=== PATIENT | male | born 1970 | race Caucasian/White ===

== ENCOUNTER 2024-12-15 11:09 | Inpatient (IN) | payer OTHER, SELFPAY ==
[2024-12-15] VITALS (7 sets, daily range): BP systolic 102–137; BP diastolic 49–75; PULSE 60–98; RESP 16–22; TEMP 36.5–37; O2SAT 95–100; BMI 37.7
--- NOTE | ~2024-12-15 | MR_ITS ---
CLINICAL HISTORY: Wrist wound, ? tracking into joint --- Additional Notes or Special Instructions: active IVDU Pt was unable to hold still due to pain. Unable to repeat Exam: MRI of the left wrist without intravenous contrast. Comparison: None provided. Findings: There is 4 mm of ulnar negative variance. No bone marrow signal alteration within the lunate to suggest avascular necrosis. Bony alignment is otherwise anatomic. No concerning bone marrow signal alteration to suggest osteomyelitis. No acute fracture. Mild scattered degenerative change about the wrist with small amount of fluid within the radiocarpal articulation of the mid carpal joint. Extensive soft tissue edema seen involving the extensor digitorum tendons as well as the flexor tendons to the thumb at the level of the distal forearm. The extensor digitorum tendons are markedly heterogeneous with extensive surrounding induration and fluid. This induration extends to the level of the skin surface where there is a skin defect along the dorsal aspect of the carpus. No well-defined fluid collection seen to suggest abscess. For the flexor tendons, there is heterogeneity increased signal intensity throughout the flexor tendons to the thumb proximal to the thenar eminence. Extensive induration within the superficial soft tissues with ill-defined fluid within the volar aspect of the distal forearm measuring 1.1 x 1.8 cm in size. This is not involve the carpal tunnel. Scapholunate ligament and lunotriquetral ligaments are intact. Triangular fibrocartilage is intact. Impression: 1. No MRI findings of osteomyelitis. 2. Extensive abnormality extensor digitorum longus tendons as discussed above. The appearance is most characteristic of infected tendinopathy and tenosynovitis given the associated dorsal soft tissue defect. 3. Likely similar infected tendinopathy and tenosynovitis of the flexor tendons of the thumb with soft tissue abscess within the volar and radial aspect of the distal forearm. This document has been electronically signed by: David Cooper MD on 12/17/2024 18:22:20
--- NOTE | ~2024-12-15 | XR_ITS ---
CLINICAL HISTORY: right foot wound 3 view right foot Comparison: None provided Findings: Bones intact. No dislocations. Periarticular osteophyte formation at the tibiotalar, talonavicular, naviculocuneiform, and subtalar joints. No ankle effusion. No radiopaque foreign body. IMPRESSION: 1. No acute findings. This document has been electronically signed by: Slim Zamudio MD on 12/15/2024 14:15:37
--- NOTE | ~2024-12-15 | XR_ITS ---
CLINICAL HISTORY: Hip pains Exam: AP pelvis with AP and frog-leg lateral views of both hips. Comparison: CT of the pelvis December 15, 2024. Findings: Bony alignment of the hip joints is anatomic. No fracture or erosion. Mild degenerative change of both hip joints, [id number]-left. This is similar to that seen on the patient's recent CT scan. Sacroiliac joints and pubic symphysis are anatomically aligned. Impression: No acute findings. This document has been electronically signed by: David Cooper MD on 12/28/2024 10:35:38
--- NOTE | ~2024-12-15 | XR_ITS ---
EXAMINATION: XR CHEST CLINICAL INFORMATION: post PICC line placement COMPARISON: Rest 02/27/2018 TECHNIQUE: Frontal view of the chest was obtained. FINDINGS: The right lung is hyperexpanded with elevated right hemidiaphragm and atelectatic changes right lung base. The right upper lobe and left lung is clear. The heart size and pulmonary vascularity is normal. There is a new right PICC line with its tip in mid SVC. No gross bony abnormality. XR/XR chest 1V IMPRESSION: New right PICC line tip in mid SVC. Right lower lobe atelectasis. Electronically signed by: Terrence Chan MD 12/30/2024 12:18 PM EDT
--- NOTE | ~2024-12-15 | CT_ITS ---
CLINICAL HISTORY: ? stone CT abdomen and pelvis without contrast Comparison: None provided Findings: No consolidation or effusion. The gallbladder is distended, measuring 14.5 cm by 6.4 cm. High density material dependently within the gallbladder lumen. Hepatic contour is nodular. Spleen is enlarged measuring 16 cm. No bowel obstruction, pneumoperitoneum, or pneumatosis. 27 mm low-density focus within the right aspect of the prostate. Normal appendix. The bones are intact. IMPRESSION: 1. Indeterminate low-density focus within the prostate, possibly indicating abscess or neoplasm. 2. Cirrhosis and portal hypertension. 3. Gallbladder sludge and distention. If there is clinical evidence for acute cholecystitis, further assessment with ultrasound could be performed. This document has been electronically signed by: Slim Zamudio MD on 12/15/2024 15:04:35
--- NOTE | ~2024-12-15 | US_ITS ---
CLINICAL HISTORY: RLE swelling and redness Venous duplex ultrasound right lower extremity Comparison: None provided Findings: The visualized deep veins are fully compressible with normal Doppler color flow and spectral tracings. No popliteal cyst. IMPRESSION: 1. Negative for right lower extremity deep vein thrombosis. This document has been electronically signed by: Slim Zamudio MD on 12/15/2024 15:23:22
--- NOTE | ~2024-12-15 | XR_ITS ---
EXAMINATION: XR WRIST, LEFT CLINICAL INFORMATION: Wound, IVDU COMPARISON: None available. TECHNIQUE: PA, lateral, and oblique views of the left wrist. FINDINGS: There is soft tissue edema pattern with focal area. Minimal/subtle subcutaneous emphysema along the dorsal aspect of the left wrist. There is no osteolysis. No acute cortical disruption or gross malalignment. XR/XR wrist LT min 3V IMPRESSION: Concerning cellulitis/phlegmon versus abscess, dorsal aspect left wrist. No gross osteomyelitis. Electronically signed by: Paulo Kruger MD 12/17/2024 09:56 AM EDT
--- NOTE | 2024-12-15 11:17 | ED_ITS ---
HPI - General Adult General Chief complaint: Extremity Problem Stated complaint: states he needs to be evaluated Time Seen by Provider: 12/15/24 11:25 Source: patient and family (mother) Mode of arrival: wheelchair History of Present Illness HPI narrative: This is a 54 years old the patient with a history of substance abuse presented to the emergency department because generalized weakness unable to ambulate generalized malaise. Symptoms have been going on for about 2 days he was brought here by his mother Onset (ago): day(s) (2) Location: lower extremity Radiation: non-radiation Severity: moderate Quality: burning Pain Consistency: constant Relieving factors: none Exacerbating factors: none Associated symptoms: denies other symptoms Related Data Home Medications ?Medication ?Instructions ?Recorded ?Confirmed lorazepam 0.5 mg tablet 0.5 mg PO BID 12/15/2412/15 quetiapine 50 mg tablet 100 mg PO BEDTIME 12/15/24 0 12/15/24 sertraline 100 mg tablet 50 mg PO BEDTIME 12/15/24 trazodone 50 mg tablet 50 mg PO BEDTIME 12/15/24 methadone 10 mg/mL oral 30 mg PO DAILY@1800 12/16/24 12/16/24 concentrate (Methadone Intensol) methadone 10 mg/mL oral 175 mg PO DAILY 12/16/2404/01 concentrate (Methadone Intensol) Allergies Allergy/AdvReac Type Severity Reaction Status Date / Time No Known Allergies (No Known Allergy Verified 12/15/24 11:18 Allergies*) Review of Systems 2 Constitutional: Constitutional: Reports no additional constitutional complaints Cardiovascular: Cardiovascular: Reports no additional cardiovascular complaints Musculoskeletal: Musculoskeletal: Reports no additional musculoskeletal complaints [facility] Past Medical History [facility] Narrative: Polysubstance abuse Medical History (Updated 12/15/24 @ 15:53 by Rodney Decker MD) Opiate dependence Social History Social History Household Members: Family Household Members Other:: mom Housing: House Do you presently have visiting nurse or other home services: No Patient Tobacco Use Status: Never used Tobacco Tobacco use type: Cigarette Cigarettes Per Day: 2 Years Smoked: 25 Smoked in Last 30 Days: Yes Patient Interested in Nicotine Replacement: Yes Patient Given Instructions on How to Stop Smoking: Yes Date Education Initiated: 12/16/24 Second Hand Smoke Exposure: Yes Substance Use Type: Heroin Have you been hit, kicked, punched, or otherwise hurt by someone within the past year? If so, by whom?: No Do you feel safe in your current relationship?: No Current Relationship Is there a partner from a previous relationship who is making you feel unsafe now?: No Are you made to feel afraid or neglected: No Advance Directives: No Advance Directives Information Provided: Yes Do you have a plan to hurt others: No Plan Recently lost weight without trying: Unsure Eating poorly because of decreased appetite: No Nutrition Risks: No Nutritional Risk Poor oral hygiene: No service: No Physical Exam ED Exam Exam: Appear lethargic Vital Signs: Vital Signs - 24 hr 12/15/24 11:13 12/15/24 11:37 12/15/24 13:26 Temperature 97.7 F 97.8 F Pulse Rate 98 90 87 Respiratory Rate 16 20 16 Blood Pressure 102/55 L 103/49 L 137/68 Pulse Oximetry 96 96 100 Oxygen Delivery Method Room Air Room Air Room Air BMI result Body Mass Index 37.7 Const General: cooperative Nutritional Appearance: average body habitus Orientation/consciousness: oriented to person, oriented to place, oriented to time and patient oriented x3 Eyes General: appearance normal, both eyes and all related structures Neck Neck: Yes normal visual inspection Chest Chest palpation & inspection: normal inspection of the chest Resp Effort & Inspection: normal respiratory effort Auscultation: clear to auscultation bilaterally Cardio Jugular venous distension: no JVD Palpation: normal PMI Rhythm: regular rhythm GI Inspection: Yes normal to inspection Palpation (GI): Soft to palpation, not firm and nontender Auscultation: normal bowel sounds Skin General skin exam: no rashes or lesions noted and elasticity normal Lesions: no lesions Rashes: no rashes Neuro General: oriented to person, oriented to place, oriented to time and patient oriented x3 Cranial nerves: Yes CN's II-XII intact bilaterally Motor exam (neuro): 5/5 motor strength present throughout Extrem Other: Patient has a left open wound in the wrist left and one in the right leg see picture Course Course Course Narrative: RME performed by Sharri Farnsworth PA-C. Patient is a 54 year old assigned male at presenting to the emergency department with a history of opiate use on over 200mg of methadone. Patient states that [facility] refused to dose him on 12/13/2024 because he needs to be evaluated medically first. Patient states that he is not using outside of his Methadone. Detailed physical exam and review of systems are deferred to the geriatric nurse practitioner. Labs ordered. Patient placed back in the waiting room pending room availability and results. Medications Administered Generic Name Dose Route Start Last Admin Trade Name Freq PRN Reason Stop Dose Admin Acetaminophen 650 mg 12/15/24 13:45 12/16/24 05:45 Acetaminophen 325 Mg Tablet PO 650 mg Q6H PRN Administration Pain, Mild 1-3,fever,headache Vancomycin HCl 1,000 mg/ 270 mls @ 270 mls/hr 12/16/24 10:00 12/16/24 11:24 Sodium Chloride IV Infused Q24H PATRICIA Infusion Lactated Ringer's 1,000 mls @ 80 mls/hr 12/15/24 18:15 12/16/24 06:45 Lr IVCONT 80 mls/hr .[id number] PATRICIA Administration Insulin Human Lispro 0 unit 12/15/24 16:30 12/16/24 13:31 Insulin Lispro 100 Unit/Ml 3 Ml Vial SUBCUT 4 unit QIDACHS PATRICIA Administration Protocol Lorazepam 0.5 mg 12/15/24 21:00 12/16/24 09:24 Lorazepam 0.5 Mg Tablet PO 0.5 mg BID PATRICIA Administration Methadone HCl 175 mg 12/16/24 09:00 12/16/24 09:24 Methadone Hcl 20 Mg/2 Ml Oral.Conc PO 175 mg DAILY PATRICIA Administration Sertraline HCl 50 mg 12/15/24 21:00 12/15/24 22:40 Sertraline Hcl 50 Mg Tablet PO 50 mg BEDTIME PATRICIA Administration Sodium Chloride 3 ml 12/15/24 16:00 12/16/24 07:25 0.9 % Sodium Chloride Flush 3 Ml Syringe IVFLUSH Not Given QSHIFT PATRICIA Trazodone HCl 50 mg 12/15/24 21:00 12/15/24 21:46 Trazodone Hcl 50 Mg Tablet PO 50 mg BEDTIME PATRICIA Administration Discontinued Medications Generic Name Dose Route Start Last Admin Trade Name Freq PRN Reason Stop Dose Admin Lactated Ringer's 1,000 mls @ 999 mls/hr 12/15/24 12:30 12/15/24 16:20 Lr IV 12/15/24 13:30 Infused .Q1H1M PATRICIA Infusion Vancomycin HCl 1,250 mg/ 250 mls @ 166.667 mls/hr 12/15/24 12:46 12/15/24 15:13 Sodium Chloride IV 12/15/24 14:15 Infused ONCE ONE Infusion Magnesium Sulfate 2 gm in 50 mls @ 25 mls/hr 12/15/24 13:43 12/15/24 16:20 Magnesium Sulfate/H2o IV 12/15/24 15:42 Infused ONCE ONE Infusion Vancomycin HCl 750 mg/ Sodium 265 mls @ 265 mls/hr 12/15/24 15:00 12/15/24 16:20 Chloride IV 12/15/24 15:59 Infused ONCE ONE Infusion Potassium Chloride 40 meq 12/15/24 13:43 12/15/24 14:06 Potassium Chloride Packet 20 Meq Packet PO 12/15/24 13:44 40 meq ONCE ONE Administration Procedures EJ/Peripheral Line Arm R: Time Out Performed: Yes Skin Cleansed in Sterile Fashion: Yes Size (gauge): 18 IV Secured and Dressing Applied: Yes Patient Tolerated Procedure: well and no complications Additional Comments: Difficult IV access, under ultrasound-guided I cannulated the right basilic vein with a 18 gauge long catheter blood was obtain line was flushed and secured Medical Decision Making Medical Decision Making [facility] Narrative: Patient is here complaining of weakness legs pain we will obtain labs administer IV fluids Differential Diagnosis Differential Diagnoses: The differential diagnosis associated with the presentation includes Sepsis/the Admission/Observation Consideration of admission/observation: Escalation of care including admission/observation considered Lab Data [facility] Lab Attestation statement: I reviewed the patient's lab results. 12/16/24 04:42 12/16/24 04:42 Labs: Lab Results 12/15/24 12/15/24 12/15/24 Range/Units 11:52 11:56 12:02 WBC 5.7 (4.8-10.8) X10*3/uL RBC 4.06 L (4.60-5.80) X10*6/uL Hgb 11.5 L (14.0-18.0) g/dl Hct 34.7 L (42.0-52.0) % MCV 85.5 (80.0-98.0) fL MCH 28.3 (27.0-33.0) pg MCHC 33.1 (31.0-36.0) g/dl RDW 13.6 (11.0-16.0) % Plt Count 64 L (160-400) X10*3/uL MPV 12.5 H (9.4-12.4) fL Immature Gran % (Auto) 0.9 H (0.0-0.4) % Neut % (Auto) 88.1 H (45-73) % Lymph % (Auto) 6.0 L (20-40) % [place] % (Auto) 4.6 (2-11) % Eos % (Auto) 0.2 (0-4) % Baso % (Auto) 0.2 (0-2) % Lymph # (Auto) 0.3 L (1.2-4.9) X10*3/uL [place] # (Auto) 0.3 (0.1-1.2) X10*3/uL Eos # (Auto) 0.0 (0.0-0.4) X10*3/uL Baso # (Auto) 0.0 (0.0-0.2) X10*3/uL Abs Immat Gran (auto) 0.05 H (0.00-0.03) X10*3/uL Absolute Neuts (auto) 5.0 (2.0-8.3) x10*3/uL Absolute Nucleated RBC 0.000 (0.0-0.012) X10*3/uL Nucleated RBC % (auto) 0.0 (0.0-0.2) /100WBC ESR 89 H (0-15) MM/HR VBG pH 7.35 (7.32-7.43) VBG pCO2 50 mmHg VBG pO2 45 mmHg VBG HCO3 28 H (22-26) mmol/L VBG O2 Saturation 64.0 % VBG Base Excess 1.8 mmol/L Sodium 128 L (135-145) mmol/L Potassium 3.1 L (3.3-5.1) mmol/L Chloride 88 L (96-108) mmol/L Carbon Dioxide 24 (22-29) mmol/L Anion Gap 19 (12-20) BUN 46 H (9-16) mg/dL Creatinine 2.94 H (0.5-1.4) mg/dL Estim Creat Clear Calc 37.8 Estimated GFR 22 Random Glucose 321 H (60-115) mg/dL Estimat Average Glucose 318 mg/dL Hemoglobin A1c % 12.7 H (<6.0) % Lactic Acid F/U @ 2Hr 3.9 H* (0.5-2.0) mmol/L Calcium 8.0 L (8.4-10.2) mg/dL Magnesium 1.5 L (1.6-2.6) mg/dL Total Bilirubin 1.3 H (0.0-1.0) mg/dL AST 79 H (5-37) U/L ALT 30 (0-40) U/L Alkaline Phosphatase 89 (39-117) U/L Ammonia 25 (13-55) umol/L Total Creatine Kinase 111 (38-174) U/L Troponin I High Sens 4.0 (<3.5-35.0) ng/L C-Reactive Protein 22.45 H (< or = 0.50) mg/dL Total Protein 9.0 H (6.5-8.0) g/dL Albumin 2.6 L (3.5-5.0) g/dL Prostate Specific Ag < 0.10 (<0.05-4.0) ng/mL Independent Interpretation I performed an independent interpretation of an: CT Scan Radiology Impression Discussion of test interpretation with radiology: I have reviewed the radiologist's reading. Independent Historian mother Prescription Management I considered prescription management with: Antibiotic Chronic Conditions Substance abuse/cirrhosis of the liver Social Determinants Patient?s care significantly limited by Social Determinants of Health including: Other Social Determinant of Health Drug abuse Critical Care Time Critical Care Time Critical Care Time: Yes Total Critical Care Time: 60 Attestation: Lactic acidosis acute renal failure tachycardic the patient speaking with the mother hospitalist Discharge Plan Discharge Clinical Impression: Acidosis, lactic, Acute hyponatremia, Substance abuse Acute renal failure Qualifiers: Acute renal failure type: unspecified Qualified Code(s): N17.9 - Acute kidney failure, unspecified Cellulitis Qualifiers: Site of cellulitis: extremity Site of cellulitis of extremity: lower extremity Laterality: right Qualified Code(s): L03.115 - Cellulitis of right lower limb Patient Disposition: Admitted As Inpatient Interventions: Admission Worksheet (ED) Last Done: 12/16/24 07:45 Discharge Date/Time: 12/16/24 08:42
--- NOTE | 2024-12-15 11:18 | ECG_ITS ---
Test Reason : methadone use Blood Pressure : */* mmHG Vent. Rate : 92 BPM Atrial Rate : 92 BPM P-R Int : 170 ms QRS Dur : 108 ms QT Int : 472 ms P-R-T Axes : 56 50 -9 degrees QTcB Int : 583 ms Sinus rhythm with occasional Premature ventricular complexes Cannot rule out Anterior infarct , age undetermined Prolonged QT Abnormal ECG When compared with ECG of 25-Feb-2018 08:25, QT has lengthened Referred By: Sharri Farnsworth Electronically Signed By: Jaspreet Ford
[2024-12-15 12:02] LABS: MANUAL DIFF FLAG NO
[2024-12-15 12:03] LABS: Hematocrit 34.7 % (42.0-52.0); Hemoglobin 11.5 g/dl (14.0-18.0); Imm Gran Abs Auto 0.05 X10*3/uL (0.00-0.03); Imm Gran Pct Auto 0.9 % (0.0-0.4); Lymphocytes Absolute Auto 0.3 X10*3/uL (1.2-4.9); Mean Corpuscular HGB Conc 33.1 g/dl (31.0-36.0); Mean Corpuscular Hemoglobin 28.3 pg (27.0-33.0); Mean Corpuscular Volume 85.5 fL (80.0-98.0); NRBC Abs Auto 0.000 X10*3/uL (0.0-0.012); NRBC Pct Auto 0.0 /100WBC (0.0-0.2); Red Blood Count 4.06 X10*6/uL (4.60-5.80); White Blood Count 5.7 X10*3/uL (4.8-10.8)
[2024-12-15 12:05] LABS: VBG HCO3 28 mmol/L (22-26); VBG O2 % Saturation 64.0 %
[2024-12-15 12:06] LABS: Venous Blood Gas Refer to POC result
[2024-12-15 12:11] LABS: Ammonia 25 umol/L (13-55)
[2024-12-15 12:19] LABS: Alanine Aminotransferase 30 U/L (0-40); Albumin Level 2.6 g/dL (3.5-5.0); Alkaline Phosphatase 89 U/L (39-117); Anion Gap 19 (12-20); Aspartate Amino Transferase 79 U/L (5-37); Blood Urea Nitrogen 46 mg/dL (9-16); Calcium 8.0 mg/dL (8.4-10.2); Carbon Dioxide 24 mmol/L (22-29); Chloride 88 mmol/L (96-108); Creatinine Clr Calc Pharmacy 37.8; Estimated Glomerular Filt Rate 22; Magnesium 1.5 mg/dL (1.6-2.6); Potassium 3.1 mmol/L (3.3-5.1); Sodium 128 mmol/L (135-145); Total Protein 9.0 g/dL (6.5-8.0)
[2024-12-15 12:26] LABS: Troponin-I High Sensitivity 4.0 ng/L (<3.5-35.0)
[2024-12-15 12:27] LABS: ~Lactic Acid-LAB USE ONLY 3.9 mmol/L (0.5-2.0)
[2024-12-15 12:28] LABS: Platelet Count 64 X10*3/uL (160-400)
[2024-12-15] MEDS: Lactated Ringers 1,000 ML 999 ML IV (12:33)
--- NOTE | 2024-12-15 12:40 | PC.NURSE ---
Pt comes to ED c/o right leg pain and generalized weakness. Hes alert and oriented, but very drowsy and lethargic. He has wounds on his right food and on left wrist. Right lower leg is reddened, swollen and painful. He reports a hx of IVDA, injects in the wound sites, last used heroin . Patient also states he was refused methadone from [facility] on Monday d/t drowsiness. He has an 18g IV in LAC and an 18g U/S guided in upper right arm. LR currently infusing. NSR on tele. Plan of care on going.
--- NOTE | 2024-12-15 13:36 | PM.IMHP ---
History of Present Illness Date of Service: 12/15/24 Attending physician on admission: Carlos Mendieta Chief Complaint: weakness This is a 54-year-old male with history opiate abuse who comes to the emergency department today for evaluation weakness. Patient is a vague historian but states that he has pain on his entire right side. He says that the methadone clinic has not given him on methadone us in the past 3 days because he looks too weak. He reports generalized weakness and decreased po intake over the past several days. He has no abdominal pain, nausea or vomiting but reports no appetite. He denies any falls, respiratory or urinary symptoms. He has not had fever. He initially denied using intravenous drugs actively but then stated that he has been using IV drugs, he reports using IV heroin but is unable to specify frequency or quantity at this time. In the emergency department he was noted to have multiple lab abnormalities, creatinine 2.94, random glucose 321, sodium 128, potassium 3.1, platelets 64. He was noted to have a wound on his left wrist and right ankle and he was treated with a with a dose of IV vancomycin. Patient does not have a primary care provider or follow with a merchandising coordinator. He says he has not seen a doctor in many years. There are no recent baseline labs available for comparison. The emergency department requested admission for further management. Review of Systems Review of Systems: Yes all other systems are reviewed and are negative Constitutional: Constitutional: Denies chills and Denies fever(s) ENT: Denies dizziness Cardiovascular: Cardiovascular: Denies chest pain, Denies palpitations and Denies dyspnea Respiratory: Respiratory: Denies cough and Denies dyspnea Gastrointestinal: Gastrointestinal: Denies abdominal pain, Denies diarrhea and Denies vomiting Genitourinary: Genitourinary: Denies oliguria, Denies dysuria, Denies urinary frequency, Denies urinary incontinence and Denies urinary urgency Neurologic: Denies dizziness Endocrine: Endocrine: Denies palpitations [facility] Medical History (Updated 12/15/24 @ 14:49 by CAMERON Jackson) Opiate dependence Social History Smoked in Last 30 Days: Yes Substance Use Type: Heroin Advance Directives: No Advance Directives Information Provided: Yes Do you have a plan to hurt others: No Plan Meds Allergies Allergy/AdvReac Type Severity Reaction Status Date / Time No Known Allergies (No Known Allergy Verified 12/15/24 11:18 Allergies*) Active Medications: Current Medications Vancomycin HCl 1,250 mg/ (Sodium Chloride) 250 mls @ 166.667 mls/hr IV ONCE ONE Stop: 12/15/24 14:15 Last Admin: 12/15/24 12:57 Dose: 166.67 mls/hr Home Medications ?Medication ?Instructions ?Recorded ?Confirmed ?Last Taken ?Type lorazepam 0.5 mg tablet 0.5 mg PO BID 12/15/24 12/15/24 12/12/24 History methadone 10 mg tablet 205 mg PO DAILY 12/15/24 12/12/24 History quetiapine 50 mg tablet 100 mg PO BEDTIME 12/15/24 12/15/24 12/12/24 History sertraline 100 mg tablet 50 mg PO BEDTIME 12/15/24 12/15/24 12/12/24 History trazodone 50 mg tablet 50 mg PO BEDTIME 12/15/24 12/15/24 12/12/24 History Physical Exam Vital Signs and Narrative: Vital Signs: Last Vital Signs Temp 97.8 F 12/15/24 11:37 Pulse 87 12/15/24 13:26 Resp 16 12/15/24 13:26 BP 137/68 12/15/24 13:26 Pulse Ox 100 12/15/24 13:26 O2 Del Method Room Air 12/15/24 13:26 BMI result Body Mass Index 37.7 Const: Other: oriented but vague General: alert and awake Nutritional Appearance: obese Orientation/consciousness: patient oriented x3 Resp: Effort & Inspection: normal respiratory effort, able to speak in complete sentences, no respiratory distress and no use of accessory muscles Cardio: Rate: regular rate GI: Inspection: No distended Palpation (GI): Soft to palpation and nontender Skin: Other: b/l LE venous stasis dermatitis right foot/anterior ankle ulcer with no purulent drainage erythema right leg lateral and posterior thigh extending down right lopez left wrist wound with purulent drainage, no flucuance Neuro: Other: grossly nonfocal General: patient oriented x3 Results Labs 12/15/24 11:52 12/15/24 11:52 Labs: Laboratory Results - last 24 hr 12/15/24 12/15/24 11:52 12:02 MCV 85.5 MCH 28.3 MCHC 33.1 RDW 13.6 Plt Count 64 L MPV 12.5 H Immature Gran % (Auto) 0.9 H Neut % (Auto) 88.1 H Lymph % (Auto) 6.0 L [place] % (Auto) 4.6 Eos % (Auto) 0.2 Baso % (Auto) 0.2 Lymph # (Auto) 0.3 L [place] # (Auto) 0.3 Eos # (Auto) 0.0 Baso # (Auto) 0.0 Abs Immat Gran (auto) 0.05 H Absolute Neuts (auto) 5.0 Absolute Nucleated RBC 0.000 Nucleated RBC % (auto) 0.0 VBG pH 7.35 VBG pCO2 50 VBG pO2 45 VBG HCO3 28 H VBG O2 Saturation 64.0 VBG Base Excess 1.8 Anion Gap 19 Estim Creat Clear Calc 37.8 Estimated GFR 22 Random Glucose 321 H Lactic Acid F/U @ 2Hr 3.9 H* Calcium 8.0 L Magnesium 1.5 L Total Bilirubin 1.3 H AST 79 H ALT 30 Alkaline Phosphatase 89 Ammonia 25 Total Protein 9.0 H Albumin 2.6 L Assessment and Plan (1) Hypokalemia: Status: Acute (2) Cellulitis of right leg: Status: Acute (3) IVDU (intravenous drug user): Status: Acute Plan This is a 54-year-old male with h/o IVDU on methadone, previous notes indicate history of liver cirrhosis (pt denies) who presents to the emergency department with generalized weakness found to have multiple acute issues Renal insufficiency Uncertain chronicity as there is no recent baseline renal function available, possible MADDY CT abd/pelvis pending to rule out obstructive uropathy got 1L LR in ED Follow BMP New onset diabetes Hemoglobin A1c 12.7 start SSI, follow 24 hour insulin needs POCs, ADA diet pseudohyponatremia due to hyperglycemia sodium should improve with improvement in blood sugar acute lactic acidosis no sepsis, likely type 2 got IVF in ED follow repeat probable liver cirrhosis with thrombocytopenia pt denies but previous notes indicate history previous history of heavy etoh use and current IVDU t.bili 1.3, AST 79 - near baseline CT A/P pending RLE cellulitis concern for thrombophlebitis IV vancomycin follow blood cultures check RLE US RLE and left wrist wounds do not appear to need debridement or I&D at this time xray of right foot unremarkable check inflammatory markers abx as above local wound care Hypokalemia Likely due to decreased p.o. intake Replace and follow Hypomagnesemia Replace and follow IVDU/substance abuse confirm methadone dose - QT prolonged, consider resuming 50% of dose when confirmed and follow EKG COWS to monitor for withdrawal addiction med consult QT prolongation reduce dose of methadone (when dose confirmed) hold seroquel Mood Hold Seroquel Continue sertraline, lorazepam, trazodone dvt ppx - avoid chemophrophylaxis due to thrombocytopenia Patient will likely require 2 midnight stay in the hospital for management of new onset diabetes cellulitis, multiple skin infections in electrolyte abnormalities requiring close monitoring Quality Stroke Does the patient have a stroke diagnosis?: No VTE Prior VTE?: No VTE Risk Level:: Medical - moderate - high VTE Device Contraindication: Treatment Not Indicated VTE Drug Contraindication: Treatment Not Indicated
[2024-12-15 14:00] LABS: Reflex Lactate? 2 Y
[2024-12-15] MEDS: Magnesium Sulfate/H2O 2 GM/50 ML PIGGYBACK IV (14:04)
[2024-12-15] MEDS: Potassium Chloride Packet 20 MEQ PACKET 40 MEQ PO (14:06)
[2024-12-15 14:11] LABS: Hemoglobin A1C 360.4635 umol/L; Total Hemoglobin (HGBA1C) 3122.5884 umol/L
--- NOTE | 2024-12-15 14:21 | PHA.PROG ---
Admission Date/Time: December 15, 2024 13:45 Indication: SKIN Weight in k.47 kg Serum Creatinine - Last 168 Hours 12/15/24 11:52 Creatinine 2.94 H Estimated CrCl and GFR - Last 168 Hours 12/15/24 11:52 Estim Creat Clear Calc 37.8 Estimated GFR 22 Vancomycin Loading Dose: 1250 + 750 Current Vancomycin Dosing Regimen: 1000 Q 24H Vancomycin Monitoring using AUC goal of 400 - 600 range with trough as surrogate marker: 449 Date and Time for next Vancomycin Level to be drawn: 12/17 Pharmacist Comments on Vancomycin Plan: Vancomycin dosing will take advantage of [employer] as a clinical decision support tool that uses Bayesian modeling to calculate individual patient's pharmacokinetic parameters and forecast the patient's drug concentration time course with the target goal AUC 24 range of 400 - 600 mg/L/hr.
--- NOTE | 2024-12-15 14:41 | PHA.MEDREC ---
Addendum entered by Nilson Cornelius PharmD 12/15/24 14:43: reviewed Original Note: Pharmacy Consult ? Medication Reconciliation Pharmacy has completed the medication reconciliation. Patient was able to confirm all of his medications. Patient states he takes Methadone 205 mg daily from [facility] , last dose was 12/12/24.
[2024-12-15 15:25] LABS: ~Lactic Acid-LAB USE ONLY 3.6 mmol/L (0.5-2.0)
[2024-12-15 16:57] LABS: Prostate Specific Antigen < 0.10 ng/mL (<0.05-4.0)
[2024-12-15 17:32] LABS: Glucose, Whole Blood 333 mg/dL (60-115)
[2024-12-15 17:44] LABS: Cannabinoid Screen Urine Not Detected (Not Detect)
[2024-12-15 17:52] LABS: Appearance Urine Clear; Glucose Urine UA 100 mg/dL (Negative); PH 5.5 (5.0-9.0); Specific Gravity - Urine 1.010 (1.005-1.025); UMIC TRIGGER UACC YES
[2024-12-15 18:00] LABS: UACC Culture Trigger YES
[2024-12-15] MEDS: Lactated Ringers 1,000 ML 80 ML IVCONT (18:30)
[2024-12-15 21:53] LABS: Glucose, Whole Blood 243 mg/dL (60-115)
--- NOTE | 2024-12-15 22:41 | PC.NURSE ---
pt required heavy assist from bed to chair. full bed bath given. patient is despondent, lethargic, although answers orientation questions clearly, follows commands. left wrist wound irrigated, nonadherent dressing with gauze wrap. Right foot irrigated, zeroform applied to dry wound bed, barrier cream applied to skin around wound. covered with gauze and wrapped.
--- NOTE | 2024-12-15 23:24 | PC.NURSE ---
assumed care of patient at this time, patient has LR @ 80mL/hr running. Patient also urinated on floor educated patient on proper use of urinal. call coronel given and bed locked in lowest position
[2024-12-16] VITALS (9 sets, daily range): BP systolic 119–141; BP diastolic 54–78; PULSE 62–88; RESP 16–20; TEMP 36.1–36.6; O2SAT 93–97; BMI 37.5
--- NOTE | 2024-12-16 | ECG_ITS ---
Test Reason : qtc check Blood Pressure : */* mmHG Vent. Rate : 82 BPM Atrial Rate : 82 BPM P-R Int : 192 ms QRS Dur : 106 ms QT Int : 390 ms P-R-T Axes : 49 46 8 degrees QTcB Int : 455 ms Normal sinus rhythm Normal ECG When compared with ECG of 15-Dec-2024 11:37, Premature ventricular complexes are no longer Present Minimal criteria for Inferior infarct are no longer Present QT has shortened Referred By: Lila Reese Electronically Signed By: Jaspreet Ford
--- NOTE | 2024-12-16 02:40 | PC.NURSE ---
pt again urinated on floor, no attempts to use urinal. Patient cleaned and bed linens changed
[2024-12-16 04:57] LABS: MANUAL DIFF FLAG NO
[2024-12-16 05:00] LABS: Hematocrit 32.4 % (42.0-52.0); Hemoglobin 11.2 g/dl (14.0-18.0); Imm Gran Abs Auto 0.04 X10*3/uL (0.00-0.03); Imm Gran Pct Auto 0.9 % (0.0-0.4); Lymphocytes Absolute Auto 0.4 X10*3/uL (1.2-4.9); Mean Corpuscular HGB Conc 34.6 g/dl (31.0-36.0); Mean Corpuscular Hemoglobin 28.6 pg (27.0-33.0); Mean Corpuscular Volume 82.7 fL (80.0-98.0); NRBC Abs Auto 0.000 X10*3/uL (0.0-0.012); NRBC Pct Auto 0.0 /100WBC (0.0-0.2); Red Blood Count 3.92 X10*6/uL (4.60-5.80); White Blood Count 4.4 X10*3/uL (4.8-10.8)
[2024-12-16 05:10] LABS: Platelet Count 73 X10*3/uL (160-400)
[2024-12-16 05:20] LABS: Alanine Aminotransferase 26 U/L (0-40); Albumin Level 2.3 g/dL (3.5-5.0); Alkaline Phosphatase 77 U/L (39-117); Anion Gap 14 (12-20); Aspartate Amino Transferase 77 U/L (5-37); Blood Urea Nitrogen 39 mg/dL (9-16); Calcium 7.8 mg/dL (8.4-10.2); Carbon Dioxide 25 mmol/L (22-29); Chloride 94 mmol/L (96-108); Creatinine Clr Calc Pharmacy 81.1; Estimated Glomerular Filt Rate 54; Magnesium 1.7 mg/dL (1.6-2.6); Potassium 3.7 mmol/L (3.3-5.1); Sodium 129 mmol/L (135-145); Total Protein 7.9 g/dL (6.5-8.0)
[2024-12-16] MEDS: Lactated Ringers 1,000 ML 80 ML IVCONT ×2 (06:45→20:20)
[2024-12-16 07:01] LABS: Glucose, Whole Blood 185 mg/dL (60-115)
--- NOTE | 2024-12-16 07:34 | PC.NURSE ---
[facility] contacted for dose information. Last given 12/13/24@0930 175mg. 1 take home for evening (30mg). Methadone form completed and faxed to pharmacy. Per Taylor GALEANA at that time pt was altered and offered ambulance to ED. Pt refused. Pt arrived to ED POV @2300. Pt resting quietly. VSS. NAD. IVF @80ml/hr. Will continue to monitor. Plan of care ongoing.
--- NOTE | 2024-12-16 07:51 | HE.PHANOTE ---
RE: METHADONE DOSING Total dose 205 mg. He took a 'split dose' per clinic and had 175 mg in the am and 30 mg take home on 12/13. He said he took the 30 mg take home dose 12/13 'evening'. Can't remember what time per nurse Danyell Parrish. Patient took 175 mg at [facility] [phone] on 12/13/24 @0930 per KERVIN Vazquez.
--- NOTE | 2024-12-16 08:41 | PC.NURSE ---
Micro called with critical results. +bld cxs for MRSA. MD Dyson notified. No new orders received.
--- NOTE | 2024-12-16 09:08 | MHC.CM.PN ---
Pt. lives with his mother, Mikala, whom he said is his HCP, copy requested. He does not have a PCP, CM will provide brochure. He is on Methadone, goes to [facility] for. He does not use home health services or DME. He can arrange transport home at [place]. DCP: home or STR. CM to follow for DC needs.
[2024-12-16] MEDS: methADONE HCl 20 MG/2 ML ORAL.CONC 175 MG PO (09:24)
[2024-12-16 12:11] LABS: Glucose, Whole Blood 201 mg/dL (60-115)
--- NOTE | 2024-12-16 13:27 | HO.WOUND ---
Wound Consult: Initial 54yr old? male admitted to [facility] [place] on 12/15/24- See progress notes and H&P for detailed history.? Wound consult placed for Left Wrist and Right Foot.? Patient agreeable to assessment and photo documentation.? Patient did not have much to report during my assessment - he was sleepy easily arousable but not able to contribute to history much. Did report he injects into the area - he was not present enough to provide harm reduction strategies, or discuss community resources such as [employer]. Will attempt to follow up prior to d/c. Left Wrist Etiology: Injection site Measurements: 1cm x 2cm x 1.2cm Wound Bed: moist fibrinous slough - pink wound bed Drainage / Odor: reese serosang drainage - no odor Edges: ? unattached Consuelo wound: pink erythema - some swelling - No Induration, Fluctuance or Warmth noted Pain: tenderness reported Goals of Treatment: ?Durafiber for moisture management - TT to Provider to consider Ortho assessment and or imaging due to depth of wrist wound Right Foot Etiology: Injection site per Pt Measurements: 2.8cm x 2.5cm x 0.2cm Wound Bed: marbled wound bed with yellow slough and pink moist tissue Drainage / Odor: no odor noted - serosang drainage noted - small amount Edges: ? attached Consuelo wound: Warmth and redness and patches up the leg, noted to the knee medial and lateral sides and up to ischial area - provider aware will TT Provider to consider imaging if needed - ?intact No Induration, Fluctuance or Warmth noted Pain: tenderness reported Goals of Treatment: ? moisture management with Durafiber AG Recommendations: 1. Turn and Reposition every 2 hours and as needed for patient comfort.? Use pillows or wedges to support off loading positions. 2. Off Load all bony prominences with use of pillows and heel boots if needed.? Apply Preventative foams where needed. ? 3. Monitor for incontinence and moisture control, use barrier creams when needed for prevention and treatment. 4. Provide adequate and supplemental nutrition.? 5. Order low air loss mattress. 6. When applicable maintain blood glucose levels per Providers order. Left Wrist and Right Foot - Cleanse and gently irrigate with NS, Pat dry.? Apply barrier to periwound, lightly pack with Durafiber AG, be sure to leave a wick to easy removal.? Cover with gauze and ABD pad followed by gauze wrap.? Change every other day. Re-consult wound care Nurse for wound deterioration or wound changes.
--- NOTE | 2024-12-16 14:25 | P.PNIM_ITS ---
Subjective Subjective Date of Service: 12/16/24 Interval History: f/u on MADDY, cellulitis, wound of wrist, lower extremity Physical Exam 2 Exam: Exam: General: AO X 3, no acute distress Resp: CTA bilateral CVS: S1,S2,RRR GI: +BS, NT, no distention Skin: see pics Neuro: motor grossly intact Psych: appropriate affect Vital Signs: Vital Signs: Last Vital Signs Temp 97.6 F 12/16/24 12:00 Pulse 82 12/16/24 12:00 Resp 20 12/16/24 12:00 BP 137/76 12/16/24 12:00 Pulse Ox 93 12/16/24 12:00 O2 Del Method Room Air 12/16/24 12:00 BMI result Body Mass Index 37.5 Skin: Other: b/l LE venous stasis dermatitis right foot/anterior ankle ulcer with no purulent drainage erythema right leg lateral and posterior thigh extending down right lopez left wrist wound with purulent drainage, no flucuance Extrem: Other: Patient has a left open wound in the wrist left and one in the right leg see picture Objective Data Active Medications Acetaminophen (Acetaminophen 325 Mg Tablet) 650 mg PO Q6H PRN PRN Reason: Pain, Mild 1-3,fever,headache Last Admin: 12/16/24 05:45 Dose: 650 mg Documented By: VERENICE Calcium Carbonate (Calcium Carbonate 750 Mg Tab.Chew) 750 mg PO Q4H PRN PRN Reason: Heartburn Dextrose (Dextrose 50 % 25 Gm/50 Ml Syringe) 25 gm IVPUSH Q15M PRN; Protocol PRN Reason: per Hypoglycemia Standing Ord. Glucose (Glucose Gel 15 Gm Gel..Gram.) 15 gm PO Q15M PRN; Protocol PRN Reason: per Hypoglycemia Standing Ord. Vancomycin HCl 1,000 mg/ (Sodium Chloride) 270 mls @ 270 mls/hr IV Q24H [facility] Last Infusion: 12/16/24 11:24 Dose: Infused Documented By: EARLINE Lactated Ringer's (Lr) 1,000 mls @ 80 mls/hr IVCONT .[id number] [facility] Last Admin: 12/16/24 06:45 Dose: 80 mls/hr Documented By: VERENICE Insulin Human Lispro (Insulin Lispro 100 Unit/Ml 3 Ml Vial) 0 unit SUBCUT QIDACHS [facility]; Protocol Last Admin: 12/16/24 07:50 Dose: 2 unit Documented By: CELIA Lorazepam (Lorazepam 0.5 Mg Tablet) 0.5 mg PO BID [facility] Last Admin: 12/16/24 09:24 Dose: 0.5 mg Documented By: EARLINE Magnesium Hydroxide (Milk Of Magnesia 30 Ml Oral.Susp) 30 ml PO DAILY PRN PRN Reason: Constipation Melatonin (Melatonin 3 Mg Tablet) 6 mg PO BEDTIME PRN PRN Reason: Insomnia Methadone HCl (Methadone Hcl 20 Mg/2 Ml Oral.Conc) 175 mg PO DAILY [facility] Last Admin: 12/16/24 09:24 Dose: 175 mg Documented By: EARLINE Co-signed By: NICKOLAS Methadone HCl (Methadone Hcl 20 Mg/2 Ml Oral.Conc) 30 mg PO DAILY@1800 [facility] Pharmacy Consult (Consult Rx Vancomycin Dosing) 1 each MISCELLANE DAILY PRN PRN Reason: Consult order Quetiapine Fumarate (Quetiapine Fumarate 100 Mg Tablet) 100 mg PO BEDTIME [facility] Sertraline HCl (Sertraline Hcl 50 Mg Tablet) 50 mg PO BEDTIME [facility] Last Admin: 12/15/24 22:40 Dose: 50 mg Documented By: KAREEN Sodium Chloride (0.9 % Sodium Chloride Flush 3 Ml Syringe) [facility] Last Admin: 12/16/24 07:25 Dose: Not Given Documented By: THOM Non-Admin Reason: IV Running Trazodone HCl (Trazodone Hcl 50 Mg Tablet) 50 mg PO BEDTIME [facility] Last Admin: 12/15/24 21:46 Dose: 50 mg Documented By: KAREEN Labs 12/16/24 04:42 12/16/24 04:42 Labs: Laboratory Results - last 24 hr 12/15/24 12/15/24 12/15/24 11:52 14:39 17:14 MCV MCH MCHC RDW Plt Count MPV Immature Gran % (Auto) Neut % (Auto) Lymph % (Auto) [place] % (Auto) Eos % (Auto) Baso % (Auto) Lymph # (Auto) [place] # (Auto) Eos # (Auto) Baso # (Auto) Abs Immat Gran (auto) Absolute Neuts (auto) Absolute Nucleated RBC Nucleated RBC % (auto) ESR 89 H Anion Gap Estim Creat Clear Calc Estimated GFR POC Glucose 333 H Random Glucose Lactic Acid F/U @ 4Hr 3.6 H* Calcium Magnesium Total Bilirubin AST ALT Alkaline Phosphatase Total Creatine Kinase 111 Total Protein Albumin Prostate Specific Ag < 0.10 Urine Color Urine Appearance Urine pH Ur Specific [place] Urine Protein Urine Glucose (UA) Urine Ketones Urine Blood Urine Nitrite Ur Leukocyte Esterase Urine RBC Urine WBC Ur Squamous Epith Cells Urine Bacteria Hyaline Casts Urine Opiates Screen Ur Buprenorphine Scrn Ur Oxycodone Screen Urine Methadone Screen Urine Fentanyl Screen Ur Barbiturates Screen Ur Phencyclidine Scrn Ur Amphetamines Screen U Benzodiazepines Scrn Urine Cocaine Screen U Marijuana (THC) Screen 12/15/24 12/15/24 12/16/24 17:20 21:45 04:42 MCV 82.7 MCH 28.6 MCHC 34.6 RDW 13.6 Plt Count 73 L MPV 11.1 Immature Gran % (Auto) 0.9 H Neut % (Auto) 84.2 H Lymph % (Auto) 9.9 L [place] % (Auto) 4.8 Eos % (Auto) 0.0 Baso % (Auto) 0.2 Lymph # (Auto) 0.4 L [place] # (Auto) 0.2 Eos # (Auto) 0.0 Baso # (Auto) 0.0 Abs Immat Gran (auto) 0.04 H Absolute Neuts (auto) 3.7 Absolute Nucleated RBC 0.000 Nucleated RBC % (auto) 0.0 ESR Anion Gap 14 Estim Creat Clear Calc 81.1 Estimated GFR 54 POC Glucose 243 H Random Glucose 208 H Lactic Acid F/U @ 4Hr Calcium 7.8 L Magnesium 1.7 Total Bilirubin 1.8 H AST 77 H ALT 26 Alkaline Phosphatase 77 Total Creatine Kinase Total Protein 7.9 Albumin 2.3 L Prostate Specific Ag Urine Color Dark Yellow Urine Appearance Clear Urine pH 5.5 Ur Specific [place] 1.010 Urine Protein 30 (1+) H Urine Glucose (UA) 100 H Urine Ketones Negative Urine Blood Small (1+) H Urine Nitrite Negative Ur Leukocyte Esterase Small (1+) H Urine RBC 0-2 Urine WBC 6-10 Ur Squamous Epith Cells 11-20 Urine Bacteria None Seen Hyaline Casts 3-5 Urine Opiates Screen POSITIVE H Ur Buprenorphine Scrn Not Detected Ur Oxycodone Screen Not Detected Urine Methadone Screen Positive H Urine Fentanyl Screen POSITIVE H Ur Barbiturates Screen Not Detected Ur Phencyclidine Scrn Not Detected Ur Amphetamines Screen Not Detected U Benzodiazepines Scrn POSITIVE H Urine Cocaine Screen Not Detected U Marijuana (THC) Screen Not Detected 12/16/24 12/16/24 06:58 11:44 MCV MCH MCHC RDW Plt Count MPV Immature Gran % (Auto) Neut % (Auto) Lymph % (Auto) [place] % (Auto) Eos % (Auto) Baso % (Auto) Lymph # (Auto) [place] # (Auto) Eos # (Auto) Baso # (Auto) Abs Immat Gran (auto) Absolute Neuts (auto) Absolute Nucleated RBC Nucleated RBC % (auto) ESR Anion Gap Estim Creat Clear Calc Estimated GFR POC Glucose 185 H 201 H Random Glucose Lactic Acid F/U @ 4Hr Calcium Magnesium Total Bilirubin AST ALT Alkaline Phosphatase Total Creatine Kinase Total Protein Albumin Prostate Specific Ag Urine Color Urine Appearance Urine pH Ur Specific [place] Urine Protein Urine Glucose (UA) Urine Ketones Urine Blood Urine Nitrite Ur Leukocyte Esterase Urine RBC Urine WBC Ur Squamous Epith Cells Urine Bacteria Hyaline Casts Urine Opiates Screen Ur Buprenorphine Scrn Ur Oxycodone Screen Urine Methadone Screen Urine Fentanyl Screen Ur Barbiturates Screen Ur Phencyclidine Scrn Ur Amphetamines Screen U Benzodiazepines Scrn Urine Cocaine Screen U Marijuana (THC) Screen Microbiology Microbiology Results: Microbiology 12/15/24 18:01 Urine Culture - Preliminary Urine clean catch - Clean Catch Midstream Culture too young to evaluate. 12/15/24 11:52 Blood Culture - Preliminary Blood - Venous Prelim: GPC Gram Stain only 12/15/24 11:52 Blood Culture - Preliminary Blood - Venous Prelim: GPC Gram Stain only Assessment and Plan (1) IVDU (intravenous drug user): Status: Acute (2) Substance abuse: Status: Acute (3) Acute renal failure: Status: Acute (4) Cellulitis of right leg: Status: Acute (5) Cellulitis: Status: Acute Plan This is a 54-year-old male with h/o IVDU on methadone, previous notes indicate history of liver cirrhosis (pt denies) who presents to the emergency department with generalized weakness found to have multiple acute issues MADDY, improved Cr 1.37 from 2.94 after iv fluid continue monitoring New onset diabetes Hemoglobin A1c 12.7 start SSI, follow 24 hour insulin needs low dose lantus tonight POCs, ADA diet hyponatremia due to hyperglycemia sodium should improve with improvement in blood sugar acute lactic acidosis no sepsis, likely type 2 got IVF in ED follow repeat probable liver cirrhosis with thrombocytopenia pt denies but previous notes indicate history previous history of heavy etoh use and current IVDU t.bili 1.3, AST 79 - near baseline CT A/P pending RLE cellulitis concern for thrombophlebitis IV vancomycin follow blood cultures US no clot RLE and left wrist wounds do not appear to need debridement or I&D at this time xray of right foot unremarkable check inflammatory markers abx as above local wound care Ortho consult Hypokalemia, resolved Hypomagnesemia Replaced and resolved IVDU/substance abuse confirm methadone dose - QT prolonged, consider resuming 50% of dose when confirmed and follow EKG COWS to monitor for withdrawal addiction med consult QT prolongation reduce dose of methadone (when dose confirmed) hold seroquel Mood Hold Seroquel Continue sertraline, lorazepam, trazodone dvt ppx - avoid chemophrophylaxis due to thrombocytopenia Patient will likely require 2 midnight stay in the hospital for management of new onset diabetes cellulitis, multiple skin infections in electrolyte abnormalities requiring close monitoring Quality Stroke Does the patient have a stroke diagnosis?: No VTE Prior VTE?: No VTE Risk Level:: Medical - moderate - high VTE Device Contraindication: Treatment Not Indicated VTE Drug Contraindication: Treatment Not Indicated
--- NOTE | 2024-12-16 15:48 | HO.ADDICTCON ---
History of Present Illness Date of Service: 12/16/2024 Chief Complaint: MADDY, cellulitis Reason for Consult: OUD Sources of Information: patient interviewed and chart reviewed HPI Narrative: Patient is a 54 year old male who presented to [facility] ED c/o weakness and opiate withdrawal. Per patient, he was directed by his [facility] to seek medical care due to his overall appearance and their concern for his health. He had not received methadone since 12/13. In ED, work up showed new onset DM and RLE cellulitis--patient admitted. Labs showing Cr 2.94, K 3.1 Mg 1.5 (both repleted) CBC showing thrombocytopenia--notes state pt with dx of liver cirrhosis. Patient seen in room 486. He was c/o of overall soreness, but denies withdrawal sx. He states he only recently started using due to not having methadone. Has been prescribed methadone for close to 20 years. He is seen at [facility]. Dose confirmed to be 175mg in AM and 30mg QHS--which was already ordered. Substance use and treatment history obtained by director of testing and reviewed. Appearing overall comfortable, no diaphoresis or restlessness noted. Medical Evaluation Reviewed: Yes Review of Systems Constitutional: Reports as per HPI Diagnostics Vital Signs (24Hr): Vital Signs - 24 hr 12/15/24 16:00 12/15/24 18:00 12/16/24 03:07 Temperature 98.6 F 98.5 F 97.7 F Pulse Rate 86 80 88 Respiratory Rate 16 16 16 Blood Pressure 131/74 130/75 119/60 Pulse Oximetry 99 99 97 Oxygen Delivery Method Room Air Room Air Room Air 12/16/24 05:43 12/16/24 07:51 12/16/24 12:00 Temperature 97.8 F 97.6 F Pulse Rate 87 87 82 Respiratory Rate 16 20 20 Blood Pressure 119/54 L 119/54 L 137/76 Pulse Oximetry 97 95 93 Oxygen Delivery Method Room Air Room Air Room Air 12/16/24 15:41 Temperature 97.0 F Pulse Rate 85 Respiratory Rate 20 Blood Pressure 135/78 Pulse Oximetry 95 Oxygen Delivery Method Room Air BMI result Body Mass Index 37.5 Labs 12/16/24 04:42 12/16/24 04:42 Labs: Laboratory Results - last 48 hr 12/15/24 12/15/24 12/15/24 11:52 11:56 12:02 WBC 5.7 RBC 4.06 L Hgb 11.5 L Hct 34.7 L MCV 85.5 MCH 28.3 MCHC 33.1 RDW 13.6 Plt Count 64 L MPV 12.5 H Immature Gran % (Auto) 0.9 H Neut % (Auto) 88.1 H Lymph % (Auto) 6.0 L [place] % (Auto) 4.6 Eos % (Auto) 0.2 Baso % (Auto) 0.2 Lymph # (Auto) 0.3 L [place] # (Auto) 0.3 Eos # (Auto) 0.0 Baso # (Auto) 0.0 Abs Immat Gran (auto) 0.05 H Absolute Neuts (auto) 5.0 Absolute Nucleated RBC 0.000 Nucleated RBC % (auto) 0.0 ESR 89 H VBG pH 7.35 VBG pCO2 50 VBG pO2 45 VBG HCO3 28 H VBG O2 Saturation 64.0 VBG Base Excess 1.8 Sodium 128 L Potassium 3.1 L Chloride 88 L Carbon Dioxide 24 Anion Gap 19 BUN 46 H Creatinine 2.94 H Estim Creat Clear Calc 37.8 Estimated GFR 22 POC Glucose Random Glucose 321 H Estimat Average Glucose 318 Hemoglobin A1c % 12.7 H Lactic Acid F/U @ 2Hr 3.9 H* Lactic Acid F/U @ 4Hr Calcium 8.0 L Magnesium 1.5 L Total Bilirubin 1.3 H AST 79 H ALT 30 Alkaline Phosphatase 89 Ammonia 25 Total Creatine Kinase 111 Troponin I High Sens 4.0 C-Reactive Protein 22.45 H Total Protein 9.0 H Albumin 2.6 L Prostate Specific Ag < 0.10 Urine Color Urine Appearance Urine pH Ur Specific [place] Urine Protein Urine Glucose (UA) Urine Ketones Urine Blood Urine Nitrite Ur Leukocyte Esterase Urine RBC Urine WBC Ur Squamous Epith Cells Urine Bacteria Hyaline Casts Urine Opiates Screen Ur Buprenorphine Scrn Ur Oxycodone Screen Urine Methadone Screen Urine Fentanyl Screen Ur Barbiturates Screen Ur Phencyclidine Scrn Ur Amphetamines Screen U Benzodiazepines Scrn Urine Cocaine Screen U Marijuana (THC) Screen 12/15/24 12/15/24 12/15/24 14:39 17:14 17:20 WBC RBC Hgb Hct MCV MCH MCHC RDW Plt Count MPV Immature Gran % (Auto) Neut % (Auto) Lymph % (Auto) [place] % (Auto) Eos % (Auto) Baso % (Auto) Lymph # (Auto) [place] # (Auto) Eos # (Auto) Baso # (Auto) Abs Immat Gran (auto) Absolute Neuts (auto) Absolute Nucleated RBC Nucleated RBC % (auto) ESR VBG pH VBG pCO2 VBG pO2 VBG HCO3 VBG O2 Saturation VBG Base Excess Sodium Potassium Chloride Carbon Dioxide Anion Gap BUN Creatinine Estim Creat Clear Calc Estimated GFR POC Glucose 333 H Random Glucose Estimat Average Glucose Hemoglobin A1c % Lactic Acid F/U @ 2Hr Lactic Acid F/U @ 4Hr 3.6 H* Calcium Magnesium Total Bilirubin AST ALT Alkaline Phosphatase Ammonia Total Creatine Kinase Troponin I High Sens C-Reactive Protein Total Protein Albumin Prostate Specific Ag Urine Color Dark Yellow Urine Appearance Clear Urine pH 5.5 Ur Specific [place] 1.010 Urine Protein 30 (1+) H Urine Glucose (UA) 100 H Urine Ketones Negative Urine Blood Small (1+) H Urine Nitrite Negative Ur Leukocyte Esterase Small (1+) H Urine RBC 0-2 Urine WBC 6-10 Ur Squamous Epith Cells 11-20 Urine Bacteria None Seen Hyaline Casts 3-5 Urine Opiates Screen POSITIVE H Ur Buprenorphine Scrn Not Detected Ur Oxycodone Screen Not Detected Urine Methadone Screen Positive H Urine Fentanyl Screen POSITIVE H Ur Barbiturates Screen Not Detected Ur Phencyclidine Scrn Not Detected Ur Amphetamines Screen Not Detected U Benzodiazepines Scrn POSITIVE H Urine Cocaine Screen Not Detected U Marijuana (THC) Screen Not Detected 12/15/24 12/16/24 12/16/24 21:45 04:42 06:58 WBC 4.4 L RBC 3.92 L Hgb 11.2 L Hct 32.4 L MCV 82.7 MCH 28.6 MCHC 34.6 RDW 13.6 Plt Count 73 L MPV 11.1 Immature Gran % (Auto) 0.9 H Neut % (Auto) 84.2 H Lymph % (Auto) 9.9 L [place] % (Auto) 4.8 Eos % (Auto) 0.0 Baso % (Auto) 0.2 Lymph # (Auto) 0.4 L [place] # (Auto) 0.2 Eos # (Auto) 0.0 Baso # (Auto) 0.0 Abs Immat Gran (auto) 0.04 H Absolute Neuts (auto) 3.7 Absolute Nucleated RBC 0.000 Nucleated RBC % (auto) 0.0 ESR VBG pH VBG pCO2 VBG pO2 VBG HCO3 VBG O2 Saturation VBG Base Excess Sodium 129 L Potassium 3.7 Chloride 94 L Carbon Dioxide 25 Anion Gap 14 BUN 39 H Creatinine 1.37 Estim Creat Clear Calc 81.1 Estimated GFR 54 POC Glucose 243 H 185 H Random Glucose 208 H Estimat Average Glucose Hemoglobin A1c % Lactic Acid F/U @ 2Hr Lactic Acid F/U @ 4Hr Calcium 7.8 L Magnesium 1.7 Total Bilirubin 1.8 H AST 77 H ALT 26 Alkaline Phosphatase 77 Ammonia Total Creatine Kinase Troponin I High Sens C-Reactive Protein Total Protein 7.9 Albumin 2.3 L Prostate Specific Ag Urine Color Urine Appearance Urine pH Ur Specific [place] Urine Protein Urine Glucose (UA) Urine Ketones Urine Blood Urine Nitrite Ur Leukocyte Esterase Urine RBC Urine WBC Ur Squamous Epith Cells Urine Bacteria Hyaline Casts Urine Opiates Screen Ur Buprenorphine Scrn Ur Oxycodone Screen Urine Methadone Screen Urine Fentanyl Screen Ur Barbiturates Screen Ur Phencyclidine Scrn Ur Amphetamines Screen U Benzodiazepines Scrn Urine Cocaine Screen U Marijuana (THC) Screen 12/16/24 11:44 WBC RBC Hgb Hct MCV MCH MCHC RDW Plt Count MPV Immature Gran % (Auto) Neut % (Auto) Lymph % (Auto) [place] % (Auto) Eos % (Auto) Baso % (Auto) Lymph # (Auto) [place] # (Auto) Eos # (Auto) Baso # (Auto) Abs Immat Gran (auto) Absolute Neuts (auto) Absolute Nucleated RBC Nucleated RBC % (auto) ESR VBG pH VBG pCO2 VBG pO2 VBG HCO3 VBG O2 Saturation VBG Base Excess Sodium Potassium Chloride Carbon Dioxide Anion Gap BUN Creatinine Estim Creat Clear Calc Estimated GFR POC Glucose 201 H Random Glucose Estimat Average Glucose Hemoglobin A1c % Lactic Acid F/U @ 2Hr Lactic Acid F/U @ 4Hr Calcium Magnesium Total Bilirubin AST ALT Alkaline Phosphatase Ammonia Total Creatine Kinase Troponin I High Sens C-Reactive Protein Total Protein Albumin Prostate Specific Ag Urine Color Urine Appearance Urine pH Ur Specific [place] Urine Protein Urine Glucose (UA) Urine Ketones Urine Blood Urine Nitrite Ur Leukocyte Esterase Urine RBC Urine WBC Ur Squamous Epith Cells Urine Bacteria Hyaline Casts Urine Opiates Screen Ur Buprenorphine Scrn Ur Oxycodone Screen Urine Methadone Screen Urine Fentanyl Screen Ur Barbiturates Screen Ur Phencyclidine Scrn Ur Amphetamines Screen U Benzodiazepines Scrn Urine Cocaine Screen U Marijuana (THC) Screen Mental Status Exam Mental Status Exam Level of Consciousness: Awake and Alert Patient Behavior: Appropriate and Cooperative Affect Description: Calm Speech Pattern: Clear Hallucinations: None Thought Process: Intact Thought Content: positive for Intact Judgement: Good Medications Medications Current Medications Acetaminophen (Acetaminophen 325 Mg Tablet) 650 mg PO Q6H PRN PRN Reason: Pain, Mild 1-3,fever,headache Last Admin: 12/16/24 05:45 Dose: 650 mg Calcium Carbonate (Calcium Carbonate 750 Mg Tab.Chew) 750 mg PO Q4H PRN PRN Reason: Heartburn Dextrose (Dextrose 50 % 25 Gm/50 Ml Syringe) 25 gm IVPUSH Q15M PRN; Protocol PRN Reason: per Hypoglycemia Standing Ord. Glucose (Glucose Gel 15 Gm Gel..Gram.) 15 gm PO Q15M PRN; Protocol PRN Reason: per Hypoglycemia Standing Ord. Vancomycin HCl 1,000 mg/ (Sodium Chloride) 270 mls @ 270 mls/hr IV Q24H [facility] Last Infusion: 12/16/24 11:24 Dose: Infused Lactated Ringer's (Lr) 1,000 mls @ 80 mls/hr IVCONT .[id number] [facility] Last Admin: 12/16/24 06:45 Dose: 80 mls/hr Insulin Human Lispro (Insulin Lispro 100 Unit/Ml 3 Ml Vial) 0 unit SUBCUT QIDACHS [facility]; Protocol Last Admin: 12/16/24 13:31 Dose: 4 unit Lorazepam (Lorazepam 0.5 Mg Tablet) 0.5 mg PO BID [facility] Last Admin: 12/16/24 09:24 Dose: 0.5 mg Magnesium Hydroxide (Milk Of Magnesia 30 Ml Oral.Susp) 30 ml PO DAILY PRN PRN Reason: Constipation Melatonin (Melatonin 3 Mg Tablet) 6 mg PO BEDTIME PRN PRN Reason: Insomnia Methadone HCl (Methadone Hcl 20 Mg/2 Ml Oral.Conc) 175 mg PO DAILY [facility] Last Admin: 12/16/24 09:24 Dose: 175 mg Methadone HCl (Methadone Hcl 20 Mg/2 Ml Oral.Conc) 30 mg PO DAILY@1800 [facility] Pharmacy Consult (Consult Rx Vancomycin Dosing) 1 each MISCELLANE DAILY PRN PRN Reason: Consult order Quetiapine Fumarate (Quetiapine Fumarate 100 Mg Tablet) 100 mg PO BEDTIME [facility] Sertraline HCl (Sertraline Hcl 50 Mg Tablet) 50 mg PO BEDTIME [facility] Last Admin: 12/15/24 22:40 Dose: 50 mg Sodium Chloride (0.9 % Sodium Chloride Flush 3 Ml Syringe) 3 ml IVFLUSH QSHIFT [facility] Last Admin: 12/16/24 07:25 Dose: Not Given Trazodone HCl (Trazodone Hcl 50 Mg Tablet) 50 mg PO BEDTIME [facility] Last Admin: 12/15/24 21:46 Dose: 50 mg Allergies Allergies Allergy/AdvReac Type Severity Reaction Status Date / Time No Known Allergies (No Known Allergy Verified 12/15/24 11:18 Allergies*) Assessment & Plan Assessment & Plan (1) Opioid use disorder: Status: Acute Code(s): F11.90 - Opioid use, unspecified, uncomplicated Assessment and Plan: methadone home dose ordered. repeat EKG improved--QT has shortened. Monitor lytes and replete as necessary. connected to [facility] and supports--risk reduction discussion with RN will continue to check in PRN Total time managing care of this patient today __30__ minutes. PMFSH Past Medical History Medical History (Updated 12/16/24 @ 15:49 by Lila Reese CNP) Opiate dependence Social History Social History Household Members: Family Household Members Other:: mom Housing: House Do you presently have visiting nurse or other home services: No Patient Tobacco Use Status: Never used Tobacco Tobacco use type: Cigarette Cigarettes Per Day: 2 Years Smoked: 25 Smoked in Last 30 Days: Yes Patient Interested in Nicotine Replacement: Yes Patient Given Instructions on How to Stop Smoking: Yes Date Education Initiated: 12/16/24 Second Hand Smoke Exposure: Yes Substance Use Type: Heroin Have you been hit, kicked, punched, or otherwise hurt by someone within the past year? If so, by whom?: No Do you feel safe in your current relationship?: No Current Relationship Is there a partner from a previous relationship who is making you feel unsafe now?: No Are you made to feel afraid or neglected: No Advance Directives: No Advance Directives Information Provided: Yes Do you have a plan to hurt others: No Plan Recently lost weight without trying: Unsure Eating poorly because of decreased appetite: No Nutrition Risks: No Nutritional Risk Poor oral hygiene: No service: No
[2024-12-16 16:10] LABS: Glucose, Whole Blood 169 mg/dL (60-115)
[2024-12-16] MEDS: oxyCODONE HCl Immed Release 5 MG TABLET PO (16:44)
--- NOTE | 2024-12-16 16:44 | PM.CNOR ---
History of Present Illness HPI Consult date: 12/16/24 Chief complaint: MADDY, cellulitis Narrative: Patient is a 54 YO M with PMH IVDU admitted to the hospital for chronic wounds of RLE and LUE with cellulitis of RLE Patient admits that the wound on his LUE at the dorsal wrist has been present for at least 2 months Patient reports that this wound has been worsening over that time Patient reports minimal discomfort in the L wrist Patient has been seen and evaluated by wound care, who had concerns for the depth of the wound, potentially that it tracks into the joint Patient is not entirely attentive during the course of interview Patient does use the left hand and wrist regularly, does not demonstrate any discomfort when doing so No other acute complaints or concerns at this time Review of Systems Review of Systems: Yes all other systems are reviewed and are negative [facility] Past Medical History Medical History (Updated 12/16/24 @ 17:02 by CAMERON Mortensen) Opiate dependence Social History Social History Household Members: Family Household Members Other:: mom Housing: House Do you presently have visiting nurse or other home services: No Patient Tobacco Use Status: Never used Tobacco Tobacco use type: Cigarette Cigarettes Per Day: 2 Years Smoked: 25 Smoked in Last 30 Days: Yes Patient Interested in Nicotine Replacement: Yes Patient Given Instructions on How to Stop Smoking: Yes Date Education Initiated: 12/16/24 Second Hand Smoke Exposure: Yes Substance Use Type: Heroin Have you been hit, kicked, punched, or otherwise hurt by someone within the past year? If so, by whom?: No Do you feel safe in your current relationship?: No Current Relationship Is there a partner from a previous relationship who is making you feel unsafe now?: No Are you made to feel afraid or neglected: No Advance Directives: No Advance Directives Information Provided: Yes Do you have a plan to hurt others: No Plan Recently lost weight without trying: Unsure Eating poorly because of decreased appetite: No Nutrition Risks: No Nutritional Risk Poor oral hygiene: No service: No Meds Allergies Allergy/AdvReac Type Severity Reaction Status Date / Time No Known Allergies (No Known Allergy Verified 12/15/24 11:18 Allergies*) Active Medications: Current Medications Acetaminophen (Acetaminophen 325 Mg Tablet) 650 mg PO Q6H PRN PRN Reason: Pain, Mild 1-3,fever,headache Last Admin: 12/16/24 05:45 Dose: 650 mg Calcium Carbonate (Calcium Carbonate 750 Mg Tab.Chew) 750 mg PO Q4H PRN PRN Reason: Heartburn Dextrose (Dextrose 50 % 25 Gm/50 Ml Syringe) 25 gm IVPUSH Q15M PRN; Protocol PRN Reason: per Hypoglycemia Standing Ord. Glucose (Glucose Gel 15 Gm Gel..Gram.) 15 gm PO Q15M PRN; Protocol PRN Reason: per Hypoglycemia Standing Ord. Vancomycin HCl 1,000 mg/ (Sodium Chloride) 270 mls @ 270 mls/hr IV Q24H [facility] Last Infusion: 12/16/24 11:24 Dose: Infused Lactated Ringer's (Lr) 1,000 mls @ 80 mls/hr IVCONT .[id number] [facility] Last Admin: 12/16/24 06:45 Dose: 80 mls/hr Insulin Human Lispro (Insulin Lispro 100 Unit/Ml 3 Ml Vial) 0 unit SUBCUT QIDACHS [facility]; Protocol Last Admin: 12/16/24 13:31 Dose: 4 unit Lorazepam (Lorazepam 0.5 Mg Tablet) 0.5 mg PO BID [facility] Last Admin: 12/16/24 09:24 Dose: 0.5 mg Magnesium Hydroxide (Milk Of Magnesia 30 Ml Oral.Susp) 30 ml PO DAILY PRN PRN Reason: Constipation Melatonin (Melatonin 3 Mg Tablet) 6 mg PO BEDTIME PRN PRN Reason: Insomnia Methadone HCl (Methadone Hcl 20 Mg/2 Ml Oral.Conc) 175 mg PO DAILY [facility] Last Admin: 12/16/24 09:24 Dose: 175 mg Methadone HCl (Methadone Hcl 20 Mg/2 Ml Oral.Conc) 30 mg PO DAILY@1800 [facility] Oxycodone HCl (Oxycodone Hcl Immed Release 5 Mg Tablet) 5 mg PO Q6H PRN PRN Reason: Pain, Severe (Pain Scale 7-10) Pharmacy Consult (Consult Rx Vancomycin Dosing) 1 each MISCELLANE DAILY PRN PRN Reason: Consult order Quetiapine Fumarate (Quetiapine Fumarate 100 Mg Tablet) 100 mg PO BEDTIME [facility] Sertraline HCl (Sertraline Hcl 50 Mg Tablet) 50 mg PO BEDTIME [facility] Last Admin: 12/15/24 22:40 Dose: 50 mg Sodium Chloride (0.9 % Sodium Chloride Flush 3 Ml Syringe) 3 ml IVFLUSH QSHIFT [facility] Last Admin: 12/16/24 07:25 Dose: Not Given Trazodone HCl (Trazodone Hcl 50 Mg Tablet) 50 mg PO BEDTIME [facility] Last Admin: 12/15/24 21:46 Dose: 50 mg Home Medications ?Medication ?Instructions ?Recorded ?Confirmed ?Last Taken ?Type lorazepam 0.5 mg tablet 0.5 mg PO BID 12/15/24 12/15/24 12/12/24 History quetiapine 50 mg tablet 100 mg PO BEDTIME 12/15/24 12/15/24 12/12/24 History sertraline 100 mg tablet 50 mg PO BEDTIME 12/15/24 12/15/24 12/12/24 History trazodone 50 mg tablet 50 mg PO BEDTIME 12/15/24 12/15/24 12/12/24 History methadone 10 mg/mL oral 30 mg PO DAILY@1800 12/16/24 12/16/24 12/13/24 History concentrate (Methadone Intensol) methadone 10 mg/mL oral 175 mg PO DAILY 12/16/24 12/16/24 12/13/24 History concentrate (Methadone Intensol) Physical Exam Vital Signs: Vital Signs: Last Vital Signs Temp 97.0 F 12/16/24 15:41 Pulse 85 12/16/24 15:41 Resp 20 12/16/24 15:41 BP 135/78 12/16/24 15:41 Pulse Ox 95 12/16/24 15:41 O2 Del Method Room Air 12/16/24 15:41 BMI result Body Mass Index 37.5 Extrem: Other: Patient is alert, oriented, and in no acute distress. Neuro: Normal sensation of the tips of all digits of the left hand at this time Vascular: Cap refill brisk Pain: Minimal tenderness to palpation about wound on dorsal aspect of the left wrist Minimal discomfort with axial loading of the left wrist Range of motion of the left wrist appears painless ROM: Range of motion of the left wrist appears full and intact, patient is able to use the wrist fully Skin: There is an approximately 3-4 cm in diameter at its widest point wound on the dorsal aspect of the left wrist, appears in line with the joint space Of note,there is a sinus in the more ulnar aspect of the wound that does appear to track at least 1-1.5 cm down into the wrist General: Minimal erythema No active drainage at this time Psych: Appears grossly normal Affect normal Attitude cooperative Results Labs 12/16/24 04:42 12/16/24 04:42 Labs: Abnormal lab results 12/15/24 12/15/24 12/15/24 Range/Units 17:14 17:20 21:45 WBC (4.8-10.8) X10*3/uL RBC (4.60-5.80) X10*6/uL Hgb (14.0-18.0) g/dl Hct (42.0-52.0) % Plt Count (160-400) X10*3/uL Immature Gran % (Auto) (0.0-0.4) % Neut % (Auto) (45-73) % Lymph % (Auto) (20-40) % Lymph # (Auto) (1.2-4.9) X10*3/uL Abs Immat Gran (auto) (0.00-0.03) X10*3/uL Sodium (135-145) mmol/L Chloride (96-108) mmol/L BUN (9-16) mg/dL POC Glucose 333 H 243 H (60-115) mg/dL Random Glucose (60-115) mg/dL Calcium (8.4-10.2) mg/dL Total Bilirubin (0.0-1.0) mg/dL AST (5-37) U/L Albumin (3.5-5.0) g/dL Urine Protein 30 (1+) H (Neg-Trace) mg/dL Urine Glucose (UA) 100 H (Negative) mg/dL Urine Blood Small (1+) H (Negative) Ur Leukocyte Esterase Small (1+) H (Negative) Urine Opiates Screen POSITIVE H (Not Detect) Urine Methadone Screen Positive H (Not Detect) ng/mL Urine Fentanyl Screen POSITIVE H (Not Detect) U Benzodiazepines Scrn POSITIVE H (Not Detect) 12/16/24 12/16/24 12/16/24 Range/Units 04:42 06:58 11:44 WBC 4.4 L (4.8-10.8) X10*3/uL RBC 3.92 L (4.60-5.80) X10*6/uL Hgb 11.2 L (14.0-18.0) g/dl Hct 32.4 L (42.0-52.0) % Plt Count 73 L (160-400) X10*3/uL Immature Gran % (Auto) 0.9 H (0.0-0.4) % Neut % (Auto) 84.2 H (45-73) % Lymph % (Auto) 9.9 L (20-40) % Lymph # (Auto) 0.4 L (1.2-4.9) X10*3/uL Abs Immat Gran (auto) 0.04 H (0.00-0.03) X10*3/uL Sodium 129 L (135-145) mmol/L Chloride 94 L (96-108) mmol/L BUN 39 H (9-16) mg/dL POC Glucose 185 H 201 H (60-115) mg/dL Random Glucose 208 H (60-115) mg/dL Calcium 7.8 L (8.4-10.2) mg/dL Total Bilirubin 1.8 H (0.0-1.0) mg/dL AST 77 H (5-37) U/L Albumin 2.3 L (3.5-5.0) g/dL Urine Protein (Neg-Trace) mg/dL Urine Glucose (UA) (Negative) mg/dL Urine Blood (Negative) Ur Leukocyte Esterase (Negative) Urine Opiates Screen (Not Detect) Urine Methadone Screen (Not Detect) ng/mL Urine Fentanyl Screen (Not Detect) U Benzodiazepines Scrn (Not Detect) 12/16/24 Range/Units 16:04 WBC (4.8-10.8) X10*3/uL RBC (4.60-5.80) X10*6/uL Hgb (14.0-18.0) g/dl Hct (42.0-52.0) % Plt Count (160-400) X10*3/uL Immature Gran % (Auto) (0.0-0.4) % Neut % (Auto) (45-73) % Lymph % (Auto) (20-40) % Lymph # (Auto) (1.2-4.9) X10*3/uL Abs Immat Gran (auto) (0.00-0.03) X10*3/uL Sodium (135-145) mmol/L Chloride (96-108) mmol/L BUN (9-16) mg/dL POC Glucose 169 H (60-115) mg/dL Random Glucose (60-115) mg/dL Calcium (8.4-10.2) mg/dL Total Bilirubin (0.0-1.0) mg/dL AST (5-37) U/L Albumin (3.5-5.0) g/dL Urine Protein (Neg-Trace) mg/dL Urine Glucose (UA) (Negative) mg/dL Urine Blood (Negative) Ur Leukocyte Esterase (Negative) Urine Opiates Screen (Not Detect) Urine Methadone Screen (Not Detect) ng/mL Urine Fentanyl Screen (Not Detect) U Benzodiazepines Scrn (Not Detect) H & H 12/15/24 12/16/24 Range/Units 11:52 04:42 Hgb 11.5 L 11.2 L (14.0-18.0) g/dl Hct 34.7 L 32.4 L (42.0-52.0) % All other labs normal. Assessment and Plan (1) Open wound of left wrist: Status: Acute Plan 1. Chronic wound of left wrist Concern for potential tracking into joint At this time, it is unclear whether the wound does indeed track into the wrist joint, however there is concern for this given the depth of the ulnar sinus present in the wound MRI ordered to assess whether the wound does indeed track into the joint space of the left wrist or not Dressing is changed and wound is superficially packed with silver alginate dressing to encourage wound to dry out Continue IV antibiotics in the meantime Orthopedics will continue to follow and will determine if further intervention is indicated after MRI Procedures Date of Service Date of Service: 12/16/24
[2024-12-16] MEDS: 0.9 % Sodium Chloride Flush 3 ML SYRINGE IVFLUSH ×2 (16:45→21:54)
[2024-12-16] MEDS: methADONE HCl 20 MG/2 ML ORAL.CONC 30 MG PO (17:53)
[2024-12-16 21:07] LABS: Glucose, Whole Blood 161 mg/dL (60-115)
[2024-12-17] VITALS (8 sets, daily range): BP systolic 124–153; BP diastolic 58–72; PULSE 77–88; RESP 17–20; TEMP 36.2–37.6; O2SAT 93–97
[2024-12-17 06:39] LABS: Hematocrit 31.6 % (42.0-52.0); Hemoglobin 10.5 g/dl (14.0-18.0); Mean Corpuscular HGB Conc 33.2 g/dl (31.0-36.0); Mean Corpuscular Hemoglobin 28.0 pg (27.0-33.0); Mean Corpuscular Volume 84.3 fL (80.0-98.0); NRBC Abs Auto 0.000 X10*3/uL (0.0-0.012); NRBC Pct Auto 0.0 /100WBC (0.0-0.2); Red Blood Count 3.75 X10*6/uL (4.60-5.80); White Blood Count 3.9 X10*3/uL (4.8-10.8)
[2024-12-17 06:54] LABS: Platelet Count 61 X10*3/uL (160-400)
--- NOTE | 2024-12-17 07:00 | CA_ITS ---
Transthoracic Echocardiogram Patient (Last, First, Middle): Stepan Low, Gender: Male Date of : 1970 Age: 54 Procedure Date: 12/17/2024 Procedure Type: Transthoracic Echocardiogram Location: [facility] [place] Height: 180.34 cm Weight: 121.56 kg BSA: 2.39 m2 Heart Rate: 86 bpm BP: 153 / 69 mmHg Forming Machine Operator: MARICHUY Referring MD: Dinesh Dyson MD Symptoms: bacteremia Study Quality: Adequate ECG Rhythm: Sinus Conclusions: - Normal left ventricular size and systolic function. There is mildly increased left ventricular wall thickness. The visually estimated ejection fraction is between 55-60%. - Normal left ventricular filling pressures. - The basal inferior segment is akinetic. - Normal right ventricular cavity size and systolic function. - There is mild dilatation of the ascending aorta measuring 3.70 cm. Findings Left Ventricle Normal left ventricular size and systolic function. There is mildly increased left ventricular wall thickness. The visually estimated ejection fraction is between 55-60%. There is evidence of regional wall motion abnormalities. Abnormal diastolic function is noted. Spectral Doppler is indicative of an impaired relaxation filling pattern. Normal left ventricular filling pressures. Wall Motion Rest Echo Findings The basal inferior segment is akinetic. Right Ventricle Normal right ventricular cavity size and systolic function. Atria The left atrium is mildly dilated. The right atrium is normal in size. Aortic Valve Normal aortic valve structure and function. There is no aortic valve stenosis. There is no aortic valve regurgitation. Mitral Valve Normal mitral valve structure and function. There is trace mitral valve regurgitation. There is no mitral valve stenosis. Pulmonic Valve The pulmonic valve is normal. There is no pulmonic valve regurgitation. Tricuspid Valve Likely normal tricuspid valve structure and function. There is trace tricuspid valve regurgitation. Normal right atrial pressure. There is no evidence of pulmonary hypertension. Great Vessels There is mild dilatation of the ascending aorta measuring 3.70 cm. Venous The inferior vena cava is normal in size and collapses greater than 50% with inspiration. Pericardium/Pleural There is no evidence of pericardial effusion. Prior Study Comparison Changes noted compared to prior study dated: 03/02/2018. Basal inferior wall appears akinetic. Measurements 2D Linear Measurements IVSd: 1.10 0.6-0.9/0.6-1.0 cm LVIDd: 5.85 3.9-5.3/4.2-5.9 cm LVIDd Index: 2.45 2.4-3.2/2.2-3.1 cm/m2 LVIDs: 3.57 2.0-3.6 cm LVPWd: 1.01 0.7-1.1 cm Ao Root: 3.50 2.1-3.5 cm LA Diam: 4.40 2.7-3.8/3.0-4.0 cm LAIDs Index: 1.84 1.5-2.3 cm/m2 LV Mass: 316.32 67-162/88-224 g LV Mass Index: 132.35 43-95/49-115 g/m2 LVOT Diam: 2.60 3.0+(-)1.3 cm Mitral Valve MV Pk E: 0.96 MV PK A: 1.04 MV Decel Time: 211.00 E/A: 0.90 E'Lateral: 18.80 E'Medial: 9.25 E/E' Med: 10.30 E/E' Lat: 5.10 PHT: 62.00 MVA PHT: 3.55 Decel [place]: 4.52 Aortic Valve AoV Pk Abner: 1.75 AoV Mn Abner: 1.19 AoV VTI: 0.37 AoV Pk Grad: 12.00 Aov Mn Grad: 6.00 TAYLOR Cont.VTI: 3.61 LVOT LVOT Pk Abnre: 1.24 LVOT Mn Abner: 0.82 LVOT VTI: 0.25 LVOT Pk Grad: 6.00 LVOT Mn Grad: 3.00 LVOT Diam: 2.60 LVOT Area: 5.31 Diastolic Function MV Pk E: 0.96 MV Pk A: 1.04 E/A: 0.90 E'Medial: 9.25 E/E' Med: 10.30 E' Laterial: 18.80 E/E' Lat: 5.10 Right Ventricle TAPSE (mm): 29.00 TVS' Abner: 20.00 Tricuspid Valve TR Pk Abner: 1.74 TR Pk Grad: 12.00 RA Press: 3.00 RVSP: 15.00 Great Vessels Aorta Ao Root-2D: 3.50 2.0-3.7 cm Ao Asc: 3.70 2.1-3.4 cm Pulmonary Valve PV Pk Abner: 1.40 Peak PV Grad: 8.00 Updated in Other Vendor System with Status of Final Jaspreet Ford MD electronically signed on 12/19/2024 5:04:40 PM with status of Final
[2024-12-17 07:10] LABS: Glucose, Whole Blood 155 mg/dL (60-115)
[2024-12-17 07:15] LABS: Anion Gap 12 (12-20); Blood Urea Nitrogen 20 mg/dL (9-16); Calcium 8.0 mg/dL (8.4-10.2); Carbon Dioxide 28 mmol/L (22-29); Chloride 95 mmol/L (96-108); Potassium 3.5 mmol/L (3.3-5.1); Sodium 131 mmol/L (135-145)
[2024-12-17 07:27] LABS: Creatinine Clr Calc Pharmacy 194.6; Estimated Glomerular Filt Rate > 60
[2024-12-17] MEDS: methADONE HCl 20 MG/2 ML ORAL.CONC 175 MG PO (08:38)
[2024-12-17] MEDS: oxyCODONE HCl Immed Release 5 MG TABLET PO ×2 (08:42→21:47)
--- NOTE | 2024-12-17 08:47 | HO.PM.IMPN ---
Subjective Subjective Date of Service: 12/17/24 Interval History: f/u on MADDY, cellulitis, wound of wrist, lower extremity Physical Exam Exam: Exam: General: AO X 3, no acute distress Resp: CTA bilateral CVS: S1,S2,RRR GI: +BS, NT, no distention Skin: see pics Neuro: motor grossly intact Psych: appropriate affect Vital Signs: Vital Signs: Last Vital Signs Temp 97.5 F 12/17/24 08:00 Pulse 88 12/17/24 08:00 Resp 20 12/17/24 08:00 BP 153/69 H 12/17/24 08:00 Pulse Ox 96 12/17/24 08:00 O2 Del Method Room Air 12/17/24 08:00 BMI result Body Mass Index 37.5 Skin: Other: b/l LE venous stasis dermatitis right foot/anterior ankle ulcer with no purulent drainage erythema right leg lateral and posterior thigh extending down right lopez left wrist wound with purulent drainage, no flucuance Extrem: Other: Patient has a left open wound in the wrist left and one in the right leg see picture Objective Data Active Medications Acetaminophen (Acetaminophen 325 Mg Tablet) 650 mg PO Q6H PRN PRN Reason: Pain, Mild 1-3,fever,headache Last Admin: 12/16/24 05:45 Dose: 650 mg Documented By: VERENICE Calcium Carbonate (Calcium Carbonate 750 Mg Tab.Chew) 750 mg PO Q4H PRN PRN Reason: Heartburn Dextrose (Dextrose 50 % 25 Gm/50 Ml Syringe) 25 gm IVPUSH Q15M PRN; Protocol PRN Reason: per Hypoglycemia Standing Ord. Glucose (Glucose Gel 15 Gm Gel..Gram.) 15 gm PO Q15M PRN; Protocol PRN Reason: per Hypoglycemia Standing Ord. Vancomycin HCl 1,000 mg/ (Sodium Chloride) 270 mls @ 270 mls/hr IV Q24H [facility] Last Infusion: 12/16/24 11:24 Dose: Infused Documented By: EARLINE Lactated Ringer's (Lr) 1,000 mls @ 80 mls/hr IVCONT .[id number] [facility] Last Admin: 12/16/24 20:20 Dose: 80 mls/hr Documented By: KINJAL Insulin Human Lispro (Insulin Lispro 100 Unit/Ml 3 Ml Vial) 0 unit SUBCUT QIDACHS [facility]; Protocol Last Admin: 12/16/24 21:49 Dose: 2 unit Documented By: KINJAL Lorazepam (Lorazepam 0.5 Mg Tablet) 0.5 mg PO BID [facility] Last Admin: 12/16/24 21:49 Dose: 0.5 mg Documented By: KINJAL Magnesium Hydroxide (Milk Of Magnesia 30 Ml Oral.Susp) 30 ml PO DAILY PRN PRN Reason: Constipation Melatonin (Melatonin 3 Mg Tablet) 6 mg PO BEDTIME PRN PRN Reason: Insomnia Methadone HCl (Methadone Hcl 20 Mg/2 Ml Oral.Conc) 175 mg PO DAILY [facility] Last Admin: 12/16/24 09:24 Dose: 175 mg Documented By: EARLINE Co-signed By: NICKOLAS Methadone HCl (Methadone Hcl 20 Mg/2 Ml Oral.Conc) 30 mg PO DAILY@1800 [facility] Last Admin: 12/16/24 17:53 Dose: 30 mg Documented By: EARLINE Co-signed By: AMY Oxycodone HCl (Oxycodone Hcl Immed Release 5 Mg Tablet) 5 mg PO Q6H PRN PRN Reason: Pain, Severe (Pain Scale 7-10) Last Admin: 12/16/24 16:44 Dose: 5 mg Documented By: EARLINE Pharmacy Consult (Consult Rx Vancomycin Dosing) 1 each MISCELLANE DAILY PRN PRN Reason: Consult order Quetiapine Fumarate (Quetiapine Fumarate 100 Mg Tablet) 100 mg PO BEDTIME [facility] Last Admin: 12/16/24 21:49 Dose: 100 mg Documented By: KINJAL Sertraline HCl (Sertraline Hcl 50 Mg Tablet) 50 mg PO BEDTIME [facility] Last Admin: 12/16/24 21:49 Dose: 50 mg Documented By: KINJAL Sodium Chloride (0.9 % Sodium Chloride Flush 3 Ml Syringe) 3 ml IVFLUSH [facility] Last Admin: 12/16/24 21:54 Dose: 3 ml Documented By: KINJAL Trazodone HCl (Trazodone Hcl 50 Mg Tablet) 50 mg PO BEDTIME [facility] Last Admin: 12/16/24 21:49 Dose: 50 mg Documented By: KINJAL Labs 12/17/24 06:20 12/17/24 06:20 Labs: Laboratory Results - last 24 hr 12/16/24 12/16/24 12/16/24 11:44 16:04 20:43 MCV MCH MCHC RDW Plt Count MPV Absolute Nucleated RBC Nucleated RBC % (auto) Anion Gap Estim Creat Clear Calc Estimated GFR POC Glucose 201 H 169 H 161 H Random Glucose Calcium 12/17/24 12/17/24 12/17/24 06:20 06:20 06:20 MCV 84.3 MCH 28.0 MCHC 33.2 RDW 13.8 Plt Count 61 L MPV 11.7 Absolute Nucleated RBC 0.000 Nucleated RBC % (auto) 0.0 Anion Gap 12 Estim Creat Clear Calc Cancelled 194.6 Estimated GFR Cancelled > 60 POC Glucose Random Glucose 175 H Calcium 8.0 L 12/17/24 07:01 MCV MCH MCHC RDW Plt Count MPV Absolute Nucleated RBC Nucleated RBC % (auto) Anion Gap Estim Creat Clear Calc Estimated GFR POC Glucose 155 H Random Glucose Calcium Microbiology Microbiology Results: Microbiology 12/15/24 18:01 Urine Culture - Preliminary Urine clean catch - Clean Catch Midstream Culture in progress. 12/15/24 11:52 Blood Culture - Preliminary Blood - Venous Prelim: GPC Gram Stain only 12/15/24 11:52 Blood Culture - Preliminary Blood - Venous Prelim: GPC Gram Stain only Assessment and Plan (1) IVDU (intravenous drug user): Status: Acute (2) Substance abuse: Status: Acute (3) Acute renal failure: Status: Acute (4) Cellulitis of right leg: Status: Acute (5) Cellulitis: Status: Acute Plan This is a 54-year-old male with h/o IVDU on methadone, previous notes indicate history of liver cirrhosis (pt denies) who presents to the emergency department with generalized weakness found to have multiple acute issues--MADDY, sepsis, wound infection/cellulitis MADDY, resolved, Cr 0.57 from 2.94 after iv fluid continue monitoring New onset diabetes Hemoglobin A1c 12.7 start SSI add metforming hold lantus for now diabetic dit hyponatremia, probably chronic, stable. GPC bacteremia from 12/15 cultures repeat culture today continue Vancom sensitivity pending ID consult Echo probable liver cirrhosis with thrombocytopenia pt denies but previous notes indicate history previous history of heavy etoh use and current IVDU t.bili 1.3, AST 79 - near baseline CT A/P 1. Indeterminate low-density focus within the prostate, possibly indicating abscess or neoplasm. 2. Cirrhosis and portal hypertension. 3. Gallbladder sludge and distention. If there is clinical evidence for acute cholecystitis, further assessment with ultrasound could be performed. RLE cellulitis concern for thrombophlebitis IV vancomycin follow blood cultures US no clot RLE and left wrist wounds do not appear to need debridement or I&D at this time xray of right foot unremarkable check inflammatory markers abx as above local wound care Ortho consult: requested MRI Hypokalemia, resolved Hypomagnesemia Replaced and resolved IVDU/substance abuse confirm methadone dose - QT prolonged, consider resuming 50% of dose when confirmed and follow EKG COWS to monitor for withdrawal addiction med consult QT prolongation, likely due to methadone. Monitor, better Mood Seroquel Continue sertraline, lorazepam, trazodone dvt ppx - avoid chemophrophylaxis due to thrombocytopenia Patient will likely require 2 midnight stay in the hospital for management of new onset diabetes cellulitis, multiple skin infections in electrolyte abnormalities requiring close monitoring Quality Stroke Does the patient have a stroke diagnosis?: No VTE Prior VTE?: No VTE Risk Level:: Medical - moderate - high VTE Device Contraindication: Treatment Not Indicated VTE Drug Contraindication: Treatment Not Indicated
[2024-12-17] MEDS: Lactated Ringers 1,000 ML 80 ML IVCONT (08:54)
--- NOTE | 2024-12-17 08:54 | HE.PHANOTE ---
Re: [place] Significant renal improvement. Trough returned at 2.1. Dose increased to 1250mg q8g with predicted AUC 489, predicted trough 14.1. next trough 12/18 @ 0800.
[2024-12-17 11:23] LABS: Glucose, Whole Blood 176 mg/dL (60-115)
[2024-12-17 16:17] LABS: Glucose, Whole Blood 157 mg/dL (60-115)
--- NOTE | 2024-12-17 18:13 | PC.NURSE ---
18:12 - Patient arrived to unit via bed. Patient alert and oriented x3, easily arsouable, reporting pain but then falls back asleep when not in the room. Patient arrived to unit with gauze wrap dressings on left hand and foot with yellow drainage noted. Contact precautions in place. Fall precautions in place, bed alarm on. Patient oriented to utilize call coronel.
[2024-12-17] MEDS: methADONE HCl 20 MG/2 ML ORAL.CONC 30 MG PO (18:21)
[2024-12-17 19:51] LABS: Glucose, Whole Blood 148 mg/dL (60-115)
[2024-12-17] MEDS: 0.9 % Sodium Chloride Flush 3 ML SYRINGE IVFLUSH (23:59)
[2024-12-18] VITALS (7 sets, daily range): BP systolic 104–175; BP diastolic 54–80; PULSE 82–89; RESP 17–18; TEMP 36.4–36.9; O2SAT 93–95
[2024-12-18] MEDS: oxyCODONE HCl Immed Release 5 MG TABLET PO ×2 (06:27→15:45)
[2024-12-18 07:54] LABS: Glucose, Whole Blood 160 mg/dL (60-115)
--- NOTE | 2024-12-18 08:31 | P.PNOP_ITS ---
Subjective Subjective Date of Service: 12/18/24 Interval history: 54-year-old male admitted to the hospital for MADDY, cellulitis, and open wounds of both the left forearm and right lower extremity Patient resting comfortably in bed this morning Reports that his pain in his left hand is well managed, however reports he is in significant discomfort as he has not received his dose of methadone today No acute events overnight No other acute complaints or concerns at this time Physical Exam Vital Signs: Vital Signs: Last Vital Signs Temp 98.4 F 12/18/24 08:00 Pulse 86 12/18/24 08:00 Resp 17 12/18/24 08:00 BP 152/78 H 12/18/24 08:00 Pulse Ox 95 12/18/24 08:00 O2 Del Method Room Air 12/18/24 08:00 BMI result Body Mass Index 37.5 Extrem: Other: Patient is alert, oriented, and in no acute distress. Neuro: Normal sensation of the tips of all digits of the left hand at this time Vascular: Cap refill brisk Pain: Minimal tenderness to palpation about wound on dorsal aspect of the left wrist Minimal discomfort with axial loading of the left wrist Range of motion of the left wrist appears painless ROM: Range of motion of the left wrist appears full and intact, patient is able to use the wrist fully Skin: There is an approximately 3-4 cm in diameter at its widest point wound on the dorsal aspect of the left wrist, appears in line with the joint space Of note,there is a sinus in the more ulnar aspect of the wound that does appear to track at least 1-1.5 cm down into the wrist There is now a fluid collection noted on the volar aspect of the left wrist, no erythema and nontender to palpation General: Minimal erythema No active drainage at this time Psych: Appears grossly normal Affect normal Attitude cooperative MRI results: Impression: 1. No MRI findings of osteomyelitis. 2. Extensive abnormality extensor digito rum longus tendons as discussed above. The appearance is most characteristic of infected tendinopathy and tenosynovitis given the associated dorsal soft tissue defect. 3. Likely similar infected tendinopathy and tenosynovitis of the flexor tendons of the thumb with soft tissue abscess within the volar and radial aspect of the distal forearm. This document has been electronically signed by: David Cooper MD on Procedures Date of Service Date of Service: 12/18/24 Progress Note: A&P Assessment and plan (1) Open wound of left wrist: Status: Acute (2) Cutaneous abscess of left wrist: Status: Acute Plan 1. Abscess and tenosynovitis of left hand and wrist With associated wound of the dorsum of the left wrist I educated the patient about the condition. I discussed both operative and nonoperative treatment options. The patient would like to proceed with surgery. The risks and benefits of operative treatment were discussed with the patient and the patient wishes to proceed with surgery. These risks include, but are not limited to, risk of damage to blood vessels, nerves, tendons, infection, recurrence, incomplete relief of preoperative symptoms, persistent pain, possible need for further surgery, and the risks associated with regional blocks and/or anesthesia. Plan is to take the patient to the operating room on 12/19/2024 s for the following procedures: 1. I and D of left hand and wrist NPO at midnight for surgery tomorrow Continue IV antibiotics per Medicine Continue pain management Continue with all other recommendations per Medicine Time Spent With Patient Time: Total time managing care of this patient today ____ minutes. Quality Stroke Does the patient have a stroke diagnosis?: No VTE Prior VTE?: No VTE Risk Level:: Medical - moderate - high VTE Device Contraindication: Treatment Not Indicated VTE Drug Contraindication: Treatment Not Indicated
[2024-12-18] MEDS: methADONE HCl 20 MG/2 ML ORAL.CONC 175 MG PO (08:34)
[2024-12-18] MEDS: 0.9 % Sodium Chloride Flush 3 ML SYRINGE IVFLUSH ×3 (08:36→20:42)
[2024-12-18 09:18] LABS: Creatinine Clr Calc Pharmacy 217.5; Estimated Glomerular Filt Rate > 60
--- NOTE | 2024-12-18 09:33 | HE.PHANOTE ---
Re: [place] Renal function declined. Trough returned at 14.2. Continue dose at 1250mg q8h with predicted AUC 469, predicted trough 13.5 next trough 12/19 @ 0800.
--- NOTE | 2024-12-18 10:21 | HO.PM.IMPN ---
Subjective Subjective Date of Service: 12/18/24 Interval History: f/u on MADDY, cellulitis, wound of wrist, lower extremity Physical Exam Exam: Exam: General: AO X 3, no acute distress Resp: CTA bilateral CVS: S1,S2,RRR GI: +BS, NT, no distention Skin: see pics Neuro: motor grossly intact Psych: appropriate affect Vital Signs: Vital Signs: Last Vital Signs Temp 98.4 F 12/18/24 08:00 Pulse 86 12/18/24 08:00 Resp 17 12/18/24 08:00 BP 152/78 H 12/18/24 08:00 Pulse Ox 95 12/18/24 08:00 O2 Del Method Room Air 12/18/24 08:00 BMI result Body Mass Index 37.5 Objective Data Active Medications Acetaminophen (Acetaminophen 325 Mg Tablet) 650 mg PO Q6H PRN PRN Reason: Pain, Mild 1-3,fever,headache Last Admin: 12/17/24 21:46 Dose: 650 mg Documented By: CARMEN Calcium Carbonate (Calcium Carbonate 750 Mg Tab.Chew) 750 mg PO Q4H PRN PRN Reason: Heartburn Dextrose (Dextrose 50 % 25 Gm/50 Ml Syringe) 25 gm IVPUSH Q15M PRN; Protocol PRN Reason: per Hypoglycemia Standing Ord. Glucose (Glucose Gel 15 Gm Gel..Gram.) 15 gm PO Q15M PRN; Protocol PRN Reason: per Hypoglycemia Standing Ord. Vancomycin HCl 1,250 mg/ (Sodium Chloride) 250 mls @ 166.667 mls/hr IV Q8H [facility] Last Infusion: 12/18/24 04:03 Dose: Infused Documented By: CARMEN Insulin Human Lispro (Insulin Lispro 100 Unit/Ml 3 Ml Vial) 0 unit SUBCUT QIDACHS [facility]; Protocol Last Admin: 12/18/24 08:42 Dose: Not Given Documented By: LUCIO Non-Admin Reason: pt refuses breakfast Lorazepam (Lorazepam 0.5 Mg Tablet) 0.5 mg PO BID [facility] Last Admin: 12/18/24 08:40 Dose: 0.5 mg Documented By: LUCIO Magnesium Hydroxide (Milk Of Magnesia 30 Ml Oral.Susp) 30 ml PO DAILY PRN PRN Reason: Constipation Melatonin (Melatonin 3 Mg Tablet) 6 mg PO BEDTIME PRN PRN Reason: Insomnia Methadone HCl (Methadone Hcl 20 Mg/2 Ml Oral.Conc) 175 mg PO DAILY [facility] Last Admin: 12/18/24 08:34 Dose: 175 mg Documented By: LUCIO Co-signed By: MONSERRAT Methadone HCl (Methadone Hcl 20 Mg/2 Ml Oral.Conc) 30 mg PO DAILY@1800 [facility] Last Admin: 12/17/24 18:21 Dose: 30 mg Documented By: DIEGO Co-signed By: BAYRON Oxycodone HCl (Oxycodone Hcl Immed Release 5 Mg Tablet) 5 mg PO Q6H PRN PRN Reason: Pain, Severe (Pain Scale 7-10) Last Admin: 12/18/24 06:27 Dose: 5 mg Documented By: CARMEN Pharmacy Consult (Consult Rx Vancomycin Dosing) 1 each MISCELLANE DAILY PRN PRN Reason: Consult order Quetiapine Fumarate (Quetiapine Fumarate 100 Mg Tablet) 100 mg PO BEDTIME [facility] Last Admin: 12/17/24 21:48 Dose: 100 mg Documented By: CARMEN Sertraline HCl (Sertraline Hcl 50 Mg Tablet) 50 mg PO BEDTIME [facility] Last Admin: 12/17/24 21:48 Dose: 50 mg Documented By: CARMEN Sodium Chloride (0.9 % Sodium Chloride Flush 3 Ml Syringe) 3 ml IVFLUSH QSHIFT [facility] Last Admin: 12/18/24 08:36 Dose: 3 ml Documented By: LUCIO Trazodone HCl (Trazodone Hcl 50 Mg Tablet) 50 mg PO BEDTIME [facility] Last Admin: 12/17/24 21:48 Dose: 50 mg Documented By: CARMEN Labs 12/17/24 06:20 12/18/24 08:09 Labs: Laboratory Results - last 24 hr 12/17/24 12/17/24 12/17/24 11:11 16:13 19:41 Estim Creat Clear Calc Estimated GFR POC Glucose 176 H 157 H 148 H Vancomycin Trough 12/18/24 12/18/24 07:42 08:09 Estim Creat Clear Calc 217.5 Estimated GFR > 60 POC Glucose 160 H Vancomycin Trough 14.2 Microbiology Microbiology Results: Microbiology 12/15/24 18:01 Urine Culture - Preliminary Urine clean catch - Clean Catch Midstream Staphylococcus species 12/15/24 11:52 Blood Culture - Final Blood - Venous Methicillin Res Staph Aureus 12/15/24 11:52 Blood Culture - Final Blood - Venous Methicillin Res Staph Aureus 12/17/24 09:07 Blood Culture - Preliminary Blood - Venous Prelim: GPC Gram Stain only 12/17/24 08:59 Blood Culture - Preliminary Blood - Venous Prelim: GPC Gram Stain only Assessment and Plan (1) IVDU (intravenous drug user): Status: Acute (2) Substance abuse: Status: Acute (3) Acute renal failure: Status: Acute (4) Cellulitis of right leg: Status: Acute (5) Cellulitis: Status: Acute Plan This is a 54-year-old male with h/o IVDU on methadone, previous notes indicate history of liver cirrhosis (pt denies) who presents to the emergency department with generalized weakness found to have multiple acute issues--MADDY, sepsis, wound infection/cellulitis MADDY, resolved, Cr 0.51 from 2.94 after iv fluid continue monitoring New onset diabetes Hemoglobin A1c 12.7 start SSI add metforming hold lantus for now diabetic diet hyponatremia, probably chronic, stable. GPC bacteremia from 12/15, repeat culture 12/17 positive repeat culture today continue Vancom sensitivity pending ID consult Echo done, result pending probable liver cirrhosis with thrombocytopenia pt denies but previous notes indicate history previous history of heavy etoh use and current IVDU t.bili 1.3, AST 79 - near baseline CT A/P 1. Indeterminate low-density focus within the prostate, possibly indicating abscess or neoplasm. 2. Cirrhosis and portal hypertension. 3. Gallbladder sludge and distention. If there is clinical evidence for acute cholecystitis, further assessment with ultrasound could be performed. RLE cellulitis concern for thrombophlebitis IV vancomycin follow blood cultures US no clot RLE and left wrist wounds do not appear to need debridement or I&D at this time xray of right foot unremarkable check inflammatory markers abx as above local wound care Ortho consult: requested MRI 1. No MRI findings of osteomyelitis. 2. Extensive abnormality extensor digitorum longus tendons as discussed above. The appearance is most characteristic of infected tendinopathy and tenosynovitis given the associated dorsal soft tissue defect. 3. Likely similar infected tendinopathy and tenosynovitis of the flexor tendons of the thumb with soft tissue abscess within the volar and radial aspect of the distal forearm. -Ortho planning I and D tomorrow Hypokalemia, resolved Hypomagnesemia Replaced and resolved IVDU/substance abuse confirm methadone dose - QT prolonged, consider resuming 50% of dose when confirmed and follow EKG COWS to monitor for withdrawal addiction med consult QT prolongation, likely due to methadone. Monitor, better Mood Seroquel Continue sertraline, lorazepam, trazodone dvt ppx - avoid chemophrophylaxis due to thrombocytopenia Patient will likely require 2 midnight stay in the hospital for management of new onset diabetes cellulitis, multiple skin infections in electrolyte abnormalities requiring close monitoring Quality Stroke Does the patient have a stroke diagnosis?: No VTE Prior VTE?: No VTE Risk Level:: Medical - moderate - high VTE Device Contraindication: Treatment Not Indicated VTE Drug Contraindication: Treatment Not Indicated
[2024-12-18 11:25] LABS: Anion Gap 16 (12-20); Carbon Dioxide 25 mmol/L (22-29); Chloride 91 mmol/L (96-108); Magnesium 1.1 mg/dL (1.6-2.6); Potassium 3.8 mmol/L (3.3-5.1); Sodium 128 mmol/L (135-145)
[2024-12-18 11:26] LABS: Glucose, Whole Blood 177 mg/dL (60-115)
[2024-12-18] MEDS: Magnesium Sulfate/H2O 2 GM/50 ML PIGGYBACK IV (12:47)
--- NOTE | 2024-12-18 14:21 | P.CONAN_ITS ---
Documented by User: Phyllis Marcelino NP 12/18/24 14:58 HPI - Anesthesia Eval Consult details Narrative: 54 yr old male for I&D of left hand & wrist IVDU/opioid dependence, on methadone: tox screen + fentanyl, benzos, opiates, methadone 12/15/24 Platelets 61 on 12/17/24: repeat CBC ordered for 12/19/24. New onset Type 2 DM Cirrhosis & portal HTN on CT abd/pelvis 12/15/24 No CP/SOB, very minimal activity for past 2 weeks Prolonged QT on initial EKG, improved on repeat, echo done 12/17/24 - results pending PMFSH Active Problems Active Problems: All Active Problems Cutaneous abscess of left wrist (Acute) Gram-positive cocci bacteremia (Acute) Open wound of left wrist (Acute) Opioid use disorder (Acute) Substance abuse (Acute) Acute hyponatremia (Acute) Cellulitis (Acute) Acidosis, lactic (Acute) Acute renal failure (Acute) IVDU (intravenous drug user) (Acute) Hypokalemia (Acute) Cellulitis of right leg (Acute) Past Medical History Medical History Opiate dependence Social History Social History Household Members: Family Household Members Other:: mom Housing: House Are you a primary long term acute care registered nurse to a significant other at home: No Do you presently have visiting nurse or other home services: No Patient Tobacco Use Status: Former Tobacco user Tobacco use type: Cigarette Cigarettes Per Day: 2 Years Smoked: 25 Smoked in Last 30 Days: Yes Patient Interested in Nicotine Replacement: Yes Patient Given Instructions on How to Stop Smoking: Yes Date Education Initiated: 12/16/24 Second Hand Smoke Exposure: Yes Use of substances other than those prescribed or required for medical reasons: Yes Substance Use Type: Heroin Substance Use Frequency: Daily Currently Displaying Signs/Symptoms of Drug Intoxication Withdrawal: No Have you been hit, kicked, punched, or otherwise hurt by someone within the past year? If so, by whom?: No Do you feel safe in your current relationship?: No Current Relationship Is there a partner from a previous relationship who is making you feel unsafe now?: No Are you made to feel afraid or neglected: No Are you DNR?: No Advance Directives: No Advance Directives Information Provided: Yes Do you have a plan to hurt others: No Plan Recently lost weight without trying: Unsure Eating poorly because of decreased appetite: No Nutrition Risks: No Nutritional Risk Poor oral hygiene: Yes service: No Meds Allergies Allergy/AdvReac Type Severity Reaction Status Date / Time No Known Allergies (No Known Allergy Verified 12/15/24 11:18 Allergies*) Active Medications: Current Medications Acetaminophen (Acetaminophen 325 Mg Tablet) 650 mg PO Q6H PRN PRN Reason: Pain, Mild 1-3,fever,headache Last Admin: 12/18/24 10:31 Dose: 650 mg Calcium Carbonate (Calcium Carbonate 750 Mg Tab.Chew) 750 mg PO Q4H PRN PRN Reason: Heartburn Dextrose (Dextrose 50 % 25 Gm/50 Ml Syringe) 25 gm IVPUSH Q15M PRN; Protocol PRN Reason: per Hypoglycemia Standing Ord. Glucose (Glucose Gel 15 Gm Gel..Gram.) 15 gm PO Q15M PRN; Protocol PRN Reason: per Hypoglycemia Standing Ord. Vancomycin HCl 1,250 mg/ (Sodium Chloride) 250 mls @ 166.667 mls/hr IV Q8H COUNTS INCLUDE 234 BEDS AT THE [facility] Last Infusion: 12/18/24 12:43 Dose: Infused Insulin Human Lispro (Insulin Lispro 100 Unit/Ml 3 Ml Vial) 0 unit SUBCUT Q IDACHS COUNTS INCLUDE 234 BEDS AT THE [facility]; Protocol Last Admin: 12/18/24 12:40 Dose: Not Given Lorazepam (Lorazepam 0.5 Mg Tablet) 0.5 mg PO BID COUNTS INCLUDE 234 BEDS AT THE [facility] Last Admin: 12/18/24 08:40 Dose: 0.5 mg Magnesium Hydroxide (Milk Of Magnesia 30 Ml Oral.Susp) 30 ml PO DAILY PRN PRN Reason: Constipation Melatonin (Melatonin 3 Mg Tablet) 6 mg PO BEDTIME PRN PRN Reason: Insomnia Metformin HCl (Metformin Hcl 500 Mg Tablet) 500 mg PO BIDWM COUNTS INCLUDE 234 BEDS AT THE [facility] Last Admin: 12/18/24 11:03 Dose: Not Given Methadone HCl (Methadone Hcl 20 Mg/2 Ml Oral.Conc) 175 mg PO DAILY COUNTS INCLUDE 234 BEDS AT THE [facility] Last Admin: 12/18/24 08:34 Dose: 175 mg Methadone HCl (Methadone Hcl 20 Mg/2 Ml Oral.Conc) 30 mg PO DAILY@1800 COUNTS INCLUDE 234 BEDS AT THE [facility] Last Admin: 12/17/24 18:21 Dose: 30 mg Oxycodone HCl (Oxycodone Hcl Immed Release 5 Mg Tablet) 5 mg PO Q6H PRN PRN Reason: Pain, Severe (Pain Scale 7-10) Last Admin: 12/18/24 06:27 Dose: 5 mg Pharmacy Consult (Consult Rx Vancomycin Dosing) 1 each MISCELLANE DAILY PRN PRN Reason: Consult order Quetiapine Fumarate (Quetiapine Fumarate 100 Mg Tablet) 100 mg PO BEDTIME COUNTS INCLUDE 234 BEDS AT THE [facility] Last Admin: 12/17/24 21:48 Dose: 100 mg Sertraline HCl (Sertraline Hcl 50 Mg Tablet) 50 mg PO BEDTIME COUNTS INCLUDE 234 BEDS AT THE [facility] Last Admin: 12/17/24 21:48 Dose: 50 mg Sodium Chloride (0.9 % Sodium Chloride Flush 3 Ml Syringe) 3 ml IVFLUSH QSHIFT COUNTS INCLUDE 234 BEDS AT THE [facility] Last Admin: 12/18/24 08:36 Dose: 3 ml Trazodone HCl (Trazodone Hcl 50 Mg Tablet) 50 mg PO BEDTIME COUNTS INCLUDE 234 BEDS AT THE [facility] Last Admin: 12/17/24 21:48 Dose: 50 mg Home Medications ?Medication ?Instructions ?Recorded ?Confirmed ?Last Taken ?Type lorazepam 0.5 mg tablet 0.5 mg PO BID 12/15/2412/1512/12/24 History quetiapine 50 mg tablet 100 mg PO BEDTIME 12/15/24 0 12/15/24 12/12/24 History sertraline 100 mg tablet 50 mg PO BEDTIME 12/15/2412/12/24 History trazodone 50 mg tablet 50 mg PO BEDTIME 12/15/2412/12/24 History methadone 10 mg/mL oral 30 mg PO DAILY@1800 12/16/24 12/16/24 12/13/24 History concentrate (Methadone Intensol) methadone 10 mg/mL oral 175 mg PO DAILY 12/16/2404/0112/13/24 History concentrate (Methadone Intensol) Exam Height,Weight and Vital Signs: Height 5 ft 11 in Weight 122 kg Last Vital Signs Temp 97.5 F 12/18/24 12:05 Pulse 84 12/18/24 12:57 Resp 17 12/18/24 12:05 BP 104/54 L 12/18/24 12:57 Pulse Ox 93 12/18/24 12:05 O2 Del Method Room Air 12/18/24 12:05 Pertinent Lab Results Pertinent Lab Results: Laboratory Tests 12/15/24 12/15/24 12/15/24 11:52 11:56 12:02 WBC 5.7 RBC 4.06 L Hgb 11.5 L Hct 34.7 L MCV 85.5 MCH 28.3 MCHC 33.1 RDW 13.6 Plt Count 64 L MPV 12.5 H Immature Gran % (Auto) 0.9 H Neut % (Auto) 88.1 H Lymph % (Auto) 6.0 L [place] % (Auto) 4.6 Eos % (Auto) 0.2 Baso % (Auto) 0.2 Lymph # (Auto) 0.3 L [place] # (Auto) 0.3 Eos # (Auto) 0.0 Baso # (Auto) 0.0 Abs Immat Gran (auto) 0.05 H Absolute Neuts (auto) 5.0 Absolute Nucleated RBC 0.000 Nucleated RBC % (auto) 0.0 ESR 89 H VBG pH 7.35 VBG pCO2 50 VBG pO2 45 VBG HCO3 28 H VBG O2 Saturation 64.0 VBG Base Excess 1.8 Sodium 128 L Potassium 3.1 L Chloride 88 L Carbon Dioxide 24 Anion Gap 19 BUN 46 H Creatinine 2.94 H Estim Creat Clear Calc 37.8 Estimated GFR 22 POC Glucose Random Glucose 321 H Estimat Average Glucose 318 Hemoglobin A1c % 12.7 H Lactic Acid F/U @ 2Hr 3.9 H* Lactic Acid F/U @ 4Hr Calcium 8.0 L Magnesium 1.5 L Total Bilirubin 1.3 H AST 79 H ALT 30 Alkaline Phosphatase 89 Ammonia 25 Total Creatine Kinase 111 Troponin I High Sens 4.0 C-Reactive Protein 22.45 H Total Protein 9.0 H Albumin 2.6 L Prostate Specific Ag < 0.10 Urine Color Urine Appearance Urine pH Ur Specific [place] Urine Protein Urine Glucose (UA) Urine Ketones Urine Blood Urine Nitrite Ur Leukocyte Esterase Urine RBC Urine WBC Ur Squamous Epith Cells Urine Bacteria Hyaline Casts Vancomycin Trough Urine Opiates Screen Ur Buprenorphine Scrn Ur Oxycodone Screen Urine Methadone Screen Urine Fentanyl Screen Ur Barbiturates Screen Ur Phencyclidine Scrn Ur Amphetamines Screen U Benzodiazepines Scrn Urine Cocaine Screen U Marijuana (THC) Screen 12/15/24 12/15/24 12/15/24 14:39 17:14 17:20 WBC RBC Hgb Hct MCV MCH MCHC RDW Plt Count MPV Immature Gran % (Auto) Neut % (Auto) Lymph % (Auto) [place] % (Auto) Eos % (Auto) Baso % (Auto) Lymph # (Auto) [place] # (Auto) Eos # (Auto) Baso # (Auto) Abs Immat Gran (auto) Absolute Neuts (auto) Absolute Nucleated RBC Nucleated RBC % (auto) ESR VBG pH VBG pCO2 VBG pO2 VBG HCO3 VBG O2 Saturation VBG Base Excess Sodium Potassium Chloride Carbon Dioxide Anion Gap BUN Creatinine Estim Creat Clear Calc Estimated GFR POC Glucose 333 H Random Glucose Estimat Average Glucose Hemoglobin A1c % Lactic Acid F/U @ 2Hr Lactic Acid F/U @ 4Hr 3.6 H* Calcium Magnesium Total Bilirubin AST ALT Alkaline Phosphatase Ammonia Total Creatine Kinase Troponin I High Sens C-Reactive Protein Total Protein Albumin Prostate Specific Ag Urine Color Dark Yellow Urine Appearance Clear Urine pH 5.5 Ur Specific [place] 1.010 Urine Protein 30 (1+) H Urine Glucose (UA) 100 H Urine Ketones Negative Urine Blood Small (1+) H Urine Nitrite Negative Ur Leukocyte Esterase Small (1+) H Urine RBC 0-2 Urine WBC 6-10 Ur Squamous Epith Cells 11-20 Urine Bacteria None Seen Hyaline Casts 3-5 Vancomycin Trough Urine Opiates Screen POSITIVE H Ur Buprenorphine Scrn Not Detected Ur Oxycodone Screen Not Detected Urine Methadone Screen Positive H Urine Fentanyl Screen POSITIVE H Ur Barbiturates Screen Not Detected Ur Phencyclidine Scrn Not Detected Ur Amphetamines Screen Not Detected U Benzodiazepines Scrn POSITIVE H Urine Cocaine Screen Not Detected U Marijuana (THC) Screen Not Detected 12/15/24 12/16/24 12/16/24 21:45 04:42 06:58 WBC 4.4 L RBC 3.92 L Hgb 11.2 L Hct 32.4 L MCV 82.7 MCH 28.6 MCHC 34.6 RDW 13.6 Plt Count 73 L MPV 11.1 Immature Gran % (Auto) 0.9 H Neut % (Auto) 84.2 H Lymph % (Auto) 9.9 L [place] % (Auto) 4.8 Eos % (Auto) 0.0 Baso % (Auto) 0.2 Lymph # (Auto) 0.4 L [place] # (Auto) 0.2 Eos # (Auto) 0.0 Baso # (Auto) 0.0 Abs Immat Gran (auto) 0.04 H Absolute Neuts (auto) 3.7 Absolute Nucleated RBC 0.000 Nucleated RBC % (auto) 0.0 ESR VBG pH VBG pCO2 VBG pO2 VBG HCO3 VBG O2 Saturation VBG Base Excess Sodium 129 L Potassium 3.7 Chloride 94 L Carbon Dioxide 25 Anion Gap 14 BUN 39 H Creatinine 1.37 Estim Creat Clear Calc 81.1 Estimated GFR 54 POC Glucose 243 H 185 H Random Glucose 208 H Estimat Average Glucose Hemoglobin A1c % Lactic Acid F/U @ 2Hr Lactic Acid F/U @ 4Hr Calcium 7.8 L Magnesium 1.7 Total Bilirubin 1.8 H AST 77 H ALT 26 Alkaline Phosphatase 77 Ammonia Total Creatine Kinase Troponin I High Sens C-Reactive Protein Total Protein 7.9 Albumin 2.3 L Prostate Specific Ag Urine Color Urine Appearance Urine pH Ur Specific [place] Urine Protein Urine Glucose (UA) Urine Ketones Urine Blood Urine Nitrite Ur Leukocyte Esterase Urine RBC Urine WBC Ur Squamous Epith Cells Urine Bacteria Hyaline Casts Vancomycin Trough Urine Opiates Screen Ur Buprenorphine Scrn Ur Oxycodone Screen Urine Methadone Screen Urine Fentanyl Screen Ur Barbiturates Screen Ur Phencyclidine Scrn Ur Amphetamines Screen U Benzodiazepines Scrn Urine Cocaine Screen U Marijuana (THC) Screen 12/16/24 12/16/24 12/16/24 11:44 16:04 20:43 WBC RBC Hgb Hct MCV MCH MCHC RDW Plt Count MPV Immature Gran % (Auto) Neut % (Auto) Lymph % (Auto) [place] % (Auto) Eos % (Auto) Baso % (Auto) Lymph # (Auto) [place] # (Auto) Eos # (Auto) Baso # (Auto) Abs Immat Gran (auto) Absolute Neuts (auto) Absolute Nucleated RBC Nucleated RBC % (auto) ESR VBG pH VBG pCO2 VBG pO2 VBG HCO3 VBG O2 Saturation VBG Base Excess Sodium Potassium Chloride Carbon Dioxide Anion Gap BUN Creatinine Estim Creat Clear Calc Estimated GFR POC Glucose 201 H 169 H 161 H Random Glucose Estimat Average Glucose Hemoglobin A1c % Lactic Acid F/U @ 2Hr Lactic Acid F/U @ 4Hr Calcium Magnesium Total Bilirubin AST ALT Alkaline Phosphatase Ammonia Total Creatine Kinase Troponin I High Sens C-Reactive Protein Total Protein Albumin Prostate Specific Ag Urine Color Urine Appearance Urine pH Ur Specific [place] Urine Protein Urine Glucose (UA) Urine Ketones Urine Blood Urine Nitrite Ur Leukocyte Esterase Urine RBC Urine WBC Ur Squamous Epith Cells Urine Bacteria Hyaline Casts Vancomycin Trough Urine Opiates Screen Ur Buprenorphine Scrn Ur Oxycodone Screen Urine Methadone Screen Urine Fentanyl Screen Ur Barbiturates Screen Ur Phencyclidine Scrn Ur Amphetamines Screen U Benzodiazepines Scrn Urine Cocaine Screen U Marijuana (THC) Screen 12/17/24 12/17/24 12/17/24 06:20 06:20 06:20 WBC 3.9 L RBC 3.75 L Hgb 10.5 L Hct 31.6 L MCV 84.3 MCH 28.0 MCHC 33.2 RDW 13.8 Plt Count 61 L MPV 11.7 Immature Gran % (Auto) Neut % (Auto) Lymph % (Auto) [place] % (Auto) Eos % (Auto) Baso % (Auto) Lymph # (Auto) [place] # (Auto) Eos # (Auto) Baso # (Auto) Abs Immat Gran (auto) Absolute Neuts (auto) Absolute Nucleated RBC 0.000 Nucleated RBC % (auto) 0.0 ESR VBG pH VBG pCO2 VBG pO2 VBG HCO3 VBG O2 Saturation VBG Base Excess Sodium 131 L Potassium 3.5 Chloride 95 L Carbon Dioxide 28 Anion Gap 12 BUN 20 H Creatinine Cancelled 0.57 Estim Creat Clear Calc Cancelled 194.6 Estimated GFR Cancelled POC Glucose Random Glucose Estimat Average Glucose Hemoglobin A1c % Lactic Acid F/U @ 2Hr Lactic Acid F/U @ 4Hr Calcium Magnesium Total Bilirubin AST ALT Alkaline Phosphatase Ammonia Total Creatine Kinase Troponin I High Sens C-Reactive Protein Total Protein Albumin Prostate Specific Ag Urine Color Urine Appearance Urine pH Ur Specific [place] Urine Protein Urine Glucose (UA) Urine Ketones Urine Blood Urine Nitrite Ur Leukocyte Esterase Urine RBC Urine WBC Ur Squamous Epith Cells Urine Bacteria Hyaline Casts Vancomycin Trough Urine Opiates Screen Ur Buprenorphine Scrn Ur Oxycodone Screen Urine Methadone Screen Urine Fentanyl Screen Ur Barbiturates Screen Ur Phencyclidine Scrn Ur Amphetamines Screen U Benzodiazepines Scrn Urine Cocaine Screen U Marijuana (THC) Screen 12/17/24 12/17/24 12/17/24 06:20 07:01 08:03 WBC RBC Hgb Hct MCV MCH MCHC RDW Plt Count MPV Immature Gran % (Auto) Neut % (Auto) Lymph % (Auto) [place] % (Auto) Eos % (Auto) Baso % (Auto) Lymph # (Auto) [place] # (Auto) Eos # (Auto) Baso # (Auto) Abs Immat Gran (auto) Absolute Neuts (auto) Absolute Nucleated RBC Nucleated RBC % (auto) ESR VBG pH VBG pCO2 VBG pO2 VBG HCO3 VBG O2 Saturation VBG Base Excess Sodium Potassium Chloride Carbon Dioxide Anion Gap BUN Creatinine Estim Creat Clear Calc Estimated GFR > 60 POC Glucose 155 H Random Glucose 175 H Estimat Average Glucose Hemoglobin A1c % Lactic Acid F/U @ 2Hr Lactic Acid F/U @ 4Hr Calcium 8.0 L Magnesium Total Bilirubin AST ALT Alkaline Phosphatase Ammonia Total Creatine Kinase Troponin I High Sens C-Reactive Protein Total Protein Albumin Prostate Specific Ag Urine Color Urine Appearance Urine pH Ur Specific [place] Urine Protein Urine Glucose (UA) Urine Ketones Urine Blood Urine Nitrite Ur Leukocyte Esterase Urine RBC Urine WBC Ur Squamous Epith Cells Urine Bacteria Hyaline Casts Vancomycin Trough 2.1 L Urine Opiates Screen Ur Buprenorphine Scrn Ur Oxycodone Screen Urine Methadone Screen Urine Fentanyl Screen Ur Barbiturates Screen Ur Phencyclidine Scrn Ur Amphetamines Screen U Benzodiazepines Scrn Urine Cocaine Screen U Marijuana (THC) Screen 12/17/24 12/17/24 12/17/24 11:11 16:13 19:41 WBC RBC Hgb Hct MCV MCH MCHC RDW Plt Count MPV Immature Gran % (Auto) Neut % (Auto) Lymph % (Auto) [place] % (Auto) Eos % (Auto) Baso % (Auto) Lymph # (Auto) [place] # (Auto) Eos # (Auto) Baso # (Auto) Abs Immat Gran (auto) Absolute Neuts (auto) Absolute Nucleated RBC Nucleated RBC % (auto) ESR VBG pH VBG pCO2 VBG pO2 VBG HCO3 VBG O2 Saturation VBG Base Excess Sodium Potassium Chloride Carbon Dioxide Anion Gap BUN Creatinine Estim Creat Clear Calc Estimated GFR POC Glucose 176 H 157 H 148 H Random Glucose Estimat Average Glucose Hemoglobin A1c % Lactic Acid F/U @ 2Hr Lactic Acid F/U @ 4Hr Calcium Magnesium Total Bilirubin AST ALT Alkaline Phosphatase Ammonia Total Creatine Kinase Troponin I High Sens C-Reactive Protein Total Protein Albumin Prostate Specific Ag Urine Color Urine Appearance Urine pH Ur Specific [place] Urine Protein Urine Glucose (UA) Urine Ketones Urine Blood Urine Nitrite Ur Leukocyte Esterase Urine RBC Urine WBC Ur Squamous Epith Cells Urine Bacteria Hyaline Casts Vancomycin Trough Urine Opiates Screen Ur Buprenorphine Scrn Ur Oxycodone Screen Urine Methadone Screen Urine Fentanyl Screen Ur Barbiturates Screen Ur Phencyclidine Scrn Ur Amphetamines Screen U Benzodiazepines Scrn Urine Cocaine Screen U Marijuana (THC) Screen 12/18/24 12/18/24 12/18/24 07:42 08:09 11:18 WBC RBC Hgb Hct MCV MCH MCHC RDW Plt Count MPV Immature Gran % (Auto) Neut % (Auto) Lymph % (Auto) [place] % (Auto) Eos % (Auto) Baso % (Auto) Lymph # (Auto) [place] # (Auto) Eos # (Auto) Baso # (Auto) Abs Immat Gran (auto) Absolute Neuts (auto) Absolute Nucleated RBC Nucleated RBC % (auto) ESR VBG pH VBG pCO2 VBG pO2 VBG HCO3 VBG O2 Saturation VBG Base Excess Sodium 128 L Potassium 3.8 Chloride 91 L Carbon Dioxide 25 Anion Gap 16 BUN Creatinine 0.51 Estim Creat Clear Calc 217.5 Estimated GFR > 60 POC Glucose 160 H 177 H Random Glucose Estimat Average Glucose Hemoglobin A1c % Lactic Acid F/U @ 2Hr Lactic Acid F/U @ 4Hr Calcium Magnesium 1.1 L* Total Bilirubin AST ALT Alkaline Phosphatase Ammonia Total Creatine Kinase Troponin I High Sens C-Reactive Protein Total Protein Albumin Prostate Specific Ag Urine Color Urine Appearance Urine pH Ur Specific [place] Urine Protein Urine Glucose (UA) Urine Ketones Urine Blood Urine Nitrite Ur Leukocyte Esterase Urine RBC Urine WBC Ur Squamous Epith Cells Urine Bacteria Hyaline Casts Vancomycin Trough 14.2 Urine Opiates Screen Ur Buprenorphine Scrn Ur Oxycodone Screen Urine Methadone Screen Urine Fentanyl Screen Ur Barbiturates Screen Ur Phencyclidine Scrn Ur Amphetamines Screen U Benzodiazepines Scrn Urine Cocaine Screen U Marijuana (THC) Screen Narrative Narrative: EKG 12/16/24 Vent. Rate : 82 BPM Atrial Rate : 82 BPM P-R Int : 192 ms QRS Dur : 106 ms QT Int : 390 ms P-R-T Axes : 49 46 8 degrees QTcB Int : 455 ms Normal sinus rhythm Normal ECG When compared with ECG of 15-Dec-2024 11:37, Premature ventricular complexes are no longer Present Minimal criteria for Inferior infarct are no longer Present QT has shortened Documented by User: Norma Bennett MD 12/19/24 13:01 [facility] Past Medical History Medical History Opiate dependence Family History Family history of problems with anesthesia: No Surgical History History of Problems with Anesthesia: No Social History Social History Household Members: Family Household Members Other:: mom Housing: House Are you a primary long term acute care registered nurse to a significant other at home: No Do you presently have visiting nurse or other home services: No Patient Tobacco Use Status: Former Tobacco user Tobacco use type: Cigarette Cigarettes Per Day: 2 Years Smoked: 25 Smoked in Last 30 Days: Yes Patient Interested in Nicotine Replacement: Yes Patient Given Instructions on How to Stop Smoking: Yes Date Education Initiated: 12/16/24 Second Hand Smoke Exposure: Yes Use of substances other than those prescribed or required for medical reasons: Yes Substance Use Type: Heroin Substance Use Frequency: Daily Currently Displaying Signs/Symptoms of Drug Intoxication Withdrawal: No Have you been hit, kicked, punched, or otherwise hurt by someone within the past year? If so, by whom?: No Do you feel safe in your current relationship?: No Current Relationship Is there a partner from a previous relationship who is making you feel unsafe now?: No Are you made to feel afraid or neglected: No Are you DNR?: No Advance Directives: No Advance Directives Information Provided: Yes Do you have a plan to hurt others: No Plan Recently lost weight without trying: Unsure Eating poorly because of decreased appetite: No Nutrition Risks: No Nutritional Risk Poor oral hygiene: Yes service: No Meds Allergies Allergy/AdvReac Type Severity Reaction Status Date / Time No Known Allergies (No Known Allergy Verified 12/15/24 11:18 Allergies*) Home Medications ?Medication ?Instructions ?Recorded ?Confirmed ?Last Taken ?Type lorazepam 0.5 mg tablet 0.5 mg PO BID 12/15/2412/1512/12/24 History quetiapine 50 mg tablet 100 mg PO BEDTIME 12/15/24 0 12/15/24 12/12/24 History sertraline 100 mg tablet 50 mg PO BEDTIME 12/15/2412/12/24 History trazodone 50 mg tablet 50 mg PO BEDTIME 12/15/2412/12/24 History methadone 10 mg/mL oral 30 mg PO DAILY@1800 12/16/24 12/16/24 12/13/24 History concentrate (Methadone Intensol) methadone 10 mg/mL oral 175 mg PO DAILY 12/16/2404/0112/13/24 History concentrate (Methadone Intensol) Exam Airway Mallampati Class: III TM Dist: <=3cm Neck ROM: Limited Heart: rrr Lungs: cta Assessment and Plan Assessment Anesthesia Assessment: Anesthesia Plan Discussed and Chart Reviewed Final Anesthetic Review Family History of Problems with Anesthesia: No History of Problems with Anesthesia: No NPO: Yes ASA Class: IV Final Preanesthetic Review: No Changes in Pt Med Stat, Meds/Allgs Chart Reviewed, Consent Obtained/Reviewed and Anes Risks/Benef Reviewed Patient Risk: High Procedure Risk: Low Anesthetic Plan Anesthetic Plan: GA, MAC: and Agree w/ Assess. and Plan Disposition: Standard PACU
--- NOTE | 2024-12-18 14:56 | MHC.CM.PN ---
per rounds today pt m,ay have syrgery referrals made to str for possilble need for str
[2024-12-18 16:21] LABS: Glucose, Whole Blood 171 mg/dL (60-115)
[2024-12-18] MEDS: methADONE HCl 20 MG/2 ML ORAL.CONC 30 MG PO (17:44)
[2024-12-18 20:31] LABS: Glucose, Whole Blood 147 mg/dL (60-115)
[2024-12-19] VITALS (8 sets, daily range): BP systolic 117–151; BP diastolic 63–83; PULSE 85–91; RESP 14–17; TEMP 36.3–37.2; O2SAT 91–96
[2024-12-19] MEDS: oxyCODONE HCl Immed Release 5 MG TABLET PO ×2 (02:17→09:14)
[2024-12-19] MEDS: methADONE HCl 20 MG/2 ML ORAL.CONC 175 MG PO (03:34)
[2024-12-19] MEDS: diazePAM 10 MG/2 ML CARTRIDGE 2.5 MG IVPUSH (03:35)
[2024-12-19 07:17] LABS: Glucose, Whole Blood 155 mg/dL (60-115)
[2024-12-19 08:36] LABS: MANUAL DIFF FLAG NO
[2024-12-19 08:38] LABS: Hematocrit 32.9 % (42.0-52.0); Hemoglobin 11.1 g/dl (14.0-18.0); Imm Gran Abs Auto 0.05 X10*3/uL (0.00-0.03); Imm Gran Pct Auto 0.8 % (0.0-0.4); Lymphocytes Absolute Auto 0.7 X10*3/uL (1.2-4.9); Mean Corpuscular HGB Conc 33.7 g/dl (31.0-36.0); Mean Corpuscular Hemoglobin 28.5 pg (27.0-33.0); Mean Corpuscular Volume 84.6 fL (80.0-98.0); NRBC Abs Auto 0.000 X10*3/uL (0.0-0.012); NRBC Pct Auto 0.0 /100WBC (0.0-0.2); Red Blood Count 3.89 X10*6/uL (4.60-5.80); White Blood Count 6.1 X10*3/uL (4.8-10.8)
[2024-12-19 08:39] LABS: Platelet Count 79 X10*3/uL (160-400)
--- NOTE | 2024-12-19 08:49 | P.PNIM_ITS ---
Subjective Subjective Date of Service: 12/19/24 Interval History: f/u on MADDY, cellulitis, wound of wrist, lower extremity no new issues, for OR later today for I&D Physical Exam 2 Exam: Exam: General: AO X 3, no acute distress Resp: CTA bilateral CVS: S1,S2,RRR GI: +BS, NT, no distention Skin: see pics from earlier Neuro: motor grossly intact Psych: appropriate affect Vital Signs: Vital Signs: Last Vital Signs Temp 97.8 F 12/19/24 07:49 Pulse 85 12/19/24 07:49 Resp 17 12/19/24 07:49 BP 117/79 12/19/24 07:49 Pulse Ox 96 12/19/24 07:49 O2 Del Method Room Air 12/19/24 07:49 BMI result Body Mass Index 37.5 Objective Data Active Medications Acetaminophen (Acetaminophen 325 Mg Tablet) 650 mg PO Q6H PRN PRN Reason: Pain, Mild 1-3,fever,headache Last Admin: 12/18/24 10:31 Dose: 650 mg Documented By: LUCIO Calcium Carbonate (Calcium Carbonate 750 Mg Tab.Chew) 750 mg PO Q4H PRN PRN Reason: Heartburn Dextrose (Dextrose 50 % 25 Gm/50 Ml Syringe) 25 gm IVPUSH Q15M PRN; Protocol PRN Reason: per Hypoglycemia Standing Ord. Glucose (Glucose Gel 15 Gm Gel..Gram.) 15 gm PO Q15M PRN; Protocol PRN Reason: per Hypoglycemia Standing Ord. Vancomycin HCl 1,250 mg/ (Sodium Chloride) 250 mls @ 166.667 mls/hr IV Q8H [facility] Last Infusion: 12/19/24 03:08 Dose: Infused Documented By: PANKAJ Insulin Human Lispro (Insulin Lispro 100 Unit/Ml 3 Ml Vial) 0 unit SUBCUT QIDACHS [facility]; Protocol Last Admin: 12/19/24 07:59 Dose: Not Given Documented By: DAVIDE Non-Admin Reason: NPO Lorazepam (Lorazepam 0.5 Mg Tablet) 0.5 mg PO BID [facility] Last Admin: 12/18/24 20:41 Dose: 0.5 mg Documented By: PANKAJ Magnesium Hydroxide (Milk Of Magnesia 30 Ml Oral.Susp) 30 ml PO DAILY PRN PRN Reason: Constipation Magnesium Oxide (Magnesium Oxide 400 Mg Tablet) 400 mg PO BIDPC [facility] Last Admin: 12/18/24 16:52 Dose: 400 mg Documented By: LUCIO Melatonin (Melatonin 3 Mg Tablet) 6 mg PO BEDTIME PRN PRN Reason: Insomnia Metformin HCl (Metformin Hcl 500 Mg Tablet) 500 mg PO BIDWM [facility] Last Admin: 12/19/24 08:09 Dose: Not Given Documented By: DAVIDE Non-Admin Reason: NPO Methadone HCl (Methadone Hcl 20 Mg/2 Ml Oral.Conc) 175 mg PO DAILY [facility] Last Admin: 12/19/24 03:34 Dose: 175 mg Documented By: PANKAJ Co-signed By: ESTHER Comments: ordered early administration Methadone HCl (Methadone Hcl 20 Mg/2 Ml Oral.Conc) 30 mg PO DAILY@1800 [facility] Last Admin: 12/18/24 17:44 Dose: 30 mg Documented By: LUCIO Co-signed By: MARICHUY Oxycodone HCl (Oxycodone Hcl Immed Release 5 Mg Tablet) 5 mg PO Q6H PRN PRN Reason: Pain, Severe (Pain Scale 7-10) Last Admin: 12/19/24 02:17 Dose: 5 mg Documented By: PANKAJ Pharmacy Consult (Consult Rx Vancomycin Dosing) 1 each MISCELLANE DAILY PRN PRN Reason: Consult order Quetiapine Fumarate (Quetiapine Fumarate 100 Mg Tablet) 100 mg PO BEDTIME [facility] Last Admin: 12/18/24 20:41 Dose: 100 mg Documented By: PANKAJ Sertraline HCl (Sertraline Hcl 50 Mg Tablet) 50 mg PO BEDTIME [facility] Last Admin: 12/18/24 20:41 Dose: 50 mg Documented By: PANKAJ Sodium Chloride (0.9 % Sodium Chloride Flush 3 Ml Syringe) 3 ml IVFLUSH QSHIFT [facility] Last Admin: 12/18/24 20:42 Dose: 3 ml Documented By: PANKAJ Trazodone HCl (Trazodone Hcl 50 Mg Tablet) 50 mg PO BEDTIME [facility] Last Admin: 12/18/24 20:41 Dose: 50 mg Documented By: PANKAJ Labs 12/19/24 08:31 12/18/24 08:09 Labs: Laboratory Results - last 24 hr 12/18/24 12/18/24 12/18/24 08:09 11:18 16:18 MCV MCH MCHC RDW Plt Count MPV Immature Gran % (Auto) Neut % (Auto) Lymph % (Auto) [place] % (Auto) Eos % (Auto) Baso % (Auto) Lymph # (Auto) [place] # (Auto) Eos # (Auto) Baso # (Auto) Abs Immat Gran (auto) Absolute Neuts (auto) Absolute Nucleated RBC Nucleated RBC % (auto) Anion Gap 16 Estim Creat Clear Calc 217.5 Estimated GFR > 60 POC Glucose 177 H 171 H Magnesium 1.1 L* Vancomycin Trough 14.2 12/18/24 12/19/24 12/19/24 20:24 07:12 08:31 MCV 84.6 MCH 28.5 MCHC 33.7 RDW 13.8 Plt Count 79 L D MPV 10.6 Immature Gran % (Auto) 0.8 H Neut % (Auto) 82.1 H Lymph % (Auto) 12.1 L [place] % (Auto) 4.4 Eos % (Auto) 0.3 Baso % (Auto) 0.3 Lymph # (Auto) 0.7 L [place] # (Auto) 0.3 Eos # (Auto) 0.0 Baso # (Auto) 0.0 Abs Immat Gran (auto) 0.05 H Absolute Neuts (auto) 5.0 Absolute Nucleated RBC 0.000 Nucleated RBC % (auto) 0.0 Anion Gap Estim Creat Clear Calc Estimated GFR POC Glucose 147 H 155 H Magnesium Vancomycin Trough Microbiology Microbiology Results: Microbiology 12/15/24 18:01 Urine Culture - Final Urine clean catch - Clean Catch Midstream Methicillin Res Staph Aureus 12/17/24 09:07 Blood Culture - Preliminary Blood - Venous Prelim: GPC Gram Stain only 12/17/24 08:59 Blood Culture - Preliminary Blood - Venous Prelim: GPC Gram Stain only 12/15/24 11:52 Blood Culture - Final Blood - Venous Methicillin Res Staph Aureus 12/15/24 11:52 Blood Culture - Final Blood - Venous Methicillin Res Staph Aureus Assessment and Plan (1) IVDU (intravenous drug user): Status: Acute (2) Substance abuse: Status: Acute (3) Acute renal failure: Status: Acute (4) Cellulitis of right leg: Status: Acute (5) Cellulitis: Status: Acute Plan This is a 54-year-old male with h/o IVDU on methadone, previous notes indicate history of liver cirrhosis (pt denies) who presents to the emergency department with generalized weakness found to have multiple acute issues--MADDY, sepsis, wound infection/cellulitis MADDY, resolved, Cr 0.51 from 2.94 after iv fluid continue monitoring New onset diabetes Hemoglobin A1c 12.7 SSI Metformin hold lantus for now diabetic diet hypOnatremia, probably chronic, stable. MRSA bacteremia, MRSA UTI from 12/15, repeat culture 12/17 positive repeat culture today continue Vanco ID consult Echo done, result pending probable liver cirrhosis with thrombocytopenia pt denies but previous notes indicate history previous history of heavy etoh use and current IVDU t.bili 1.3, AST 79 - near baseline CT A/P 1. Indeterminate low-density focus within the prostate, possibly indicating abscess or neoplasm. 2. Cirrhosis and portal hypertension. 3. Gallbladder sludge and distention. If there is clinical evidence for acute cholecystitis, further assessment with ultrasound could be performed. RLE cellulitis concern for thrombophlebitis IV vancomycin follow blood cultures US no clot RLE and left wrist wounds do not appear to need debridement or I&D at this time xray of right foot unremarkable check inflammatory markers abx as above local wound care Ortho consult: requested MRI 1. No MRI findings of osteomyelitis. 2. Extensive abnormality extensor digitorum longus tendons as discussed above. The appearance is most characteristic of infected tendinopathy and tenosynovitis given the associated dorsal soft tissue defect. 3. Likely similar infected tendinopathy and tenosynovitis of the flexor tendons of the thumb with soft tissue abscess within the volar and radial aspect of the distal forearm. -Ortho planning I and D today Hypokalemia, resolved Hypomagnesemia Replaced and resolved IVDU/substance abuse confirm methadone dose - QT prolonged, consider resuming 50% of dose when confirmed and follow EKG COWS to monitor for withdrawal addiction med consult QT prolongation, likely due to methadone. Monitor, better Mood Seroquel Continue sertraline, lorazepam, trazodone dvt ppx - avoid chemophrophylaxis due to thrombocytopenia Patient will likely require 2 midnight stay in the hospital for management of new onset diabetes cellulitis, multiple skin infections in electrolyte abnormalities requiring close monitoring Quality Stroke Does the patient have a stroke diagnosis?: No VTE Prior VTE?: No VTE Risk Level:: Medical - moderate - high VTE Device Contraindication: Treatment Not Indicated VTE Drug Contraindication: Treatment Not Indicated
[2024-12-19 08:55] LABS: Creatinine Clr Calc Pharmacy 194.6; Estimated Glomerular Filt Rate > 60
[2024-12-19] MEDS: 0.9 % Sodium Chloride Flush 3 ML SYRINGE IVFLUSH ×3 (09:16→21:07)
--- NOTE | 2024-12-19 09:25 | HE.PHANOTE ---
Re: Vanco Renal function improved. Trough returned at 14.4, pt is therapeutic. Continue dose at 1250mg q8h with predicted AUC 464, predicted trough 13.2 next trough 12/20 @ 0800.
[2024-12-19 11:38] LABS: Glucose, Whole Blood 158 mg/dL (60-115)
--- NOTE | 2024-12-19 12:26 | PC.NURSE ---
Pt with right forearm IV patent. LR running, pt tolerated well. Left arm/hand dsg C/D/I. No drainage noted. Right foot dsg C/D/I. Pt with condom catheter on. States last voided at 11am. Pt moaning in bed, eyes closed. Pt c/o b/l hip pain. Right side pain. Pt laying on right side in bed, refusing to reposition. AXO3. Anesthesia notified. Methadone 175mg administered at 334am.
--- NOTE | 2024-12-19 13:01 | MHC.SHP ---
Pre-Procedural Eval Section A - 24 Hr Update-Section A only Date of Service: 12/19/24 The patient is an INPATIENT: Yes Changes since office visit: No Cold of Flu in the past 2 weeks, No New Medical Problems, No Changes in Medication and No Patient answered all questions The patient has been examined within 24 hours of the surgical procedure. The History & Physical has been completed within 30 days and I have reviewed it.: Yes Section B - Complete if H&P > 30 days Chief Complaint: MADDY, cellulitis Allergies: Allergies Allergy/AdvReac Type Severity Reaction Status Date / Time No Known Allergies (No Known Allergy Verified 12/15/24 11:18 Allergies*) Exam Exam Comment: The patient was evaluated in Preop hold. She had a dressing in place over the left hand. He can make a fist and extend all of his fingers without pain. A little the patient's hand was seen and evaluated by my PA who described a chronic wound on the dorsal aspect of the left hand, and a newer looking drawer abscess on the volar aspect of his left wrist. Plan I have reviewed the history and physical and performed a pertinent physical examination on my patient. No changes have occurred unless specified. Assessment and plan: 1. IV drug use related the on abscess on the volar aspect of the mild left wrist, and chronic wound on the dorsum of the left hand I educated the patient about this condition We discussed operative and non operative treatment options and he wished to proceed with surgery. The risks and benefits of operative treatment were discussed with the patient and the patient wishes to proceed with surgery. These risks include, but are not limited to risk of damage to blood vessels, nerves, tendons, infection, recurrence, incomplete relief of preoperative symptoms, persistent pain, possible need for further surgery and the risks associated with regional blocks and anesthesia. The plan is to take the patient to the operating room today for the following procedures: 1. I&D of left wrist and hand 2. [ ] All of the preoperative paperwork including the consent was filled out today. All the patient's questions were answered. Time Spent With Patient Time: Total time managing care of this patient today ____ minutes.
--- NOTE | 2024-12-19 13:07 | W.PM.OPN ---
Operative Note Operative Note Date of Service: 12/19/24 Narrative: Operative Note Narrative: Preop diagnosis: 1. Left hand and wrist multiple infections/abscesses status post IV drug use Postop diagnosis: Same Procedure: 1. I and D left volar wrist abscess 2. I&D right dorsal wrist abscess 3. I&D right dorsal distal forearm abscess Surgeon: Adilene Claire MD Motors[employer] Technician: Jett BARNES Anesthesia: Regional block plus sedation Findings: From the left volar wrist abscess there was some heterogeneous fluid as well as evidence of some tendon shredding Implants: None Tourniquet time: At 25 minutes EBL: 5.0 ml Specimen: Cultures taken from volar abscess and dorsal wrist abscess Drains: Iodoform gauze x3, 1 in each abscess Complications: None Disposition: Brought to the recovery room in stable condition Plan: Admit back to floor for IV antibiotics. Check cultures and adjust antibiotics as indicated Ortho will perform a wound check and remove all drains tomorrow. Daily nursing dressing changes after that should be sufficient. Follow up with ortho outpatient after discharge Indications: The patient is a 54 year old man with who is an active IV drug user and has 1 volar and 2 dorsal abscesses involving his left upper extremity. . The risks and benefits of operative treatment, including but not limited to risk of damage to blood vessels, nerves, tendons, infection, recurrence, persistent pain or numbness, incomplete resolution of preoperative symptoms, or need for further surgery were discussed with the patient and they wished to proceed with surgery. Procedure: Once consent was obtained patient was brought back to the operating suite and placed in the operating table in a supine position. A regional block was performed by the anesthesia team. Perioperative antibiotics and anesthesia was administered by the anesthesia team. A tourniquet was applied to the proximal aspect of the left upper extremity and the limb was prepped and draped in a standard surgical fashion. The limb was elevated exsanguinated with Esmarch bandage and the tourniquet inflated to 250 mm of mercury for a total tourniquet time of 25 minutes. I began with a 1 cm longitudinal incision over the apex of the left volar wrist abscess. The incision was made through the skin to the subcutaneous tissues. We immediately had some bloody heterogenous fluid, and cultures were taken. I passed into the abscess with a small hemostat. We pushed out any purulent fluid. Of interest, there was some stringy portions of what look like tendon which were cut short within the wound. I then made a 1 cm longitudinal incision over the more proximal dorsal abscess. This was done through the skin to the subcutaneous tissues with a 15. Blade. We immediately encountered some foul-smelling yellow thick purulent material. This was evacuated from the abscess site and debrided. He has a chronic transversely oriented oval wound that measures about 3 cm in width by about 2 cm in length over the dorsal aspect of the left wrist. On the MRI this was contiguous with the extensor tendons of the 4th dorsal compartment. I entered the wound with a small hemostat and we encountered some purulent material. Cultures were taken. This wound was debrided with a small rongeur and the wound evacuated of any purulent material.. All 3 wounds were then copiously irrigated with normal saline. A single strip of iodoform gauze was placed as a loop in each of the 3 abscesses for a total of 3 strips of iodoform gauze. I also used some 4-0 Prolene to reapproximate the ulnar half of the wound over the dorsal aspect of the wrist in hopes of facilitating healing of that wound which lies right over the extensor tendons. I injected each of these wounds with some 1% lidocaine with epinephrine A Sterile dressings were then applied. The patient appears to have tolerated the procedure well and with no complications. All digits were well vascularized conclusion of the case.
[2024-12-19 16:07] LABS: Glucose, Whole Blood 229 mg/dL (60-115)
[2024-12-19] MEDS: methADONE HCl 20 MG/2 ML ORAL.CONC 30 MG PO (17:42)
[2024-12-19 20:26] LABS: Glucose, Whole Blood 211 mg/dL (60-115)
[2024-12-20] MEDS: oxyCODONE HCl Immed Release 5 MG TABLET PO ×3 (03:24→17:00)
[2024-12-20 03:29] VITALS: BP 130/61; PULSE 81; RESP 20; TEMP 36.5; O2SAT 96
[2024-12-20 07:31] LABS: Glucose, Whole Blood 146 mg/dL (60-115)
[2024-12-20 07:41] VITALS: BP 120/62; PULSE 91; RESP 17; TEMP 36.7; O2SAT 92
[2024-12-20 08:00] VITALS: PULSE 91
[2024-12-20] MEDS: 0.9 % Sodium Chloride Flush 3 ML SYRINGE IVFLUSH ×3 (08:10→19:30)
[2024-12-20 08:11] LABS: Hematocrit 32.0 % (42.0-52.0); Hemoglobin 10.6 g/dl (14.0-18.0); Mean Corpuscular HGB Conc 33.1 g/dl (31.0-36.0); Mean Corpuscular Hemoglobin 28.3 pg (27.0-33.0); Mean Corpuscular Volume 85.3 fL (80.0-98.0); NRBC Abs Auto 0.000 X10*3/uL (0.0-0.012); NRBC Pct Auto 0.0 /100WBC (0.0-0.2); Red Blood Count 3.75 X10*6/uL (4.60-5.80); White Blood Count 7.8 X10*3/uL (4.8-10.8)
--- NOTE | 2024-12-20 08:11 | PM.PNORT ---
Subjective Subjective Date of Service: 12/20/24 Interval history: Postop day 1 status post I and D of left dorsal wrist, dorsal forearm, and volar forearm Patient resting comfortably in bed this morning Reports significant improvement in pain in the left arm and wrist since prior to surgery No acute events overnight Dressing in place No other acute complaints or concerns at this time Physical Exam Vital Signs: Vital Signs: Last Vital Signs Temp 98.0 F 12/20/24 07:41 Pulse 91 12/20/24 07:41 Resp 17 12/20/24 07:41 BP 120/62 12/20/24 07:41 Pulse Ox 92 12/20/24 07:41 O2 Del Method Room Air 12/20/24 07:41 BMI result Body Mass Index 37.5 Extrem: Other: Patient is alert, oriented, and in no acute distress. Neuro: Normal sensation of the tips of all digits of the left hand at this time Vascular: Cap refill brisk Pain: Minimal tenderness to palpation about wound on dorsal aspect of the left wrist Minimal discomfort with axial loading of the left wrist Range of motion of the left wrist appears painless ROM: Range of motion of the left wrist appears full and intact, patient is able to use the wrist fully Skin: Wound on dorsal aspect of left wrist has been mostly closed with sutures, appears clean, dry, intact Packing in place Incision sites on dorsal left forearm and volar left forearm are open, packing in place, draining No evidence of surrounding cellulitis General: No erythema Psych: Appears grossly normal Affect normal Attitude cooperative Procedures Date of Service Date of Service: 12/20/24 Progress Note: A&P Assessment and plan (1) Open wound of left wrist: Status: Acute (2) Cutaneous abscess of left wrist: Status: Acute Plan 1. Status post I and D of left wrist and forearm DOS 12/19/2024 Patient appears to be recovering fairly well postoperatively Patient is educated about the typical recovery course Packing is pulled and dressing is changed today Patient is educated that his newly diagnosed diabetes is poorly controlled, and this can lead to significant concerns and delays in wound healing Wound care reconsulted for assessment of postoperative wounds and recommendations for dressings to give the patient's wounds the best chance of healing Patient should likely continue IV antibiotics, as given significant healing concerns and findings intraoperatively, I feel that patient may have a difficult time healing his wounds Daily dressing changes Continue with all other recommendations per Medicine Time Spent With Patient Time: Total time managing care of this patient today ____ minutes. Quality Stroke Does the patient have a stroke diagnosis?: No VTE Prior VTE?: No VTE Risk Level:: Medical - moderate - high VTE Device Contraindication: Treatment Not Indicated VTE Drug Contraindication: Treatment Not Indicated
[2024-12-20 08:12] LABS: Platelet Count 90 X10*3/uL (160-400)
[2024-12-20] MEDS: methADONE HCl 20 MG/2 ML ORAL.CONC 175 MG PO (08:12)
--- NOTE | 2024-12-20 08:13 | HO.POSTANES ---
Post Anesthesia Evaluation Post Anesthesia Evaluation Date of Service: 12/20/24 Vital Signs: Vital Signs Temp Pulse Resp BP Pulse Ox O2 Del Method 12/20/24 07:41 98.0 F 91 17 120/62 92 Room Air 12/20/24 03:29 97.7 F 81 20 130/61 96 Room Air Anesthesia: Monitored Mental Status: Awake Pain Control: Satisfactory Nausea/Vomiting: None Hydration: Adequate Anesthesia-Related Issues: No Anes. Related Issues
[2024-12-20 08:26] LABS: Creatinine Clr Calc Pharmacy 205.4; Estimated Glomerular Filt Rate > 60
--- NOTE | 2024-12-20 08:57 | HE.PHANOTE ---
RE: VANCO DOSING Trough came back as 19.7 mg/L which is supratherapeutic for skin infection, renal function is stable. Hold dose for 16 hours, reduce dose to 1500 mg q12h, starting @1800 12/20/24. Next trough is scheduled for 12/21/24 @1600.
--- NOTE | 2024-12-20 09:44 | P.PNIM_ITS ---
Subjective Subjective Date of Service: 12/20/24 Interval History: f/u on MADDY, cellulitis, wound of wrist, lower extremity s/p I&D in OR of left wrist yesterday Physical Exam 2 Exam: Exam: General: AO X 3, no acute distress Resp: CTA bilateral CVS: S1,S2,RRR GI: +BS, NT, no distention Skin: see pics from earlier Neuro: motor grossly intact Psych: appropriate affect Vital Signs: Vital Signs: Last Vital Signs Temp 98.0 F 12/20/24 07:41 Pulse 91 12/20/24 07:41 Resp 17 12/20/24 07:41 BP 120/62 12/20/24 07:41 Pulse Ox 92 12/20/24 07:41 O2 Del Method Room Air 12/20/24 07:41 BMI result Body Mass Index 37.5 Objective Data Active Medications Acetaminophen (Acetaminophen 325 Mg Tablet) 650 mg PO Q6H PRN PRN Reason: Pain, Mild 1-3,fever,headache Last Admin: 12/18/24 10:31 Dose: 650 mg Documented By: LUCIO Calcium Carbonate (Calcium Carbonate 750 Mg Tab.Chew) 750 mg PO Q4H PRN PRN Reason: Heartburn Dextrose (Dextrose 50 % 25 Gm/50 Ml Syringe) 25 gm IVPUSH Q15M PRN; Protocol PRN Reason: per Hypoglycemia Standing Ord. Glucose (Glucose Gel 15 Gm Gel..Gram.) 15 gm PO Q15M PRN; Protocol PRN Reason: per Hypoglycemia Standing Ord. Hydromorphone HCl (Hydromorphone Hcl 0.5 Mg/0.5 Ml Syringe) 0.5 mg IVPUSH Q4H PRN; Protocol PRN Reason: Pain, Severe (Pain Scale 7-10) Last Admin: 12/20/24 05:17 Dose: 0.5 mg Documented By: CARMEN Vancomycin HCl 1,500 mg/ (Sodium Chloride) 500 mls @ 333.333 mls/hr IV Q12H [facility] Insulin Human Lispro (Insulin Lispro 100 Unit/Ml 3 Ml Vial) 0 unit SUBCUT QIDACHS [facility]; Protocol Last Admin: 12/20/24 07:35 Dose: Not Given Documented By: MONSERRAT Non-Admin Reason: No Insulin Coverage Lorazepam (Lorazepam 0.5 Mg Tablet) 0.5 mg PO BID [facility] Last Admin: 12/20/24 08:11 Dose: 0.5 mg Documented By: MONSERRAT Magnesium Hydroxide (Milk Of Magnesia 30 Ml Oral.Susp) 30 ml PO DAILY PRN PRN Reason: Constipation Magnesium Oxide (Magnesium Oxide 400 Mg Tablet) 400 mg PO BIDPC [facility] Last Admin: 12/20/24 08:11 Dose: 400 mg Documented By: MONSERRAT Melatonin (Melatonin 3 Mg Tablet) 6 mg PO BEDTIME PRN PRN Reason: Insomnia Metformin HCl (Metformin Hcl 500 Mg Tablet) 500 mg PO BIDWM [facility] Last Admin: 12/20/24 08:11 Dose: 500 mg Documented By: MONSERRAT Methadone HCl (Methadone Hcl 20 Mg/2 Ml Oral.Conc) 175 mg PO DAILY [facility] Last Admin: 12/20/24 08:12 Dose: 175 mg Documented By: MONSERRAT Co-signed By: CRISPIN Methadone HCl (Methadone Hcl 20 Mg/2 Ml Oral.Conc) 30 mg PO DAILY@1800 [facility] Last Admin: 12/19/24 17:42 Dose: 30 mg Documented By: CRISPIN Co-signed By: DEBORAH Oxycodone HCl (Oxycodone Hcl Immed Release 5 Mg Tablet) 5 mg PO Q6H PRN PRN Reason: Pain, Moderate(Pain Scale 4-6) Last Admin: 12/20/24 03:24 Dose: 5 mg Documented By: YUNI Pharmacy Consult (Consult Rx Vancomycin Dosing) 1 each MISCELLANE DAILY PRN PRN Reason: Consult order Quetiapine Fumarate (Quetiapine Fumarate 100 Mg Tablet) 100 mg PO BEDTIME [facility] Last Admin: 12/19/24 21:06 Dose: 100 mg Documented By: KAREN Sertraline HCl (Sertraline Hcl 50 Mg Tablet) 50 mg PO BEDTIME [facility] Last Admin: 12/19/24 21:06 Dose: 50 mg Documented By: KAREN Sodium Chloride (0.9 % Sodium Chloride Flush 3 Ml Syringe) 3 ml IVFLUSH QSHIFT [facility] Last Admin: 12/20/24 08:10 Dose: 3 ml Documented By: MONSERRAT Trazodone HCl (Trazodone Hcl 50 Mg Tablet) 50 mg PO BEDTIME [facility] Last Admin: 12/19/24 21:06 Dose: 50 mg Documented By: KAREN Labs 12/20/24 07:58 12/20/24 07:58 Labs: Laboratory Results - last 24 hr 12/19/24 12/19/24 12/19/24 11:33 16:00 20:17 MCV MCH MCHC RDW Plt Count MPV Absolute Nucleated RBC Nucleated RBC % (auto) Estim Creat Clear Calc Estimated GFR POC Glucose 158 H 229 H 211 H Vancomycin Trough 12/20/24 12/20/24 07:27 07:58 MCV 85.3 MCH 28.3 MCHC 33.1 RDW 13.9 Plt Count 90 L MPV 10.3 Absolute Nucleated RBC 0.000 Nucleated RBC % (auto) 0.0 Estim Creat Clear Calc 205.4 Estimated GFR > 60 POC Glucose 146 H Vancomycin Trough 19.7 Microbiology Microbiology Results: Microbiology 12/19/24 14:30 Gram Stain - Final Wrist Left Routine Culture - Preliminary Culture in progress. 12/19/24 14:30 Gram Stain - Final Wrist Left Routine Culture - Preliminary Culture in progress. 12/17/24 08:59 Blood Culture - Final Blood - Venous Methicillin Res Staph Aureus 12/17/24 09:07 Blood Culture - Final Blood - Venous Methicillin Res Staph Aureus 12/15/24 18:01 Urine Culture - Final Urine clean catch - Clean Catch Midstream Methicillin Res Staph Aureus Assessment and Plan (1) IVDU (intravenous drug user): Status: Acute (2) Substance abuse: Status: Acute (3) Acute renal failure: Status: Acute (4) Cellulitis of right leg: Status: Acute (5) Cellulitis: Status: Acute Plan This is a 54-year-old male with h/o IVDU on methadone, previous notes indicate history of liver cirrhosis (pt denies) who presents to the emergency department with generalized weakness found to have multiple acute issues--MADDY, sepsis, wound infection/cellulitis MRSA bacteremia, MRSA UTI from 12/15, repeat culture 12/17 positive repeat culture 12/19 pending continue Vanco ID consult Echo done, rno vegetations RLE cellulitis RLE and left wrist wounds MRI 1. No MRI findings of osteomyelitis. 2. Extensive abnormality extensor digitorum longus tendons as discussed above. The appearance is most characteristic of infected tendinopathy and tenosynovitis given the associated dorsal soft tissue defect. 3. Likely similar infected tendinopathy and tenosynovitis of the flexor tendons of the thumb with soft tissue abscess within the volar and radial aspect of the distal forearm. Seen by Ortho s/p I&D in OR on 12/19 Continue Vanco as above Wound care MADDY, resolved, Cr 0.54 from 2.94 after iv fluid continue monitoring New onset diabetes Hemoglobin A1c 12.7 SSI Metformin hold lantus for now diabetic diet hypOnatremia, probably chronic, stable. probable liver cirrhosis with thrombocytopenia pt denies but previous notes indicate history previous history of heavy etoh use and current IVDU t.bili 1.3, AST 79 - near baseline CT A/P 1. Indeterminate low-density focus within the prostate, possibly indicating abscess or neoplasm. 2. Cirrhosis and portal hypertension. 3. Gallbladder sludge and distention. If there is clinical evidence for acute cholecystitis, further assessment with ultrasound could be performed. Hypokalemia, resolved Hypomagnesemia Replaced and resolved IVDU/substance abuse Methadone Addiction med QT prolongation, likely due to methadone. Improved Mood Seroquel Continue sertraline, lorazepam, trazodone dvt ppx - avoid chemophrophylaxis due to thrombocytopenia Patient will likely require 2 midnight stay in the hospital for management of new onset diabetes cellulitis, multiple skin infections in electrolyte abnormalities requiring close monitoring Will need skilled nursing IV Abx and likely rehab Quality Stroke Does the patient have a stroke diagnosis?: No VTE Prior VTE?: No VTE Risk Level:: Medical - moderate - high VTE Device Contraindication: Treatment Not Indicated VTE Drug Contraindication: Treatment Not Indicated
[2024-12-20 11:12] LABS: Glucose, Whole Blood 160 mg/dL (60-115)
--- NOTE | 2024-12-20 13:05 | MHC.RECOVRN ---
TW met with pt in 345 at approximately 0930am to offer continued recovery support. On approach pt was laying in bed, unclothed, with a sheet draped partly across his midsection. Pt was covered appropriately with permission and agreeable to meeting. Pt reports adequate withdrawal management, however does report 10/10 wrist pain post I&D 12/19/24. Pt was unaware he had received hydromorphone 0.5mg and states, it must not be working . Pt was reassured this information would be relayed to his nurse and assigned RN, Adilene, was made aware of pt complaint. Pt denies further issues, questions, or concerns. TW available for further support if needed.
[2024-12-20 15:31] VITALS: BP 137/66; PULSE 86; RESP 16; TEMP 36.6; O2SAT 92
--- NOTE | 2024-12-20 15:42 | MHC.CM.PN ---
PER MD ROUNDS, PT WILL LIKELY REMAIN OVER THE WEEKEND WITH A PLAN FOR A PICC LINE EARLY NEXT WEEK [facility] ARE OFFERING BEDS PENDING METHADONE ARRANGEMENTS
[2024-12-20 16:00] VITALS: PULSE 86
--- NOTE | 2024-12-20 16:15 | HO.WOUND ---
Wound Consult: Follow up 54yr old? male admitted [place] [facility] [place]15[place]24- See progress notes and H&P for detailed history.? Wound consult follow up for Left Wrist and Right Foot.? Patient agreeable to assessment and photo documentation.? Patient did not have much to report during my assessment - he was sleepy easily arousable but not able to contribute to history much. Requested by Orthopedic surgery team to assess wounds. At this time I recommend gauze packing strip until the wounds are further along in the healing process - concerns for fluid accumulation if the wounds are not lightly packed. See new orders below. 12/20/24 Forearm site Left posterior wrist site Wrist partial closure with sutures in place per Ortho Surgery team 12/16/24 Left Wrist Etiology: S/P I&D sites 3 to Left Wrist and forearm - anterior sites difficult to assess wound ebd but appear clean - remain with swelling no induration or fluctuance noted the posterior wrist sites has some slough observed. No odor noted. No erythema to this site noted. Drainage / Odor: serosang drainage - no odor Edges: ? unattached Consuelo wound: No Induration, Fluctuance or Warmth noted Pain: tenderness reported Goals of Treatment: ?Gauze packing strip Daily until wounds are further along in healing process. Right Foot 12/16/24 Right Foot 12/20/24 Etiology: Injection site per Pt Measurements: 2.8cm x 2.5cm x 0.2cm Wound Bed: improved moist red wound bed Drainage / Odor: no odor noted - serosang drainage noted - small amount Edges: ? attached Consuelo wound: redness resolved for the most part at todays assessment - No Induration, Fluctuance or Warmth noted Pain: tenderness reported Goals of Treatment: ? moisture management with Dur[employer] Recommendations: 1. Turn and Reposition every 2 hours and as needed for patient comfort.? Use pillows or wedges to support off loading positions. 2. Off Load all bony prominences with use of pillows and heel boots if needed.? Apply Preventative foams where needed. ? 3. Monitor for incontinence and moisture control, use barrier creams when needed for prevention and treatment. 4. Provide adequate and supplemental nutrition.? 5. Order low air loss mattress. 6. When applicable maintain blood glucose levels per Providers order. Right Foot - Cleanse and gently irrigate with NS, Pat dry.? Apply barrier to periwound, lightly pack with Durafiber AG, be sure to leave a wick to easy removal.? Cover with gauze and ABD pad followed by gauze wrap.? Change every other day. Left Wrist - Cleanse and gently irrigate with NS, Pat dry.? Apply barrier to periwound, lightly pack with gauze packing strip be sure to leave a wick to easy removal.? Cover with gauze and ABD pad followed by gauze wrap.? Change Daily. Re-consult wound care Nurse for wound deterioration or wound changes.
[2024-12-20 16:22] LABS: Glucose, Whole Blood 144 mg/dL (60-115)
[2024-12-20] MEDS: methADONE HCl 20 MG/2 ML ORAL.CONC 30 MG PO (18:00)
--- NOTE | 2024-12-20 18:46 | P.CDIM_ITS ---
PROVIDER RESPONSE TEXT: To clarify, the appropriate diagnosis supported by the clinical indicators: arterial ulcer,: nos QUERY TEXT: PHYSICIAN'S DOCUMENTATION REQUEST Date of Query: 12/18/2024 01:47 PM EDT Patient Name: Stepan Low Admit Date: 12/15/2024 Dear Dinesh Dyson MD, A review of the medical record indicates additional documentation may be needed. Please review below and update the documentation accordingly. Clinical Indicators: patient with right lower extremity cellulitis, open wound right ankle IV Vancomycin Based on the above, could you please provide further information regarding the type and severity of the leg ulcer/wound: arterial ulcer, please specify depth venous ulcer please specify depth Pressure (decubitus) ulcer Please include the stage of the ulcer and specify the location and laterality of the ulcer/wound Traumatic wound please specify depth Other (explain) Clinically unable to determine (explain) Thank you, Sarah Amaral RN Use of terms such as suspected, likely, concern for, or probable (associated with a specific diagnosis that is being evaluated, monitored, or treated as if it exists) are acceptable and can be coded in the inpatient setting, when documented at the time of discharge. Please use your independent medical judgment in providing your response. THIS QUERY IS PART OF THE PERMANENT MEDICAL RECORD
[2024-12-20 19:14] VITALS: BP 165/81; PULSE 93; RESP 16; TEMP 36.5; O2SAT 94
[2024-12-20 20:35] LABS: Glucose, Whole Blood 170 mg/dL (60-115)
--- NOTE | 2024-12-21 | ECG_ITS ---
Test Reason : Check QTc Blood Pressure : */* mmHG Vent. Rate : 88 BPM Atrial Rate : 88 BPM P-R Int : 178 ms QRS Dur : 110 ms QT Int : 422 ms P-R-T Axes : 45 44 5 degrees QTcB Int : 510 ms Normal sinus rhythm Prolonged QT Abnormal ECG When compared with ECG of 16-Dec-2024 14:25, QT has lengthened Referred By: Dinesh Dyson Electronically Signed By: Jaspreet Ford
[2024-12-21 03:31] VITALS: BP 138/63; PULSE 86; RESP 18; TEMP 36.7; O2SAT 96
[2024-12-21] MEDS: oxyCODONE HCl Immed Release 5 MG TABLET PO ×2 (04:27→16:38)
[2024-12-21 06:02] LABS: Hematocrit 32.4 % (42.0-52.0); Mean Corpuscular Volume 83.1 fL (80.0-98.0); NRBC Abs Auto 0.000 X10*3/uL (0.0-0.012); NRBC Pct Auto 0.0 /100WBC (0.0-0.2); PLT CLUMP 1; Red Blood Count 3.90 X10*6/uL (4.60-5.80)
[2024-12-21 06:04] LABS: Hemoglobin 10.9 g/dl (14.0-18.0); Mean Corpuscular HGB Conc 33.6 g/dl (31.0-36.0); Mean Corpuscular Hemoglobin 27.9 pg (27.0-33.0)
[2024-12-21 06:16] LABS: Platelet Count 79 X10*3/uL (160-400); White Blood Count 6.2 X10*3/uL (4.8-10.8)
[2024-12-21 06:22] LABS: Anion Gap 17 (12-20); Blood Urea Nitrogen 12 mg/dL (9-16); Calcium 7.8 mg/dL (8.4-10.2); Carbon Dioxide 27 mmol/L (22-29); Chloride 89 mmol/L (96-108); Creatinine Clr Calc Pharmacy 205.4; Estimated Glomerular Filt Rate > 60; Potassium 3.2 mmol/L (3.3-5.1); Sodium 130 mmol/L (135-145)
[2024-12-21 07:38] VITALS: BP 139/65; PULSE 99; RESP 18; TEMP 36.9; O2SAT 94
[2024-12-21 07:46] LABS: Glucose, Whole Blood 147 mg/dL (60-115)
[2024-12-21 08:00] VITALS: PULSE 99
--- NOTE | 2024-12-21 08:31 | P.PNIM_ITS ---
Subjective Subjective Date of Service: 12/21/24 Interval History: f/u on MADDY, cellulitis, wound of wrist, lower extremity s/p I&D in OR of left wrist 12/19 pain is better controlled Physical Exam 2 Exam: Exam: General: AO X 3, no acute distress Resp: CTA bilateral CVS: S1,S2,RRR GI: +BS, NT, no distention Skin: see pics from earlier Neuro: motor grossly intact Psych: appropriate affect Vital Signs: Vital Signs: Last Vital Signs Temp 98.5 F 12/21/24 07:38 Pulse 99 12/21/24 07:38 Resp 18 12/21/24 07:38 BP 139/65 12/21/24 07:38 Pulse Ox 94 12/21/24 07:38 O2 Del Method Room Air 12/21/24 07:38 BMI result Body Mass Index 37.5 Const: Other: General: AO X 3, no acute distress Resp: CTA bilateral CVS: S1,S2,RRR GI: +BS, NT, no distention Skin: see pics from earlier, wound dressings in place Neuro: motor grossly intact Psych: appropriate affect Objective Data Active Medications Acetaminophen (Acetaminophen 325 Mg Tablet) 650 mg PO Q6H PRN PRN Reason: Pain, Mild 1-3,fever,headache Last Admin: 12/18/24 10:31 Dose: 650 mg Documented By: LUCIO Calcium Carbonate (Calcium Carbonate 750 Mg Tab.Chew) 750 mg PO Q4H PRN PRN Reason: Heartburn Dextrose (Dextrose 50 % 25 Gm/50 Ml Syringe) 25 gm IVPUSH Q15M PRN; Protocol PRN Reason: per Hypoglycemia Standing Ord. Glucose (Glucose Gel 15 Gm Gel..Gram.) 15 gm PO Q15M PRN; Protocol PRN Reason: per Hypoglycemia Standing Ord. Hydromorphone HCl (Hydromorphone Hcl 0.5 Mg/0.5 Ml Syringe) 1 mg IVPUSH Q4H PRN; Protocol PRN Reason: Pain, Severe (Pain Scale 7-10) Last Admin: 12/21/24 07:56 Dose: 1 mg Documented By: MONSERRAT Vancomycin HCl 1,500 mg/ (Sodium Chloride) 500 mls @ 333.333 mls/hr IV Q12H [facility] Last Infusion: 12/21/24 07:57 Dose: Infused Documented By: MONSERRAT Insulin Human Lispro (Insulin Lispro 100 Unit/Ml 3 Ml Vial) 0 unit SUBCUT QIDACHS [facility]; Protocol Last Admin: 12/21/24 08:02 Dose: Not Given Documented By: MONSERRAT Non-Admin Reason: No Insulin Coverage Magnesium Hydroxide (Milk Of Magnesia 30 Ml Oral.Susp) 30 ml PO DAILY PRN PRN Reason: Constipation Magnesium Oxide (Magnesium Oxide 400 Mg Tablet) 400 mg PO BIDPC [facility] Last Admin: 12/21/24 07:56 Dose: 400 mg Documented By: MONSERRAT Melatonin (Melatonin 3 Mg Tablet) 6 mg PO BEDTIME PRN PRN Reason: Insomnia Last Admin: 12/21/24 00:03 Dose: 6 mg Documented By: ELIE Metformin HCl (Metformin Hcl 500 Mg Tablet) 500 mg PO BIDWM [facility] Last Admin: 12/21/24 07:56 Dose: 500 mg Documented By: MONSERRAT Methadone HCl (Methadone Hcl 20 Mg/2 Ml Oral.Conc) 175 mg PO DAILY [facility] Last Admin: 12/20/24 08:12 Dose: 175 mg Documented By: MONSERRAT Co-signed By: CRISPIN Methadone HCl (Methadone Hcl 20 Mg/2 Ml Oral.Conc) 30 mg PO DAILY@1800 [facility] Last Admin: 12/20/24 18:00 Dose: 30 mg Documented By: MONSERRAT Co-signed By: ESTRELLA Oxycodone HCl (Oxycodone Hcl Immed Release 5 Mg Tablet) 5 mg PO Q6H PRN PRN Reason: Pain, Moderate(Pain Scale 4-6) Last Admin: 12/21/24 04:27 Dose: 5 mg Documented By: MERCEDEZ Pharmacy Consult (Consult Rx Vancomycin Dosing) 1 each MISCELLANE DAILY PRN PRN Reason: Consult order Quetiapine Fumarate (Quetiapine Fumarate 100 Mg Tablet) 100 mg PO BEDTIME [facility] Last Admin: 12/20/24 20:45 Dose: 100 mg Documented By: MERCEDEZ Sertraline HCl (Sertraline Hcl 50 Mg Tablet) 50 mg PO BEDTIME [facility] Last Admin: 12/20/24 20:45 Dose: 50 mg Documented By: MERCEDEZ Sodium Chloride (0.9 % Sodium Chloride Flush 3 Ml Syringe) 3 ml IVFLUSH QSHIFT [facility] Last Admin: 12/21/24 08:02 Dose: Not Given Documented By: MONSERRAT Non-Admin Reason: IV Running Trazodone HCl (Trazodone Hcl 50 Mg Tablet) 50 mg PO BEDTIME [facility] Last Admin: 12/20/24 20:45 Dose: 50 mg Documented By: MERCEDEZ Labs 12/21/24 05:23 12/21/24 05:23 Labs: Laboratory Results - last 24 hr 12/20/24 12/20/24 12/20/24 07:58 11:08 16:09 MCV MCH MCHC RDW Plt Count MPV Absolute Nucleated RBC Nucleated RBC % (auto) Anion Gap Estim Creat Clear Calc Estimated GFR POC Glucose 160 H 144 H Random Glucose Calcium Vancomycin Trough 19.7 12/20/24 12/21/24 12/21/24 20:27 05:23 05:23 MCV 83.1 MCH 27.9 MCHC 33.6 RDW 13.8 Plt Count 79 L MPV 11.5 Absolute Nucleated RBC 0.000 Nucleated RBC % (auto) 0.0 Anion Gap 17 Estim Creat Clear Calc 205.4 205.4 Estimated GFR > 60 POC Glucose 170 H Random Glucose Calcium Vancomycin Trough 12/21/24 12/21/24 05:23 07:41 MCV MCH MCHC RDW Plt Count MPV Absolute Nucleated RBC Nucleated RBC % (auto) Anion Gap Estim Creat Clear Calc Estimated GFR > 60 POC Glucose 147 H Random Glucose 130 H Calcium 7.8 L Vancomycin Trough Microbiology Microbiology Results: Microbiology 12/19/24 14:30 Gram Stain - Final Wrist Left Routine Culture - Preliminary Culture in progress. 12/19/24 14:30 Gram Stain - Final Wrist Left Routine Culture - Preliminary Culture in progress. Assessment and Plan (1) IVDU (intravenous drug user): Status: Acute (2) Substance abuse: Status: Acute (3) Acute renal failure: Status: Acute (4) Cellulitis of right leg: Status: Acute (5) Cellulitis: Status: Acute Plan This is a 54-year-old male with h/o IVDU on methadone, previous notes indicate history of liver cirrhosis (pt denies) who presents to the emergency department with generalized weakness found to have multiple acute issues--MADDY, sepsis, wound infection/cellulitis MRSA bacteremia, MRSA UTI from 12/15, repeat culture 12/17 positive repeat culture 12/21 continue Vanco ID consult Echo done, no vegetations RLE cellulitis RLE and left wrist wounds MRI 1. No MRI findings of osteomyelitis. 2. Extensive abnormality extensor digitorum longus tendons as discussed above. The appearance is most characteristic of infected tendinopathy and tenosynovitis given the associated dorsal soft tissue defect. 3. Likely similar infected tendinopathy and tenosynovitis of the flexor tendons of the thumb with soft tissue abscess within the volar and radial aspect of the distal forearm. Seen by Ortho s/p I&D in OR on 12/19, culture negative Continue Vanco as above Wound care MADDY, resolved, Cr 0.54 from 2.94 after iv fluid continue monitoring New onset diabetes Hemoglobin A1c 12.7 SSI Metformin hold lantus for now diabetic diet hypOnatremia, probably chronic, stable. probable liver cirrhosis with thrombocytopenia pt denies but previous notes indicate history previous history of heavy etoh use and current IVDU t.bili 1.3, AST 79 - near baseline CT A/P 1. Indeterminate low-density focus within the prostate, possibly indicating abscess or neoplasm. 2. Cirrhosis and portal hypertension. 3. Gallbladder sludge and distention. If there is clinical evidence for acute cholecystitis, further assessment with ultrasound could be performed. Hypokalemia, resolved Hypomagnesemia Replaced and resolved IVDU/substance abuse Methadone Addiction med pain med adjusted QT prolongation, likely due to methadone. Improved Mood Seroquel Continue sertraline, lorazepam, trazodone dvt ppx - avoid chemophrophylaxis due to thrombocytopenia Patient will likely require 2 midnight stay in the hospital for management of new onset diabetes cellulitis, multiple skin infections in electrolyte abnormalities requiring close monitoring Will need fdc IV Abx and likely rehab Quality Stroke Does the patient have a stroke diagnosis?: No VTE Prior VTE?: No VTE Risk Level:: Medical - moderate - high VTE Device Contraindication: Treatment Not Indicated VTE Drug Contraindication: Treatment Not Indicated
[2024-12-21] MEDS: methADONE HCl 20 MG/2 ML ORAL.CONC 175 MG PO (08:36)
[2024-12-21 11:42] LABS: Glucose, Whole Blood 149 mg/dL (60-115)
[2024-12-21 16:00] VITALS: BP 139/73; PULSE 79; PULSE 99; RESP 16; TEMP 36.4; O2SAT 94
[2024-12-21 16:22] LABS: Glucose, Whole Blood 145 mg/dL (60-115)
[2024-12-21] MEDS: 0.9 % Sodium Chloride Flush 3 ML SYRINGE IVFLUSH ×2 (16:39→20:26)
--- NOTE | 2024-12-21 16:50 | HE.PHANOTE ---
RE: VANCO DOSING Trough came back as 13.2 mg/L, renal function is stable. Continue with dose 1500 mg q12h, next trough is scheduled for 12/22/24@1600.
[2024-12-21] MEDS: methADONE HCl 20 MG/2 ML ORAL.CONC 30 MG PO (17:46)
[2024-12-21 19:44] VITALS: BP 135/67; PULSE 76; RESP 18; TEMP 36.3; O2SAT 92
[2024-12-21 20:17] LABS: Glucose, Whole Blood 157 mg/dL (60-115)
[2024-12-22] VITALS: PULSE 76
[2024-12-22 02:42] VITALS: BP 135/64; PULSE 85; RESP 17; TEMP 36.6; O2SAT 94
[2024-12-22 06:56] LABS: Creatinine Clr Calc Pharmacy 213.3; Estimated Glomerular Filt Rate > 60
[2024-12-22 07:21] VITALS: BP 132/71; PULSE 88; RESP 16; TEMP 36.6; O2SAT 93
[2024-12-22 07:32] LABS: Anion Gap 13 (12-20); Blood Urea Nitrogen 11 mg/dL (9-16); Calcium 7.7 mg/dL (8.4-10.2); Carbon Dioxide 25 mmol/L (22-29); Chloride 95 mmol/L (96-108); Potassium 3.1 mmol/L (3.3-5.1); Sodium 130 mmol/L (135-145)
[2024-12-22 07:43] LABS: Glucose, Whole Blood 134 mg/dL (60-115)
[2024-12-22 07:54] LABS: MANUAL DIFF FLAG NO
[2024-12-22 08:00] LABS: Hematocrit 31.4 % (42.0-52.0); Hemoglobin 10.6 g/dl (14.0-18.0); Imm Gran Abs Auto 0.04 X10*3/uL (0.00-0.03); Imm Gran Pct Auto 0.8 % (0.0-0.4); Lymphocytes Absolute Auto 0.7 X10*3/uL (1.2-4.9); Mean Corpuscular HGB Conc 33.8 g/dl (31.0-36.0); Mean Corpuscular Hemoglobin 28.3 pg (27.0-33.0); Mean Corpuscular Volume 83.7 fL (80.0-98.0); NRBC Abs Auto 0.000 X10*3/uL (0.0-0.012); NRBC Pct Auto 0.0 /100WBC (0.0-0.2); Red Blood Count 3.75 X10*6/uL (4.60-5.80); White Blood Count 5.1 X10*3/uL (4.8-10.8)
[2024-12-22 08:10] LABS: Platelet Count 84 X10*3/uL (160-400)
[2024-12-22] MEDS: methADONE HCl 20 MG/2 ML ORAL.CONC 175 MG PO (08:42)
--- NOTE | 2024-12-22 08:42 | PM.PNORT ---
Subjective Subjective Date of Service: 12/22/24 Interval history: POD3 s/p left wrist and forearm I&D Patient is resting in bed No overnight events Pain is managed Anxious - waiting for methadone Reports no pain in left arm Physical Exam Vital Signs: Vital Signs: Last Vital Signs Temp 97.9 F 12/22/24 07:21 Pulse 88 12/22/24 07:21 Resp 16 12/22/24 07:21 BP 132/71 12/22/24 07:21 Pulse Ox 93 12/22/24 07:21 O2 Del Method Room Air 12/22/24 07:21 BMI result Body Mass Index 37.5 Const: General: cooperative, healthy appearing and no acute distress Resp: Effort & Inspection: normal respiratory effort and able to speak in complete sentences Cardio: Rate: regular rate Peripheral pulses: Peripheral pulses 2+ throughout GI: Palpation (GI): Soft to palpation Skin: Lesions: no lesions Rashes: no rashes Extrem: Other: Splint is c/d/i. Refusing to allow takedown of splint/dressings. Procedures Date of Service Date of Service: 12/22/24 Progress Note: A&P Assessment and plan (1) Open wound of left wrist: Status: Acute (2) Cutaneous abscess of left wrist: Status: Acute Plan 1. Status post I and D of left wrist and forearm DOS 12/19/2024 Patient refusing wound check Continue glucose monitoring and treatment Daily dressing changes Continue IV abx Continue with all other recommendations per Medicine Time Spent With Patient Time: Total time managing care of this patient today ____ minutes. Quality Stroke Does the patient have a stroke diagnosis?: No VTE Prior VTE?: No VTE Risk Level:: Medical - moderate - high VTE Device Contraindication: Treatment Not Indicated VTE Drug Contraindication: Treatment Not Indicated
[2024-12-22] MEDS: 0.9 % Sodium Chloride Flush 3 ML SYRINGE IVFLUSH (08:45)
--- NOTE | 2024-12-22 10:24 | P.PNIM_ITS ---
Subjective Subjective Date of Service: 12/22/24 Interval History: f/u on MADDY, cellulitis, wound of wrist, lower extremity s/p I&D in OR of left wrist 12/19 Still c/o lots of pain Physical Exam 2 Exam: Exam: General: AO X 3, no acute distress Resp: CTA bilateral CVS: S1,S2,RRR GI: +BS, NT, no distention Skin: see pics from earlier Neuro: motor grossly intact Psych: appropriate affect Vital Signs: Vital Signs: Last Vital Signs Temp 97.9 F 12/22/24 07:21 Pulse 88 12/22/24 07:21 Resp 16 12/22/24 07:21 BP 132/71 12/22/24 07:21 Pulse Ox 93 12/22/24 07:21 O2 Del Method Room Air 12/22/24 07:21 BMI result Body Mass Index 37.5 Const: Other: General: AO X 3, no acute distress Resp: CTA bilateral CVS: S1,S2,RRR GI: +BS, NT, no distention Skin: see pics from earlier, wound dressings in place Neuro: motor grossly intact Psych: appropriate affect Objective Data Active Medications Acetaminophen (Acetaminophen 325 Mg Tablet) 650 mg PO Q6H PRN PRN Reason: Pain, Mild 1-3,fever,headache Last Admin: 12/18/24 10:31 Dose: 650 mg Documented By: LUCIO Calcium Carbonate (Calcium Carbonate 750 Mg Tab.Chew) 750 mg PO Q4H PRN PRN Reason: Heartburn Dextrose (Dextrose 50 % 25 Gm/50 Ml Syringe) 25 gm IVPUSH Q15M PRN; Protocol PRN Reason: per Hypoglycemia Standing Ord. Glucose (Glucose Gel 15 Gm Gel..Gram.) 15 gm PO Q15M PRN; Protocol PRN Reason: per Hypoglycemia Standing Ord. Hydromorphone HCl (Hydromorphone Hcl 0.5 Mg/0.5 Ml Syringe) 1 mg IVPUSH Q4H PRN; Protocol PRN Reason: Pain, Severe (Pain Scale 7-10) Last Admin: 12/22/24 04:24 Dose: 1 mg Documented By: ELIE Vancomycin HCl 1,500 mg/ (Sodium Chloride) 500 mls @ 333.333 mls/hr IV Q12H [facility] Last Infusion: 12/22/24 07:25 Dose: Infused Documented By: MONSERRAT Insulin Human Lispro (Insulin Lispro 100 Unit/Ml 3 Ml Vial) 0 unit SUBCUT QIDACHS [facility]; Protocol Last Admin: 12/22/24 08:03 Dose: Not Given Documented By: MONSERRAT Non-Admin Reason: No Insulin Coverage Lorazepam (Lorazepam 1 Mg Tablet) 1 mg PO Q6H PRN PRN Reason: anxiety/restlessness Last Admin: 12/22/24 05:51 Dose: 1 mg Documented By: ELIE Magnesium Hydroxide (Milk Of Magnesia 30 Ml Oral.Susp) 30 ml PO DAILY PRN PRN Reason: Constipation Magnesium Oxide (Magnesium Oxide 400 Mg Tablet) 400 mg PO BIDPC [facility] Last Admin: 12/22/24 08:38 Dose: 400 mg Documented By: MONSERRAT Melatonin (Melatonin 3 Mg Tablet) 6 mg PO BEDTIME PRN PRN Reason: Insomnia Last Admin: 12/21/24 00:03 Dose: 6 mg Documented By: ELIE Metformin HCl (Metformin Hcl 500 Mg Tablet) 500 mg PO BIDWM [facility] Last Admin: 12/22/24 08:38 Dose: 500 mg Documented By: MONSERRAT Methadone HCl (Methadone Hcl 20 Mg/2 Ml Oral.Conc) 175 mg PO DAILY [facility] Last Admin: 12/22/24 08:42 Dose: 175 mg Documented By: MONSERRAT Co-signed By: FARAZ Methadone HCl (Methadone Hcl 20 Mg/2 Ml Oral.Conc) 30 mg PO DAILY@1800 [facility] Last Admin: 12/21/24 17:46 Dose: 30 mg Documented By: MONSERRAT Co-signed By: BAYRON Pharmacy Consult (Consult Rx Vancomycin Dosing) 1 each MISCELLANE DAILY PRN PRN Reason: Consult order Quetiapine Fumarate (Quetiapine Fumarate 100 Mg Tablet) 100 mg PO BEDTIME [facility] Last Admin: 12/21/24 20:25 Dose: 100 mg Documented By: ELIE Sertraline HCl (Sertraline Hcl 50 Mg Tablet) 50 mg PO BEDTIME [facility] Last Admin: 12/21/24 20:25 Dose: 50 mg Documented By: ELIE Sodium Chloride (0.9 % Sodium Chloride Flush 3 Ml Syringe) 3 ml IVFLUSH QSHIFT [facility] Last Admin: 12/22/24 08:45 Dose: 3 ml Documented By: MONSERRAT Trazodone HCl (Trazodone Hcl 50 Mg Tablet) 50 mg PO BEDTIME [facility] Last Admin: 12/21/24 20:25 Dose: 50 mg Documented By: ELIE Labs 12/22/24 06:15 12/22/24 05:51 Labs: Laboratory Results - last 24 hr 12/21/24 12/21/24 12/21/24 11:33 16:01 16:14 MCV MCH MCHC RDW Plt Count MPV Immature Gran % (Auto) Neut % (Auto) Lymph % (Auto) [place] % (Auto) Eos % (Auto) Baso % (Auto) Lymph # (Auto) [place] # (Auto) Eos # (Auto) Baso # (Auto) Abs Immat Gran (auto) Absolute Neuts (auto) Absolute Nucleated RBC Nucleated RBC % (auto) Hold Purple Top Anion Gap Estim Creat Clear Calc Estimated GFR POC Glucose 149 H 145 H Random Glucose Calcium Random Vancomycin 13.2 L 12/21/24 12/22/24 12/22/24 20:03 05:51 06:15 MCV 83.7 MCH 28.3 MCHC 33.8 RDW 13.9 Plt Count 84 L MPV 10.8 Immature Gran % (Auto) 0.8 H Neut % (Auto) 80.5 H Lymph % (Auto) 13.3 L [place] % (Auto) 5.0 Eos % (Auto) 0.2 Baso % (Auto) 0.2 Lymph # (Auto) 0.7 L [place] # (Auto) 0.3 Eos # (Auto) 0.0 Baso # (Auto) 0.0 Abs Immat Gran (auto) 0.04 H Absolute Neuts (auto) 4.1 Absolute Nucleated RBC 0.000 Nucleated RBC % (auto) 0.0 Hold Purple Top SEE NOTE Anion Gap 13 Estim Creat Clear Calc 213.3 Estimated GFR > 60 POC Glucose 157 H Random Glucose 136 H Calcium 7.7 L Random Vancomycin 12/22/24 07:26 MCV MCH MCHC RDW Plt Count MPV Immature Gran % (Auto) Neut % (Auto) Lymph % (Auto) [place] % (Auto) Eos % (Auto) Baso % (Auto) Lymph # (Auto) [place] # (Auto) Eos # (Auto) Baso # (Auto) Abs Immat Gran (auto) Absolute Neuts (auto) Absolute Nucleated RBC Nucleated RBC % (auto) Hold Purple Top Anion Gap Estim Creat Clear Calc Estimated GFR POC Glucose 134 H Random Glucose Calcium Random Vancomycin Microbiology Microbiology Results: Microbiology 12/19/24 14:30 Gram Stain - Final Wrist Left Routine Culture - Final Methicillin Res Staph Aureus 12/19/24 14:30 Gram Stain - Final Wrist Left Routine Culture - Final Staphylococcus aureus Assessment and Plan (1) IVDU (intravenous drug user): Status: Acute (2) Substance abuse: Status: Acute (3) Acute renal failure: Status: Acute (4) Cellulitis of right leg: Status: Acute (5) Cellulitis: Status: Acute Plan This is a 54-year-old male with h/o IVDU on methadone, previous notes indicate history of liver cirrhosis (pt denies) who presents to the emergency department with generalized weakness found to have multiple acute issues--MADDY, sepsis, wound infection/cellulitis MRSA bacteremia, MRSA UTI from 12/15, repeat culture 12/17 positive repeat culture 12/21 continue Vanco ID consult Echo done, no vegetations RLE cellulitis RLE and left wrist wounds MRI 1. No MRI findings of osteomyelitis. 2. Extensive abnormality extensor digitorum longus tendons as discussed above. The appearance is most characteristic of infected tendinopathy and tenosynovitis given the associated dorsal soft tissue defect. 3. Likely similar infected tendinopathy and tenosynovitis of the flexor tendons of the thumb with soft tissue abscess within the volar and radial aspect of the distal forearm. Seen by Ortho s/p I&D in OR on 12/19, culture negative Continue Vanco as above Wound care Dilaudid and oxycodone for pain MADDY, resolved, Cr 0.54 from 2.94 after iv fluid continue monitoring New onset diabetes Hemoglobin A1c 12.7 SSI Metformin hold lantus for now diabetic diet hypOnatremia, probably chronic, stable. HypOkalemia, KCL PO probable liver cirrhosis with thrombocytopenia pt denies but previous notes indicate history previous history of heavy etoh use and current IVDU t.bili 1.3, AST 79 - near baseline CT A/P 1. Indeterminate low-density focus within the prostate, possibly indicating abscess or neoplasm. 2. Cirrhosis and portal hypertension. 3. Gallbladder sludge and distention. If there is clinical evidence for acute cholecystitis, further assessment with ultrasound could be performed. Hypokalemia, resolved Hypomagnesemia Replaced and resolved IVDU/substance abuse Methadone Addiction med pain med adjusted QT prolongation, likely due to methadone. Improved Mood Seroquel Continue sertraline, lorazepam, trazodone dvt ppx - avoid chemophrophylaxis due to thrombocytopenia Patient will likely require 2 midnight stay in the hospital for management of new onset diabetes cellulitis, multiple skin infections in electrolyte abnormalities requiring close monitoring Will need prison IV Abx and likely rehab Quality Stroke Does the patient have a stroke diagnosis?: No VTE Prior VTE?: No VTE Risk Level:: Medical - moderate - high VTE Device Contraindication: Treatment Not Indicated VTE Drug Contraindication: Treatment Not Indicated
[2024-12-22] MEDS: Potassium Chloride ER 20 MEQ TAB.ER.PRT 40 MEQ PO (11:14)
[2024-12-22 11:35] LABS: Glucose, Whole Blood 153 mg/dL (60-115)
[2024-12-22] MEDS: oxyCODONE HCl Immed Release 5 MG TABLET PO (14:35)
[2024-12-22 16:00] VITALS: BP 142/69; PULSE 86; RESP 16; TEMP 36.7; O2SAT 95
[2024-12-22 16:36] LABS: Glucose, Whole Blood 124 mg/dL (60-115)
--- NOTE | 2024-12-22 16:53 | HE.PHANOTE ---
RE: VANCO DOSING Trough came back as 12.7 mg/L, renal function is stable. Continue with dose 1500 mg q12h, next trough is scheduled for 12/23/24 @1600.
[2024-12-22] MEDS: methADONE HCl 20 MG/2 ML ORAL.CONC 30 MG PO (18:42)
[2024-12-22 19:51] LABS: Glucose, Whole Blood 166 mg/dL (60-115)
[2024-12-22 20:00] VITALS: BP 169/96; PULSE 86; RESP 16; TEMP 36.8; O2SAT 93
[2024-12-23] MEDS: oxyCODONE HCl Immed Release 5 MG TABLET PO ×4 (00:03→22:50)
[2024-12-23 04:00] VITALS: BP 149/87; PULSE 85; RESP 16; TEMP 36.7; O2SAT 93
[2024-12-23 07:34] VITALS: BP 147/86; PULSE 86; RESP 17; TEMP 36.8; O2SAT 95
[2024-12-23 07:51] LABS: Glucose, Whole Blood 130 mg/dL (60-115)
[2024-12-23 07:55] LABS: Creatinine Clr Calc Pharmacy 221.8; Estimated Glomerular Filt Rate > 60
[2024-12-23 08:00] VITALS: PULSE 84
[2024-12-23] MEDS: methADONE HCl 20 MG/2 ML ORAL.CONC 175 MG PO (08:45)
[2024-12-23] MEDS: 0.9 % Sodium Chloride Flush 3 ML SYRINGE IVFLUSH ×2 (09:09→16:04)
--- NOTE | 2024-12-23 09:35 | P.PNIM_ITS ---
Subjective Subjective Date of Service: 12/23/24 Interval History: f/u on MADDY, cellulitis, wound of wrist, lower extremity s/p I&D in OR of left wrist 12/19 Still c/o pain Physical Exam 2 Vital Signs: Vital Signs: Last Vital Signs Temp 98.2 F 12/23/24 07:34 Pulse 86 12/23/24 07:34 Resp 17 12/23/24 07:34 BP 147/86 H 12/23/24 07:34 Pulse Ox 95 12/23/24 07:34 O2 Del Method Room Air 12/23/24 07:34 BMI result Body Mass Index 37.5 Objective Data Active Medications Acetaminophen (Acetaminophen 325 Mg Tablet) 650 mg PO Q6H PRN PRN Reason: Pain, Mild 1-3,fever,headache Last Admin: 12/18/24 10:31 Dose: 650 mg Documented By: LUCIO Calcium Carbonate (Calcium Carbonate 750 Mg Tab.Chew) 750 mg PO Q4H PRN PRN Reason: Heartburn Dextrose (Dextrose 50 % 25 Gm/50 Ml Syringe) 25 gm IVPUSH Q15M PRN; Protocol PRN Reason: per Hypoglycemia Standing Ord. Glucose (Glucose Gel 15 Gm Gel..Gram.) 15 gm PO Q15M PRN; Protocol PRN Reason: per Hypoglycemia Standing Ord. Hydromorphone HCl (Hydromorphone Hcl 0.5 Mg/0.5 Ml Syringe) 1 mg IVPUSH Q4H PRN; Protocol PRN Reason: Pain, Severe (Pain Scale 7-10) Last Admin: 12/23/24 05:43 Dose: 1 mg Documented By: HOOD Vancomycin HCl 1,500 mg/ (Sodium Chloride) 500 mls @ 333.333 mls/hr IV Q12H [facility] Last Infusion: 12/23/24 08:05 Dose: Infused Documented By: LUCIO Insulin Human Lispro (Insulin Lispro 100 Unit/Ml 3 Ml Vial) 0 unit SUBCUT QIDACHS [facility]; Protocol Last Admin: 12/23/24 08:06 Dose: Not Given Documented By: LUCIO Non-Admin Reason: No Insulin Coverage Lorazepam (Lorazepam 1 Mg Tablet) 1 mg PO Q6H PRN PRN Reason: anxiety/restlessness Last Admin: 12/23/24 03:35 Dose: 1 mg Documented By: HOOD Magnesium Hydroxide (Milk Of Magnesia 30 Ml Oral.Susp) 30 ml PO DAILY PRN PRN Reason: Constipation Magnesium Oxide (Magnesium Oxide 400 Mg Tablet) 400 mg PO BIDPC [facility] Last Admin: 12/23/24 08:45 Dose: 400 mg Documented By: LUCIO Melatonin (Melatonin 3 Mg Tablet) 6 mg PO BEDTIME PRN PRN Reason: Insomnia Last Admin: 12/21/24 00:03 Dose: 6 mg Documented By: ELIE Metformin HCl (Metformin Hcl 500 Mg Tablet) 500 mg PO BIDWM [facility] Last Admin: 12/23/24 08:44 Dose: 500 mg Documented By: LUCIO Methadone HCl (Methadone Hcl 20 Mg/2 Ml Oral.Conc) 175 mg PO DAILY [facility] Last Admin: 12/23/24 08:45 Dose: 175 mg Documented By: LUCIO Co-signed By: ESTRELLA Methadone HCl (Methadone Hcl 20 Mg/2 Ml Oral.Conc) 30 mg PO DAILY@1800 [facility] Last Admin: 12/22/24 18:42 Dose: 30 mg Documented By: MONSERRAT Co-signed By: BAYRON Oxycodone HCl (Oxycodone Hcl Immed Release 5 Mg Tablet) 5 mg PO Q6H PRN PRN Reason: Pain, Severe (Pain Scale 7-10) Last Admin: 12/23/24 06:48 Dose: 5 mg Documented By: HOOD Pharmacy Consult (Consult Rx Vancomycin Dosing) 1 each MISCELLANE DAILY PRN PRN Reason: Consult order Quetiapine Fumarate (Quetiapine Fumarate 100 Mg Tablet) 100 mg PO BEDTIME [facility] Last Admin: 12/22/24 20:38 Dose: 100 mg Documented By: HOOD Sertraline HCl (Sertraline Hcl 50 Mg Tablet) 50 mg PO BEDTIME [facility] Last Admin: 12/22/24 20:39 Dose: 50 mg Documented By: HOOD Sodium Chloride (0.9 % Sodium Chloride Flush 3 Ml Syringe) 3 ml IVFLUSH QSHIFT [facility] Last Admin: 12/23/24 09:09 Dose: 3 ml Documented By: LUCIO Trazodone HCl (Trazodone Hcl 50 Mg Tablet) 50 mg PO BEDTIME [facility] Last Admin: 12/22/24 20:38 Dose: 50 mg Documented By: HOOD Labs 12/22/24 06:15 12/23/24 07:34 Labs: Laboratory Results - last 24 hr 12/22/24 12/22/24 12/22/24 11:30 15:59 16:15 Estim Creat Clear Calc Estimated GFR POC Glucose 153 H 124 H Random Vancomycin 12.7 L 12/22/24 12/23/24 12/23/24 19:47 07:34 07:36 Estim Creat Clear Calc 221.8 Estimated GFR > 60 POC Glucose 166 H 130 H Random Vancomycin Microbiology Microbiology Results: Microbiology 12/21/24 08:57 Blood Culture - Preliminary Blood - Venous No growth after 24 hours. 12/21/24 08:55 Blood Culture - Preliminary Blood - Venous No growth after 24 hours. 12/19/24 14:30 Gram Stain - Final Wrist Left Routine Culture - Final Methicillin Res Staph Aureus 12/19/24 14:30 Gram Stain - Final Wrist Left Routine Culture - Final Staphylococcus aureus Assessment and Plan (1) IVDU (intravenous drug user): Status: Acute (2) Substance abuse: Status: Acute (3) Acute renal failure: Status: Acute (4) Cellulitis of right leg: Status: Acute (5) Cellulitis: Status: Acute Plan This is a 54-year-old male with h/o IVDU on methadone, previous notes indicate history of liver cirrhosis (pt denies) who presents to the emergency department with generalized weakness found to have multiple acute issues--MADDY, sepsis, wound infection/cellulitis MRSA bacteremia, MRSA UTI from 12/15, repeat culture 12/17 positive repeat culture 12/21, so far negative at 24 continue Vanco ID consult Echo done, no vegetations PICC line once culture negative, he would like to ultimately go home RLE cellulitis RLE and left wrist wounds MRI 1. No MRI findings of osteomyelitis. 2. Extensive abnormality extensor digitorum longus tendons as discussed above. The appearance is most characteristic of infected tendinopathy and tenosynovitis given the associated dorsal soft tissue defect. 3. Likely similar infected tendinopathy and tenosynovitis of the flexor tendons of the thumb with soft tissue abscess within the volar and radial aspect of the distal forearm. Seen by Ortho s/p I&D in OR on 12/19, culture negative Continue Vanco as above Wound care Dilaudid and oxycodone for pain MADDY, resolved, Cr 0.54 from 2.94 after iv fluid continue monitoring New onset diabetes Hemoglobin A1c 12.7 SSI Metformin hold lantus for now diabetic diet hypOnatremia, probably chronic, stable. HypOkalemia, KCL PO probable liver cirrhosis with thrombocytopenia pt denies but previous notes indicate history previous history of heavy etoh use and current IVDU t.bili 1.3, AST 79 - near baseline CT A/P 1. Indeterminate low-density focus within the prostate, possibly indicating abscess or neoplasm. 2. Cirrhosis and portal hypertension. 3. Gallbladder sludge and distention. If there is clinical evidence for acute cholecystitis, further assessment with ultrasound could be performed. Hypokalemia, resolved Hypomagnesemia Replaced and resolved IVDU/substance abuse Methadone Addiction med pain med adjusted QT prolongation, likely due to methadone. Improved Mood Seroquel Continue sertraline, lorazepam, trazodone dvt ppx - avoid chemophrophylaxis due to thrombocytopenia Quality Stroke Does the patient have a stroke diagnosis?: No VTE Prior VTE?: No VTE Risk Level:: Medical - moderate - high VTE Device Contraindication: Treatment Not Indicated VTE Drug Contraindication: Treatment Not Indicated
[2024-12-23 11:46] LABS: Glucose, Whole Blood 154 mg/dL (60-115)
--- NOTE | 2024-12-23 13:38 | PC.NURSE ---
patient refused sequentials,risks explained,encouraged activity
--- NOTE | 2024-12-23 14:53 | MHC.CM.PN ---
Patient awaiting PICC for IV abx. CM met with patient to discuss dc plan. Patient aware he will need LT IV ABX. Requesting to go home w/ abx. Barriers are: 1) does not feel he can manage independently and has no one to assist, 2) has no PCP for VNA, 3) admits to IV heroin use 3 days ago. Patient aware he will need SNF in [facility] (closest facility to accommodate methadone). He accepted a bed at [facility], but expressed concern over not seeing his mother for an extended period of time. He is considering leaving AMA. Discussed the importance of completing treatment. MD krueger. Guest dosing initiated w/ [facility]. SHOAIB's faxed to [facility] and clinicals faxed to [facility]. CM will continue to follow.
--- NOTE | 2024-12-23 14:56 | MHC.CM.PN ---
per rounds pt to get a picc today [facility]
[2024-12-23 15:32] VITALS: BP 137/96; PULSE 97; RESP 18; TEMP 36.7; O2SAT 95
[2024-12-23 16:00] VITALS: PULSE 82
--- NOTE | 2024-12-23 16:03 | PC.NURSE ---
patient refused sequentials,risks explained,encouraged activity
[2024-12-23 16:13] LABS: Glucose, Whole Blood 145 mg/dL (60-115)
[2024-12-23] MEDS: methADONE HCl 20 MG/2 ML ORAL.CONC 30 MG PO (16:58)
[2024-12-23 19:25] VITALS: BP 165/87; PULSE 93; RESP 18; TEMP 36.6; O2SAT 94
[2024-12-23 20:17] LABS: Glucose, Whole Blood 146 mg/dL (60-115)
[2024-12-24] VITALS (7 sets, daily range): BP systolic 129–157; BP diastolic 84–94; PULSE 82–95; RESP 16–18; TEMP 36.4–37; O2SAT 94–95
[2024-12-24] MEDS: oxyCODONE HCl Immed Release 5 MG TABLET PO ×3 (06:15→23:24)
[2024-12-24 07:07] LABS: Creatinine Clr Calc Pharmacy 198.1; Estimated Glomerular Filt Rate > 60
[2024-12-24 07:50] LABS: Glucose, Whole Blood 124 mg/dL (60-115)
[2024-12-24] MEDS: methADONE HCl 20 MG/2 ML ORAL.CONC 175 MG PO (08:25)
[2024-12-24] MEDS: 0.9 % Sodium Chloride Flush 3 ML SYRINGE IVFLUSH ×3 (08:28→20:57)
[2024-12-24 09:09] LABS: MANUAL DIFF FLAG NO
[2024-12-24 09:14] LABS: Hematocrit 32.1 % (42.0-52.0); Hemoglobin 10.6 g/dl (14.0-18.0); Imm Gran Abs Auto 0.03 X10*3/uL (0.00-0.03); Imm Gran Pct Auto 0.6 % (0.0-0.4); Lymphocytes Absolute Auto 0.8 X10*3/uL (1.2-4.9); Mean Corpuscular HGB Conc 33.0 g/dl (31.0-36.0); Mean Corpuscular Hemoglobin 28.9 pg (27.0-33.0); Mean Corpuscular Volume 87.5 fL (80.0-98.0); NRBC Abs Auto 0.000 X10*3/uL (0.0-0.012); NRBC Pct Auto 0.0 /100WBC (0.0-0.2); Red Blood Count 3.67 X10*6/uL (4.60-5.80); White Blood Count 4.7 X10*3/uL (4.8-10.8)
[2024-12-24 09:18] LABS: Platelet Count 98 X10*3/uL (160-400)
[2024-12-24 09:26] LABS: Anion Gap 12 (12-20); Carbon Dioxide 27 mmol/L (22-29); Chloride 95 mmol/L (96-108); Magnesium 1.7 mg/dL (1.6-2.6); Potassium 3.6 mmol/L (3.3-5.1); Sodium 130 mmol/L (135-145)
--- NOTE | 2024-12-24 11:06 | P.PNIM_ITS ---
Subjective Subjective Date of Service: 12/24/24 Interval History: f/u on MADDY, cellulitis, wound of wrist, lower extremity s/p I&D in OR of left wrist 12/19 Still c/o pain Physical Exam 2 Exam: Exam: General: AO X 3, no acute distress Resp: CTA bilateral CVS: S1,S2,RRR GI: +BS, NT, no distention Skin: see pics from earlier Neuro: motor grossly intact Psych: appropriate affect Vital Signs: Vital Signs: Last Vital Signs Temp 98.1 F 12/24/24 07:37 Pulse 91 12/24/24 07:37 Resp 16 12/24/24 07:37 BP 157/87 H 12/24/24 07:37 Pulse Ox 94 12/24/24 07:37 O2 Del Method Room Air 12/24/24 07:37 BMI result Body Mass Index 37.5 Objective Data Active Medications Acetaminophen (Acetaminophen 325 Mg Tablet) 650 mg PO Q6H PRN PRN Reason: Pain, Mild 1-3,fever,headache Last Admin: 12/18/24 10:31 Dose: 650 mg Documented By: LUCIO Calcium Carbonate (Calcium Carbonate 750 Mg Tab.Chew) 750 mg PO Q4H PRN PRN Reason: Heartburn Dextrose (Dextrose 50 % 25 Gm/50 Ml Syringe) 25 gm IVPUSH Q15M PRN; Protocol PRN Reason: per Hypoglycemia Standing Ord. Glucose (Glucose Gel 15 Gm Gel..Gram.) 15 gm PO Q15M PRN; Protocol PRN Reason: per Hypoglycemia Standing Ord. Hydromorphone HCl (Hydromorphone Hcl 0.5 Mg/0.5 Ml Syringe) 1 mg IVPUSH Q4H PRN; Protocol PRN Reason: Pain, Severe (Pain Scale 7-10) Last Admin: 12/24/24 04:39 Dose: 1 mg Documented By: HOOD Vancomycin HCl 1,500 mg/ (Sodium Chloride) 500 mls @ 333.333 mls/hr IV Q12H [facility] Last Infusion: 12/24/24 06:58 Dose: Infused Documented By: HOOD Insulin Human Lispro (Insulin Lispro 100 Unit/Ml 3 Ml Vial) 0 unit SUBCUT QIDACHS [facility]; Protocol Last Admin: 12/24/24 08:21 Dose: Not Given Documented By: LUCIO Non-Admin Reason: No Insulin Coverage Lorazepam (Lorazepam 1 Mg Tablet) 1 mg PO Q6H PRN PRN Reason: anxiety/restlessness Last Admin: 12/24/24 01:32 Dose: 1 mg Documented By: HOOD Magnesium Hydroxide (Milk Of Magnesia 30 Ml Oral.Susp) 30 ml PO DAILY PRN PRN Reason: Constipation Magnesium Oxide (Magnesium Oxide 400 Mg Tablet) 400 mg PO BIDPC [facility] Last Admin: 12/24/24 08:27 Dose: 400 mg Documented By: LUCIO Melatonin (Melatonin 3 Mg Tablet) 6 mg PO BEDTIME PRN PRN Reason: Insomnia Last Admin: 12/21/24 00:03 Dose: 6 mg Documented By: ELIE Metformin HCl (Metformin Hcl 500 Mg Tablet) 500 mg PO BIDWM [facility] Last Admin: 12/24/24 08:28 Dose: 500 mg Documented By: LUCIO Methadone HCl (Methadone Hcl 20 Mg/2 Ml Oral.Conc) 175 mg PO DAILY [facility] Last Admin: 12/24/24 08:25 Dose: 175 mg Documented By: LUCIO Co-signed By: MONSERRAT Methadone HCl (Methadone Hcl 20 Mg/2 Ml Oral.Conc) 30 mg PO DAILY@1800 [facility] Last Admin: 12/23/24 16:58 Dose: 30 mg Documented By: LUCIO Co-signed By: ESTRELLA Oxycodone HCl (Oxycodone Hcl Immed Release 5 Mg Tablet) 5 mg PO Q6H PRN PRN Reason: Pain, Severe (Pain Scale 7-10) Last Admin: 12/24/24 06:15 Dose: 5 mg Documented By: HOOD Pharmacy Consult (Consult Rx Vancomycin Dosing) 1 each MISCELLANE DAILY PRN PRN Reason: Consult order Quetiapine Fumarate (Quetiapine Fumarate 100 Mg Tablet) 100 mg PO BEDTIME [facility] Last Admin: 12/23/24 19:57 Dose: 100 mg Documented By: HOOD Sertraline HCl (Sertraline Hcl 50 Mg Tablet) 50 mg PO BEDTIME [facility] Last Admin: 12/23/24 19:57 Dose: 50 mg Documented By: HOOD Sodium Chloride (0.9 % Sodium Chloride Flush 3 Ml Syringe) 3 ml IVFLUSH QSHIFT [facility] Last Admin: 12/24/24 08:28 Dose: 3 ml Documented By: LUCIO Trazodone HCl (Trazodone Hcl 50 Mg Tablet) 50 mg PO BEDTIME [facility] Last Admin: 12/23/24 19:57 Dose: 50 mg Documented By: HOOD Labs 12/24/24 05:40 12/24/24 05:40 Labs: Laboratory Results - last 24 hr 12/23/24 12/23/24 12/23/24 11:35 15:57 16:01 MCV MCH MCHC RDW Plt Count MPV Immature Gran % (Auto) Neut % (Auto) Lymph % (Auto) [place] % (Auto) Eos % (Auto) Baso % (Auto) Lymph # (Auto) [place] # (Auto) Eos # (Auto) Baso # (Auto) Abs Immat Gran (auto) Absolute Neuts (auto) Absolute Nucleated RBC Nucleated RBC % (auto) Hold Purple Top Anion Gap Estim Creat Clear Calc Estimated GFR POC Glucose 154 H 145 H Magnesium Random Vancomycin 12.2 L 12/23/24 12/24/24 12/24/24 20:09 05:40 07:38 MCV 87.5 MCH 28.9 MCHC 33.0 RDW 14.6 Plt Count 98 L MPV 10.4 Immature Gran % (Auto) 0.6 H Neut % (Auto) 76.9 H Lymph % (Auto) 15.8 L [place] % (Auto) 6.3 Eos % (Auto) 0.2 Baso % (Auto) 0.2 Lymph # (Auto) 0.8 L [place] # (Auto) 0.3 Eos # (Auto) 0.0 Baso # (Auto) 0.0 Abs Immat Gran (auto) 0.03 Absolute Neuts (auto) 3.6 Absolute Nucleated RBC 0.000 Nucleated RBC % (auto) 0.0 Hold Purple Top SEE NOTE Anion Gap 12 Estim Creat Clear Calc 198.1 Estimated GFR > 60 POC Glucose 146 H 124 H Magnesium 1.7 Random Vancomycin Microbiology Microbiology Results: Microbiology 12/21/24 08:57 Blood Culture - Preliminary Blood - Venous Prelim: GPC Gram Stain only 12/21/24 08:55 Blood Culture - Preliminary Blood - Venous No growth after 48 hours. Assessment and Plan (1) IVDU (intravenous drug user): Status: Acute (2) Substance abuse: Status: Acute (3) Acute renal failure: Status: Acute (4) Cellulitis of right leg: Status: Acute (5) Cellulitis: Status: Acute Plan This is a 54-year-old male with h/o IVDU on methadone, previous notes indicate history of liver cirrhosis (pt denies) who presents to the emergency department with generalized weakness found to have multiple acute issues--MADDY, sepsis, wound infection/cellulitis MRSA bacteremia, MRSA UTI from 12/15, repeat culture 12/17 positive repeat culture 12/21, so far negative at 48 continue Vanco ID consult Echo done, no vegetations PICC line request 12/24 RLE cellulitis RLE and left wrist wounds MRI 1. No MRI findings of osteomyelitis. 2. Extensive abnormality extensor digitorum longus tendons as discussed above. The appearance is most characteristic of infected tendinopathy and tenosynovitis given the associated dorsal soft tissue defect. 3. Likely similar infected tendinopathy and tenosynovitis of the flexor tendons of the thumb with soft tissue abscess within the volar and radial aspect of the distal forearm. Seen by Ortho s/p I&D in OR on 12/19, culture negative Continue Vanco as above Wound care Dilaudid and oxycodone for pain MADDY, resolved, Cr 0.54 from 2.94 after iv fluid continue monitoring New onset diabetes Hemoglobin A1c 12.7 SSI Metformin hold lantus for now diabetic diet hypOnatremia, probably chronic, stable. HypOkalemia, KCL PO probable liver cirrhosis with thrombocytopenia pt denies but previous notes indicate history previous history of heavy etoh use and current IVDU t.bili 1.3, AST 79 - near baseline CT A/P 1. Indeterminate low-density focus within the prostate, possibly indicating abscess or neoplasm. 2. Cirrhosis and portal hypertension. 3. Gallbladder sludge and distention. If there is clinical evidence for acute cholecystitis, further assessment with ultrasound could be performed. Hypokalemia, resolved Hypomagnesemia Replaced and resolved IVDU/substance abuse Methadone Addiction med pain med adjusted QT prolongation, likely due to methadone. Improved Mood Seroquel Continue sertraline, lorazepam, trazodone dvt ppx - avoid chemophrophylaxis due to thrombocytopenia Quality Stroke Does the patient have a stroke diagnosis?: No VTE Prior VTE?: No VTE Risk Level:: Medical - moderate - high VTE Device Contraindication: Treatment Not Indicated VTE Drug Contraindication: Treatment Not Indicated
[2024-12-24 11:35] LABS: Glucose, Whole Blood 115 mg/dL (60-115)
[2024-12-24 16:23] LABS: Glucose, Whole Blood 141 mg/dL (60-115)
[2024-12-24] MEDS: methADONE HCl 20 MG/2 ML ORAL.CONC 30 MG PO (16:54)
[2024-12-24 20:57] LABS: Glucose, Whole Blood 115 mg/dL (60-115)
[2024-12-25 03:08] VITALS: BP 132/62; PULSE 87; RESP 18; TEMP 36.3; O2SAT 93
[2024-12-25] MEDS: oxyCODONE HCl Immed Release 5 MG TABLET PO (06:56)
[2024-12-25 07:02] LABS: Creatinine Clr Calc Pharmacy 188.0; Estimated Glomerular Filt Rate > 60
[2024-12-25 07:34] LABS: Glucose, Whole Blood 103 mg/dL (60-115)
[2024-12-25] MEDS: oxyCODONE HCl Immed Release 5 MG TABLET 10 MG PO ×5 (07:50→23:29)
[2024-12-25] MEDS: methADONE HCl 20 MG/2 ML ORAL.CONC 175 MG PO (07:51)
[2024-12-25 08:00] VITALS: BP 139/66; PULSE 88; RESP 16; TEMP 36.1; O2SAT 93
--- NOTE | 2024-12-25 08:53 | P.PNIM_ITS ---
Subjective Subjective Date of Service: 12/25/24 Interval History: f/u on MADDY, cellulitis, wound of wrist, lower extremity s/p I&D in OR of left wrist 12/19 Pain is better Physical Exam 2 Exam: Exam: General: AO X 3, no acute distress Resp: CTA bilateral CVS: S1,S2,RRR GI: +BS, NT, no distention Skin: see pics from earlier Neuro: motor grossly intact Psych: appropriate affect Vital Signs: Vital Signs: Last Vital Signs Temp 97.0 F 12/25/24 08:00 Pulse 88 12/25/24 08:00 Resp 16 12/25/24 08:00 BP 139/66 12/25/24 08:00 Pulse Ox 93 12/25/24 08:00 O2 Del Method Room Air 12/25/24 08:00 BMI result Body Mass Index 37.5 Objective Data Active Medications Acetaminophen (Acetaminophen 325 Mg Tablet) 650 mg PO Q6H PRN PRN Reason: Pain, Mild 1-3,fever,headache Last Admin: 12/18/24 10:31 Dose: 650 mg Documented By: LUCIO Calcium Carbonate (Calcium Carbonate 750 Mg Tab.Chew) 750 mg PO Q4H PRN PRN Reason: Heartburn Dextrose (Dextrose 50 % 25 Gm/50 Ml Syringe) 25 gm IVPUSH Q15M PRN; Protocol PRN Reason: per Hypoglycemia Standing Ord. Glucose (Glucose Gel 15 Gm Gel..Gram.) 15 gm PO Q15M PRN; Protocol PRN Reason: per Hypoglycemia Standing Ord. Vancomycin HCl 1,500 mg/ (Sodium Chloride) 500 mls @ 333.333 mls/hr IV Q12H [facility] Last Infusion: 12/25/24 07:14 Dose: Infused Documented By: YUNI Insulin Human Lispro (Insulin Lispro 100 Unit/Ml 3 Ml Vial) 0 unit SUBCUT QIDACHS [facility]; Protocol Last Admin: 12/25/24 07:49 Dose: Not Given Documented By: YUNI Non-Admin Reason: No Insulin Coverage Lorazepam (Lorazepam 1 Mg Tablet) 1 mg PO Q6H PRN PRN Reason: anxiety/restlessness Last Admin: 12/25/24 03:36 Dose: 1 mg Documented By: ELIE Magnesium Hydroxide (Milk Of Magnesia 30 Ml Oral.Susp) 30 ml PO DAILY PRN PRN Reason: Constipation Magnesium Oxide (Magnesium Oxide 400 Mg Tablet) 400 mg PO BIDPC [facility] Last Admin: 12/25/24 06:56 Dose: 400 mg Documented By: YUNI Melatonin (Melatonin 3 Mg Tablet) 6 mg PO BEDTIME PRN PRN Reason: Insomnia Last Admin: 12/21/24 00:03 Dose: 6 mg Documented By: ELIE Metformin HCl (Metformin Hcl 500 Mg Tablet) 500 mg PO BIDWM [facility] Last Admin: 12/25/24 06:55 Dose: 500 mg Documented By: YUNI Methadone HCl (Methadone Hcl 20 Mg/2 Ml Oral.Conc) 175 mg PO DAILY [facility] Last Admin: 12/25/24 07:51 Dose: 175 mg Documented By: YUNI Co-signed By: MONSERRAT Methadone HCl (Methadone Hcl 20 Mg/2 Ml Oral.Conc) 30 mg PO DAILY@1800 [facility] Last Admin: 12/24/24 16:54 Dose: 30 mg Documented By: LUCIO Co-signed By: LOBO Oxycodone HCl (Oxycodone Hcl Immed Release 5 Mg Tablet) 10 mg PO Q4H PRN PRN Reason: Pain, Severe (Pain Scale 7-10) Last Admin: 12/25/24 07:50 Dose: 10 mg Documented By: YUNI Pharmacy Consult (Consult Rx Vancomycin Dosing) 1 each MISCELLANE DAILY PRN PRN Reason: Consult order Quetiapine Fumarate (Quetiapine Fumarate 100 Mg Tablet) 100 mg PO BEDTIME [facility] Last Admin: 12/24/24 20:57 Dose: 100 mg Documented By: ELIE Sertraline HCl (Sertraline Hcl 50 Mg Tablet) 50 mg PO BEDTIME [facility] Last Admin: 12/24/24 20:57 Dose: 50 mg Documented By: ELIE Sodium Chloride (0.9 % Sodium Chloride Flush 3 Ml Syringe) 3 ml IVFLUSH QSHIFT [facility] Last Admin: 12/25/24 06:56 Dose: Not Given Documented By: UYNI Non-Admin Reason: IV Running Trazodone HCl (Trazodone Hcl 50 Mg Tablet) 50 mg PO BEDTIME [facility] Last Admin: 12/24/24 20:57 Dose: 50 mg Documented By: ELIE Labs 12/24/24 05:40 12/25/24 05:30 Labs: Laboratory Results - last 24 hr 12/24/24 12/24/24 12/24/24 05:40 11:23 16:15 MCV 87.5 MCH 28.9 MCHC 33.0 RDW 14.6 Plt Count 98 L MPV 10.4 Immature Gran % (Auto) 0.6 H Neut % (Auto) 76.9 H Lymph % (Auto) 15.8 L Lamar % (Auto) 6.3 Eos % (Auto) 0.2 Baso % (Auto) 0.2 Lymph # (Auto) 0.8 L Lamar # (Auto) 0.3 Eos # (Auto) 0.0 Baso # (Auto) 0.0 Abs Immat Gran (auto) 0.03 Absolute Neuts (auto) 3.6 Absolute Nucleated RBC 0.000 Nucleated RBC % (auto) 0.0 Hold Purple Top Anion Gap 12 Estim Creat Clear Calc Estimated GFR POC Glucose 115 141 H Magnesium 1.7 Random Vancomycin 12/24/24 12/24/24 12/25/24 16:48 20:54 05:30 MCV MCH MCHC RDW Plt Count MPV Immature Gran % (Auto) Neut % (Auto) Lymph % (Auto) Lamar % (Auto) Eos % (Auto) Baso % (Auto) Lymph # (Auto) Lamar # (Auto) Eos # (Auto) Baso # (Auto) Abs Immat Gran (auto) Absolute Neuts (auto) Absolute Nucleated RBC Nucleated RBC % (auto) Hold Purple Top SEE NOTE Anion Gap Estim Creat Clear Calc 188.0 Estimated GFR > 60 POC Glucose 115 Magnesium Random Vancomycin 10.0 L 12/25/24 07:30 MCV MCH MCHC RDW Plt Count MPV Immature Gran % (Auto) Neut % (Auto) Lymph % (Auto) Lamar % (Auto) Eos % (Auto) Baso % (Auto) Lymph # (Auto) Lamar # (Auto) Eos # (Auto) Baso # (Auto) Abs Immat Gran (auto) Absolute Neuts (auto) Absolute Nucleated RBC Nucleated RBC % (auto) Hold Purple Top Anion Gap Estim Creat Clear Calc Estimated GFR POC Glucose 103 Magnesium Random Vancomycin Microbiology Microbiology Results: Microbiology 12/21/24 08:57 Blood Culture - Final Blood - Venous Methicillin Res Staph Aureus Assessment and Plan (1) IVDU (intravenous drug user): Status: Acute (2) Substance abuse: Status: Acute (3) Acute renal failure: Status: Acute (4) Cellulitis of right leg: Status: Acute (5) Cellulitis: Status: Acute Plan This is a 54-year-old male with h/o IVDU on methadone, previous notes indicate history of liver cirrhosis (pt denies) who presents to the emergency department with generalized weakness found to have multiple acute issues--MADDY, sepsis, wound infection/cellulitis MRSA bacteremia, MRSA UTI from 12/15, repeat culture 12/17 positive repeat culture 12/21, so far negative at 48 continue Vanco ID consult Echo done, no vegetations PICC line request, when BCx negative at x 48, RLE cellulitis RLE and left wrist wounds MRI 1. No MRI findings of osteomyelitis. 2. Extensive abnormality extensor digitorum longus tendons as discussed above. The appearance is most characteristic of infected tendinopathy and tenosynovitis given the associated dorsal soft tissue defect. 3. Likely similar infected tendinopathy and tenosynovitis of the flexor tendons of the thumb with soft tissue abscess within the volar and radial aspect of the distal forearm. Seen by Ortho s/p I&D in OR on 12/19, culture negative Continue Vanco as above Wound care Transition to oral pain meds obly with oxycodone MADDY, resolved, Cr 0.54 from 2.94 after iv fluid continue monitoring New onset diabetes, controlled Hemoglobin A1c 12.7 SSI Metformin 500 mg hold lantus for now diabetic diet hypOnatremia, probably chronic, stable. HypOkalemia, resolved probable liver cirrhosis with thrombocytopenia pt denies but previous notes indicate history previous history of heavy etoh use and current IVDU t.bili 1.3, AST 79 - near baseline CT A/P 1. Indeterminate low-density focus within the prostate, possibly indicating abscess or neoplasm. 2. Cirrhosis and portal hypertension. 3. Gallbladder sludge and distention. If there is clinical evidence for acute cholecystitis, further assessment with ultrasound could be performed. Hypomagnesemia Replaced and resolved IVDU/substance abuse Methadone Addiction med pain med adjusted QT prolongation, likely due to methadone. Improved Mood Seroquel Continue sertraline, lorazepam, trazodone dvt ppx - avoid chemophrophylaxis due to thrombocytopenia Quality Stroke Does the patient have a stroke diagnosis?: No VTE Prior VTE?: No VTE Risk Level:: Medical - moderate - high VTE Device Contraindication: Treatment Not Indicated VTE Drug Contraindication: Treatment Not Indicated
[2024-12-25 11:18] LABS: Glucose, Whole Blood 154 mg/dL (60-115)
--- NOTE | 2024-12-25 12:36 | MHC.CM.PN ---
per rounds pt unable to get picc line today as planned due to positive blood cultures [facility] notified
--- NOTE | 2024-12-25 15:08 | P.CDIM_ITS ---
PROVIDER RESPONSE TEXT: To clarify, the appropriate diagnosis supported by the clinical indicators: Other (explain): I just read my op note which provides quite a bit of information. What else do need to know? QUERY TEXT: PHYSICIAN'S DOCUMENTATION REQUEST Date of Query: 12/23/2024 08:30 AM EDT Patient Name: Stepan Low Admit Date: 12/15/2024 Dear Adilene Claire MD, A review of the medical record indicates additional documentation may be needed. Please review below and update the documentation accordingly. Clinical Indicators: patient had I&D procedures on 12/19/24: 1. I and D left volar wrist abscess 2. I&D right dorsal wrist abscess 3. I&D right dorsal distal forearm abscess Could you provide, in the Progress Notes, further clarification regarding the type and nature of the debridement? Excisional debridement Non-excisional debridement Other (explain) Clinically unable to determine (explain) Thank you, Sarah Amaral RN Use of terms such as suspected, likely, concern for, or probable (associated with a specific diagnosis that is being evaluated, monitored, or treated as if it exists) are acceptable and can be coded in the inpatient setting, when documented at the time of discharge. Please use your independent medical judgment in providing your response. THIS QUERY IS PART OF THE PERMANENT MEDICAL RECORD
[2024-12-25 15:39] VITALS: BP 131/72; PULSE 80; RESP 19; TEMP 36.4; O2SAT 92
[2024-12-25 16:36] LABS: Glucose, Whole Blood 153 mg/dL (60-115)
--- NOTE | 2024-12-25 16:38 | HE.PHANOTE ---
Re: Kaci Renal function is declining. Trough returned at 11.0, pt is therapeutic, continue dose of 1500 mg q12h with predicted AUC 406, predicted trough 10.3. Next trough is 12/26 @ 1600.
[2024-12-25] MEDS: 0.9 % Sodium Chloride Flush 3 ML SYRINGE IVFLUSH ×2 (17:11→20:03)
[2024-12-25] MEDS: methADONE HCl 20 MG/2 ML ORAL.CONC 30 MG PO (17:12)
[2024-12-25 19:59] VITALS: BP 155/83; PULSE 85; RESP 18; TEMP 36.5; O2SAT 95
[2024-12-25 20:21] LABS: Glucose, Whole Blood 119 mg/dL (60-115)
[2024-12-25 22:48] VITALS: PULSE 85
[2024-12-26 03:28] VITALS: BP 154/72; PULSE 92; RESP 20; TEMP 36.7; O2SAT 92
[2024-12-26] MEDS: oxyCODONE HCl Immed Release 5 MG TABLET 10 MG PO ×4 (03:28→18:48)
[2024-12-26 06:23] LABS: Creatinine Clr Calc Pharmacy 217.5; Estimated Glomerular Filt Rate > 60
[2024-12-26 07:33] LABS: Glucose, Whole Blood 109 mg/dL (60-115)
[2024-12-26] MEDS: methADONE HCl 20 MG/2 ML ORAL.CONC 175 MG PO (07:38)
[2024-12-26 08:00] VITALS: BP 145/65; PULSE 94; RESP 16; TEMP 36.4; O2SAT 95
[2024-12-26 08:33] LABS: Alanine Aminotransferase 34 U/L (0-40); Albumin Level 2.0 g/dL (3.5-5.0); Alkaline Phosphatase 52 U/L (39-117); Anion Gap 11 (12-20); Aspartate Amino Transferase 118 U/L (5-37); Blood Urea Nitrogen 8 mg/dL (9-16); Calcium 7.6 mg/dL (8.4-10.2); Carbon Dioxide 26 mmol/L (22-29); Chloride 97 mmol/L (96-108); Potassium 3.2 mmol/L (3.3-5.1); Sodium 131 mmol/L (135-145); Total Protein 7.6 g/dL (6.5-8.0)
[2024-12-26 11:40] LABS: Glucose, Whole Blood 120 mg/dL (60-115)
[2024-12-26 15:44] LABS: Glucose, Whole Blood 158 mg/dL (60-115)
[2024-12-26 16:00] VITALS: BP 141/76; PULSE 89; RESP 16; TEMP 36.6; O2SAT 92
--- NOTE | 2024-12-26 16:22 | HO.PM.IMPN ---
Subjective Subjective Date of Service: 12/26/24 Interval History: maddy ,wrist cellulitis Review of Systems s/p I&D in OR of left wrist 12/19. pain seems similar Review of Systems: Yes all other systems are reviewed and are negative Physical Exam Exam: Exam: General: AO X 3, no acute distress Resp: CTA bilateral CVS: S1,S2,RRR GI: +BS, NT, no distention Skin: see pics from earlier Neuro: motor grossly intact Psych: appropriate affect Vital Signs: Vital Signs: Last Vital Signs Temp 97.6 F 12/26/24 08:00 Pulse 94 12/26/24 08:00 Resp 16 12/26/24 08:00 BP 145/65 H 12/26/24 08:00 Pulse Ox 95 12/26/24 08:00 O2 Del Method Room Air 12/26/24 08:00 BMI result Body Mass Index 37.5 Objective Data Active Medications Acetaminophen (Acetaminophen 325 Mg Tablet) 650 mg PO Q6H PRN PRN Reason: Pain, Mild 1-3,fever,headache Last Admin: 12/18/24 10:31 Dose: 650 mg Documented By: LUCIO Calcium Carbonate (Calcium Carbonate 750 Mg Tab.Chew) 750 mg PO Q4H PRN PRN Reason: Heartburn Dextrose (Dextrose 50 % 25 Gm/50 Ml Syringe) 25 gm IVPUSH Q15M PRN; Protocol PRN Reason: per Hypoglycemia Standing Ord. Glucose (Glucose Gel 15 Gm Gel..Gram.) 15 gm PO Q15M PRN; Protocol PRN Reason: per Hypoglycemia Standing Ord. Vancomycin HCl 1,500 mg/ (Sodium Chloride) 500 mls @ 333.333 mls/hr IV Q12H [facility] Last Infusion: 12/26/24 07:26 Dose: Infused Documented By: ALEXIA Insulin Human Lispro (Insulin Lispro 100 Unit/Ml 3 Ml Vial) 0 unit SUBCUT QIDACHS [facility]; Protocol Last Admin: 12/26/24 16:17 Dose: 2 unit Documented By: ALEXIA Magnesium Hydroxide (Milk Of Magnesia 30 Ml Oral.Susp) 30 ml PO DAILY PRN PRN Reason: Constipation Magnesium Oxide (Magnesium Oxide 400 Mg Tablet) [facility] Last Admin: 12/26/24 07:38 Dose: 400 mg Documented By: ALEXIA Melatonin (Melatonin 3 Mg Tablet) 6 mg PO BEDTIME PRN PRN Reason: Insomnia Last Admin: 12/21/24 00:03 Dose: 6 mg Documented By: ELIE Metformin HCl (Metformin Hcl 500 Mg Tablet) 500 mg PO BIDWM [facility] Last Admin: 12/26/24 07:38 Dose: 500 mg Documented By: ALEXIA Methadone HCl (Methadone Hcl 20 Mg/2 Ml Oral.Conc) 175 mg PO DAILY [facility] Last Admin: 12/26/24 07:38 Dose: 175 mg Documented By: ALEXIA Co-signed By: BAYRON Methadone HCl (Methadone Hcl 20 Mg/2 Ml Oral.Conc) 30 mg PO DAILY@1800 [facility] Last Admin: 12/25/24 17:12 Dose: 30 mg Documented By: CHANA Co-signed By: JAMEEL Oxycodone HCl (Oxycodone Hcl Immed Release 5 Mg Tablet) 10 mg PO Q4H PRN PRN Reason: Pain, Severe (Pain Scale 7-10) Last Admin: 12/26/24 14:27 Dose: 10 mg Documented By: ALEXIA Pharmacy Consult (Consult Rx Vancomycin Dosing) 1 each MISCELLANE DAILY PRN PRN Reason: Consult order Quetiapine Fumarate (Quetiapine Fumarate 100 Mg Tablet) 100 mg PO BEDTIME [facility] Last Admin: 12/25/24 20:04 Dose: 100 mg Documented By: ELIE Sertraline HCl (Sertraline Hcl 50 Mg Tablet) 50 mg PO BEDTIME [facility] Last Admin: 12/25/24 20:04 Dose: 50 mg Documented By: ELIE Sodium Chloride (0.9 % Sodium Chloride Flush 3 Ml Syringe) 3 ml IVFLUSH QSHIFT [facility] Last Admin: 12/26/24 07:32 Dose: Not Given Documented By: ALEXIA Non-Admin Reason: Previously Administered Trazodone HCl (Trazodone Hcl 50 Mg Tablet) 50 mg PO BEDTIME [facility] Last Admin: 12/25/24 20:04 Dose: 50 mg Documented By: ELIE Labs 12/24/24 05:40 12/26/24 05:29 Labs: Laboratory Results - last 24 hr 12/25/24 12/25/24 12/26/24 16:05 20:14 05:29 Anion Gap 11 L Estim Creat Clear Calc 217.5 Estimated GFR > 60 POC Glucose 153 H 119 H Random Glucose 105 Calcium 7.6 L Total Bilirubin 1.3 H Direct Bilirubin 0.7 H AST 118 H ALT 34 Alkaline Phosphatase 52 Total Protein 7.6 Albumin 2.0 L 12/26/24 12/26/24 12/26/24 07:28 11:30 15:30 Anion Gap Estim Creat Clear Calc Estimated GFR POC Glucose 109 120 H 158 H Random Glucose Calcium Total Bilirubin Direct Bilirubin AST ALT Alkaline Phosphatase Total Protein Albumin Microbiology Microbiology Results: Microbiology 12/25/24 09:04 Blood Culture - Preliminary Blood - Venous No growth after 24 hours. 12/25/24 09:04 Blood Culture - Preliminary Blood - Venous No growth after 24 hours. 12/21/24 08:55 Blood Culture - Final Blood - Venous No growth after 5 days. Assessment and Plan (1) IVDU (intravenous drug user): Status: Acute (2) Substance abuse: Status: Acute (3) Acute renal failure: Status: Acute (4) Cellulitis of right leg: Status: Acute (5) Cellulitis: Status: Acute Plan This is a 54-year-old male with h/o IVDU on methadone, previous notes indicate history of liver cirrhosis (pt denies) who presents to the emergency department with generalized weakness found to have multiple acute issues--MADDY, sepsis, wound infection/cellulitis MRSA bacteremia, MRSA UTI from 12/15, repeat culture 12/17, 12/21 positive repeat culture 12/25, so far negative at 24hrs Echo done, no vegetations PICC line request, when BCx negative at x 48. plan: continue Vanco ID consult RLE cellulitis RLE and left wrist wounds MRI 1. No MRI findings of osteomyelitis. 2. Extensive abnormality extensor digitorum longus tendons as discussed above. The appearance is most characteristic of infected tendinopathy and tenosynovitis given the associated dorsal soft tissue defect. 3. Likely similar infected tendinopathy and tenosynovitis of the flexor tendons of the thumb with soft tissue abscess within the volar and radial aspect of the distal forearm. plan: Ortho s/p I&D in OR on 12/19, wrist culture -mssa/mrsa Continue Vanco as above Wound care,oral pain meds obly with oxycodone MADDY, resolved continue monitoring New onset diabetes, controlled: flactauating Hemoglobin A1c 12.7 SSI Metformin 500 mg hold lantus ,check hba1c levels diabetic diet hypOnatremia, probably chronic, stable. HypOkalemia, resolved. probable liver cirrhosis with thrombocytopenia pt denies but previous notes indicate history previous history of heavy etoh use and current IVDU t.bili 1.3, AST 118 ( flactuating) CT A/P 1. Indeterminate low-density focus within the prostate, possibly indicating abscess or neoplasm. 2. Cirrhosis and portal hypertension. 3. Gallbladder sludge and distention. If there is clinical evidence for acute cholecystitis, further assessment with ultrasound could be performed. psa<0.10 plan:has low-density focus within the prostate, psa normal ,urine cultures -mrsa : added urology eval. Hypomagnesemia:Replaced and resolved IVDU/substance abuse Methadone Addiction med pain med adjusted QT prolongation, likely due to methadone. Improved Mood Seroquel Continue sertraline, lorazepam, trazodone dvt ppx - avoid chemophrophylaxis due to thrombocytopenia. ongoing need:mrsa bactermia : Need IV antibiotics, renal function electrolyte monitoring, vanco trough monitoring, also need ID and urology input. Quality Stroke Does the patient have a stroke diagnosis?: No VTE Prior VTE?: No VTE Risk Level:: Medical - moderate - high VTE Device Contraindication: Treatment Not Indicated VTE Drug Contraindication: Treatment Not Indicated
[2024-12-26 17:04] LABS: Hemoglobin A1C 262.9113 umol/L; Total Hemoglobin (HGBA1C) 2792.6086 umol/L
[2024-12-26] MEDS: methADONE HCl 20 MG/2 ML ORAL.CONC 30 MG PO (17:18)
--- NOTE | 2024-12-26 17:43 | PC.NURSE ---
Attempt to place IV x 2, unable, primary RN notified.
--- NOTE | 2024-12-26 18:15 | HE.PHANOTE ---
Re: Vanco Renal improvement. Trough returned at 10.5, pt is therapeutic. Continue current dose of 1500mg q12h with predicted AUC 403, predicted trough 10.1. Next trough 12/27 @ 1600.
[2024-12-26 19:38] VITALS: BP 135/66; PULSE 88; RESP 18; TEMP 37.1; O2SAT 94
[2024-12-26 19:38] LABS: Glucose, Whole Blood 95 mg/dL (60-115)
[2024-12-26] MEDS: 0.9 % Sodium Chloride Flush 3 ML SYRINGE IVFLUSH (19:44)
[2024-12-27] MEDS: oxyCODONE HCl Immed Release 5 MG TABLET 10 MG PO ×7 (00:06→23:56)
[2024-12-27 03:13] VITALS: RESP 18
[2024-12-27 07:12] LABS: Creatinine Clr Calc Pharmacy 198.1; Estimated Glomerular Filt Rate > 60
[2024-12-27 08:00] VITALS: BP 137/62; PULSE 87; RESP 16; TEMP 36.4; O2SAT 94
[2024-12-27 08:06] LABS: Alanine Aminotransferase 34 U/L (0-40); Albumin Level 2.0 g/dL (3.5-5.0); Alkaline Phosphatase 50 U/L (39-117); Anion Gap 11 (12-20); Aspartate Amino Transferase 116 U/L (5-37); Blood Urea Nitrogen 8 mg/dL (9-16); Calcium 7.8 mg/dL (8.4-10.2); Carbon Dioxide 27 mmol/L (22-29); Chloride 99 mmol/L (96-108); Potassium 3.0 mmol/L (3.3-5.1); Sodium 134 mmol/L (135-145); Total Protein 7.5 g/dL (6.5-8.0)
[2024-12-27 08:17] LABS: Glucose, Whole Blood 103 mg/dL (60-115)
[2024-12-27] MEDS: methADONE HCl 20 MG/2 ML ORAL.CONC 175 MG PO (08:26)
[2024-12-27] MEDS: 0.9 % Sodium Chloride Flush 3 ML SYRINGE IVFLUSH ×3 (08:27→20:14)
[2024-12-27 09:33] VITALS: BP 137/62; PULSE 87; O2SAT 94
[2024-12-27 11:22] LABS: Glucose, Whole Blood 144 mg/dL (60-115)
--- NOTE | 2024-12-27 14:37 | P.CNID_ITS ---
History of Present Illness Data of Consult Service Date: 12/27/24 Requesting physician: Roberto Cartagena Primary Care Provider: None Physician HPI Reason for consult: MRSA bacteremia He presents with weakness and inability to ambulate for a week. He has had chills. He has wounds LE. Review of Systems 2 Review of Systems: Yes all other systems are reviewed and are negative PMFSH Past Medical History Medical History Opiate dependence Family History Family history: reviewed and not pertinent Social History Social History Household Members: Family Household Members Other:: mom Housing: House Are you a primary vp care management to a significant other at home: No Do you presently have visiting nurse or other home services: No Comment: counts correct Patient Tobacco Use Status: Former Tobacco user Tobacco use type: Cigarette Cigarettes Per Day: 2 Years Smoked: 25 Second Hand Smoke Exposure: Yes Substance Use Type: Heroin service: No Meds Allergies Allergy/AdvReac Type Severity Reaction Status Date / Time No Known Allergies (No Known Allergy Verified 12/15/24 11:18 Allergies*) Active Medications: Current Medications Acetaminophen (Acetaminophen 325 Mg Tablet) 650 mg PO Q6H PRN PRN Reason: Pain, Mild 1-3,fever,headache Last Admin: 12/27/24 02:07 Dose: 650 mg Calcium Carbonate (Calcium Carbonate 750 Mg Tab.Chew) 750 mg PO Q4H PRN PRN Reason: Heartburn Dextrose (Dextrose 50 % 25 Gm/50 Ml Syringe) 25 gm IVPUSH Q15M PRN; Protocol PRN Reason: per Hypoglycemia Standing Ord. Docusate Sodium (Docusate Sodium 100 Mg Capsule) 100 mg PO BID [facility] Last Admin: 12/27/24 10:27 Dose: 100 mg Glucose (Glucose Gel 15 Gm Gel..Gram.) 15 gm PO Q15M PRN; Protocol PRN Reason: per Hypoglycemia Standing Ord. Vancomycin HCl 1,500 mg/ (Sodium Chloride) 500 mls @ 333.333 mls/hr IV Q12H [facility] Last Infusion: 12/27/24 07:56 Dose: Infused Insulin Human Lispro (Insulin Lispro 100 Unit/Ml 3 Ml Vial) 0 unit SUBCUT QIDACHS [facility]; Protocol Last Admin: 12/27/24 11:39 Dose: Not Given Magnesium Hydroxide (Milk Of Magnesia 30 Ml Oral.Susp) 30 ml PO DAILY PRN PRN Reason: Constipation Magnesium Oxide (Magnesium Oxide 400 Mg Tablet) 400 mg PO BIDPC [facility] Last Admin: 12/27/24 08:23 Dose: 400 mg Melatonin (Melatonin 3 Mg Tablet) 6 mg PO BEDTIME PRN PRN Reason: Insomnia Last Admin: 12/21/24 00:03 Dose: 6 mg Metformin HCl (Metformin Hcl 500 Mg Tablet) 500 mg PO BIDWM [facility] Last Admin: 12/27/24 08:23 Dose: 500 mg Methadone HCl (Methadone Hcl 20 Mg/2 Ml Oral.Conc) 175 mg PO DAILY [facility] Last Admin: 12/27/24 08:26 Dose: 175 mg Methadone HCl (Methadone Hcl 20 Mg/2 Ml Oral.Conc) 30 mg PO DAILY@1800 [facility] Last Admin: 12/26/24 17:18 Dose: 30 mg Oxycodone HCl (Oxycodone Hcl Immed Release 5 Mg Tablet) 10 mg PO Q4H PRN PRN Reason: Pain, Severe (Pain Scale 7-10) Last Admin: 12/27/24 11:57 Dose: 10 mg Pharmacy Consult (Consult Rx Vancomycin Dosing) 1 each MISCELLANE DAILY PRN PRN Reason: Consult order Polyethylene Glycol (Polyethylene Glycol 3350 17 Gm Powd.Pack) 17 gm PO BID [facility] Last Admin: 12/27/24 10:27 Dose: 17 gm Quetiapine Fumarate (Quetiapine Fumarate 100 Mg Tablet) 100 mg PO BEDTIME [facility] Last Admin: 12/26/24 19:44 Dose: 100 mg Sertraline HCl (Sertraline Hcl 50 Mg Tablet) 50 mg PO BEDTIME [facility] Last Admin: 12/26/24 19:44 Dose: 50 mg Sodium Chloride (0.9 % Sodium Chloride Flush 3 Ml Syringe) 3 ml IVFLUSH QSHIFT [facility] Last Admin: 12/27/24 08:27 Dose: 3 ml Trazodone HCl (Trazodone Hcl 50 Mg Tablet) 50 mg PO BEDTIME [facility] Last Admin: 12/26/24 19:44 Dose: 50 mg Home Medications ?Medication ?Instructions ?Recorded ?Confirmed ?Last Taken ?Type lorazepam 0.5 mg tablet 0.5 mg PO BID 12/15/2412/1512/12/24 History quetiapine 50 mg tablet 100 mg PO BEDTIME 12/15/24 0 12/15/24 12/12/24 History sertraline 100 mg tablet 50 mg PO BEDTIME 12/15/2412/12/24 History trazodone 50 mg tablet 50 mg PO BEDTIME 12/15/2412/12/24 History methadone 10 mg/mL oral 30 mg PO DAILY@1800 12/16/24 12/16/24 12/13/24 History concentrate (Methadone Intensol) methadone 10 mg/mL oral 175 mg PO DAILY 12/16/2404/0112/13/24 History concentrate (Methadone Intensol) Physical Exam 2 Vital Signs: Vital Signs: Last Vital Signs Temp 97.6 F 12/27/24 08:00 Pulse 87 12/27/24 09:33 Resp 16 12/27/24 08:00 BP 137/62 12/27/24 09:33 Pulse Ox 94 12/27/24 09:33 O2 Del Method Room Air 12/27/24 08:00 BMI result Body Mass Index 37.5 Const: General: cooperative HEENT: Head: Yes normal to inspection Face and sinus: Yes normal facial exam Mouth: Normal oral and palatal mucosa present Teeth and gingiva: d entition normal Eyes: General: appearance normal, both eyes and all related structures P upils: Equal, round and reactive pupils present Resp: Effort & Inspection: normal respiratory effort Cardio: Rate: regular rate Rhythm: regular rhythm GI: Palpation (GI): Soft to palpation and nontender : General: Yes no CVA tenderness Back/Spine/Pelvis: Back: no CVA tenderness Skin: General skin exam: no rashes or lesions noted Neuro: General: moves all extremities Cranial nerves: Yes Equal, round and reactive pupils present Extrem: Other: chronic wounds LE per picture Psych: Appearance: grossly normal Results Labs 12/24/24 05:40 12/27/24 05:21 Labs: BMP 12/27/24 05:21 Sodium 134 L Potassium 3.0 L Chloride 99 Carbon Dioxide 27 BUN 8 L Creatinine 0.56 Calcium 7.8 L Liver Function 12/27/24 Range/Units 05:21 Total Bilirubin 1.1 H (0.0-1.0) mg/dL Direct Bilirubin 0.6 H (0.0-0.5) mg/dL AST 116 H (5-37) U/L ALT 34 (0-40) U/L Alkaline Phosphatase 50 (39-117) U/L Albumin 2.0 L (3.5-5.0) g/dL Microbiology Microbiology Results: Microbiology 12/25/24 09:04 Blood - Venous Blood Culture - Preliminary No growth after 48 hours. 12/25/24 09:04 Blood - Venous Blood Culture - Preliminary No growth after 48 hours. 12/21/24 08:55 Blood - Venous Blood Culture - Final No growth after 5 days. 12/21/24 08:57 Blood - Venous Blood Culture - Final Methicillin Res Staph Aureus 12/19/24 14:30 Wrist Left Gram Stain - Final 12/19/24 14:30 Wrist Left Routine Culture - Final Methicillin Res Staph Aureus 12/19/24 14:30 Wrist Left Gram Stain - Final 12/19/24 14:30 Wrist Left Routine Culture - Final Staphylococcus aureus 12/17/24 08:59 Blood - Venous Blood Culture - Final Methicillin Res Staph Aureus 12/17/24 09:07 Blood - Venous Blood Culture - Final Methicillin Res Staph Aureus 12/15/24 18:01 Urine clean catch - Clean Catch Midstream Urine Culture - Final Methicillin Res Staph Aureus 12/15/24 11:52 Blood - Venous Blood Culture - Final Methicillin Res Staph Aureus 12/15/24 11:52 Blood - Venous Blood Culture - Final Methicillin Res Staph Aureus Assessment and Plan (1) IVDU (intravenous drug user): Status: Acute (2) Opioid use disorder: Status: Acute (3) Gram-positive cocci bacteremia: Status: Acute Plan MRSA bacteremia, due to IVDA wrist no definite OM concern over wounds on leg TTE neg Would give IV Vancomycin for 4 weeks since no OM identified on XR foot Weekly creatinine and Vancomycin trough. Check HIV and Hepatitis C.
--- NOTE | 2024-12-27 15:00 | MHC.CM.PN ---
EMR REVIEWED AND PER MD ROUNDS, PT IS NOT YET MEDICALLY CLEARED FOR DC , AWAITING FINAL CULTURES, PICC PLACEMENT AND FINALIZATION OF GUEST DOSING. EXETER REHAB UPDATED VIA [facility]. CM WILL CONTINUE TO FOLLOW FOR ANY CHANGE TO DC PLAN/NEEDS.
[2024-12-27 15:20] VITALS: BP 132/73; PULSE 90; RESP 18; TEMP 36.6; O2SAT 94
--- NOTE | 2024-12-27 15:29 | HO.PM.IMPN ---
Subjective Subjective Date of Service: 12/27/24 Interval History: maddy ,wrist cellulitis Review of Systems s/p I&D in OR of left wrist 12/19. pain seems similar Review of Systems: Yes all other systems are reviewed and are negative Physical Exam Exam: Exam: General: AO X 3, no acute distress Resp: CTA bilateral CVS: S1,S2,RRR GI: +BS, NT, no distention Skin: see pics from earlier Neuro: motor grossly intact Psych: appropriate affect Vital Signs: Vital Signs: Last Vital Signs Temp 98 F 12/27/24 15:20 Pulse 90 12/27/24 15:20 Resp 18 12/27/24 15:20 BP 132/73 12/27/24 15:20 Pulse Ox 94 12/27/24 15:20 O2 Del Method Room Air 12/27/24 15:20 BMI result Body Mass Index 37.5 Objective Data Active Medications Acetaminophen (Acetaminophen 325 Mg Tablet) 650 mg PO Q6H PRN PRN Reason: Pain, Mild 1-3,fever,headache Last Admin: 12/27/24 02:07 Dose: 650 mg Documented By: MAO Calcium Carbonate (Calcium Carbonate 750 Mg Tab.Chew) 750 mg PO Q4H PRN PRN Reason: Heartburn Dextrose (Dextrose 50 % 25 Gm/50 Ml Syringe) 25 gm IVPUSH Q15M PRN; Protocol PRN Reason: per Hypoglycemia Standing Ord. Docusate Sodium (Docusate Sodium 100 Mg Capsule) 100 mg PO BID [facility] Last Admin: 12/27/24 10:27 Dose: 100 mg Documented By: ESTRELLA Glucose (Glucose Gel 15 Gm Gel..Gram.) 15 gm PO Q15M PRN; Protocol PRN Reason: per Hypoglycemia Standing Ord. Vancomycin HCl 1,500 mg/ (Sodium Chloride) 500 mls @ 333.333 mls/hr IV Q12H [facility] Last Infusion: 12/27/24 07:56 Dose: Infused Documented By: ESTRELLA Insulin Human Lispro (Insulin Lispro 100 Unit/Ml 3 Ml Vial) 0 unit SUBCUT QIDACHS [facility]; Protocol Last Admin: 12/27/24 11:39 Dose: Not Given Documented By: ESTRELLA Non-Admin Reason: No Insulin Coverage Magnesium Hydroxide (Milk Of Magnesia 30 Ml Oral.Susp) 30 ml PO DAILY PRN PRN Reason: Constipation Magnesium Oxide (Magnesium Oxide 400 Mg Tablet) 400 mg PO BIDPC [facility] Last Admin: 12/27/24 08:23 Dose: 400 mg Documented By: ESTRELLA Melatonin (Melatonin 3 Mg Tablet) 6 mg PO BEDTIME PRN PRN Reason: Insomnia Last Admin: 12/21/24 00:03 Dose: 6 mg Documented By: ELIE Metformin HCl (Metformin Hcl 500 Mg Tablet) 500 mg PO BIDWM [facility] Last Admin: 12/27/24 08:23 Dose: 500 mg Documented By: ESTRELLA Methadone HCl (Methadone Hcl 20 Mg/2 Ml Oral.Conc) 175 mg PO DAILY [facility] Last Admin: 12/27/24 08:26 Dose: 175 mg Documented By: ESTRELLA Co-signed By: BAYRON Methadone HCl (Methadone Hcl 20 Mg/2 Ml Oral.Conc) 30 mg PO DAILY@1800 [facility] Last Admin: 12/26/24 17:18 Dose: 30 mg Documented By: ALEXIA Co-signed By: BAYRON Oxycodone HCl (Oxycodone Hcl Immed Release 5 Mg Tablet) 10 mg PO Q4H PRN PRN Reason: Pain, Severe (Pain Scale 7-10) Last Admin: 12/27/24 11:57 Dose: 10 mg Documented By: ESTRELLA Pharmacy Consult (Consult Rx Vancomycin Dosing) 1 each MISCELLANE DAILY PRN PRN Reason: Consult order Polyethylene Glycol (Polyethylene Glycol 3350 17 Gm Powd.Pack) 17 gm PO BID [facility] Last Admin: 12/27/24 10:27 Dose: 17 gm Documented By: ESTRELLA Quetiapine Fumarate (Quetiapine Fumarate 100 Mg Tablet) 100 mg PO BEDTIME [facility] Last Admin: 12/26/24 19:44 Dose: 100 mg Documented By: MAO Sertraline HCl (Sertraline Hcl 50 Mg Tablet) 50 mg PO BEDTIME [facility] Last Admin: 12/26/24 19:44 Dose: 50 mg Documented By: MAO Sodium Chloride (0.9 % Sodium Chloride Flush 3 Ml Syringe) [facility] Last Admin: 12/27/24 08:27 Dose: 3 ml Documented By: ESTRELLA Trazodone HCl (Trazodone Hcl 50 Mg Tablet) 50 mg PO BEDTIME [facility] Last Admin: 12/26/24 19:44 Dose: 50 mg Documented By: MAO Labs 12/24/24 05:40 12/27/24 05:21 Labs: Laboratory Results - last 24 hr 12/25/24 12/26/24 12/26/24 05:30 15:30 17:14 Hold Purple Top Anion Gap Estim Creat Clear Calc Estimated GFR POC Glucose 158 H Random Glucose Estimat Average Glucose 263 Hemoglobin A1c % 10.8 H Calcium Total Bilirubin Direct Bilirubin AST ALT Alkaline Phosphatase Total Protein Albumin Random Vancomycin 10.5 L 12/26/24 12/27/24 12/27/24 19:30 05:21 07:52 Hold Purple Top SEE NOTE Anion Gap 11 L Estim Creat Clear Calc 198.1 Estimated GFR > 60 POC Glucose 95 103 Random Glucose 80 Estimat Average Glucose Hemoglobin A1c % Calcium 7.8 L Total Bilirubin 1.1 H Direct Bilirubin 0.6 H AST 116 H ALT 34 Alkaline Phosphatase 50 Total Protein 7.5 Albumin 2.0 L Random Vancomycin 12/27/24 11:14 Hold Purple Top Anion Gap Estim Creat Clear Calc Estimated GFR POC Glucose 144 H Random Glucose Estimat Average Glucose Hemoglobin A1c % Calcium Total Bilirubin Direct Bilirubin AST ALT Alkaline Phosphatase Total Protein Albumin Random Vancomycin Microbiology Microbiology Results: Microbiology 12/25/24 09:04 Blood Culture - Preliminary Blood - Venous No growth after 48 hours. 12/25/24 09:04 Blood Culture - Preliminary Blood - Venous No growth after 48 hours. Assessment and Plan (1) Gram-positive cocci bacteremia: Status: Acute (2) Cutaneous abscess of left wrist: Status: Acute Plan 54-year-old male with h/o IVDU on methadone, previous notes indicate history of liver cirrhosis (pt denies) who presents to the emergency department with generalized weakness found to have multiple acute issues--MADDY, sepsis, wound infection/cellulitis MRSA bacteremia, MRSA UTI from 12/15, repeat culture 12/17, 12/21 positive repeat culture 12/25, so far negative at 24hrs Echo done, no vegetations PICC line request, when BCx negative at x 48. plan: continue Vanco ID consult RLE cellulitis RLE and left wrist wounds MRI 1. No MRI findings of osteomyelitis. 2. Extensive abnormality extensor digitorum longus tendons as discussed above. The appearance is most characteristic of infected tendinopathy and tenosynovitis given the associated dorsal soft tissue defect. 3. Likely similar infected tendinopathy and tenosynovitis of the flexor tendons of the thumb with soft tissue abscess within the volar and radial aspect of the distal forearm. plan: Ortho s/p I&D in OR on 12/19, wrist culture -mssa/mrsa Continue Vanco as above Wound care,oral pain meds obly with oxycodone MADDY, resolved continue monitoring New onset diabetes, controlled: flactauating Hemoglobin A1c 12.7 SSI Metformin 500 mg hold lantus ,check hba1c levels diabetic diet hypOnatremia, probably chronic, stable. HypOkalemia, resolved. probable liver cirrhosis with thrombocytopenia pt denies but previous notes indicate history previous history of heavy etoh use and current IVDU t.bili 1.3, AST 118 ( flactuating) CT A/P 1. Indeterminate low-density focus within the prostate, possibly indicating abscess or neoplasm. 2. Cirrhosis and portal hypertension. 3. Gallbladder sludge and distention. If there is clinical evidence for acute cholecystitis, further assessment with ultrasound could be performed. psa<0.10 plan:has low-density focus within the prostate, psa normal ,urine cultures -mrsa : added urology eval. Hypomagnesemia:Replaced and resolved IVDU/substance abuse Methadone Addiction med pain med adjusted QT prolongation, likely due to methadone. Improved Mood Seroquel Continue sertraline, lorazepam, trazodone dvt ppx - avoid chemophrophylaxis due to thrombocytopenia. ongoing need:mrsa bactermia : Need IV antibiotics, renal function electrolyte monitoring, vanco trough monitoring, also need ID and urology input. Quality Stroke Does the patient have a stroke diagnosis?: No VTE Prior VTE?: No VTE Risk Level:: Medical - moderate - high VTE Device Contraindication: Treatment Not Indicated VTE Drug Contraindication: Treatment Not Indicated
[2024-12-27 15:58] LABS: Glucose, Whole Blood 132 mg/dL (60-115)
[2024-12-27] MEDS: Potassium Chloride ER 20 MEQ TAB.ER.PRT 40 MEQ PO (16:34)
[2024-12-27] MEDS: methADONE HCl 20 MG/2 ML ORAL.CONC 30 MG PO (18:03)
[2024-12-27 19:08] VITALS: BP 130/69; PULSE 89; RESP 18; TEMP 36.6; O2SAT 94
[2024-12-27 19:55] LABS: Glucose, Whole Blood 128 mg/dL (60-115)
[2024-12-28 04:00] VITALS: BP 124/58; PULSE 79; RESP 16; TEMP 36.8; O2SAT 92
[2024-12-28] MEDS: oxyCODONE HCl Immed Release 5 MG TABLET 10 MG PO ×5 (04:26→22:32)
[2024-12-28 07:06] LABS: Creatinine Clr Calc Pharmacy 209.3; Estimated Glomerular Filt Rate > 60
[2024-12-28 07:39] LABS: Glucose, Whole Blood 108 mg/dL (60-115)
[2024-12-28] MEDS: methADONE HCl 20 MG/2 ML ORAL.CONC 175 MG PO (07:39)
[2024-12-28] MEDS: 0.9 % Sodium Chloride Flush 3 ML SYRINGE IVFLUSH ×3 (07:44→20:01)
[2024-12-28 07:50] VITALS: BP 133/65; PULSE 93; RESP 18; TEMP 36.4; O2SAT 95
[2024-12-28 07:50] LABS: Anion Gap 10 (12-20); Blood Urea Nitrogen 8 mg/dL (9-16); Calcium 7.9 mg/dL (8.4-10.2); Carbon Dioxide 26 mmol/L (22-29); Chloride 100 mmol/L (96-108); Potassium 3.3 mmol/L (3.3-5.1); Sodium 133 mmol/L (135-145)
[2024-12-28 09:42] LABS: HIV Num 1 0.06 S/CO (0.00-0.99); ~HepC Num1 15.03 S/CO (0.00-0.79); ~Hepatitis C Antibody Reactive (Nonreactive)
[2024-12-28 11:27] LABS: Glucose, Whole Blood 123 mg/dL (60-115)
--- NOTE | 2024-12-28 13:22 | HO.PM.IMPN ---
Subjective Subjective Date of Service: 12/28/24 Interval History: maddy ,wrist cellulitis Review of Systems s/p I&D in OR of left wrist 12/19. pain improving has hip soarness -? chronic Review of Systems: Yes all other systems are reviewed and are negative Physical Exam Exam: Exam: General: AO X 3, no acute distress Resp: CTA bilateral CVS: S1,S2,RRR GI: +BS, NT, no distention Skin: see pics from earlier Neuro: motor grossly intact Psych: appropriate affect Vital Signs: Vital Signs: Last Vital Signs Temp 97.6 F 12/28/24 07:50 Pulse 93 12/28/24 07:50 Resp 18 12/28/24 07:50 BP 133/65 12/28/24 07:50 Pulse Ox 95 12/28/24 07:50 O2 Del Method Room Air 12/28/24 07:50 BMI result Body Mass Index 37.5 Objective Data Active Medications Acetaminophen (Acetaminophen 325 Mg Tablet) 650 mg PO Q6H PRN PRN Reason: Pain, Mild 1-3,fever,headache Last Admin: 12/28/24 07:38 Dose: 650 mg Documented By: DEBORAH Calcium Carbonate (Calcium Carbonate 750 Mg Tab.Chew) 750 mg PO Q4H PRN PRN Reason: Heartburn Dextrose (Dextrose 50 % 25 Gm/50 Ml Syringe) 25 gm IVPUSH Q15M PRN; Protocol PRN Reason: per Hypoglycemia Standing Ord. Docusate Sodium (Docusate Sodium 100 Mg Capsule) 100 mg PO BID [facility] Last Admin: 12/28/24 07:39 Dose: 100 mg Documented By: DEBORAH Glucose (Glucose Gel 15 Gm Gel..Gram.) 15 gm PO Q15M PRN; Protocol PRN Reason: per Hypoglycemia Standing Ord. Vancomycin HCl 1,000 mg/ (Sodium Chloride) 270 mls @ 270 mls/hr IV Q8H [facility] Last Infusion: 12/28/24 11:26 Dose: Infused Documented By: DEBORAH Insulin Human Lispro (Insulin Lispro 100 Unit/Ml 3 Ml Vial) 0 unit SUBCUT QIDACHS [facility]; Protocol Last Admin: 12/28/24 11:25 Dose: Not Given Documented By: DEBORAH Non-Admin Reason: No Insulin Coverage Lorazepam (Lorazepam 1 Mg Tablet) 1 mg PO Q6H PRN PRN Reason: anxiety/restlessness Last Admin: 12/28/24 07:38 Dose: 1 mg Documented By: DEBORAH Magnesium Hydroxide (Milk Of Magnesia 30 Ml Oral.Susp) 30 ml PO DAILY PRN PRN Reason: Constipation Magnesium Oxide (Magnesium Oxide 400 Mg Tablet) 400 mg PO BIDPC [facility] Last Admin: 12/28/24 07:39 Dose: 400 mg Documented By: DEBORAH Melatonin (Melatonin 3 Mg Tablet) 6 mg PO BEDTIME PRN PRN Reason: Insomnia Last Admin: 12/27/24 20:03 Dose: 6 mg Documented By: MAO Metformin HCl (Metformin Hcl 500 Mg Tablet) 500 mg PO BIDWM [facility] Last Admin: 12/28/24 07:39 Dose: 500 mg Documented By: DEBORAH Methadone HCl (Methadone Hcl 20 Mg/2 Ml Oral.Conc) 175 mg PO DAILY [facility] Last Admin: 12/28/24 07:39 Dose: 175 mg Documented By: DEBORAH Co-signed By: CRISPIN Methadone HCl (Methadone Hcl 20 Mg/2 Ml Oral.Conc) 30 mg PO DAILY@1800 [facility] Last Admin: 12/27/24 18:03 Dose: 30 mg Documented By: ESTRELLA Co-signed By: MAISHA Oxycodone HCl (Oxycodone Hcl Immed Release 5 Mg Tablet) 10 mg PO Q4H PRN PRN Reason: Pain, Severe (Pain Scale 7-10) Last Admin: 12/28/24 10:15 Dose: 10 mg Documented By: DEBORAH Pharmacy Consult (Consult Rx Vancomycin Dosing) 1 each MISCELLANE DAILY PRN PRN Reason: Consult order Polyethylene Glycol (Polyethylene Glycol 3350 17 Gm Powd.Pack) 17 gm PO BID [facility] Last Admin: 12/28/24 07:38 Dose: 17 gm Documented By: DEBORAH Quetiapine Fumarate (Quetiapine Fumarate 100 Mg Tablet) 100 mg PO BEDTIME [facility] Last Admin: 12/27/24 20:03 Dose: 100 mg Documented By: MAO Sertraline HCl (Sertraline Hcl 50 Mg Tablet) 50 mg PO BEDTIME [facility] Last Admin: 12/27/24 20:03 Dose: 50 mg Documented By: MAO Sodium Chloride (0.9 % Sodium Chloride Flush 3 Ml Syringe) 3 ml IVFLUSH QSHIFT [facility] Last Admin: 12/28/24 07:44 Dose: 3 ml Documented By: DEBORAH Trazodone HCl (Trazodone Hcl 50 Mg Tablet) 50 mg PO BEDTIME [facility] Last Admin: 12/27/24 20:06 Dose: 50 mg Documented By: MAO Labs 12/24/24 05:40 12/28/24 06:28 Labs: Laboratory Results - last 24 hr 12/27/24 12/27/24 12/27/24 15:44 15:52 19:51 Hold Purple Top Anion Gap Estim Creat Clear Calc Estimated GFR POC Glucose 132 H 128 H Random Glucose Calcium Random Vancomycin 5.0 L Hepatitis C Ab (EIA) HIV 1&2 Ab/P24 Ag 4thGn 12/28/24 12/28/24 12/28/24 06:28 06:33 07:07 Hold Purple Top SEE NOTE Anion Gap 10 L Estim Creat Clear Calc 209.3 Estimated GFR > 60 POC Glucose 108 Random Glucose 97 Calcium 7.9 L Random Vancomycin Hepatitis C Ab (EIA) HIV 1&2 Ab/P24 Ag 4thGn 12/28/24 12/28/24 08:33 11:17 Hold Purple Top Anion Gap Estim Creat Clear Calc Estimated GFR POC Glucose 123 H Random Glucose Calcium Random Vancomycin Hepatitis C Ab (EIA) Reactive H HIV 1&2 Ab/P24 Ag 4thGn Nonreactive Microbiology Microbiology Results: Microbiology 12/25/24 09:04 Blood Culture - Preliminary Blood - Venous No growth after 48 hours. 12/25/24 09:04 Blood Culture - Preliminary Blood - Venous No growth after 48 hours. Assessment and Plan (1) Gram-positive cocci bacteremia: Status: Acute (2) Cutaneous abscess of left wrist: Status: Acute Plan 54-year-old male with h/o IVDU on methadone, previous notes indicate history of liver cirrhosis (pt denies) who presents to the emergency department with generalized weakness found to have multiple acute issues--MADDY, sepsis, wound infection/cellulitis MRSA bacteremia, MRSA UTI from 12/15, repeat culture 12/17, 12/21 positive repeat culture 12/25, so far negative at 24hrs Echo done, no vegetations PICC line request, when BCx negative at x 48. plan: continue Vanco ID consult-Id recomended 4 weeks of antibiotics/vanco ,check hiv/hepatitic c. RLE cellulitis RLE and left wrist wounds MRI 1. No MRI findings of osteomyelitis. 2. Extensive abnormality extensor digitorum longus tendons as discussed above. The appearance is most characteristic of infected tendinopathy and tenosynovitis given the associated dorsal soft tissue defect. 3. Likely similar infected tendinopathy and tenosynovitis of the flexor tendons of the thumb with soft tissue abscess within the volar and radial aspect of the distal forearm. plan: Ortho s/p I&D in OR on 12/19, wrist culture -mssa/mrsa Continue Vanco as above Wound care,oral pain meds with oxycodone Id recomended 4 weeks of antibiotics ,check hiv/hepatitic c. MADDY, resolved continue monitoring New onset diabetes, controlled: flactauating Hemoglobin A1c 12.7-10.8 SSI Metformin 500 mg hold lantus ,check hba1c levels diabetic diet hypOnatremia, probably chronic, stable. HypOkalemia, resolved. probable liver cirrhosis with thrombocytopenia pt denies but previous notes indicate history previous history of heavy etoh use and current IVDU t.bili 1.3, AST 118 ( flactuating) CT A/P 1. Indeterminate low-density focus within the prostate, possibly indicating abscess or neoplasm. 2. Cirrhosis and portal hypertension. 3. Gallbladder sludge and distention. If there is clinical evidence for acute cholecystitis, further assessment with ultrasound could be performed. psa<0.10 plan:has low-density focus within the prostate, psa normal ,urine cultures -mrsa d/w urology outpatient follow up. Hypomagnesemia:Replaced and resolved IVDU/substance abuse Methadone Addiction med pain med adjusted QT prolongation, likely due to methadone. Improved Mood Seroquel Continue sertraline, lorazepam, trazodone dvt ppx - avoid chemophrophylaxis due to thrombocytopenia. ongoing need:mrsa bactermia : Need IV antibiotics, renal function electrolyte monitoring, vanco trough monitoring, also need ID and urology input. Quality Stroke Does the patient have a stroke diagnosis?: No VTE Prior VTE?: No VTE Risk Level:: Medical - moderate - high VTE Device Contraindication: Treatment Not Indicated VTE Drug Contraindication: Treatment Not Indicated
[2024-12-28 15:32] VITALS: BP 134/61; PULSE 81; RESP 18; TEMP 36.6; O2SAT 93
[2024-12-28 16:26] LABS: Glucose, Whole Blood 147 mg/dL (60-115)
[2024-12-28] MEDS: methADONE HCl 20 MG/2 ML ORAL.CONC 30 MG PO (17:28)
[2024-12-28 20:00] VITALS: BP 124/61; PULSE 100; RESP 18; TEMP 36.2; O2SAT 98
[2024-12-28 20:27] LABS: Glucose, Whole Blood 117 mg/dL (60-115)
[2024-12-29] MEDS: oxyCODONE HCl Immed Release 5 MG TABLET 10 MG PO ×4 (02:52→23:34)
[2024-12-29 04:00] VITALS: BP 124/59; PULSE 87; RESP 18; TEMP 36.5; O2SAT 95
[2024-12-29 06:44] LABS: Creatinine Clr Calc Pharmacy 217.5; Estimated Glomerular Filt Rate > 60
[2024-12-29 07:56] VITALS: BP 127/67; PULSE 89; RESP 16; TEMP 36.6; O2SAT 94
[2024-12-29 07:58] LABS: Anion Gap 12 (12-20); Blood Urea Nitrogen 8 mg/dL (9-16); Calcium 7.9 mg/dL (8.4-10.2); Carbon Dioxide 26 mmol/L (22-29); Chloride 99 mmol/L (96-108); Potassium 3.4 mmol/L (3.3-5.1); Sodium 134 mmol/L (135-145)
[2024-12-29 08:03] LABS: Glucose, Whole Blood 91 mg/dL (60-115)
[2024-12-29] MEDS: methADONE HCl 20 MG/2 ML ORAL.CONC 175 MG PO (08:20)
[2024-12-29] MEDS: 0.9 % Sodium Chloride Flush 3 ML SYRINGE IVFLUSH ×3 (08:21→20:02)
--- NOTE | 2024-12-29 11:16 | P.PNIM_ITS ---
Subjective Subjective Date of Service: 12/29/24 Interval History: maddy ,wrist cellulitis Review of Systems s/p I&D in OR of left wrist 12/19. pain improving has hip soarness -? chronic Review of Systems: Yes all other systems are reviewed and are negativ Physical Exam 2 Exam: Exam: General: AO X 3, no acute distress Resp: CTA bilateral CVS: S1,S2,RRR GI: +BS, NT, no distention Skin: see pics from earlier Neuro: motor grossly intact Psych: appropriate affect Vital Signs: Vital Signs: Last Vital Signs Temp 97.9 F 12/29/24 07:56 Pulse 89 12/29/24 07:56 Resp 16 12/29/24 07:56 BP 127/67 12/29/24 07:56 Pulse Ox 94 12/29/24 07:56 O2 Del Method Room Air 12/29/24 07:56 BMI result Body Mass Index 37.5 Objective Data Active Medications Acetaminophen (Acetaminophen 325 Mg Tablet) 650 mg PO Q6H PRN PRN Reason: Pain, Mild 1-3,fever,headache Last Admin: 12/29/24 10:24 Dose: 650 mg Documented By: DEBORAH Calcium Carbonate (Calcium Carbonate 750 Mg Tab.Chew) 750 mg PO Q4H PRN PRN Reason: Heartburn Dextrose (Dextrose 50 % 25 Gm/50 Ml Syringe) 25 gm IVPUSH Q15M PRN; Protocol PRN Reason: per Hypoglycemia Standing Ord. Docusate Sodium (Docusate Sodium 100 Mg Capsule) 100 mg PO BID [facility] Last Admin: 12/29/24 08:20 Dose: 100 mg Documented By: DEBORAH Glucose (Glucose Gel 15 Gm Gel..Gram.) 15 gm PO Q15M PRN; Protocol PRN Reason: per Hypoglycemia Standing Ord. Vancomycin HCl 1,000 mg/ (Sodium Chloride) 270 mls @ 270 mls/hr IV Q8H [facility] Last Admin: 12/29/24 10:24 Dose: 270 mls/hr Documented By: DEBORAH Insulin Human Lispro (Insulin Lispro 100 Unit/Ml 3 Ml Vial) 0 unit SUBCUT QIDACHS [facility]; Protocol Last Admin: 12/29/24 08:26 Dose: Not Given Documented By: DEBORAH Non-Admin Reason: No Insulin Coverage Lorazepam (Lorazepam 1 Mg Tablet) 1 mg PO Q6H PRN PRN Reason: anxiety/restlessness Last Admin: 12/29/24 06:14 Dose: 1 mg Documented By: TERESSA Magnesium Hydroxide (Milk Of Magnesia 30 Ml Oral.Susp) 30 ml PO DAILY PRN PRN Reason: Constipation Magnesium Oxide (Magnesium Oxide 400 Mg Tablet) 400 mg PO BIDPC [facility] Last Admin: 12/29/24 08:20 Dose: 400 mg Documented By: DEBORAH Melatonin (Melatonin 3 Mg Tablet) 6 mg PO BEDTIME PRN PRN Reason: Insomnia Last Admin: 12/28/24 22:32 Dose: 6 mg Documented By: TERESSA Metformin HCl (Metformin Hcl 500 Mg Tablet) 500 mg PO BIDWM [facility] Last Admin: 12/29/24 08:20 Dose: 500 mg Documented By: DEBORAH Methadone HCl (Methadone Hcl 20 Mg/2 Ml Oral.Conc) 175 mg PO DAILY [facility] Last Admin: 12/29/24 08:20 Dose: 175 mg Documented By: DEBORAH Co-signed By: CRISPIN Methadone HCl (Methadone Hcl 20 Mg/2 Ml Oral.Conc) 30 mg PO DAILY@1800 [facility] Last Admin: 12/28/24 17:28 Dose: 30 mg Documented By: DEBORAH Co-signed By: QUINN Oxycodone HCl (Oxycodone Hcl Immed Release 5 Mg Tablet) 10 mg PO Q4H PRN PRN Reason: Pain, Severe (Pain Scale 7-10) Last Admin: 12/29/24 08:20 Dose: 10 mg Documented By: DEBORAH Pharmacy Consult (Consult Rx Vancomycin Dosing) 1 each MISCELLANE DAILY PRN PRN Reason: Consult order Polyethylene Glycol (Polyethylene Glycol 3350 17 Gm Powd.Pack) 17 gm PO BID [facility] Last Admin: 12/29/24 08:20 Dose: 17 gm Documented By: DEBORAH Quetiapine Fumarate (Quetiapine Fumarate 100 Mg Tablet) 100 mg PO BEDTIME [facility] Last Admin: 12/28/24 20:00 Dose: 100 mg Documented By: TERESSA Sertraline HCl (Sertraline Hcl 50 Mg Tablet) 50 mg PO BEDTIME [facility] Last Admin: 12/28/24 19:59 Dose: 50 mg Documented By: TERESSA Sodium Chloride (0.9 % Sodium Chloride Flush 3 Ml Syringe) 3 ml IVFLUSH QSHIFT [facility] Last Admin: 12/29/24 08:21 Dose: 3 ml Documented By: DEBORAH Trazodone HCl (Trazodone Hcl 50 Mg Tablet) 50 mg PO BEDTIME [facility] Last Admin: 12/28/24 20:00 Dose: 50 mg Documented By: TERESSA Labs 12/24/24 05:40 12/29/24 05:41 Labs: Laboratory Results - last 24 hr 12/28/24 12/28/24 12/28/24 11:17 15:46 16:11 Hold Purple Top Anion Gap Estim Creat Clear Calc Estimated GFR POC Glucose 123 H 147 H Random Glucose Calcium Random Vancomycin 14.5 L 12/28/24 12/29/24 12/29/24 20:21 05:41 07:55 Hold Purple Top SEE NOTE Anion Gap 12 Estim Creat Clear Calc 217.5 Estimated GFR > 60 POC Glucose 117 H 91 Random Glucose 82 Calcium 7.9 L Random Vancomycin Assessment and Plan (1) Gram-positive cocci bacteremia: Status: Acute (2) Cutaneous abscess of left wrist: Status: Acute Plan 54-year-old male with h/o IVDU on methadone, previous notes indicate history of liver cirrhosis (pt denies) who presents to the emergency department with generalized weakness found to have multiple acute issues--MADDY, sepsis, wound infection/cellulitis MRSA bacteremia, MRSA UTI from 12/15, repeat culture 12/17, 12/21 positive repeat culture 12/25, so far negative at 24hrs Echo done, no vegetations PICC line request, when BCx negative at x 48. plan: vancp trough 14.5 (12/28/24) continue Vanco ID consult-Id recomended 4 weeks of antibiotics/vanco ,picc line order placed. hiv:negative, hepatitic c: previously viral load positive (2018) , viral load from this admission pending RLE cellulitis RLE and left wrist wounds MRI 1. No MRI findings of osteomyelitis. 2. Extensive abnormality extensor digitorum longus tendons as discussed above. The appearance is most characteristic of infected tendinopathy and tenosynovitis given the associated dorsal soft tissue defect. 3. Likely similar infected tendinopathy and tenosynovitis of the flexor tendons of the thumb with soft tissue abscess within the volar and radial aspect of the distal forearm. plan: Ortho s/p I&D in OR on 12/19, wrist culture -mssa/mrsa Continue Vanco as above Wound care,oral pain meds with oxycodone Id recomended 4 weeks of antibiotics ,check hiv/hepatitic c. He also has hip hip soaness -? chronic but unable to tell (how long): xray:Mild degenerative change of both hip joints, [id number]-left. This is similar to that seen on the patient's recent CT scan. today seems more comfortable , continue to moniter. MADDY, resolved continue monitoring New onset diabetes, controlled: flactauating 100-140 Hemoglobin A1c 12.7-10.8 SSI Metformin 500 mg hold lantus , diabetic diet hypOnatremia, probably chronic, stable. HypOkalemia, resolved. probable liver cirrhosis with thrombocytopenia pt denies but previous notes indicate history previous history of heavy etoh use and current IVDU t.bili 1.3, AST 118 ( flactuating) CT A/P 1. Indeterminate low-density focus within the prostate, possibly indicating abscess or neoplasm. 2. Cirrhosis and portal hypertension. 3. Gallbladder sludge and distention. If there is clinical evidence for acute cholecystitis, further assessment with ultrasound could be performed. psa<0.10 plan:has low-density focus within the prostate, psa normal ,urine cultures -mrsa d/w urology outpatient follow up. Hypomagnesemia:Replaced and resolved IVDU/substance abuse Methadone Addiction med pain med adjusted QT prolongation, likely due to methadone. Improved Mood Seroquel Continue sertraline, lorazepam, trazodone dvt ppx - avoid chemophrophylaxis due to thrombocytopenia. ongoing need:mrsa bactermia : Need IV antibiotics, renal function electrolyte monitoring, vanco trough monitoring, also need ID and urology input. Quality Stroke Does the patient have a stroke diagnosis?: No VTE Prior VTE?: No VTE Risk Level:: Medical - moderate - high VTE Device Contraindication: Treatment Not Indicated VTE Drug Contraindication: Treatment Not Indicated
[2024-12-29 11:27] LABS: Glucose, Whole Blood 168 mg/dL (60-115)
[2024-12-29 15:20] VITALS: BP 147/87; PULSE 80; RESP 16; TEMP 36.2; O2SAT 95
[2024-12-29 16:09] LABS: Glucose, Whole Blood 105 mg/dL (60-115)
[2024-12-29] MEDS: methADONE HCl 20 MG/2 ML ORAL.CONC 30 MG PO (17:09)
[2024-12-29 19:30] VITALS: BP 136/71; PULSE 90; RESP 17; TEMP 37.3; O2SAT 94
[2024-12-29 20:17] LABS: Glucose, Whole Blood 137 mg/dL (60-115)
[2024-12-29 22:19] VITALS: PULSE 90
[2024-12-30 03:49] VITALS: BP 132/65; PULSE 98; RESP 18; TEMP 37.1; O2SAT 95
[2024-12-30] MEDS: oxyCODONE HCl Immed Release 5 MG TABLET 10 MG PO ×3 (03:50→12:56)
[2024-12-30 06:46] LABS: Hematocrit 28.3 % (42.0-52.0); Hemoglobin 9.5 g/dl (14.0-18.0); Mean Corpuscular HGB Conc 33.6 g/dl (31.0-36.0); Mean Corpuscular Hemoglobin 28.9 pg (27.0-33.0); Mean Corpuscular Volume 86.0 fL (80.0-98.0); NRBC Abs Auto 0.000 X10*3/uL (0.0-0.012); NRBC Pct Auto 0.0 /100WBC (0.0-0.2); Platelet Count 105 X10*3/uL (160-400); Red Blood Count 3.29 X10*6/uL (4.60-5.80); White Blood Count 2.9 X10*3/uL (4.8-10.8)
[2024-12-30 06:53] LABS: Alanine Aminotransferase 29 U/L (0-40); Albumin Level 2.1 g/dL (3.5-5.0); Alkaline Phosphatase 54 U/L (39-117); Anion Gap 10 (12-20); Aspartate Amino Transferase 89 U/L (5-37); Blood Urea Nitrogen 7 mg/dL (9-16); Calcium 8.0 mg/dL (8.4-10.2); Carbon Dioxide 26 mmol/L (22-29); Chloride 96 mmol/L (96-108); Creatinine Clr Calc Pharmacy 205.4; Estimated Glomerular Filt Rate > 60; Potassium 3.6 mmol/L (3.3-5.1); Sodium 128 mmol/L (135-145); Total Protein 8.1 g/dL (6.5-8.0)
[2024-12-30 06:54] LABS: Creatinine Clr Calc Pharmacy 201.7; Estimated Glomerular Filt Rate > 60
[2024-12-30 07:27] VITALS: BP 130/70; PULSE 98; RESP 16; TEMP 36.5; O2SAT 92
[2024-12-30 07:44] LABS: Glucose, Whole Blood 110 mg/dL (60-115)
--- NOTE | 2024-12-30 07:51 | P.PNIM_ITS ---
Subjective Subjective Date of Service: 12/30/24 Interval History: hyponatremia Review of Systems Review of Systems: Yes all other systems are reviewed and are negative Physical Exam 2 Vital Signs: Vital Signs: Last Vital Signs Temp 97.7 F 12/30/24 07:27 Pulse 98 12/30/24 07:27 Resp 16 12/30/24 07:27 BP 130/70 12/30/24 07:27 Pulse Ox 92 12/30/24 07:27 O2 Del Method Room Air 12/30/24 07:27 BMI result Body Mass Index 37.5 Objective Data Active Medications Acetaminophen (Acetaminophen 325 Mg Tablet) 650 mg PO Q6H PRN PRN Reason: Pain, Mild 1-3,fever,headache Last Admin: 12/29/24 10:24 Dose: 650 mg Documented By: DEBORAH Calcium Carbonate (Calcium Carbonate 750 Mg Tab.Chew) 750 mg PO Q4H PRN PRN Reason: Heartburn Dextrose (Dextrose 50 % 25 Gm/50 Ml Syringe) 25 gm IVPUSH Q15M PRN; Protocol PRN Reason: per Hypoglycemia Standing Ord. Docusate Sodium (Docusate Sodium 100 Mg Capsule) 100 mg PO BID [facility] Last Admin: 12/29/24 20:01 Dose: 100 mg Documented By: ELIE Glucose (Glucose Gel 15 Gm Gel..Gram.) 15 gm PO Q15M PRN; Protocol PRN Reason: per Hypoglycemia Standing Ord. Vancomycin HCl 1,000 mg/ (Sodium Chloride) 270 mls @ 270 mls/hr IV Q8H [facility] Last Infusion: 12/30/24 03:05 Dose: Infused Documented By: ELIE Insulin Human Lispro (Insulin Lispro 100 Unit/Ml 3 Ml Vial) 0 unit SUBCUT QIDACHS [facility]; Protocol Last Admin: 12/29/24 20:28 Dose: Not Given Documented By: ELIE Non-Admin Reason: No Insulin Coverage Lorazepam (Lorazepam 1 Mg Tablet) 1 mg PO Q6H PRN PRN Reason: anxiety/restlessness Last Admin: 12/30/24 01:57 Dose: 1 mg Documented By: ELIE Magnesium Hydroxide (Milk Of Magnesia 30 Ml Oral.Susp) 30 ml PO DAILY PRN PRN Reason: Constipation Magnesium Oxide ([facility] 400 Mg [facility]t) [facility] Last Admin: 12/29/24 16:02 Dose: 400 mg Documented By: DEBORAH Melatonin (Melatonin 3 Mg Tablet) 6 mg PO BEDTIME PRN PRN Reason: Insomnia Last Admin: 12/28/24 22:32 Dose: 6 mg Documented By: TERESSA Metformin HCl (Metformin Hcl 500 Mg Tablet) 500 mg PO BIDWM [facility] Last Admin: 12/29/24 16:03 Dose: 500 mg Documented By: DEBORAH Methadone HCl (Methadone Hcl 20 Mg/2 Ml Oral.Conc) 175 mg PO DAILY [facility] Last Admin: 12/29/24 08:20 Dose: 175 mg Documented By: DEBORAH Co-signed By: CRISPIN Methadone HCl (Methadone Hcl 20 Mg/2 Ml Oral.Conc) 30 mg PO DAILY@1800 [facility] Last Admin: 12/29/24 17:09 Dose: 30 mg Documented By: DEBORAH Co-signed By: LOBO Pharmacy Consult (Consult Rx Vancomycin Dosing) 1 each MISCELLANE DAILY PRN PRN Reason: Consult order Polyethylene Glycol (Polyethylene Glycol 3350 17 Gm Powd.Pack) 17 gm PO BID [facility] Last Admin: 12/29/24 20:01 Dose: 17 gm Documented By: ELIE Quetiapine Fumarate (Quetiapine Fumarate 100 Mg Tablet) 100 mg PO BEDTIME [facility] Last Admin: 12/29/24 20:01 Dose: 100 mg Documented By: ELIE Sertraline HCl (Sertraline Hcl 50 Mg Tablet) 50 mg PO BEDTIME [facility] Last Admin: 12/29/24 20:01 Dose: 50 mg Documented By: ELIE Sodium Chloride (0.9 % Sodium Chloride Flush 3 Ml Syringe) 3 ml IVFLUSH QSHIFT [facility] Last Admin: 12/29/24 20:02 Dose: 3 ml Documented By: ELIE Trazodone HCl (Trazodone Hcl 50 Mg Tablet) 50 mg PO BEDTIME [facility] Last Admin: 12/29/24 20:01 Dose: 50 mg Documented By: ELIE Labs 12/30/24 06:11 12/30/24 06:11 Labs: Laboratory Results - last 24 hr 12/29/24 12/29/24 12/29/24 05:41 07:55 11:17 MCV MCH MCHC RDW Plt Count MPV Absolute Nucleated RBC Nucleated RBC % (auto) Anion Gap 12 Estim Creat Clear Calc Estimated GFR POC Glucose 91 168 H Random Glucose 82 Calcium 7.9 L Total Bilirubin AST ALT Alkaline Phosphatase Total Protein Albumin Random Vancomycin 12/29/24 12/29/24 12/29/24 16:01 16:10 20:13 MCV MCH MCHC RDW Plt Count MPV Absolute Nucleated RBC Nucleated RBC % (auto) Anion Gap Estim Creat Clear Calc Estimated GFR POC Glucose 105 137 H Random Glucose Calcium Total Bilirubin AST ALT Alkaline Phosphatase Total Protein Albumin Random Vancomycin 13.7 L 12/30/24 12/30/24 12/30/24 06:11 06:11 06:11 MCV 86.0 MCH 28.9 MCHC 33.6 RDW 16.0 Plt Count 105 L MPV 9.5 Absolute Nucleated RBC 0.000 Nucleated RBC % (auto) 0.0 Anion Gap 10 L Estim Creat Clear Calc 201.7 205.4 Estimated GFR > 60 > 60 POC Glucose Random Glucose 107 Calcium 8.0 L Total Bilirubin 1.2 H AST 89 H ALT 29 Alkaline Phosphatase 54 Total Protein 8.1 H Albumin 2.1 L Random Vancomycin 12/30/24 07:29 MCV MCH MCHC RDW Plt Count MPV Absolute Nucleated RBC Nucleated RBC % (auto) Anion Gap Estim Creat Clear Calc Estimated GFR POC Glucose 110 Random Glucose Calcium Total Bilirubin AST ALT Alkaline Phosphatase Total Protein Albumin Random Vancomycin Assessment and Plan (1) Gram-positive cocci bacteremia: Status: Acute (2) Cutaneous abscess of left wrist: Status: Acute Plan 54-year-old male with h/o IVDU on methadone, previous notes indicate history of liver cirrhosis (pt denies) who presents to the emergency department with generalized weakness found to have multiple acute issues--MADDY, sepsis, wound infection/cellulitis MRSA bacteremia, MRSA UTI from 12/15, repeat culture 12/17, 12/21 positive repeat culture 12/25, so far negative at 24hrs Echo done, no vegetations PICC line request, when BCx negative at x 48. plan: vancp trough 14.5 (12/28/24) continue Vanco ID consult-Id recomended 4 weeks of antibiotics/vanco ,picc line order placed. hiv:negative, hepatitic c: previously viral load positive (2018) , viral load from this admission pending RLE cellulitis RLE and left wrist wounds MRI 1. No MRI findings of osteomyelitis. 2. Extensive abnormality extensor digitorum longus tendons as discussed above. The appearance is most characteristic of infected tendinopathy and tenosynovitis given the associated dorsal soft tissue defect. 3. Likely similar infected tendinopathy and tenosynovitis of the flexor tendons of the thumb with soft tissue abscess within the volar and radial aspect of the distal forearm. plan: Ortho s/p I&D in OR on 12/19, wrist culture -mssa/mrsa Continue Vanco as above Wound care,oral pain meds with oxycodone Id recomended 4 weeks of antibiotics ,check hiv/hepatitic c. picc line He also has hip hip soaness -? chronic but unable to tell (how long): xray:Mild degenerative change of both hip joints, [id number]-left. This is similar to that seen on the patient's recent CT scan. today seems more comfortable , continue to moniter. MADDY, resolved continue monitoring New onset diabetes, controlled: flactauating 100-140 Hemoglobin A1c 12.7-10.8 SSI Metformin 500 mg hold lantus , diabetic diet hypOnatremia, probably chronic, stable. HypOkalemia, resolved. probable liver cirrhosis with thrombocytopenia pt denies but previous notes indicate history previous history of heavy etoh use and current IVDU t.bili 1.3, AST 118 ( flactuating) CT A/P 1. Indeterminate low-density focus within the prostate, possibly indicating abscess or neoplasm. 2. Cirrhosis and portal hypertension. 3. Gallbladder sludge and distention. If there is clinical evidence for acute cholecystitis, further assessment with ultrasound could be performed. psa<0.10 plan:has low-density focus within the prostate, psa normal ,urine cultures -mrsa d/w urology outpatient follow up. Hypomagnesemia:Replaced and resolved IVDU/substance abuse Methadone Addiction med pain med adjusted QT prolongation, likely due to methadone. Improved Mood Seroquel Continue sertraline, lorazepam, trazodone dvt ppx - avoid chemophrophylaxis due to thrombocytopenia. ongoing need:mrsa bactermia : Need IV antibiotics, renal function electrolyte monitoring, vanco trough monitoring, also need ID and urology input. Quality Stroke Does the patient have a stroke diagnosis?: No VTE Prior VTE?: No VTE Risk Level:: Medical - moderate - high VTE Device Contraindication: Treatment Not Indicated VTE Drug Contraindication: Treatment Not Indicated
[2024-12-30 08:00] VITALS: PULSE 98
[2024-12-30] MEDS: 0.9 % Sodium Chloride Flush 3 ML SYRINGE IVFLUSH (08:16)
[2024-12-30] MEDS: methADONE HCl 20 MG/2 ML ORAL.CONC 175 MG PO (09:21)
[2024-12-30 09:43] LABS: Osmolality, Serum 275 mosm/kg (281-305)
--- NOTE | 2024-12-30 12:20 | HO.PICC ---
PICC Line Insertion NPICC Placement Diagnosis: Left Wrist Cutaneous Abscess Indication: Electrocardiogram Technician Antibx Pertinent Labs: Reviewed Technique: Following informed consent including risks, benefits and alternatives and using sterile technique including cap and mask, sterile gown, glove and drape, the Right arm was prepped and draped in the usual sterile fashion of full barrier technique with [facility]. Following completion of [place] Protocol the skin and soft tissues were anesthetized with 1% Lidocaine plain. Using ultrasound guidance, Right Basilic vein access was obtained. Over an 0.018 wire through peel-away sheath, a 4Fr PowerPICC line PASV was positioned. Catheter length is 43cm internal length, 1cm external length, for a total trimmed length of 44cm. The procedure was performed in Rm 272. Our Bard's ultrasound machine malfunction for picc placement, so a stat CXR was done and read by Dr Chan. Tip [place] [facility] Chan. Ultrasound was used to document vein patency and for needle entry. A formal ultrasound picture was recorded and also a cxr was done. [facility] [employer] has released the line for use and it is currently dressed with a StatLock, Tegaderm, and CHG disc. Verification has been performed for blood return and line patency. Arm Circumference: 32cm Equipment: Bard PowerPicc Solo catheter with Sherlock 3CG Catheter Type: 4Fr PowerPICC line PASV Lot #: [id number]
[2024-12-30 12:44] LABS: Glucose, Whole Blood 159 mg/dL (60-115)
[2024-12-30 12:57] VITALS: BP 142/83; PULSE 93; RESP 16; TEMP 36.2; O2SAT 93
--- NOTE | 2024-12-30 13:24 | MHC.CM.PN ---
pt will be leaving at 5 to go to [facility] guest dosing arranged and confirmed with genevieve caputo/genaro to start 12/31 pts last of methadone to be given by pts nurse prior to dc last dose letter will be updated by rn pt aware
[2024-12-30 14:29] LABS: Sodium 131 mmol/L (135-145)
--- NOTE | 2024-12-30 14:52 | HE.PHANOTE ---
[facility] Patients level came back this evening at 17.3. Will continue with current dose as renal function has remained stable. Will get another level tomorrow 10/31 @1600 to ensure safety vs efficacy.
[2024-12-30 16:00] VITALS: BP 131/78; PULSE 98; RESP 18; TEMP 36.9; O2SAT 93
--- NOTE | 2024-12-30 16:09 | PM.DS ---
DS: Providers Provider Date of Service: 12/30/24 Date of admission: 12/15/24 13:45 Date of discharge: 12/30/24 Primary care physician: None Physician Consults: 12/15/24 14:45 Addiction Medicine Provider Routine Consulting Provider: Addiction Covering Reason for consultation: opiate abuse, IVDU; on methadone Has provider been notified: No 12/15/24 14:59 Consult to Wound Care Routine Reason for consultation: left wrist, right foot wounds 12/16/24 14:23 Consult to Orthopedics Routine Consulting Provider: [facility] [place] [facility] Reason for consultation: Left Wrist Deep wound 12/26/24 07:40 Consult to Infectious Diseases Routine Consulting Provider: [facility] [place] [facility] Reason for consultation: mrsa bactermia 12/26/24 13:49 Consult to Urology Routine Consulting Provider: [facility] [place] Urology Services Reason for consultation: Prostate lesion/uti mrsa Has provider been notified: No Attending physician on discharge: Roberto Cartagena Discharging clinician: Roberto Cartagena DS: Diagnosis Discharge Diagnosis (1) Gram-positive cocci bacteremia: Status: Acute (2) Cutaneous abscess of left wrist: Status: Acute DS: Summary Hospital Course Hospital Course: HPI: Hospital course: 54-year-old male with h/o IVDU on methadone, previous notes indicate history of liver cirrhosis (pt denies) who presents to the emergency department with generalized weakness found to have multiple acute issues--MADDY, sepsis, wound infection/cellulitis MRSA bacteremia, MRSA UTI from 12/15, repeat culture 12/17, 12/21 positive repeat culture 12/25, so far negative at 5days Echo done, no vegetations hiv:negative, hepatitic c: previously viral load positive (2018) , viral load from this admission pending plan: Patient was started on IV antibiotics-currently on IV vanco, vanco trough today 17.3. Last set Blood culture as above negative. Patient is currently on vancomycin 1000 mg q.8 hours-end date01/24/25. Adjust vanco as for vanco trough. Consider monitoring CBC, CMP, ESR, CRP Q weekly while on vancomycin. Seen by ID recommended -IV Vancomycin for 4 weeks. RLE cellulitis left wrist wounds MRI 1. No MRI findings of osteomyelitis. 2. Extensive abnormality extensor digitorum longus tendons as discussed above. The appearance is most characteristic of infected tendinopathy and tenosynovitis given the associated dorsal soft tissue defect. 3. Likely similar infected tendinopathy and tenosynovitis of the flexor tendons of the thumb with soft tissue abscess within the volar and radial aspect of the distal forearm. plan: Ortho s/p I&D in OR on 12/19, wrist culture -mssa/mrsa Continue Vanco as above Wound care, continue current dressing,oral pain meds with oxycodone on iv antibiotics as above. He also has hip hip soaness -? chronic but unable to tell (how long): xray:Mild degenerative change of both hip joints, yawqu-[id number]-kwnm-left. This is similar to that seen on the patient's recent CT scan. denies any pains today , moving all ext , rom intact. MADDY, resolved continue monitoring bmp outpatient. New onset diabetes, controlled: flactauating 100-140 Hemoglobin A1c 12.7-10.8 SSI,Metformin 500 mg hold lantus ,diabetic diet hypOnatremia, probably chronic, stablein 131 range. HypOkalemia, resolved. possible liver cirrhosis with thrombocytopenia pt denies but previous notes indicate history previous history of heavy etoh use and current IVDU t.bili 1.2, AST 89( improving ) CT A/P 1. Indeterminate low-density focus within the prostate, possibly indicating abscess or neoplasm.2. Cirrhosis and portal hypertension. 3. Gallbladder sludge and distention. If there is clinical evidence for acute cholecystitis, further assessment with ultrasound could be performed. psa<0.10 plan:has low-density focus within the prostate, psa normal ,urine cultures -mrsa d/w urology outpatient follow up. Hypomagnesemia:Replaced and resolved. IVDU/substance abuse Methadone Mood: Continue sertraline, lorazepam p.r.n., trazodone Patient is very reluctant to move, range of motion intact, pain controlled, still very reluctant to participate with activities.need lot of encouragement . plan: vancomycin -end date 01/24/25. Monitor vanco trough, consider monitoring CBC, CMP, ESR, CRP Q weekly while on IV vanco. wound care as above. follow up Dr ortega's office for hepatitic C viral load and further management . new onset dm-dm diet ,continue metformin ,also added sliding scale coverage, we will hold Lantus for now because fingersticks are fluctuating. MADDY improved, hyponatremia and hypokalemia resolved. Hypomagnesemia repleted and resolved also in addition thought to be probable liver cirrhosis with thrombocytopenia: Thrombocytopenia improving slowly, has some leukopenia, anemia: Monitor CBC outpatient, consider further workup outpatient. no bleeding or melena hx per patient. Strongly advised to abstain from recreational drugs. Patient has CT abdomen:Indeterminate low-density focus within the prostate, possibly indicating abscess or neoplasm: PSA is 0.[address] Fenton urology-follow up outpatient. Follow-up out patiently with PCP, Dr. Ortega office, Urology Dr. Fenton office, consider also GI evaluation outpatient for GI workup. Also consider outpatient orthopedic follow-up if patient allows. Patient will benefit from less than 30 day stay for rehab. Above management discussed with the patient detail length, total time spent 45 minute. All questions answered. Time Attestation Total time managing care of this patient today: 45 mintues. Discharge Coordination Time (in mins): 45 min Quality: Safe Use of Opioids Does Pt have an Active Cancer Diagnosis on the Problem List?: No Quality: Stroke Does the patient have a stroke diagnosis?: No Physical Exam Exam: Exam: General: AO X 3, no acute distress Resp: CTA bilateral CVS: S1,S2,RRR GI: +BS, NT, no distention Skin: see pics from earlier-wound area on writs and leg seems healing ,no discharge. Neuro: motor grossly intact,moves all ext ,rom intact . Psych: appropriate affect Vital Signs: Vital Signs: Last Vital Signs Temp 97.2 F 12/30/24 12:57 Pulse 93 12/30/24 12:57 Resp 16 12/30/24 12:57 BP 142/83 H 12/30/24 12:57 Pulse Ox 93 12/30/24 12:57 O2 Del Method Room Air 12/30/24 12:57 BMI result Body Mass Index 37.5 DS: Data Data Completed and Pending Labs on day of discharge: Laboratory Results - last 24 hr 12/29/24 12/29/24 12/29/24 16:01 16:10 20:13 WBC RBC Hgb Hct MCV MCH MCHC RDW Plt Count MPV Absolute Nucleated RBC Nucleated RBC % (auto) Sodium Potassium Chloride Carbon Dioxide Anion Gap BUN Creatinine Estim Creat Clear Calc Estimated GFR POC Glucose 105 137 H Random Glucose Osmolality Calcium Total Bilirubin AST ALT Alkaline Phosphatase Total Protein Albumin Ur Random Sodium Ur Random Potassium Ur Random Chloride Random Vancomycin 13.7 L 12/30/24 12/30/24 12/30/24 06:11 06:11 06:11 WBC 2.9 L RBC 3.29 L Hgb 9.5 L Hct 28.3 L MCV 86.0 MCH 28.9 MCHC 33.6 RDW 16.0 Plt Count 105 L MPV 9.5 Absolute Nucleated RBC 0.000 Nucleated RBC % (auto) 0.0 Sodium 128 L Potassium 3.6 Chloride 96 Carbon Dioxide 26 Anion Gap 10 L BUN 7 L Creatinine 0.55 0.54 Estim Creat Clear Calc 201.7 205.4 Estimated GFR > 60 POC Glucose Random Glucose Osmolality Calcium Total Bilirubin AST ALT Alkaline Phosphatase Total Protein Albumin Ur Random Sodium Ur Random Potassium Ur Random Chloride Random Vancomycin 12/30/24 12/30/24 12/30/24 06:11 07:29 08:31 WBC RBC Hgb Hct MCV MCH MCHC RDW Plt Count MPV Absolute Nucleated RBC Nucleated RBC % (auto) Sodium Potassium Chloride Carbon Dioxide Anion Gap BUN Creatinine Estim Creat Clear Calc Estimated GFR > 60 POC Glucose 110 Random Glucose 107 Osmolality 275 L Calcium 8.0 L Total Bilirubin 1.2 H AST 89 H ALT 29 Alkaline Phosphatase 54 Total Protein 8.1 H Albumin 2.1 L Ur Random Sodium Ur Random Potassium Ur Random Chloride Random Vancomycin 12/30/24 12/30/24 12/30/24 09:42 12:38 13:49 WBC RBC Hgb Hct MCV MCH MCHC RDW Plt Count MPV Absolute Nucleated RBC Nucleated RBC % (auto) Sodium 131 L Potassium Chloride Carbon Dioxide Anion Gap BUN Creatinine Estim Creat Clear Calc Estimated GFR POC Glucose 159 H Random Glucose Osmolality Calcium Total Bilirubin AST ALT Alkaline Phosphatase Total Protein Albumin Ur Random Sodium 60.0 Ur Random Potassium 8.1 Ur Random Chloride 52.0 Random Vancomycin 17.3 Imaging Chest x-ray: Radiologist's impression: ITS Impressions Wrist X-Ray 12/17/24 09:30 IMPRESSION: Concerning cellulitis/phlegmon versus abscess, dorsal aspect left wrist. No gross osteomyelitis. Chest X-Ray 12/30/24 11:01 IMPRESSION: New right PICC line tip in mid SVC. Right lower lobe atelectasis. hip/pelvis xary: Impression:No acute findings. Discharge Plan Discharge Anticipated Discharge Date/Time: 12/30/24 15:42 Patient Disposition: Xfer SNF Discharge Diagnosis: MRSA bacteremia,ivdu ,also leg wound ,less likely mrsa uti Referrals: [facility] [Other] - 1 Week Cortes Fenton MD [Physician, Urology] - 1 Week Stacy Ortega MD [Physician, Infectious Disease] - 1 Week Physician,None [Primary Care Provider, Medical] - 1 Week Discharge Medications: New metformin 500 mg Tablet 500 mg PO BIDWM Qty: 1 0RF melatonin 3 mg Tablet 6 mg PO BEDTIME PRN (Reason: Insomnia) Qty: 1 0RF magnesium oxide 400 mg (241.3 mg magnesium) Tablet 400 mg PO BIDPC Qty: 1 0RF docusate sodium 100 mg Capsule 100 mg PO BID Qty: 1 0RF insulin lispro [Admelog U-100 Insulin lispro] 100 unit/mL Solution See Protocol subcut QIDACHS Qty: 1 0RF Protocol: Insulin Correction Scale Less than or equal to 110 ---- Give (units): 0 111 to 150 Give (units): 0 151 to 200 Give (units): 2 201 to 250 Give (units): 4 251 to 300 Give (units): 6 301 to 350 Give (units): 8 Greater than 350 Give (units): 10 Call MD if Blood Glucose > : 350 oxycodone 5 mg Tablet 10 mg PO Q4H PRN (Reason: Pain, Severe (Pain Scale 7-10)) Qty: 15 0RF Rx Instructions: Partial Fill upon patient request. vancomycin in 0.9 % sodium chl 1 gram/250 mL solution 1 g IV Q8H polyethylene glycol 3350 17 gram Powder In Packet 17 g PO BID PRN (Reason: constipation) Qty: 30 0RF Continued trazodone 50 mg tablet 50 mg PO BEDTIME sertraline 100 mg tablet 50 mg PO BEDTIME quetiapine 50 mg tablet 100 mg PO BEDTIME methadone [Methadone Intensol] 10 mg/mL Concentrate 175 mg PO DAILY methadone [Methadone Intensol] 10 mg/mL Concentrate 30 mg PO DAILY@1800 Changed lorazepam 0.5 mg tablet 1 mg PO BID PRN (Reason: anxiety) Qty: 20 0RF Discharge Orders: Discharge Order (Routine); Ordered 12/30/24 Ordered By: Roberto Cartagena Diet: Advance to usual diet Activity on Discharge: As tolerated Stand Alone Forms: Patient Portal Discharge page Print Language: Luxembourgish Activity Restrictions/Additional Instructions: Topical Wound Care Recommendations: Right Foot - Cleanse and gently irrigate with NS, Pat dry.? Apply barrier to periwound, apply Durafiber AG.? Cover dry dressing.? Change every 3 days. Left Wrist and forearm - Cleanse and gently irrigate with NS, Pat dry.? Apply barrier to periwound, Cover forearm wound bed with Durafiber AG, apply dry gauze dressing.? Change every 3 days. Care Plan Goals: vancomycin -end date 01/24/25. Monitor vanco trough, consider monitoring CBC, CMP, ESR, CRP Q weekly while on IV vanco. wound care as above. follow up Dr ortega's office for hepatitic C viral load and further management . new onset dm-dm diet ,continue metformin ,also added sliding scale coverage, we will hold Lantus for now because fingersticks are fluctuating. MADDY improved, hyponatremia and hypokalemia resolved. Hypomagnesemia repleted and resolved also in addition thought to be probable liver cirrhosis with thrombocytopenia: Thrombocytopenia improving slowly, has some leukopenia, anemia: Monitor CBC outpatient, consider further workup outpatient. no bleeding or melena hx per patient. Patient has CT abdomen:Indeterminate low-density focus within the prostate, possibly indicating abscess or neoplasm: PSA is 0.[address] Fenton urology-follow up outpatient. Health Concerns: As above. Plan of Treatment: As above. Assessment: As above.
[2024-12-30] MEDS: methADONE HCl 20 MG/2 ML ORAL.CONC 30 MG PO (16:44)
--- NOTE | 2024-12-30 16:47 | HO.WOUND ---
Wound Consult: Follow up 54yr old? [place] [facility] [place]- See progress notes and H&P for detailed history.? Wound consult follow up for Left Wrist and Right Foot pending d/c later today.? Patient agreeable to assessment and photo documentation.?Overall all sites significantly improved see photo below continue with Durafiber Dressing just length extended. Forearm site - smaller red clean wound bed - continue with Durafiber AG Anterior Wrist - Closed at this time - sutures remain no induraiton no swelling mild erythema noted - improving over all. No topical recommendations needed - may cover to keep clean and free from patient picking. Left posterior wrist site - Site healed Right Foot Etiology: Injection site per Pt Measurements: 2cm x 1.5cm x 0.2cm Wound Bed: improving moist red wound bed Drainage / Odor: no odor noted - serosang drainage noted - small amount Edges: ? attached Consuelo wound:dry intact tissue - No Induration, Fluctuance or Warmth noted Pain: denies Goals of Treatment:? moisture management with Durafiber AG Patient pending D/c to outside facility - topical orders updated below. Topical Wound Care Recommendations: Right Foot - Cleanse and gently irrigate with NS, Pat dry.? Apply barrier to periwound, apply Durafiber AG.? Cover dry dressing.? Change every 3 days. Left Wrist and forearm - Cleanse and gently irrigate with NS, Pat dry.? Apply barrier to periwound, Cover forearm wound bed with Durafiber AG, apply dry gauze dressing.? Change every 3 days.
[2024-12-30 16:50] LABS: Glucose, Whole Blood 152 mg/dL (60-115)
[2024-12-30] MEDS: 0.9 % Sodium Chloride Flush 10 ML SYRINGE IVFLUSH (16:50)
[2024-12-30 18:05] VITALS: BP 146/85; PULSE 98; RESP 18; TEMP 36.6; O2SAT 93
[2024-12-31 15:28] LABS: HCV Log PCR 5.99 Log IU/mL (NOT DETECTED); HepC Viral Load 969000 IU/mL (NOT DETECTED)
== END 2024-12-30 18:25 | disposition skilled nursing facility (03) | DRG 317 ==
LOC: HO.ED 12:15 → HO.EDOVER 13:45 → HO.IMC 12-16 07:27 → HO.S3 12-17 17:07
PROVIDERS: Hospitalist; Internal Medicine; Nurse Practitioner; Orthopaedic Surgery; Physician Assistant Medical; Admitting Provider Physician Assistant Medical; Emergency Provider Emergency Medicine; Visit Provider Internal Medicine
PROC: 0LB60ZZ Excision of Left Lower Arm and Wrist Tendon, Open Approach (ICD-10-PCS; principal; 2024-12-19 12:30)
DX: M65.132 Other infective (teno)synovitis, left wrist (principal); E87.21 Acute metabolic acidosis; K76.6 Portal hypertension; N17.9 Acute kidney failure, unspecified; R78.81 Bacteremia; E87.1 Hypo-osmolality and hyponatremia; L03.115 Cellulitis of right lower limb; L02.414 Cutaneous abscess of left upper limb; L97.319 Non-pressure chronic ulcer of right ankle with unspecified severity; K74.60 Unspecified cirrhosis of liver; E11.65 Type 2 diabetes mellitus with hyperglycemia; F11.20 Opioid dependence, uncomplicated; G89.18 Other acute postprocedural pain; I87.2 Venous insufficiency (chronic) (peripheral); B95.62 Methicillin resistant Staphylococcus aureus infection as the cause of diseases classified elsewhere; E87.6 Hypokalemia; E83.42 Hypomagnesemia; R94.31 Abnormal electrocardiogram [ECG] [EKG]; Z86.19 Personal history of other infectious and parasitic diseases; Z87.891 Personal history of nicotine dependence; Z79.899 Other long term (current) drug therapy
CPT/HCPCS: 36415; 36573; 71045; 73110; 73221; 73521; 73630; 74176; 80048; 80051; 80053; 80076; 80202; 80307; 81001; 82140; 82310; 82436; 82550; 82565; 82803; 82947; 83036; 83605; 83735; 83930; 84133; 84153; 84295; 84300; 84484; 84520; 85025; 85027; 85652; 86140; 86803; 87040; 87070; 87077; 87086; 87088; 87147; 87186; 87205; 87389; 87522; 93005; 93306; 93971; 97162; 99285; C1751; J0665; J1100; J1171; J2003; J2250; J2704; J2795; J3010; J3360; J3374; J3475; J7120; Q9957; S9485

== ENCOUNTER → 2024-12-15 11:18 | Outpatient (BNV) | payer OTHER, SELFPAY | PROVIDERS: Admitting Provider Physician Assistant Medical; Emergency Provider Emergency Medicine; Visit Provider Internal Medicine Cardiovascular Disease | DX: I49.3 Ventricular premature depolarization (principal) | CPT/HCPCS: 93010 ==

== ENCOUNTER → 2024-12-15 13:01 | Outpatient (BNV) | payer OTHER, SELFPAY | PROVIDERS: Admitting Provider Physician Assistant Medical; Emergency Provider Emergency Medicine; Visit Provider Radiology Diagnostic Radiology | DX: K74.60 Unspecified cirrhosis of liver (principal); R22.41 Localized swelling, mass and lump, right lower limb; M25.774 Osteophyte, right foot | CPT/HCPCS: 73630; 74176; 93971 ==

== ENCOUNTER 2024-12-15 13:45 | Outpatient (BNV) | payer OTHER, SELFPAY | END 2024-12-17 09:30 | PROVIDERS: Admitting Provider Physician Assistant Medical; Emergency Provider Emergency Medicine; Visit Provider Radiology Diagnostic Radiology | DX: S61.502A Unspecified open wound of left wrist, initial encounter (principal) | CPT/HCPCS: 73110; 73221 ==

== ENCOUNTER 2024-12-15 13:45 | Outpatient (BNV) | payer OTHER, SELFPAY | END 2024-12-21 09:24 | PROVIDERS: Admitting Provider Physician Assistant Medical; Emergency Provider Emergency Medicine; Visit Provider Internal Medicine Cardiovascular Disease | DX: R94.31 Abnormal electrocardiogram [ECG] [EKG] (principal); Z13.6 Encounter for screening for cardiovascular disorders | CPT/HCPCS: 93010 ==

== ENCOUNTER 2024-12-15 13:45 | Outpatient (BNV) | payer OTHER, SELFPAY | END 2024-12-16 14:25 | PROVIDERS: Admitting Provider Physician Assistant Medical; Emergency Provider Emergency Medicine; Visit Provider Internal Medicine Cardiovascular Disease | DX: Z13.6 Encounter for screening for cardiovascular disorders (principal) | CPT/HCPCS: 93010 ==

== ENCOUNTER 2024-12-15 13:45 | Outpatient (BNV) | payer OTHER, SELFPAY | END 2024-12-28 09:05 | PROVIDERS: Admitting Provider Physician Assistant Medical; Emergency Provider Emergency Medicine; Visit Provider Radiology Diagnostic Radiology | DX: M25.551 Pain in right hip (principal); M25.552 Pain in left hip | CPT/HCPCS: 73521 ==

== ENCOUNTER 2024-12-15 13:45 | Outpatient (BNV) | payer OTHER, SELFPAY | END 2024-12-30 11:01 | PROVIDERS: Admitting Provider Physician Assistant Medical; Emergency Provider Emergency Medicine; Visit Provider Radiology Diagnostic Radiology | DX: J98.11 Atelectasis (principal); Z95.9 Presence of cardiac and vascular implant and graft, unspecified | CPT/HCPCS: 71045 ==

== ENCOUNTER 2024-12-15 13:45 | Outpatient (BNV) | payer OTHER, SELFPAY | END 2024-12-17 07:00 | PROVIDERS: Admitting Provider Physician Assistant Medical; Emergency Provider Emergency Medicine; Visit Provider Internal Medicine Cardiovascular Disease | DX: I51.89 Other ill-defined heart diseases (principal) | CPT/HCPCS: 93306 ==

== ENCOUNTER → 2024-12-15 13:45 | Outpatient (BNV) | payer OTHER, SELFPAY | PROVIDERS: Admitting Provider Physician Assistant Medical; Emergency Provider Emergency Medicine; Visit Provider Internal Medicine | DX: F19.10 Other psychoactive substance abuse, uncomplicated (principal); N17.9 Acute kidney failure, unspecified; L03.115 Cellulitis of right lower limb | CPT/HCPCS: 99223; 99231; 99232 ==

== ENCOUNTER → 2024-12-15 13:45 | Outpatient (BNV) | payer OTHER, SELFPAY | PROVIDERS: Admitting Provider Physician Assistant Medical; Emergency Provider Emergency Medicine | DX: S61.502A Unspecified open wound of left wrist, initial encounter (principal) | CPT/HCPCS: 99222 ==

== ENCOUNTER → 2024-12-15 13:45 | Outpatient (BNV) | payer OTHER, SELFPAY | PROVIDERS: Admitting Provider Physician Assistant Medical; Emergency Provider Emergency Medicine; Visit Provider Internal Medicine | DX: F19.90 Other psychoactive substance use, unspecified, uncomplicated (principal); F11.90 Opioid use, unspecified, uncomplicated; R78.81 Bacteremia | CPT/HCPCS: 99222 ==

== ENCOUNTER → 2024-12-15 13:45 | Outpatient (BNV) | payer OTHER, SELFPAY | PROVIDERS: Admitting Provider Physician Assistant Medical; Emergency Provider Emergency Medicine; Visit Provider Nurse Practitioner Psychiatric/Mental Health | DX: F11.90 Opioid use, unspecified, uncomplicated (principal) | CPT/HCPCS: 99221 ==

== ENCOUNTER 2025-01-27 14:34 | Outpatient (AMB) | payer OTHER, SELFPAY ==
--- NOTE | 2025-01-27 14:40 | A.OFFVIS_ITS ---
Vital Signs 01/27/25 14:44 Pulse 95 Pulse Source Pulse Oximeter Intake Visit Reasons: [facility] re[facility]/ MRSA bacteremia/done picc Allergies No Known Allergies (No Known Allergies*) Allergy (Verified 01/27/25 14:45) HPI HPI [facility] re[facility]/ MRSA bacteremia/done picc: Details: History of Present Illness The patient is a 54-year-old male presenting with a follow-up for MRSA bacteremia and also and evaluation of liver, Hepatitis C. The MRSA bacteremia occurred on December 21 and required hospitalization, during which he experienc ed right foot inflammation. The inflammation resolved without evidence of foot osteomyelitis. During admission, he was diagnosed with liver cirrhosis, a MELD score of approximately 12, leukopenia, and thrombocytopenia. His hepatitis C infection, with a viral load of 969,000, remains untreated. The abdominal and pelvic CT scan suggested cirrhosis with portal hypertension and raised concerns for either prostate cancer or a prostate abscess. The patient denies kidney problems or rashes while on IV vancomycin and is in remission for substance use following rehabilitation. There are no new systemic symptoms, and he remains stable. Review of Systems - General: Denies systemic complaints other than noted issues. - Respiratory: Denies respiratory issues. - Cardiac: Denies any cardiac concerns. - Gastrointestinal: Denies abdominal tenderness. - Genitourinary: Denies urinary symptoms. - Hematological: Denies new infections or bleeding tendencies. - Skin: Denies rashes. Physical Exam - General- Vital signs stable. - Oropharynx- Clear. - Respiratory- Lungs clear. - Cardiovascular- Heart with regular rhythm. - Gastrointestinal- Abdomen soft, non-tender. - Musculoskeletal- Extremities not tender. - Neurological- Neurological examination is non-focal. - Dermatological- Skin is clear. Results - Laboratory: MELD score approximately 12. - Imaging: CT of the abdomen/pelvis: Cirrhosis with portal hypertension. Questionable prostate cancer versus abscess noted. Plan Patient was informed and verbally consented to the use of an ambient scribe for clinic note documentation during this visit. 1. Bacteremia R78.81 The MRSA bacteremia is resolved, and intravenous vancomycin is discontinued. There is no further source of infection identified. 2. Unspecified cirrhosis of liver K74.60 HCC 28 The patient has moderate to severe liver cirrhosis with an elevated MELD score. A gastroenterology referral is made for further evaluation and management of the condition and related complications. 3. Unspecified viral hepatitis C without hepatic coma B19.20 The patient has a high viral load, but due to the severity of liver disease, antiviral therapy is not initiated. I refer to gastroenterology for potential future treatment options. 4. Prostate Abnormality A possible prostate lesion, as seen on imaging, necessitates urological follow- up for differentiation and management. 5. Portal hypertension K76.6 HCC 27 The portal hypertension observed on imaging will be further evaluated through gastroenterology consultation. Discussion Notes I discussed with the patient the resolution of his MRSA bacteremia and the plan to discontinue intravenous vancomycin, noting his stable condition post- treatment. The primary focus was the liver cirrhosis, with the MELD score indicating moderate to severe impairment. Given the cirrhosis severity, I explained the decision to defer antiviral therapy for hepatitis C and the necessity of a gastroenterology referral to address liver function and potential treatment options. I also advised a follow-up with urology for the prostate abnormality noted on imaging, emphasizing the uncertainty between a cancerous or abscess origin. The patient is in agreement with these plans and expressed understanding of the need for specialist referrals and potential future interventions. Medical Decision Making The patient's resolved MRSA bacteremia allows cessation of IV vancomycin, which has been well-tolerated. My primary concern now is managing his liver cirrhosis and evaluating potential interventions given the elevated MELD score, suggesting significant liver dysfunction. I am deferring hepatitis C treatment to avoid exacerbating cirrhosis until a comprehensive evaluation by a outboard motors experimental mechanic is complete. Meanwhile, a questionable prostate lesion necessitates a thorough investigation to ascertain its nature and plan appropriate management. My decision-making focuses on balancing immediate infection resolution, assessing chronic underlying conditions, and referring to appropriate specialties for ongoing care. Patient Instructions - Follow up with a outboard motors experimental mechanic for liver cirrhosis and possible hepatitis C treatment. - Schedule an appointment with a urologist for further evaluation of the prostate. - Monitor your health and contact us for any new symptoms. - Attend all scheduled rehabilitation and support program sessions. - Avoid alcohol and other substances to support liver health. - Maintain a balanced diet and stay hydrated to support overall health. - Contact healthcare providers immediately if you experience abdominal pain, bleeding, or any unusual symptoms. [facility] Medical History Opiate dependence Social History Household Members: Family Household Members Other:: mom Housing: House Are you a primary long term acute care registered nurse to a significant other at home: No Do you presently have visiting nurse or other home services: No Comment: counts correct Patient Tobacco Use Status: Former Tobacco user Tobacco use type: Cigarette Cigarettes Per Day: 2 Years Smoked: 25 Second Hand Smoke Exposure: Yes Substance Use Type: Heroin service: No Physical Exam Vital Signs: Last Vital Signs Pulse 95 01/27/25 14:44 Assessment & Plan Assessment & Plan (1) IVDU (intravenous drug user): Code(s): F19.90 - Other psychoactive substance use, unspecified, uncomplicated Category: Medical (2) Opioid use disorder: Code(s): F11.90 - Opioid use, unspecified, uncomplicated Category: Medical Plan na Coding Level of Care Code Est Pt Level 4 (94733) Diagnoses IVDU (intravenous drug user) F19.90 Opioid use disorder F11.90
[2025-01-27 14:44] VITALS: PULSE 95
== END 2025-01-27 15:16 | disposition home or self-care (01) ==
LOC: HO.HID 14:34
PROVIDERS: Visit Provider Internal Medicine
DX: F19.90 Other psychoactive substance use, unspecified, uncomplicated (principal); F11.90 Opioid use, unspecified, uncomplicated
CPT/HCPCS: 99214

== ENCOUNTER → 2025-01-27 14:34 | Outpatient (BNVA) | payer OTHER, SELFPAY | PROVIDERS: Visit Provider Internal Medicine | DX: F11.90 Opioid use, unspecified, uncomplicated (principal) | CPT/HCPCS: 99212 ==

== ENCOUNTER 2025-02-08 11:55 | Inpatient (IN) | payer OTHER, SELFPAY ==
--- NOTE | ~2025-02-08 | CT_ITS ---
CLINICAL HISTORY: Trauma CT abdomen and pelvis with contrast Comparison: CT/REG/SR - CT CHEST W IV CON - 02/08/25 14:[address]/SR - CT ABDOMEN PELVIS WO IV CON - 12/15/24 13:50 EDT Findings: Trace right pleural fluid with adjacent atelectasis. Distended gallbladder, measuring 5.2 cm in transverse dimension. Dependent increased attenuation in the gallbladder. Mild gallbladder wall thickening/trace pericholecystic fluid. Cirrhotic liver which is enlarged, measuring 23.0 cm in craniocaudal dimension. Splenomegaly, measuring 24.0 cm in craniocaudal dimension. No hydronephrosis. Punctate right nephrolithiasis versus vascular calcification. 2 mm left nephrolithiasis versus vascular calcification. Unremarkable bladder. The other solid organs are unremarkable. No bowel wall thickening or dilation. A normal appendix is identified. Moderately increased stool quantity. No abdominal aortic aneurysm. 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 Ectasia of the left common iliac artery, measuring 1.7 cm, unchanged. Severe calcified atherosclerotic disease. Lymphadenopathy in the jesse hepatis measures up to 1.7 cm in short axis, similar to the prior study. Trace pelvic ascites. Acute fractures of the right anterior 7th and 8th ribs without displacement. Impression: Nondisplaced fractures of the right anterior 7th and 8th ribs. Trace right pleural fluid. Cirrhosis with splenomegaly and trace ascites. Unchanged lymphadenopathy in the jesse hepatis. Increased attenuation in the gallbladder could be sludge or stones. The gallbladder is distended. There is mild gallbladder wall thickening/trace pericholecystic fluid which is favored to be secondary to systemic pathology. If there is clinical concern for acute cholecystitis further evaluation with a right upper quadrant ultrasound may be helpful. Moderately increased stool quantity may indicate constipation. This document has been electronically signed by: Ana Luisa Short MD on 02/08/2025 16:12:46
--- NOTE | ~2025-02-08 | CT_ITS ---
CLINICAL HISTORY: trauma CT chest with contrast Comparison: None available Findings: Lymphadenopathy in the anterior inferior mediastinum measuring 1.4 cm in short axis. Trace infiltration of the fat in the anterior superior mediastinum without a rim enhancing fluid collection. Cardiomegaly. Severe calcified coronary artery disease. Dilation of the descending thoracic aorta, measuring 3.2 cm. Mild calcified atherosclerotic disease. Ground-glass opacity in the right upper lobe measuring up to 1.4 cm. Right lung subsegmental atelectasis versus linear scarring. Ground-glass opacity in the lingula measuring up to 1.5 cm. Trace right pleural fluid. No pneumothorax. There is cortical destruction and periostitis at the right proximal clavicle. The right proximal clavicle is elevated relative to the left with subluxation of the right sternoclavicular joint. There is adjacent large soft tissue swelling involving a region measuring 6.1 cm in anterior-posterior dimension. There is overlying infiltration of the subcutaneous fat. There is no rim enhancing fluid collection. Severe bilateral gynecomastia. Infiltration of the subcutaneous fat in the midline anterior chest wall which extends to the abdomen. Cirrhosis with splenomegaly. Impression: Cortical destruction and periostitis of the right proximal clavicle is favored to be secondary to osteomyelitis due to right sternoclavicular joint septic arthritis. A posttraumatic etiology is considered less likely. Correlate clinically for signs/symptoms of infection. No abscess. Follow up is recommended. Associated large soft tissue swelling; infection is favored over a posttraumatic etiology. Trace infiltration of the fat in the anterior superior mediastinum secondary to infection. Anterior inferior mediastinal lymphadenopathy, likely infectious/inflammatory. Ground-glass opacity in the right upper lobe and lingula measuring up to 1.5 cm. Three-month follow-up chest CT is recommended. Trace right pleural fluid. This document has been electronically signed by: Ana Luisa Short MD on 02/08/2025 15:39:21
--- NOTE | ~2025-02-08 | MR_ITS ---
EXAM: MRI LOWER EXTREMITY JOINT, KNEE, left TECHNIQUE: Multiplanar multisequence MR imaging performed through the left knee without contrast. INDICATION: Left knee effusion, question quad tendon injury PRIOR: X-ray from 2 days earlier FINDINGS: Menisci: Lateral Meniscus: There is severe extrusion of the lateral meniscal body. Anterior horn is small and indistinct. There is linear low signal in the central joint space and millimeters wide an 18 mm anterior-posterior concerning for displaced meniscal flap. Medial Meniscus: The body is mildly extruded from the joint line. The body and posterior horn are degenerated, frayed, and torn. There is fluid tracking between the tibial plateau in the medial meniscus consistent with laxity. ACL/PCL: ACL appears indistinct and globular with increased signal. It is attenuated near its femoral attachment. ACL appears intact. Extensor mechanism: There is a complex joint effusion. Quadriceps and patellar tendons are intact. There is mild edema in Hoffa's fat pad. There are a small volume of fluid in the deep patellar bursa. MCL/LCL: MCL is bowed out by extruded meniscus. The meniscal tibial correlate is indistinct and probably torn at the mid third joint line. Fibers may be flipped into the joint line. MCL is otherwise intact. LCL complex is intact. Articular cartilage: Patellofemoral Compartment: Multifocal partial and full-thickness articular cartilage defects are present across surface of patella, most advanced in the mid third patella, median ridge. There is associated reactive marrow signal change. Trochlea demonstrates diffuse partial and full thickness articular cartilage defects most pronounced in the lower medial trochlea. There is associated reactive marrow signal change. Lateral Compartment: There is 13 mm full-thickness articular cartilage defect in the posterior weightbearing region lateral femoral condyle near the inner free margin of the posterior horn lateral meniscus. There is deep partial and full-thickness articular cartilage defect in the central weightbearing region of the lateral femoral condyle, more dense in the central posterior weightbearing region. Medial Compartment: There is extensive full-thickness cartilage loss involving weightbearing region lateral femoral condyle and lateral tibial plateau with subchondral degenerative cysts and reactive marrow signal. Bones/Marrow: There are tricompartmental marginal osteophytes. There is extensive reactive marrow signal change, as described in the cartilage section. Soft tissues: There is moderate fluid signal in the popliteus muscle. There is feathery fluid signal in the posterior fibers of vastus lateralis greater than medialis. There is a trace fluid in the Aviles cyst. 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 There is a joint effusion and likely underlying synovitis. Anterior horn lateral meniscus is indistinct and small. There appears to be a meniscal flap displaced into the central aspect of the lateral joint line. Posterior horn of the medial meniscus is degenerated, frayed, and torn. Additionally, there is laxity of the medial meniscus with fluid tracking between the medial meniscal body in the tibial plateau. Likely, this is related to torn meniscal tibial femoral ligament which may be flipped into the middle third joint. ACL appears indistinct, globular, and with increased signal. It appears attenuated near the femoral attachment and may be partially torn. However, no anterior tibial translation is noted. There is edema involving popliteus muscle as well as the posterior fibers of a vastus lateralis, greater than medialis, which could be related to grade 2 strains if there has been recent injury. Electronically signed by: Miles Webster MD 02/10/2025 05:14 PM EDT
--- NOTE | ~2025-02-08 | XR_ITS ---
CLINICAL HISTORY: SOB, bilateral crackles 1 view chest x-ray Comparison: CT/REG/SR - CT CHEST W IV CON - 02/08/25 14:04 EDT Findings: Platelike areas of atelectasis at the right lung base. Pulmonary vasculature is prominent. Mild cardiomegaly. Destructive lytic lesion of the medial right clavicle, better seen on recent CT. No large effusion. IMPRESSION: Mild cardiomegaly with mild pulmonary vascular congestion. This document has been electronically signed by: Sachin English MD on 02/10/2025 01:04:32
--- NOTE | ~2025-02-08 | CT_ITS ---
CLINICAL HISTORY: trauma CT cervical spine without contrast Comparison: None available Findings: Trace levocurvature with the apex C7/T1. No fracture. No severe central spinal canal stenosis. No epidural hematoma. Normal thickness of the prevertebral soft tissues. The lung apices are clear. Impression: No acute findings. This document has been electronically signed by: Ana Luisa Short MD on 02/08/2025 15:19:26
--- NOTE | ~2025-02-08 | XR_ITS ---
CLINICAL HISTORY: knee pain Radiographs of the left knee, 2 views Comparison: None available Findings: There is no fracture or dislocation. Moderate to severe medial tibiofemoral compartment joint space narrowing with moderate osteophytosis and subcortical lucency in the medial femoral condyle. Mild lateral tibiofemoral compartment joint space narrowing with moderate osteophytosis. Moderate to severe patellofemoral compartment osteophytosis. Suprapatellar enthesophyte. Large joint effusion. Soft tissue swelling. Impression: No fracture. Large joint effusion. Moderate to severe degenerative change. Subcortical lucency in the medial femoral condyle may indicate an osteochondral injury. This can be further evaluated with MR. This document has been electronically signed by: Ana Luisa Short MD on 02/08/2025 14:02:44
--- NOTE | ~2025-02-08 | MR_ITS ---
CLINICAL HISTORY: elevated lft's dilated cbd on u/s MR of the abdomen without contrast. MRCP was also performed. Comparison ultrasound 02/09/2025. Findings: In the liver is enlarged and demonstrates changes of cirrhosis. There is motion artifact. No definite hepatic lesions are seen. There are multiple gallstones. The common bile duct is mildly dilated measuring 12 mm. There are probable small stones in the distal common bile duct measuring 2-3 mm. There is prominent splenomegaly. There are small bilateral pleural effusions. Mild ascites is noted. There is prominent body wall edema. Severe degenerative changes are seen in the spine with incompletely evaluated severe spinal stenosis. Impression: Changes of cirrhosis with hepatosplenomegaly and mild ascites. Cholelithiasis with probable choledocholithiasis. Small bilateral pleural effusions with prominent body wall edema. This document has been electronically signed by: Kenji Sears MD on 02/10/2025 17:32:17
--- NOTE | ~2025-02-08 | US_ITS ---
CLINICAL HISTORY: RUQ gallbladder sludge rule out cholecystitis US abdomen limited Comparison: CT/SR - CT ABDOMEN PELVIS W IV CON - 02/08/25 14:04 EDT Findings: The distended gallbladder contains small stones and a small amount of sludge. The gallbladder wall measures 3.5 mm in thickness. No significant pericholecystic fluid. The sonographic Vasquez's sign is reported as positive. The common bile duct is 12 mm in diameter. IMPRESSION: Cholelithiasis with gallbladder distention, mildly thickened wall, and positive sonographic Vasquez's sign. These findings can be seen with acute cholecystitis. Differential for gallbladder wall thickening also includes hypervolemic state such as with the patient's cirrhosis. The common bile duct is also dilated to 12 mm. HIDA scan could be performed to evaluate for cystic duct or distal common bile duct obstruction. This document has been electronically signed by: Saji North DO on 02/09/2025 09:27:03
--- NOTE | ~2025-02-08 | CT_ITS ---
CLINICAL HISTORY: trauma CT head without contrast Comparison: None available Findings: No acute hemorrhage. No extra-axial fluid collection. No hydrocephalus, mass-effect or herniation. Fragoso-white differentiation is maintained. White matter is within normal limits for age. No acute orbital pathology. No acute soft tissue abnormality. No fracture. The visualized paranasal sinuses are predominantly clear. The mastoid air cells are clear. Impression: No acute findings. This document has been electronically signed by: Ana Luisa Short MD on 02/08/2025 15:16:09
[2025-02-08 12:04] VITALS: BP 127/77; BP 190/88; PULSE 100; PULSE 109; RESP 18; TEMP 36.8; O2SAT 94; BMI 33.7
--- NOTE | 2025-02-08 12:14 | PC.NURSE ---
methadone pt states he goes to [facility] for methadone, took his dose today which he states is 175 in the morning and 30 in the evening. will attempt to verify with facility if needed.
--- NOTE | 2025-02-08 12:24 | PC.NURSE ---
methadone verified methadone was verified by genevieve caputo pt takes a split dose 175 mg in am, 30 in pm. form is in the chart
--- NOTE | 2025-02-08 12:42 | ED.GENADULT ---
HPI - General Adult General Chief complaint: General Medical Stated complaint: GENERAL WEAKNESS/PAIN,RECENT REHAB D/C PER EMS Time Seen by Provider: 02/08/25 12:39 Source: patient Mode of arrival: ambulatory Limitations: no limitations History of Present Illness ED Provider: Dr. Cobb HPI narrative: 54-year-old male history of MRSA bacteremia, cirrhosis of liver, IV drug use presented hospital today for evaluation of weakness. Patient was recently discharged from short-term rehab. He had a month long stay in the hospital back in December for MRSA bacteremia. Patient stated that he feels more weak than usual. His strength has improved after rehab but when he got home he has been feeling weak. He also noted that he had a recent fall. He had a dad dropped him down a step of stair. He sustained bruising to his epigastric area. He has pain when he takes a deep breath in and out on the lower ribs. Patient is complaining of abdominal pain. He is also complaining of some swelling in his left knee. Denies any fever. However the patient states he feels generalized weak. Related Data Home Medications ?Medication ?Instructions ?Recorded ?Confirmed quetiapine 50 mg tablet 100 mg PO BEDTIME 12/15/24 12/15/24 sertraline 100 mg tablet 50 mg PO BEDTIME 12/15/24 12/15/24 trazodone 50 mg tablet 50 mg PO BEDTIME 12/15/24 12/15/24 methadone 10 mg/mL oral 30 mg PO DAILY@1800 12/16/24 12/16/24 concentrate (Methadone Intensol) methadone 10 mg/mL oral 175 mg PO DAILY 12/16/24 12/16/24 concentrate (Methadone Intensol) lorazepam 0.5 mg tablet (Ativan) 0.5 mg PO DAILY PRN 01/27/25 Previous Rx's ?Medication ?Instructions ?Recorded docusate sodium 100 mg capsule 100 mg PO BID #1 cap 12/30/24 insulin lispro 100 unit/mL See Protocol subcut QIDACHS #1 mL 12/30/24 subcutaneous solution (Admelog U-100 Insulin lispro) magnesium oxide 400 mg (241.3 mg 400 mg PO BIDPC #1 tab 12/30/24 magnesium) tablet melatonin 3 mg tablet 6 mg (2 x 3 mg) PO BEDTIME PRN 12/30/24 Insomnia #1 tab metformin 500 mg tablet 500 mg PO BIDWM #1 tab 12/30/24 oxycodone 5 mg tablet 10 mg (2 x 5 mg) PO Q4H PRN Pain, 12/30/24 Severe (Pain Scale 7-10) #15 tabs polyethylene glycol 3350 17 gram 17 g PO BID PRN constipation #30 ea 12/30/24 oral powder packet vancomycin 1 gram/250 mL in 0.9 % 1 g (250 mL) IV Q8H 12/30/24 sodium chloride intravenous Allergies Allergy/AdvReac Type Severity Reaction Status Date / Time No Known Allergies (No Known Allergy Verified 02/08/25 12:13 Allergies*) Review of Systems Review of Systems: Pertinent review of systems as mentioned in HPI. All other system otherwise negative. [facility] Past Medical History [facility] Narrative: Medical history as mentioned in [facility] Medical History Opiate dependence Social History Social History Household Members: Family Household Members Other:: mom Housing: House Are you a primary assistant child care teacher to a significant other at home: No Do you presently have visiting nurse or other home services: No Comment: counts correct Patient Tobacco Use Status: Former Tobacco user Tobacco use type: Cigarette Cigarettes Per Day: 2 Years Smoked: 25 Smoked in Last 30 Days: No Second Hand Smoke Exposure: Yes Use of substances other than those prescribed or required for medical reasons: No Substance Use Type: Former Substance User Advance Directives: No Advance Directives Information Provided: No Do you have a plan to hurt others: No Plan service: No Physical Exam ED Exam Exam: General: Appears to be tired however responsive to verbal stimuli Head: Normacephalic, atraumatic ENT: oral mucosa moist, neck supple, no tracheal deviation Cardiovascular: regular rate, regular rhythm, no murmurs, rubbing, gallops, significant bruising on the epigastric area anterior abdomen, slight swelling on the right superior chest Respiratory: CTAB, no wheeze, rales, rhonchi Gastrointestinal: Soft, non distended, tenderness over the epigastric and right upper quadrant area Extremities: Swelling of the left knee, no sign of wound in his lower extremities. Patient has difficulty extending his left knee Neurological: Awake and alert, no facial droop noted Skin: Warm and dry Psychiatric: Appropriate mood and thoughts Vital Signs: Vital Signs - 24 hr 02/08/25 12:04 02/08/25 15:37 02/08/25 15:39 Temperature 98.3 F Pulse Rate 100 100 Respiratory Rate 18 30 H Blood Pressure 127/77 142/74 H Pulse Oximetry 94 89 L 95 Oxygen Delivery Method Room Air Room Air Nasal Cannula Oxygen Flow Rate 2 02/08/25 15:58 Temperature Pulse Rate Respiratory Rate 30 H Blood Pressure Pulse Oximetry Oxygen Delivery Method Oxygen Flow Rate BMI result Body Mass Index 33.7 Medications Administered Generic Name Dose Route Start Last Admin Trade Name Freq PRN Reason Stop Dose Admin Vancomycin HCl 2,000 mg in 500 mls @ 250 mls/hr 02/08/25 15:52 02/08/25 16:53 Vancomycin/Ns IV 02/08/25 17:51 250 mls/hr ONCE ONE Administration Discontinued Medications Generic Name Dose Route Start Last Admin Trade Name Freq PRN Reason Stop Dose Admin Magnesium Sulfate 2 gm in 50 mls @ 50 mls/hr 02/08/25 13:56 02/08/25 15:31 Magnesium Sulfate/H2o IV 02/08/25 14:55 Infused ONCE ONE Infusion Potassium Chloride 10 meq in 100 mls @ 100 mls/hr 02/08/25 14:00 02/08/25 16:38 Potassium Chloride/H20 IV 02/08/25 15:59 Infused Q1H PATRICIA Infusion Sodium Chloride 1,000 mls @ 999 mls/hr 02/08/25 14:30 02/08/25 16:51 Ns IV 02/08/25 15:30 Infused .Q1H1M PATRICIA Infusion Piperacillin Sod/Tazobactam 100 mls @ 200 mls/hr 02/08/25 15:52 02/08/25 16:44 Sod 4.5 gm/ Sodium Chloride IV 02/08/25 16:21 Infused ONCE ONE Infusion Iohexol 100 ml 02/08/25 14:08 02/08/25 14:09 Iohexol 350 Mg/Ml 100 Ml Infus..Btl IV 02/08/25 14:09 100 ml ONCE ONE Administration Ketorolac Tromethamine 15 mg 02/08/25 15:34 02/08/25 15:41 Ketorolac Tromethamine 15 Mg/Ml Vial IVPUSH 02/08/25 15:35 15 mg ONCE ONE Administration Morphine Sulfate 4 mg 02/08/25 13:22 02/08/25 13:28 Morphine Sulfate 4 Mg/Ml Cartridge IVPUSH 02/08/25 13:23 4 mg ONCE ONE Administration Protocol Morphine Sulfate 4 mg 02/08/25 16:05 02/08/25 16:11 Morphine Sulfate 4 Mg/Ml Cartridge IVPUSH 02/08/25 16:06 4 mg ONCE ONE Administration Protocol Potassium Bicarbonate 25 meq 02/08/25 13:56 02/08/25 14:27 Potassium Bicarbonate/Cit Ac 25 Meq Tablet.Eff PO 02/08/25 13:57 25 meq ONCE ONE Administration Prednisone 40 mg 02/08/25 15:34 02/08/25 15:41 Prednisone 20 Mg Tablet PO 02/08/25 15:35 40 mg ONCE ONE Administration Medical Decision Making Medical Decision Making [facility] Narrative: 54-year-old male history of cirrhosis, MRSA bacteremia, IV drug use presented hospital today for evaluation of generalized weakness. I evaluated the patient left knee swelling. Not concerned for septic arthritis. Does not appear to be significant erythematous. However I am concerned about possible tendon rupture of the quadriceps. Patient has difficulty extending left leg. Patient does have significant ecchymosis in the anterior abdomen. I am concerned about a traumatic injury for the patient. He is tender around the area. We will obtain a CT imaging for trauma imaging including CT head C-spine, chest abdomen and pelvis. Given patient's history of cirrhosis we will obtain PT INR. We will plan to type and screen patient as well. Patient may have weakness from anemia. Screening EKG will be obtained. We will obtain troponin. Given recent history of MRSA bacteremia we will obtain blood cultures and lactic acid to screen for possible infection. This is lower on my differential. Patient does have elevated INR of 1.7. Patient does not have leukocytosis. Patient does have elevated ESR at 01:12. Patient's CT imaging significant for possible osteomyelitis of the right clavicle. Patient also has finding of 7 8th right rib fracture. And multiple opacities in the lungs. Patient has no sign of of liver laceration. He is still complaining of pain additional IV morphine was given for pain control. Given patient's osteomyelitis we will plan to start patient on vancomycin and Zosyn IV. We will plan to admit patient to the hospital for further workup and management. Differential Diagnosis Differential Diagnoses: The differential diagnosis associated with the presentation includes Anemia, rib fracture, pancreatitis, contusion, liver laceration, renal hematoma Consult Healthcare Provider Management of the patient was discussed with: Hospitalist Lab Data 02/08/25 13:05 02/08/25 13:05 Labs: Lab Results 02/08/25 02/08/25 02/08/25 Range/Units 13:05 13:24 15:27 WBC 4.2 L (4.8-10.8) X10*3/uL RBC 3.12 L (4.60-5.80) X10*6/uL Hgb 9.0 L (14.0-18.0) g/dl Hct 26.7 L (42.0-52.0) % MCV 85.6 (80.0-98.0) fL MCH 28.8 (27.0-33.0) pg MCHC 33.7 (31.0-36.0) g/dl RDW 14.5 (11.0-16.0) % Plt Count 81 L (160-400) X10*3/uL MPV 10.4 (9.4-12.4) fL Immature Gran % (Auto) 0.7 H (0.0-0.4) % Neut % (Auto) 83.0 H (45-73) % Lymph % (Auto) 8.3 L (20-40) % Castro % (Auto) 8.0 (2-11) % Eos % (Auto) 0.0 (0-4) % Baso % (Auto) 0.0 (0-2) % Lymph # (Auto) 0.4 L (1.2-4.9) X10*3/uL Castro # (Auto) 0.3 (0.1-1.2) X10*3/uL Eos # (Auto) 0.0 (0.0-0.4) X10*3/uL Baso # (Auto) 0.0 (0.0-0.2) X10*3/uL Abs Immat Gran (auto) 0.03 (0.00-0.03) X10*3/uL Absolute Neuts (auto) 3.5 (2.0-8.3) x10*3/uL Absolute Nucleated RBC 0.000 (0.0-0.012) X10*3/uL Nucleated RBC % (auto) 0.0 (0.0-0.2) /100WBC ESR 112 H (0-15) MM/HR PT 19.0 H (10.9-12.4) SEC INR 1.7 H (0.9-1.1) Sodium 130 L (135-145) mmol/L Potassium 2.9 L* (3.3-5.1) mmol/L Chloride 96 (96-108) mmol/L Carbon Dioxide 29 (22-29) mmol/L Anion Gap 8 L (12-20) BUN 9 (9-16) mg/dL Creatinine 0.58 (0.5-1.4) mg/dL Estim Creat Clear Calc 181.1 Estimated GFR > 60 Random Glucose 152 H (60-115) mg/dL Lactic Acid 1.9 (0.5-2.0) mmol/L Calcium 8.5 D (8.4-10.2) mg/dL Magnesium 1.9 (1.6-2.6) mg/dL Total Bilirubin 1.2 H (0.0-1.0) mg/dL AST 164 H (5-37) U/L ALT 36 (0-40) U/L Alkaline Phosphatase 50 (39-117) U/L Troponin I High Sens 10.8 D (<3.5-35.0) ng/L Total Protein 8.0 (6.5-8.0) g/dL Albumin 2.6 L (3.5-5.0) g/dL Lipase 14 (8-78) U/L Urine Color Dark Yellow Urine Appearance Clear Urine pH 6.5 (5.0-9.0) Ur Specific [place] 1.025 (1.005-1.025) Urine Protein Negative (Neg-Trace) mg/dL Urine Glucose (UA) Negative (Negative) mg/dL Urine Ketones Negative (Negative) mg/dL Urine Blood Trace H (Negative) Urine Nitrite Negative (Negative) Ur Leukocyte Esterase Trace H (Negative) Urine RBC 3-5 H (0-2) /HPF Urine WBC 0-5 (0-5) /HPF Ur Squamous Epith Cells 0-2 (0-2) /HPF Urine Bacteria None Seen (None Seen) Hyaline Casts 0-2 (0-2) /LPF Blood Type A Positive Antibody Screen NEGATIVE Independent Interpretation I performed an independent interpretation of an: EKG and CT Scan Radiology Impression Discussion of test interpretation with radiology: I have reviewed the radiologist's reading. Chronic Conditions IVDU Critical Care Time Critical Care Time Critical Care Time: Yes Total Critical Care Time: 40 Attestation: Time is exclusive of separately billable procedures. Time includes: direct patient care, patient reassessment, coordination of patient care, interpretation of data (laboratory data, pulse oximetry, arterial blood gases and chest xrays), review of patient's medical records, medical consultation and documentation of patient care. Procedures excluded from critical care time: central intravenous line placement and electrocardiography. Discharge Plan Discharge Clinical Impression: Osteomyelitis Qualifiers: Osteomyelitis type: unspecified type Osteomyelitis location: unspecified site Qualified Code(s): M86.9 - Osteomyelitis, unspecified Fracture, ribs Qualifiers: Encounter type: initial encounter Fracture type: closed Laterality: right Qualified Code(s): S22.41XA - Multiple fractures of ribs, right side, initial encounter for closed fracture Patient Disposition: Admitted As Inpatient Print Language: Paraguayan
--- NOTE | 2025-02-08 12:58 | ECG_ITS ---
Test Reason : SEPSIS Blood Pressure : */* mmHG Vent. Rate : 99 BPM Atrial Rate : 99 BPM P-R Int : 184 ms QRS Dur : 106 ms QT Int : 392 ms P-R-T Axes : 39 29 5 degrees QTcB Int : 503 ms Normal sinus rhythm Prolonged QT Abnormal ECG When compared with ECG of 21-Dec-2024 09:24, No significant change was found Referred By: Maddison Cobb Electronically Signed By: PATRICIA COKER
[2025-02-08 13:11] LABS: MANUAL DIFF FLAG NO
[2025-02-08 13:13] LABS: Hematocrit 26.7 % (42.0-52.0); Hemoglobin 9.0 g/dl (14.0-18.0); Imm Gran Abs Auto 0.03 X10*3/uL (0.00-0.03); Imm Gran Pct Auto 0.7 % (0.0-0.4); Lymphocytes Absolute Auto 0.4 X10*3/uL (1.2-4.9); Mean Corpuscular HGB Conc 33.7 g/dl (31.0-36.0); Mean Corpuscular Hemoglobin 28.8 pg (27.0-33.0); Mean Corpuscular Volume 85.6 fL (80.0-98.0); NRBC Abs Auto 0.000 X10*3/uL (0.0-0.012); NRBC Pct Auto 0.0 /100WBC (0.0-0.2); Red Blood Count 3.12 X10*6/uL (4.60-5.80); White Blood Count 4.2 X10*3/uL (4.8-10.8)
[2025-02-08 13:22] LABS: INTERNATIONAL NORM RATIO 1.7 (0.9-1.1); Prothrombin Time 19.0 SEC (10.9-12.4)
[2025-02-08 13:29] LABS: Platelet Count 81 X10*3/uL (160-400)
--- NOTE | 2025-02-08 13:30 | PC.NURSE ---
patient a&ox3, iv inserted, labs drawn, ekg performed, electronic device monitor applied, pt c/o 10/10 generalized pain but states his mid chest where there is notable purple ecchymotic area surrounding areas are dark pink, and left knee pain notable swelling to left knee. pt stated to this nurse and provider at bedside that he was being helped upstairs with 2 friends helping, he stated i was dropped pt states he fell forward up 1 stair where he hit his chest area and left knee. pt denied head strike/loc. states he normally walks with a walker but became increasingly weak where he couldnt ambulate anymore. pt to have ct scan, call coronel within reach, plan of care ongoing.
[2025-02-08 13:42] LABS: Troponin-I High Sensitivity 10.8 ng/L (<3.5-35.0)
[2025-02-08 13:56] LABS: Alanine Aminotransferase 36 U/L (0-40); Albumin Level 2.6 g/dL (3.5-5.0); Alkaline Phosphatase 50 U/L (39-117); Anion Gap 8 (12-20); Aspartate Amino Transferase 164 U/L (5-37); Blood Urea Nitrogen 9 mg/dL (9-16); Calcium 8.5 mg/dL (8.4-10.2); Carbon Dioxide 29 mmol/L (22-29); Chloride 96 mmol/L (96-108); Creatinine Clr Calc Pharmacy 181.1; Estimated Glomerular Filt Rate > 60; Lipase 14 U/L (8-78); Magnesium 1.9 mg/dL (1.6-2.6); Potassium 2.9 mmol/L (3.3-5.1); Sodium 130 mmol/L (135-145); Total Protein 8.0 g/dL (6.5-8.0)
[2025-02-08] MEDS: iohexoL 350 MG/ML 100 ML INFUS..BTL IV (14:09)
[2025-02-08] MEDS: Potassium Bicarbonate/Cit AC 25 MEQ TABLET.EFF PO (14:27)
[2025-02-08] MEDS: Potassium Chloride/H20 10 MEQ/100 ML PIGGYBACK 100 MEQ IV ×2 (14:31→15:38)
[2025-02-08] MEDS: Magnesium Sulfate/H2O 2 GM/50 ML PIGGYBACK IV (14:31)
--- NOTE | 2025-02-08 14:52 | PC.NURSE ---
pt medicated per order, additionally, pts lungs are diminished with in/ex wheezing
[2025-02-08 15:37] VITALS: BP 142/74; PULSE 100; RESP 30; O2SAT 89
[2025-02-08 15:39] VITALS: O2SAT 95
[2025-02-08 15:51] LABS: Appearance Urine Clear; Glucose Urine UA Negative (Negative); PH 6.5 (5.0-9.0); Specific Gravity - Urine 1.025 (1.005-1.025); UMIC TRIGGER UA YES
[2025-02-08 15:58] VITALS: RESP 30
--- NOTE | 2025-02-08 16:10 | PC.NURSE ---
pt rr was increased, O2 sat decreased, pt has in/ex wheezing throughout, pt placed on 2 L NC which increased his O2 sat, provider was notified, RT came to evaluate- no new changes to patient care at this time. pt medicated per order and for 10/10 pain, call coronel within reach, plan of care ongoing
[2025-02-08] MEDS: vancomycin/NS 2,000 MG/500 ML PLAST..BAG 250 MG IV (16:53)
--- NOTE | 2025-02-08 17:57 | HE.PHANOTE ---
RE METHADONE VERIFICATION LAST DOSE 175 MG GIVEN 02/07/25 @0845. PT GETS SPLIT DOSING WITH 175 MG GIVEN IN AM AND 30 MG GIVEN IN PM.
[2025-02-08] MEDS: methADONE HCl 20 MG/2 ML ORAL.CONC 30 MG PO (18:17)
[2025-02-08 18:26] VITALS: BP 139/85; PULSE 96; RESP 20; TEMP 37.1; O2SAT 94
--- NOTE | 2025-02-08 19:09 | ED_ITS ---
<Statement entered by Maddison Cobb DO - 02/09/25 00:03> DISREGARD DUPLICATE HPI - General Adult General Chief complaint: General Medical Stated complaint: GENERAL WEAKNESS/PAIN,RECENT REHAB D/C PER EMS Time Seen by Provider: 02/08/25 12:39 Source: patient Mode of arrival: ambulatory Limitations: no limitations History of Present Illness HPI narrative: PLEASE DISREGARD DUPLICATE NOTE Related Data Home Medications ?Medication ?Instructions ?Recorded ?Confirmed quetiapine 50 mg tablet 50 mg PO BEDTIME 12/15/24 sertraline 100 mg tablet 100 mg PO DAILY 12/15/2409/29 trazodone 50 mg tablet 50 mg PO BEDTIME 12/15/24 methadone 10 mg/mL oral 30 mg PO DAILY@1800 12/16/24 02/08/25 concentrate (Methadone Intensol) methadone 10 mg/mL oral 175 mg PO DAILY 12/16/2408/30 concentrate (Methadone Intensol) lorazepam 0.5 mg tablet (Ativan) 0.5 mg PO BID@0900,18 00 Anxiety 01/27/25 02/09/25 ibuprofen 400 mg tablet 400 mg PO Q6H PRN Pain (Scal e 02/09/25 02/09/25 Score 1-3) Previous Rx's ?Medication ?Instructions ?Recorded metformin 500 mg tablet 500 mg PO BIDWM #1 tab 12/30 Allergies Allergy/AdvReac Type Severity Reaction Status Date / Time No Known Allergies (No Known Allergy Verified 02/08/25 12:13 Allergies*) [facility] Past Medical History Medical History PVD (peripheral vascular disease) Constipation Portal hypertension Splenomegaly Cirrhosis of liver Gallbladder sludge Hyponatremia Lesion of prostate Lesion of prostate Alcohol abuse, in remission Substance use disorder Hepatitis C Opiate dependence Social History Social History Household Members: Family Household Members Other:: mother Housing: House Are you a primary child care associate to a significant other at home: No Do you presently have visiting nurse or other home services: Yes Comment: counts correct Patient Tobacco Use Status: Former Tobacco user Tobacco use type: Cigarette Cigarettes Per Day: 2 Years Smoked: 25 Smoked in Last 30 Days: No e-Cigarette/Vaping Use: Currently Using Second Hand Smoke Exposure: Yes Use of substances other than those prescribed or required for medical reasons: No Substance Use Type: Former Substance User Currently Displaying Signs/Symptoms of Drug Intoxication Withdrawal: No Have you been hit, kicked, punched, or otherwise hurt by someone within the past year? If so, by whom?: No Do you feel safe in your current relationship?: No Is there a partner from a previous relationship who is making you feel unsafe now?: No Are you made to feel afraid or neglected: No Advance Directives: No Advance Directives Information Provided: No Do you have a plan to hurt others: No Plan Recently lost weight without trying: No Eating poorly because of decreased appetite: No Nutrition Risks: No Nutritional Risk Poor oral hygiene: No service: No Physical Exam ED Vital Signs: Vital Signs - 24 hr 02/08/25 12:04 02/08/25 15:37 02/08/25 15:39 Temperature 98.3 F Pulse Rate 100 100 Respiratory Rate 18 30 H Blood Pressure 127/77 142/74 H Pulse Oximetry 94 89 L 95 Oxygen Delivery Method Room Air Room Air Nasal Cannula Oxygen Flow Rate 2 02/08/25 15:58 02/08/25 18:26 Temperature 98.8 F Pulse Rate 96 Respiratory Rate 30 H 20 Blood Pressure 139/85 Pulse Oximetry 94 Oxygen Delivery Method Nasal Cannula Oxygen Flow Rate 2 BMI result Body Mass Index 33.7 Medications Administered Generic Name Dose Route Start Last Admin Trade Name Freq PRN Reason Stop Dose Admin Acetaminophen 650 mg 02/08/25 19:07 02/10/25 02:08 Acetaminophen 325 Mg Tablet PO 650 mg Q6H PRN Administration Pain, Mild 1-3,fever,headache Albuterol/Ipratropium 3 ml 02/08/25 19:07 02/09/25 23:13 Albuterol/Iprat 2.5/0.5mg 3 Ml Ampul.Neb INHALE 3 ml Q4H PRN Administration Shortness of Breath/Wheezing Lactated Ringer's 1,000 mls @ 125 mls/hr 02/08/25 19:15 02/09/25 22:51 Lr IVCONT 125 mls/hr On Hold: 02/09/25 23:54 .Q8H PATRICIA Administration Piperacillin Sod/Tazobactam 100 mls @ 200 mls/hr 02/08/25 23:00 02/10/25 08:10 Sod 4.5 gm/ Sodium Chloride IV Infused Q6H PATRICIA Infusion Vancomycin HCl 1,500 mg/ 500 mls @ 333.333 mls/hr 02/09/25 05:00 02/10/25 07:17 Sodium Chloride IV Infused Q12H PATRICIA Infusion Insulin Human Lispro 0 unit 02/09/25 07:30 02/10/25 09:25 Insulin Lispro 100 Unit/Ml 3 Ml Vial SUBCUT 2 unit QIDACHS PATRICIA Administration Protocol Lorazepam 0.5 mg 02/09/25 18:00 02/10/25 09:20 Lorazepam 0.5 Mg Tablet PO 0.5 mg BID@0900,1800 PATRICIA Administration Methadone HCl 175 mg 02/09/25 09:00 02/10/25 09:18 Methadone Hcl 20 Mg/2 Ml Oral.Conc PO 175 mg DAILY PATRICIA Administration Methadone HCl 30 mg 02/09/25 18:00 02/09/25 18:05 Methadone Hcl 20 Mg/2 Ml Oral.Conc PO 30 mg DAILY@1800 PATRICIA Administration Methocarbamol 500 mg 02/09/25 15:00 02/10/25 09:20 Methocarbamol 500 Mg Tablet PO 500 mg TID PATRICIA Administration Omeprazole 20 mg 02/09/25 17:25 02/10/25 07:16 Omeprazole 20 Mg Capsule.Dr PO 20 mg DAILY@0630 PATRICIA Administration Oxycodone HCl 10 mg 02/09/25 10:45 02/10/25 09:21 Oxycodone Hcl Er 10 Mg Tab.Er.12h PO 10 mg BID PATRICIA Administration Oxycodone HCl 10 mg 02/09/25 10:30 02/09/25 22:13 Oxycodone Hcl Immed Release 5 Mg Tablet PO 10 mg Q4H PRN Administration Pain, Severe (Pain Scale 7-10) Polyethylene Glycol 17 gm 02/09/25 09:00 02/10/25 09:21 Polyethylene Glycol 3350 17 Gm Powd.Pack PO 17 gm DAILY PATRICIA Administration Quetiapine Fumarate 50 mg 02/09/25 21:00 02/09/25 20:43 Quetiapine Fumarate 50 Mg Tablet PO 50 mg BEDTIME PATRICIA Administration Senna 17.2 mg 02/08/25 21:00 02/09/25 20:43 Sennosides 8.6 Mg Tablet PO 17.2 mg BEDTIME PATRICIA Administration Sertraline HCl 100 mg 02/10/25 09:00 02/10/25 09:21 Sertraline Hcl 100 Mg Tablet PO 100 mg DAILY PATRICIA Administration Sodium Chloride 3 ml 02/09/25 00:00 02/10/25 09:21 0.9 % Sodium Chloride Flush 3 Ml Syringe IVFLUSH 3 ml QSHIFT PATRICIA Administration Trazodone HCl 50 mg 02/08/25 21:00 02/09/25 20:43 Trazodone Hcl 50 Mg Tablet PO 50 mg BEDTIME PATRICIA Administration Discontinued Medications Generic Name Dose Route Start Last Admin Trade Name Freq PRN Reason Stop Dose Admin Bisacodyl 10 mg 02/08/25 20:36 02/08/25 21:18 Bisacodyl 10 Mg Supp.Rect IA 02/08/25 20:37 10 mg ONCE ONE Administration Furosemide 60 mg 02/09/25 23:40 02/10/25 00:07 Furosemide 40 Mg/4 Ml Vial IVPUSH 02/09/25 23:41 60 mg ONCE STA Administration Protocol Hydromorphone HCl 1 mg 02/09/25 23:50 02/10/25 00:20 Hydromorphone Hcl 1 Mg/Ml Syringe IVPUSH 02/09/25 23:51 1 mg ONCE STA Administration Protocol Magnesium Sulfate 2 gm in 50 mls @ 50 mls/hr 02/08/25 13:56 02/08/25 15:31 Magnesium Sulfate/H2o IV 02/08/25 14:55 Infused ONCE ONE Infusion Potassium Chloride 10 meq in 100 mls @ 100 mls/hr 02/08/25 14:00 02/08/25 16:38 Potassium Chloride/H20 IV 02/08/25 15:59 Infused Q1H PATRICIA Infusion Sodium Chloride 1,000 mls @ 999 mls/hr 02/08/25 14:30 02/08/25 16:51 Ns IV 02/08/25 15:30 Infused .Q1H1M PATRICIA Infusion Vancomycin HCl 2,000 mg in 500 mls @ 250 mls/hr 02/08/25 15:52 02/08/25 19:26 Vancomycin/Ns IV 02/08/25 17:51 Infused ONCE ONE Infusion Piperacillin Sod/Tazobactam 100 mls @ 200 mls/hr 02/08/25 15:52 02/08/25 16:44 Sod 4.5 gm/ Sodium Chloride IV 02/08/25 16:21 Infused ONCE ONE Infusion Phytonadione 10 mg/ Sodium 51 mls @ 51 mls/hr 02/09/25 20:00 02/09/25 20:40 Chloride IV 02/09/25 20:59 Infused ONCE ONE Infusion Acetaminophen 1,000 mg in 100 mls @ 400 mls/hr 02/09/25 23:51 02/10/25 01:39 Ofirmev IV 02/10/25 00:05 Infused ONCE STA Infusion Iohexol 100 ml 02/08/25 14:08 02/08/25 14:09 Iohexol 350 Mg/Ml 100 Ml Infus..Btl IV 02/08/25 14:09 100 ml ONCE ONE Administration Ketorolac Tromethamine 15 mg 02/08/25 15:34 02/08/25 15:41 Ketorolac Tromethamine 15 Mg/Ml Vial IVPUSH 02/08/25 15:35 15 mg ONCE ONE Administration Lorazepam 0.5 mg 02/08/25 19:58 02/08/25 21:31 Lorazepam 0.5 Mg Tablet PO 0.5 mg DAILY PRN Administration Anxiety Methadone HCl 30 mg 02/08/25 17:52 02/08/25 18:17 Methadone Hcl 20 Mg/2 Ml Oral.Conc PO 02/08/25 17:53 30 mg ONCE ONE Administration Methadone HCl 145 mg 02/08/25 19:59 02/08/25 21:17 Methadone Hcl 20 Mg/2 Ml Oral.Conc PO 02/08/25 20:00 145 mg ONCE ONE Administration Morphine Sulfate 4 mg 02/08/25 13:22 02/08/25 13:28 Morphine Sulfate 4 Mg/Ml Cartridge IVPUSH 02/08/25 13:23 4 mg ONCE ONE Administration Protocol Morphine Sulfate 4 mg 02/08/25 16:05 02/08/25 16:11 Morphine Sulfate 4 Mg/Ml Cartridge IVPUSH 02/08/25 16:06 4 mg ONCE ONE Administration Protocol Potassium Bicarbonate 25 meq 02/08/25 13:56 02/08/25 14:27 Potassium Bicarbonate/Cit Ac 25 Meq Tablet.Eff PO 02/08/25 13:57 25 meq ONCE ONE Administration Potassium Chloride 40 meq 02/09/25 08:15 02/09/25 10:34 Potassium Chloride Er 20 Meq Tab.Er.Prt PO 02/09/25 08:16 40 meq ONCE ONE Administration Prednisone 40 mg 02/08/25 15:34 02/08/25 15:41 Prednisone 20 Mg Tablet PO 02/08/25 15:35 40 mg ONCE ONE Administration Quetiapine Fumarate 100 mg 02/08/25 21:00 02/08/25 21:31 Quetiapine Fumarate 100 Mg Tablet PO 100 mg BEDTIME PATRICIA Administration Sertraline HCl 50 mg 02/09/25 09:00 02/09/25 08:18 Sertraline Hcl 50 Mg Tablet PO 50 mg DAILY PATRICIA Administration Sertraline HCl 50 mg 02/09/25 10:45 02/09/25 10:50 Sertraline Hcl 50 Mg Tablet PO 02/09/25 10:46 50 mg ONCE ONE Administration Medical Decision Making Lab Data 02/10/25 00:09 02/10/25 06:49 Labs: Lab Results 02/08/25 02/08/25 02/08/25 Range/Units 13:05 13:24 15:27 WBC 4.2 L (4.8-10.8) X10*3/uL RBC 3.12 L (4.60-5.80) X10*6/uL Hgb 9.0 L (14.0-18.0) g/dl Hct 26.7 L (42.0-52.0) % MCV 85.6 (80.0-98.0) fL MCH 28.8 (27.0-33.0) pg MCHC 33.7 (31.0-36.0) g/dl RDW 14.5 (11.0-16.0) % Plt Count 81 L (160-400) X10*3/uL MPV 10.4 (9.4-12.4) fL Immature Gran % (Auto) 0.7 H (0.0-0.4) % Neut % (Auto) 83.0 H (45-73) % Lymph % (Auto) 8.3 L (20-40) % [place] % (Auto) 8.0 (2-11) % Eos % (Auto) 0.0 (0-4) % Baso % (Auto) 0.0 (0-2) % Lymph # (Auto) 0.4 L (1.2-4.9) X10*3/uL [place] # (Auto) 0.3 (0.1-1.2) X10*3/uL Eos # (Auto) 0.0 (0.0-0.4) X10*3/uL Baso # (Auto) 0.0 (0.0-0.2) X10*3/uL Abs Immat Gran (auto) 0.03 (0.00-0.03) X10*3/uL Absolute Neuts (auto) 3.5 (2.0-8.3) x10*3/uL Absolute Nucleated RBC 0.000 (0.0-0.012) X10*3/uL Nucleated RBC % (auto) 0.0 (0.0-0.2) /100WBC ESR 112 H (0-15) MM/HR PT 19.0 H (10.9-12.4) SEC INR 1.7 H (0.9-1.1) Sodium 130 L (135-145) mmol/L Potassium 2.9 L* (3.3-5.1) mmol/L Chloride 96 (96-108) mmol/L Carbon Dioxide 29 (22-29) mmol/L Anion Gap 8 L (12-20) BUN 9 (9-16) mg/dL Creatinine 0.58 (0.5-1.4) mg/dL Estim Creat Clear Calc 181.1 Estimated GFR > 60 Random Glucose 152 H (60-115) mg/dL Lactic Acid 1.9 (0.5-2.0) mmol/L Calcium 8.5 D (8.4-10.2) mg/dL Magnesium 1.9 (1.6-2.6) mg/dL Total Bilirubin 1.2 H (0.0-1.0) mg/dL AST 164 H (5-37) U/L ALT 36 (0-40) U/L Alkaline Phosphatase 50 (39-117) U/L Troponin I High Sens 10.8 D (<3.5-35.0) ng/L Total Protein 8.0 (6.5-8.0) g/dL Albumin 2.6 L (3.5-5.0) g/dL Lipase 14 (8-78) U/L Urine Color Dark Yellow Urine Appearance Clear Urine pH 6.5 (5.0-9.0) Ur Specific [place] 1.025 (1.005-1.025) Urine Protein Negative (Neg-Trace) mg/dL Urine Glucose (UA) Negative (Negative) mg/dL Urine Ketones Negative (Negative) mg/dL Urine Blood Trace H (Negative) Urine Nitrite Negative (Negative) Ur Leukocyte Esterase Trace H (Negative) Urine RBC 3-5 H (0-2) /HPF Urine WBC 0-5 (0-5) /HPF Ur Squamous Epith Cells 0-2 (0-2) /HPF Urine Bacteria None Seen (None Seen) Hyaline Casts 0-2 (0-2) /LPF Blood Type A Positive Antibody Screen NEGATIVE Discharge Plan Discharge Clinical Impression: Osteomyelitis Qualifiers: Osteomyelitis type: unspecified type Osteomyelitis location: unspecified site Q ualified Code(s): M86.9 - Osteomyelitis, unspecified Fracture, ribs Qualifiers: Encounter type: initial encounter Fracture type: closed Laterality: right Q ualified Code(s): S22.41XA - Multiple fractures of ribs, right side, initial encounter for closed fracture Patient Disposition: Admitted As Inpatient Interventions: Admission Worksheet (ED) Last Done: 02/09/25 00:35 Discharge Date/Time: 02/09/25 02:14
--- NOTE | 2025-02-08 19:10 | PM.IMHP ---
History of Present Illness Date of Service: 02/08/25 Attending physician on admission: Lyndsey Partida Chief Complaint: s/p fall abd pain Pt is a 54 yo male with PMH MRSA bacteremia, 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 It took approximately 4 people to get patient up off the ground. Patient states he was recently released from short-term rehab after previous admission for MADDY, sepsis, wound infection, cellulitis of left wrist and MRSA with UTI with discharge 12/30/2024. Patient had completed his antibiotic therapy via PICC line which was removed prior to discharge to home. Patient states the 1st 2 days were amazing but then patient has started to decline on day 3 and then had the fall on day 4 and now is in the emergency department on day 5. It should be noted that patient has hepatitis-C viral load was elevated during this past admission and the plan for discharge with for patient to see GI as an outpatient. In addition patient was told to see Urology as an outpatient for the abnormal finding of the prostate on CT scan in December of 2024. Due to patient being a rehab and recently discharged patient has not made any appointments with GI Urology so far. Patient denies any recent alcohol use but did use IV drugs approximately 2 months prior (fentnayl). Workup in the emergency department included right knee x-ray which shows large effusion and possible acute injury. Patient has cirrhosis and INRs currently 1.7. Patient also has nondisplaced fractures of right anterior 7th and 8th ribs. No pneumothorax noted. Patient also has evidence of osteomyelitis of the right proximal clavicle with cortical destruction and Periositis. No abscess noted. In addition ground-glass opacity in the right upper lobe found measuring up to 1.5 cm. A three-month follow-up CT is recommended. There is also evidence of trace right pleural fluid. Head and CTA of the spine all negative for acute findings. Patient has pancytopenia with a white count of 4.2, H and H of 9 and 26.7 and platelets of 81,000. Sed rate is elevated, CRP is pending. INR of as above is 1.7. Sodium today is 130 patient's baseline is usually 131. Potassium 2.9 and patient received potassium bicarb. Renal function stable with a creatinine clearance of 18.1 and a GFR greater than 60. Glucose 152. Lactic acid 1.9 and with repeat 1.0. AST 164. Lipase 14. UA negative for UTI with a trace of blood. Hepatitis-C viral load pending. Later in the morning received an initial report from the lab that 1 blood culture grew Gram-positive cocci in clusters and then approximately 1 hour later received another urgent message that a 2nd blood culture is now growing Gram-positive clusters so likely not contamination. Patient being admitted for multiple medical problems. All issues reviewed with patient and all questions and concerns addressed for admission. Currently patient is not able to bear weight on the left extremity and has chronic left hip pain with no evidence of pelvic fracture. Patient will remain bed-bound due to fall risk. [facility] Medical History PVD (peripheral vascular disease) Constipation Portal hypertension Splenomegaly Cirrhosis of liver Gallbladder sludge Hyponatremia Lesion of prostate Lesion of prostate Alcohol abuse, in remission Substance use disorder Hepatitis C Opiate dependence Cognitive capacity: Alert and orientated x3 Functional capacity: wheelchair bound (Patient is not able to bear weight at this time) Social History Household Members: Family Household Members Other:: mom Housing: House Are you a primary grounds caretaker to a significant other at home: No Do you presently have visiting nurse or other home services: No Comment: counts correct Patient Tobacco Use Status: Former Tobacco user Tobacco use type: Cigarette Cigarettes Per Day: 2 Years Smoked: 25 Smoked in Last 30 Days: No Second Hand Smoke Exposure: Yes Use of substances other than those prescribed or required for medical reasons: No Substance Use Type: Former Substance User Advance Directives: No Advance Directives Information Provided: No Do you have a plan to hurt others: No Plan Nutrition Risks: No Nutritional Risk service: No Ebola Risk: Travel/Contact With Anyone From Affected Area/s: No Has Patient Experienced Ebola Symptoms: No Meds Allergies Allergy/AdvReac Type Severity Reaction Status Date / Time No Known Allergies (No Known Allergy Verified 02/08/25 12:13 Allergies*) Home Medications ?Medication ?Instructions ?Recorded ?Confirmed ?Last Taken ?Type quetiapine 50 mg tablet 100 mg PO BEDTIME 12/15/24 02/08/25 02/07/25 20:00 History sertraline 100 mg tablet 50 mg PO DAILY 12/15/24 02/08/25 02/07/25 09:00 History trazodone 50 mg tablet 50 mg PO BEDTIME 12/15/24 02/08/25 02/07/25 20:00 History methadone 10 mg/mL oral 30 mg PO DAILY@1800 12/16/24 02/08/25 02/07/25 18:00 History concentrate (Methadone Intensol) methadone 10 mg/mL oral 175 mg PO DAILY 12/16/24 02/08/25 02/08/25 09:00 History concentrate (Methadone Intensol) lorazepam 0.5 mg tablet (Ativan) 0.5 mg PO DAILY PRN Anxiety 01/27/25 02/08/25 02/07/25 19:30 History Physical Exam Vital Signs and Narrative: Vital Signs: Last Vital Signs Temp 98.8 F 02/08/25 18:26 Pulse 96 02/08/25 18:26 Resp 20 02/08/25 18:26 BP 139/85 02/08/25 18:26 Pulse Ox 94 02/08/25 18:26 O2 Del Method Nasal Cannula 02/08/25 18:26 O2 Flow Rate 2 02/08/25 18:26 BMI result Body Mass Index 33.7 Alert and orientated X3, able to give good history. Patient did not appear to be obtunded or encephalopathic Neuro: CN II-X11 intact, no deficits, visual acuity intact EYES: PERRLA, EOM intact, sclerae with mild icteric changes, conjunctiva pink ENT: hearing intact, no issues with swallowing, uvula midline, lips moist, nares patent no epistaxis Cardiac: S1 S2 RRR, no murmur, no JVD, moderate edema in Lower ext Pulmonary: lungs diminished bilaterally Abdominal: BS active in all 4 quadrants, no guarding, tenderness, rebounding, abdomen distended, patient obese MSK: strength 3-4/5 upper and right lower extremities, 1/5 LLE : no CVA tenderness no bladder distension Extremities: Moderate edema in lower extremities, PT and DP pulses palpable +1 Psych: mood stable, judgement and insight fair Skin: Bruising noted over right knee, chronic discoloration bilateral lower extremities Results Labs 02/08/25 13:05 02/08/25 19:49 Labs: Laboratory Results - last 24 hr 02/08/25 02/08/25 02/08/25 13:05 13:24 15:27 MCV 85.6 MCH 28.8 MCHC 33.7 RDW 14.5 Plt Count 81 L MPV 10.4 Immature Gran % (Auto) 0.7 H Neut % (Auto) 83.0 H Lymph % (Auto) 8.3 L [place] % (Auto) 8.0 Eos % (Auto) 0.0 Baso % (Auto) 0.0 Lymph # (Auto) 0.4 L [place] # (Auto) 0.3 Eos # (Auto) 0.0 Baso # (Auto) 0.0 Abs Immat Gran (auto) 0.03 Absolute Neuts (auto) 3.5 Absolute Nucleated RBC 0.000 Nucleated RBC % (auto) 0.0 ESR 112 H PT 19.0 H INR 1.7 H Anion Gap 8 L Estim Creat Clear Calc 181.1 Estimated GFR > 60 Random Glucose 152 H Lactic Acid 1.9 Calcium 8.5 D Magnesium 1.9 Total Bilirubin 1.2 H AST 164 H ALT 36 Alkaline Phosphatase 50 Troponin I High Sens 10.8 D Total Protein 8.0 Albumin 2.6 L Lipase 14 Urine Color Dark Yellow Urine Appearance Clear Urine pH 6.5 Ur Specific [place] 1.025 Urine Protein Negative Urine Glucose (UA) Negative Urine Ketones Negative Urine Blood Trace H Urine Nitrite Negative Ur Leukocyte Esterase Trace H Urine RBC 3-5 H Urine WBC 0-5 Ur Squamous Epith Cells 0-2 Urine Bacteria None Seen Hyaline Casts 0-2 Blood Type A Positive Antibody Screen NEGATIVE ECG Prior ECG tracings: not available for review Imaging Radiologist's Impressions: Abdominal pelvis CT Impression: Nondisplaced fractures of the right anterior 7th and 8th ribs. Trace right pleural fluid. Cirrhosis with splenomegaly and trace ascites. Unchanged lymphadenopathy in the jesse hepatis. Increased attenuation in the gallbladder could be sludge or stones. The gallbladder is distended. There is mild gallbladder wall thickening/trace pericholecystic fluid which is favored to be secondary to systemic pathology. If there is clinical concern for acute cholecystitis further evaluation with a right upper quadrant ultrasound may be helpful. Moderately increased stool quantity may indicate constipation. Chest CT Impression: Cortical destruction and periostitis of the right proximal clavicle is favored to be secondary to osteomyelitis due to right sternoclavicular joint septic arthritis. A posttraumatic etiology is considered less likely. Correlate clinically for signs/symptoms of infection. No abscess. Follow up is recommended. Associated large soft tissue swelling; infection is favored over a posttraumatic etiology. Trace infiltration of the fat in the anterior superior mediastinum secondary to infection. Anterior inferior mediastinal lymphadenopathy, likely infectious/inflammatory. Ground-glass opacity in the right upper lobe and lingula measuring up to 1.5 cm. Three-month follow-up chest CT is recommended. Trace right pleural fluid. Head CT and cervical spine CT Negative for acute findings Assessment and Plan (1) Fracture, ribs: Qualifiers: Encounter type: initial encounter Fracture type: closed Laterality: right Qualified Code(s): S22.41XA - Multiple fractures of ribs, right side, initial encounter for closed fracture Status: Acute (2) Osteomyelitis of clavicle: Status: Acute (3) Lesion of prostate: Status: Acute (4) Hepatitis C: Qualifiers: Hepatic coma status: without hepatic coma Viral hepatitis chronicity: chronic Qualified Code(s): B18.2 - Chronic viral hepatitis C Status: Acute Plan Pt is a 54 yo male with PMH MRSA bacteremia, 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 It took approximately 4 people to get patient up off the ground. Patient states he was recently released from short-term rehab after previous admission for MADDY, sepsis, wound infection, cellulitis of left wrist and MRSA with UTI with discharge 12/30/2024. Patient being admitted with multiple medical problems as listed below. Acute Hypoxic Respiratory Failure Pts POX 89. Current non smoker Ground glass opacity noted Rib fxs found on CT Pt does not meet criteria for sepsis on admission ABX, pain mgmtt, O2 2L NC and supportive care provided Bacteremia (possible multiple sources) 2/2 blood cultures are now positive for Gram-positive cocci in clusters, less likely contamination Patient is on appropriate antibiotic coverage Infectious disease consulted Echo ordered (BNP also pending) Urine culture pending Osteomyelitis noted in the right sternoclavicular area Prostate lesion seen in December of 2024 is no longer present, may have been abscess per current radiologist's interpretation S/P fall with 7th and 8th nondisplaced Rib fx, large right knee effusion No PTX identified Orthopedics consulted for left knee effusion and osteomyelitis of the clavicle MRI of left knee may be indicated, await review by orthopedics prior to ordering INR 1.7 (cirrhosis), DVT prophylaxis held, no VIT K administered so far Pain mgmt Oxygen prn Splinting with pillow for coughing recommended Incentive spirometer Rhabdomyolysis status post fall Total CK 653, IVF LR 125 mls per hour, repeat in AM, renal fx stable Repeat level in the a.m. Incidental findings sepic arthritis/osteomyelitis involving R sternoclavicular area No abscess noted on CT scan Orthopedics consulted Infectious disease consulted Pt on Vancomycin and Zosyn BC X2 pending Hypokalemia Kbicarb given in ED BMP repeat pending PO KCL ordered for AM Hyponatremia - acute on chronic baseline sodium 131 Sodium today 130 Urine studies requested Serum osmo pending Pancytopenia Noted leukopenia, anemia not requiring transfusion and thrombocytopenia Holding DVT prophylaxis Patient currently on vancomycin and Zosyn Monitor CBC daily UA negative for UTI Elevated INR Secondary to liver disease Check INR daily No indication for vitamin K at this time Patient does have a right knee effusion status post fall, will be evaluated by Orthopedics and was not aspirated in the ED Holding DVT prophylaxis NIDDMII newly diagnosed December 2024 SSI Hold Metformin Diabetic Diet Prostate lesion (abscess versus neoplasm from previous hospitalization 12/2024) Finding from December not commented on today's CT of the abdomen and pelvis Reached out to Radiology for further commentation on prostate this exam as patient was supposed to follow up with the urologist as an outpatient Addendum notes the previously seen lesion of the prostate is no longer visualized but may have been a prior abscess. Patient denies any hematuria or problems with urinating and denies any history of BPH PNA, 1.5 cm ground glass opacity RUL Patient is started on vanco and Zosyn Patient receiving oxygen via nasal cannula 2 L Supportive care to include antitussives and duo nebs Incentive spirometer ordered Gallbladder sludge Chronic finding, no evidence of acute cholecystitis at this time US recommended per radiology Lipase is normal Patient denies any abdominal pain, nausea or vomiting. Cirrhosis of liver, splenomegaly, Hepatitis C untreated PLTs 81K GI will be consulted as patient did not start treatment for hepatitis-C Discharge plan back in December was for patient to follow up with GI as an outpatient Viral load pending Patient denies any alcohol use since before December and has not used IV drugs since November 2024 Constipation Bowel regimen upgraded to Miralax, senna Dulcolax suppository x1 tonight JOVI on methadone Methadone dose confirmed with Abbey Sweetser, patient takes 175 mg in the morning and 30 mg at bedtime Patient received 1 dose of 30 mg in the ED prior to confirmation Patient will receive 145 mg this evening and will start his normal regime on 02/09/2025 Addictions consulted because patient had been using IV drugs up until November of 2024 Poor mobility, LLE especially, likely secondary to sepsis with bacteremia No acute findings involving pelvis, LLE Pt was walking with walker when leaving [facility] PT eval ordered Fall prevention measures in place DVT prophylaxis: Held secondary to elevated INR from liver disease and pancytopenia and because patient has a current effusion of the right knee status post fall Med rec completed Full code status Quality Stroke Does the patient have a stroke diagnosis?: No Reason for No Anti-thrombotic by Day Two: Contraindicated VTE Prior VTE?: No VTE Risk Level:: Medical - moderate - high VTE Device Contraindication: N/A - Device Ordered VTE Drug Contraindication: Treatment Not Indicated
[2025-02-08] MEDS: Lactated Ringers 1,000 ML 100 ML IVCONT (19:39)
[2025-02-08 20:17] LABS: Osmolality, Serum 291 mosm/kg (281-305)
[2025-02-08 20:20] LABS: Anion Gap 9 (12-20); Blood Urea Nitrogen 10 mg/dL (9-16); Calcium 8.1 mg/dL (8.4-10.2); Carbon Dioxide 28 mmol/L (22-29); Chloride 98 mmol/L (96-108); Creatinine Clr Calc Pharmacy 169.5; Estimated Glomerular Filt Rate > 60; Potassium 3.7 mmol/L (3.3-5.1); Sodium 131 mmol/L (135-145)
[2025-02-08] MEDS: methADONE HCl 20 MG/2 ML ORAL.CONC 145 MG PO (21:17)
[2025-02-08 23:41] VITALS: BP 111/69; PULSE 73; RESP 17
[2025-02-08] MEDS: 0.9 % Sodium Chloride Flush 3 ML SYRINGE IVFLUSH (23:41)
[2025-02-09] VITALS (7 sets, daily range): BP systolic 126–159; BP diastolic 73–87; PULSE 78–103; RESP 16–24; TEMP 36.1–36.4; O2SAT 92–95; BMI 33.2
[2025-02-09 05:49] LABS: Hematocrit 25.2 % (42.0-52.0); Hemoglobin 8.5 g/dl (14.0-18.0); Imm Gran Abs Auto 0.02 X10*3/uL (0.00-0.03); Imm Gran Pct Auto 0.7 % (0.0-0.4); Lymphocytes Absolute Auto 0.3 X10*3/uL (1.2-4.9); MANUAL DIFF FLAG SCAN; Mean Corpuscular HGB Conc 33.7 g/dl (31.0-36.0); Mean Corpuscular Hemoglobin 29.6 pg (27.0-33.0); Mean Corpuscular Volume 87.8 fL (80.0-98.0); NRBC Abs Auto 0.000 X10*3/uL (0.0-0.012); NRBC Pct Auto 0.0 /100WBC (0.0-0.2); Red Blood Count 2.87 X10*6/uL (4.60-5.80); SCAN SMEAR FLAG 1; White Blood Count 3.0 X10*3/uL (4.8-10.8)
[2025-02-09 05:50] LABS: Platelet Count 73 X10*3/uL (160-400)
[2025-02-09 05:54] LABS: INTERNATIONAL NORM RATIO 1.7 (0.9-1.1); Prothrombin Time 19.1 SEC (10.9-12.4)
[2025-02-09 06:05] LABS: Alanine Aminotransferase 30 U/L (0-40); Albumin Level 2.2 g/dL (3.5-5.0); Alkaline Phosphatase 43 U/L (39-117); Anion Gap 7 (12-20); Aspartate Amino Transferase 109 U/L (5-37); Blood Urea Nitrogen 11 mg/dL (9-16); Calcium 7.9 mg/dL (8.4-10.2); Carbon Dioxide 31 mmol/L (22-29); Chloride 100 mmol/L (96-108); Creatinine Clr Calc Pharmacy 189.6; Estimated Glomerular Filt Rate > 60; Potassium 3.1 mmol/L (3.3-5.1); Sodium 135 mmol/L (135-145); Total Protein 7.1 g/dL (6.5-8.0)
[2025-02-09 06:09] LABS: Ammonia 53 umol/L (13-55)
[2025-02-09 06:18] LABS: NT Pro B Type Natriuretic Pept 1482.4 pg/mL (<300)
--- NOTE | 2025-02-09 07:26 | HO.PM.IMPN ---
Subjective Subjective Date of Service: 02/09/25 Interval History: U tox positive for S UD-patient denies use Refer to the goals of care note-patient said DNR DNI in the presence of witnesses-bedside RNs Patient appears to be in pain-pain meds adjusted Physical Exam Exam: Exam: General: AOx3, visibly moaning and groaning, appears to be in pain Resp: Bilateral decreased breath sounds, limited secondary to patient's baseline status CVS: Sinus tachycardia, MR TR heart sounds GI: +BS, NT, no distention Neuro: Cranial nerves II-XII grossly intact bilaterally. Motor grossly intact bilaterally Extremities: Bilateral pitting chronic venous stasis changes without any obvious cellulitis, left knee swelling inability to follow directions secondary to pain, hence exam slightly limiting Psych: Appropriate affect Vital Signs: Vital Signs: Last Vital Signs Temp 97.2 F 02/09/25 03:17 Pulse 78 02/09/25 03:17 Resp 17 02/09/25 03:17 BP 130/73 02/09/25 03:17 Pulse Ox 95 02/09/25 03:17 O2 Del Method Nasal Cannula 02/09/25 03:17 O2 Flow Rate 2 02/09/25 03:17 BMI result Body Mass Index 33.2 Extrem: Other: Left knee moderate sized suprapatellar effusion. No palpable defect appreciated along the patellar tendon or quad tendon however quad tendon does have some discomfort which may be related to the effusion but can not rule out quad deformity. He does have an inability to straight leg raise which may be compromised from the effusion. Objective Data Active Medications Acetaminophen (Acetaminophen 325 Mg Tablet) 650 mg PO Q6H PRN PRN Reason: Pain, Mild 1-3,fever,headache Albuterol/Ipratropium (Albuterol/Iprat 2.5/0.5mg 3 Ml Ampul.Neb) 3 ml INHALE Q4H PRN PRN Reason: Shortness of Breath/Wheezing Bisacodyl (Bisacodyl 10 Mg Supp.Rect) 10 mg [place] BEDTIME PRN PRN Reason: Constipation Calcium Carbonate (Calcium Carbonate 750 Mg Tab.Chew) 750 mg PO Q4H PRN PRN Reason: Heartburn Dextrose (Dextrose 50 % 25 Gm/50 Ml Syringe) 25 gm IVPUSH Q15M PRN; Protocol PRN Reason: per Hypoglycemia Standing Ord. Glucose (Glucose Gel 15 Gm Gel..Gram.) 15 gm PO Q15M PRN; Protocol PRN Reason: per Hypoglycemia Standing Ord. Guaifenesin (Guaifenesin 200 Mg/10 Ml 10 Ml Liquid) 10 ml PO Q4H PRN PRN Reason: Cough Lactated Ringer's (Lr) 1,000 mls @ 125 mls/hr IVCONT .Q8H REPLACED BY [facility] Last Infusion: 02/09/25 06:45 Dose: 125 mls/hr Documented By: VAZQUEZ Piperacillin Sod/Tazobactam (Sod 4.5 gm/ Sodium Chloride) 100 mls @ 200 mls/hr IV Q6H REPLACED BY [facility] Last Infusion: 02/09/25 05:03 Dose: Infused Documented By: VAZQUEZ Vancomycin HCl 1,500 mg/ (Sodium Chloride) 500 mls @ 333.333 mls/hr IV Q12H REPLACED BY [facility] Last Admin: 02/09/25 05:14 Dose: 333.33 mls/hr Documented By: VAZQUEZ Insulin Human Lispro (Insulin Lispro 100 Unit/Ml 3 Ml Vial) 0 unit SUBCUT QIDACHS REPLACED BY [facility]; Protocol Lorazepam (Lorazepam 0.5 Mg Tablet) 0.5 mg PO DAILY PRN PRN Reason: Anxiety Last Admin: 02/08/25 21:31 Dose: 0.5 mg Documented By: ANTONIO Magnesium Hydroxide (Milk Of Magnesia 30 Ml Oral.Susp) 30 ml PO DAILY PRN PRN Reason: Constipation Melatonin (Melatonin 3 Mg Tablet) 6 mg PO BEDTIME PRN PRN Reason: Insomnia Methadone HCl (Methadone Hcl 20 Mg/2 Ml Oral.Conc) 175 mg PO DAILY REPLACED BY [facility] Methadone HCl (Methadone Hcl 20 Mg/2 Ml Oral.Conc) 30 mg PO DAILY@1800 REPLACED BY [facility] Ondansetron HCl (Ondansetron Hcl 4 Mg/2 Ml Vial) 4 mg IVPUSH Q8H PRN PRN Reason: Nausea and Vomiting Pharmacy Consult (Consult Rx Vancomycin Dosing) 1 each MISCELLANE DAILY PRN PRN Reason: Consult order Polyethylene Glycol (Polyethylene Glycol 3350 17 Gm Powd.Pack) 17 gm PO DAILY REPLACED BY [facility] Potassium Chloride (Potassium Chloride Er 20 Meq Tab.Er.Prt) 20 meq PO DAILY REPLACED BY [facility] Quetiapine Fumarate (Quetiapine Fumarate 100 Mg Tablet) 100 mg PO BEDTIME REPLACED BY [facility] Last Admin: 02/08/25 21:31 Dose: 100 mg Documented By: ANTONIO Senna (Sennosides 8.6 Mg Tablet) 17.2 mg PO BEDTIME REPLACED BY [facility] Last Admin: 02/08/25 21:18 Dose: 17.2 mg Documented By: ANTONIO Sertraline HCl (Sertraline Hcl 50 Mg Tablet) 50 mg PO DAILY REPLACED BY [facility] Sodium Chloride (0.9 % Sodium Chloride Flush 3 Ml Syringe) 3 ml IVFLUSH QSHIFT REPLACED BY [facility] Last Admin: 02/08/25 23:41 Dose: 3 ml Documented By: ANTONIO Trazodone HCl (Trazodone Hcl 50 Mg Tablet) 50 mg PO BEDTIME PATRICIA Last Admin: 02/08/25 21:18 Dose: 50 mg Documented By: ANTONIO Labs 02/09/25 05:41 02/09/25 05:41 Labs: Laboratory Results - last 24 hr 02/08/25 02/08/25 02/08/25 13:05 13:24 15:27 MCV 85.6 MCH 28.8 MCHC 33.7 RDW 14.5 Plt Count 81 L MPV 10.4 Immature Gran % (Auto) 0.7 H Neut % (Auto) 83.0 H Lymph % (Auto) 8.3 L [place] % (Auto) 8.0 Eos % (Auto) 0.0 Baso % (Auto) 0.0 Lymph # (Auto) 0.4 L [place] # (Auto) 0.3 Eos # (Auto) 0.0 Baso # (Auto) 0.0 Abs Immat Gran (auto) 0.03 Absolute Neuts (auto) 3.5 Absolute Nucleated RBC 0.000 Nucleated RBC % (auto) 0.0 Smear Tech's Comments ESR 112 H PT 19.0 H INR 1.7 H Anion Gap 8 L Estim Creat Clear Calc 181.1 Estimated GFR > 60 Random Glucose 152 H Osmolality Lactic Acid 1.9 Calcium 8.5 D Magnesium 1.9 Total Bilirubin 1.2 H AST 164 H ALT 36 Alkaline Phosphatase 50 Ammonia Total Creatine Kinase Troponin I High Sens 10.8 D NT-Pro-B Natriuret Pep Total Protein 8.0 Albumin 2.6 L Lipase 14 Urine Color Dark Yellow Urine Appearance Clear Urine pH 6.5 Ur Specific [place] 1.025 Urine Protein Negative Urine Glucose (UA) Negative Urine Ketones Negative Urine Blood Trace H Urine Nitrite Negative Ur Leukocyte Esterase Trace H Urine RBC 3-5 H Urine WBC 0-5 Ur Squamous Epith Cells 0-2 Urine Bacteria None Seen Hyaline Casts 0-2 Urine Osmolality Ur Random Sodium Blood Type A Positive Antibody Screen NEGATIVE 02/08/25 02/09/25 02/09/25 19:49 00:15 05:41 MCV 87.8 MCH 29.6 MCHC 33.7 RDW 14.6 Plt Count 73 L MPV 10.1 Immature Gran % (Auto) 0.7 H Neut % (Auto) 80.5 H Lymph % (Auto) 11.2 L [place] % (Auto) 7.6 Eos % (Auto) 0.0 Baso % (Auto) 0.0 Lymph # (Auto) 0.3 L [place] # (Auto) 0.2 Eos # (Auto) 0.0 Baso # (Auto) 0.0 Abs Immat Gran (auto) 0.02 Absolute Neuts (auto) 2.5 Absolute Nucleated RBC 0.000 Nucleated RBC % (auto) 0.0 Smear Tech's Comments VERIFIED ESR PT 19.1 H INR 1.7 H Anion Gap 9 L 7 L Estim Creat Clear Calc 169.5 189.6 Estimated GFR > 60 > 60 Random Glucose 173 H 163 H Osmolality 291 Lactic Acid 1.0 Calcium 8.1 L 7.9 L Magnesium Total Bilirubin 0.8 AST 109 H ALT 30 Alkaline Phosphatase 43 Ammonia 53 Total Creatine Kinase 653 H 289 H Troponin I High Sens NT-Pro-B Natriuret Pep 1482.4 H Total Protein 7.1 Albumin 2.2 L Lipase Urine Color Urine Appearance Urine pH Ur Specific [place] Urine Protein Urine Glucose (UA) Urine Ketones Urine Blood Urine Nitrite Ur Leukocyte Esterase Urine RBC Urine WBC Ur Squamous Epith Cells Urine Bacteria Hyaline Casts Urine Osmolality 340 L Ur Random Sodium < 20.0 Blood Type Antibody Screen Microbiology Microbiology Results: Microbiology 02/08/25 13:24 Blood Culture - Preliminary Blood - Venous Prelim: GPC Gram Stain only 02/08/25 13:05 Blood Culture - Preliminary Blood - Venous Prelim: GPC Gram Stain only Assessment and Plan (1) Gram-positive cocci bacteremia: Status: Acute Plan 54 yo male with PMH MRSA bacteremia, IVDA/ JOVI on methadone, hyponatremia (usual level 131), DMII dx in 12/30, cellulitis, liver cirrhosis, portal hypertension, alcohol abuse in remission, abnormal prostate finding on previous CT indicating neoplasm versus abscess, chronic left hip soreness, BIBA after experiencing a traumatic fall. Patient likely relapsed as he was although initially not forthcoming subsequent tox screen showed U tox positive for opioids. 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 Cirrhosis due to Chronic Hep C, previous EtOH abuse, and probable fatty liver. He presently does not show any signs of liver decompensation at this time. Would treat supportively, treat other more acute issues, and I advised him to F/U for Hep C treatment once his acute issues have been resolved. Avoid any aspirin, NSAIDs, and all other blood thinners. Will give a trial of IV Vit K re: elevated INR. Will check an AFP level if none done recently. 2. Gallstones and dilated CBD on U/S. The gallstones seem asymptomatic and I doubt choledocholithiasis, but will check a MRCP as CBD stones left untreated can become a significant problem, especially for this patient with significant liver disease and other comorbidities. Acute right anterior 4th and 8th ribs without displacement-symptomatic management, pulmonary hygiene, pain control Left knee effusion ? Orthopedics consulted--MRI of the left knee-limited as this is a Monday and we do not have staffing Unclear if he has a tendon rupture PTOT We will likely need short-term rehab Pancytopenia-chronic secondary to liver/sepsis/bone marrow disease Not needing transfusion at this time We will follow daily CBC Synthetic liver dysfunction-we will challenge with vitamin K Hypokalemia-likely secondary to IVDU Hypoalbuminemia-likely secondary to hepatopathy This note is constructed using voice recognition software. While every effort has been made to ensure accuracy, debubblizer errors may have been included. Patient is at high-risk of decompensation, with multi organ failure and shock and requires inpatient admission for at least 2-3 more days for clearance of high-grade bacteremia and multiple other issues. Quality Stroke Does the patient have a stroke diagnosis?: No Reason for No Anti-thrombotic by Day Two: Contraindicated VTE Prior VTE?: No VTE Risk Level:: Medical - moderate - high VTE Device Contraindication: N/A - Device Ordered VTE Drug Contraindication: Treatment Not Indicated
[2025-02-09 07:40] LABS: Glucose, Whole Blood 91 mg/dL (60-115)
[2025-02-09] MEDS: methADONE HCl 20 MG/2 ML ORAL.CONC 175 MG PO (08:14)
--- NOTE | 2025-02-09 09:13 | PHA.MEDREC ---
Addendum entered by Jenny Rodriguez RPh 02/09/25 10:40: ORDERS ADJUSTED TO REFLECT HOME DOSING PER DR RICHTER. ONE TIME DOSE OF SERTRALINE 50 MG ENTERED FOR 02/09/25 TO ENSURE PT GETS FULL DOSE OF SERTRALINE FOR TODAY. Original Note: Pharmacy Consult ? Medication Reconciliation Pharmacy has completed the medication reconciliation. Utilized claims to review med rec done by nursing. Noted discrepancies between what nursing entered and what pharmacy filled. Upon talking to patient found that there were several errors in med rec. Corrections made: *lorazepam 0.5 mg daily prn entered by nursing changed to lorazepam 0.5 mg bid @0900,1800 *quetiapine 50 mg at bedtime entered by nursing changed to quetiapine 100 mg at bedtime *sertraline 50 mg daily entered by nursing changed to sertraline 100 mg daily *ibuprofen otc dosing not entered by nursing and added by pharmacy These doses were all confirmed by the patient and able to be verified by claims from patients pharamcy. Doses of lorazepam, quetiapine, and sertraline were already continued and administered. Provider will be notified of issue.
--- NOTE | 2025-02-09 09:19 | PM.CNOR ---
History of Present Illness HPI Consult date: 02/09/25 Chief complaint: fall, OM to clavicle Narrative: 54-year-old gentleman with a past medical history of MRSA bacteremia and IV drug use admitted to the hospital due to weakness. On admission he was found to have left knee swelling and inability to straight leg raise. There is concern for tendon rupture. Patient states he did have a recent fall. Unsure of the date. Orthopedics was consulted for further assessment of his left knee. X-rays of the left knee revealed severe osteoarthritis with a suprapatellar joint effusion. Review of Systems Review of Systems: Yes all other systems are reviewed and are negative [facility] Past Medical History Medical History PVD (peripheral vascular disease) Constipation Portal hypertension Splenomegaly Cirrhosis of liver Gallbladder sludge Hyponatremia Lesion of prostate Lesion of prostate Alcohol abuse, in remission Substance use disorder Hepatitis C Opiate dependence Social History Social History Household Members: Family Household Members Other:: mother Housing: House Are you a primary pet care technician to a significant other at home: No Do you presently have visiting nurse or other home services: Yes Comment: counts correct Patient Tobacco Use Status: Former Tobacco user Tobacco use type: Cigarette Cigarettes Per Day: 2 Years Smoked: 25 Smoked in Last 30 Days: No e-Cigarette/Vaping Use: Currently Using Second Hand Smoke Exposure: Yes Use of substances other than those prescribed or required for medical reasons: No Substance Use Type: Former Substance User Have you been hit, kicked, punched, or otherwise hurt by someone within the past year? If so, by whom?: No Do you feel safe in your current relationship?: No Is there a partner from a previous relationship who is making you feel unsafe now?: No Are you made to feel afraid or neglected: No Advance Directives: No Advance Directives Information Provided: No Do you have a plan to hurt others: No Plan Recently lost weight without trying: No Eating poorly because of decreased appetite: No Nutrition Risks: No Nutritional Risk Poor oral hygiene: No service: No Travel History Ebola Risk: Travel/Contact With Anyone From Affected Area/s: No Has Patient Experienced Ebola Symptoms: No Meds Allergies Allergy/AdvReac Type Severity Reaction Status Date / Time No Known Allergies (No Known Allergy Verified 02/08/25 12:13 Allergies*) Active Medications: Current Medications Acetaminophen (Acetaminophen 325 Mg Tablet) 650 mg PO Q6H PRN PRN Reason: Pain, Mild 1-3,fever,headache Albuterol/Ipratropium (Albuterol/Iprat 2.5/0.5mg 3 Ml Ampul.Neb) 3 ml INHALE Q4H PRN PRN Reason: Shortness of Breath/Wheezing Bisacodyl (Bisacodyl 10 Mg Supp.Rect) 10 mg DE BEDTIME PRN PRN Reason: Constipation Calcium Carbonate (Calcium Carbonate 750 Mg Tab.Chew) 750 mg PO Q4H PRN PRN Reason: Heartburn Dextrose (Dextrose 50 % 25 Gm/50 Ml Syringe) 25 gm IVPUSH Q15M PRN; Protocol PRN Reason: per Hypoglycemia Standing Ord. Glucose (Glucose Gel 15 Gm Gel..Gram.) 15 gm PO Q15M PRN; Protocol PRN Reason: per Hypoglycemia Standing Ord. Guaifenesin (Guaifenesin 200 Mg/10 Ml 10 Ml Liquid) 10 ml PO Q4H PRN PRN Reason: Cough Lactated Ringer's (Lr) 1,000 mls @ 125 mls/hr IVCONT .Q8H [facility] Last Infusion: 02/09/25 06:45 Dose: 125 mls/hr Piperacillin Sod/Tazobactam (Sod 4.5 gm/ Sodium Chloride) 100 mls @ 200 mls/hr IV Q6H [facility] Last Infusion: 02/09/25 05:03 Dose: Infused Vancomycin HCl 1,500 mg/ (Sodium Chloride) 500 mls @ 333.333 mls/hr IV Q12H [facility] Last Infusion: 02/09/25 08:19 Dose: Infused Insulin Human Lispro (Insulin Lispro 100 Unit/Ml 3 Ml Vial) 0 unit SUBCUT QIDACHS [facility]; Protocol Last Admin: 02/09/25 07:51 Dose: Not Given Lorazepam (Lorazepam 0.5 Mg Tablet) 0.5 mg PO DAILY PRN PRN Reason: Anxiety Last Admin: 02/08/25 21:31 Dose: 0.5 mg Magnesium Hydroxide (Milk Of Magnesia 30 Ml Oral.Susp) 30 ml PO DAILY PRN PRN Reason: Constipation Melatonin (Melatonin 3 Mg Tablet) 6 mg PO BEDTIME PRN PRN Reason: Insomnia Methadone HCl (Methadone Hcl 20 Mg/2 Ml Oral.Conc) 175 mg PO DAILY [facility] Last Admin: 02/09/25 08:14 Dose: 175 mg Methadone HCl (Methadone Hcl 20 Mg/2 Ml Oral.Conc) 30 mg PO DAILY@1800 [facility] Ondansetron HCl (Ondansetron Hcl 4 Mg/2 Ml Vial) 4 mg IVPUSH Q8H PRN PRN Reason: Nausea and Vomiting Pharmacy Consult (Consult Rx Vancomycin Dosing) 1 each MISCELLANE DAILY PRN PRN Reason: Consult order Polyethylene Glycol (Polyethylene Glycol 3350 17 Gm Powd.Pack) 17 gm PO DAILY [facility] Last Admin: 02/09/25 08:18 Dose: 17 gm Quetiapine Fumarate (Quetiapine Fumarate 100 Mg Tablet) 100 mg PO BEDTIME [facility] Last Admin: 02/08/25 21:31 Dose: 100 mg Senna (Sennosides 8.6 Mg Tablet) 17.2 mg PO BEDTIME [facility] Last Admin: 02/08/25 21:18 Dose: 17.2 mg Sertraline HCl (Sertraline Hcl 50 Mg Tablet) 50 mg PO DAILY [facility] Last Admin: 02/09/25 08:18 Dose: 50 mg Sodium Chloride (0.9 % Sodium Chloride Flush 3 Ml Syringe) 3 ml IVFLUSH QSHIFT [facility] Last Admin: 02/08/25 23:41 Dose: 3 ml Trazodone HCl (Trazodone Hcl 50 Mg Tablet) 50 mg PO BEDTIME [facility] Last Admin: 02/08/25 21:18 Dose: 50 mg Home Medications ?Medication ?Instructions ?Recorded ?Confirmed ?Last Taken ?Type quetiapine 50 mg tablet 50 mg PO BEDTIME 12/15/24 02/09/25 02/07/25 20:00 History sertraline 100 mg tablet 100 mg PO DAILY 12/15/24 02/09/25 02/07/25 09:00 History trazodone 50 mg tablet 50 mg PO BEDTIME 12/15/24 02/08/25 02/07/25 20:00 History methadone 10 mg/mL oral 30 mg PO DAILY@1800 12/16/24 02/08/25 02/07/25 18:00 History concentrate (Methadone Intensol) methadone 10 mg/mL oral 175 mg PO DAILY 12/16/24 02/08/25 02/08/25 09:00 History concentrate (Methadone Intensol) lorazepam 0.5 mg tablet (Ativan) 0.5 mg PO BID@0900,1800 Anxiety 01/27/25 02/09/25 02/07/25 19:30 History ibuprofen 400 mg tablet 400 mg PO Q6H PRN Pain (Scale 02/09/25 02/09/25 Unknown History Score 1-3) Physical Exam Vital Signs: Vital Signs: Last Vital Signs Temp 96.9 F 02/09/25 07:38 Pulse 87 02/09/25 07:38 Resp 16 02/09/25 07:38 BP 126/73 02/09/25 07:38 Pulse Ox 95 02/09/25 07:38 O2 Del Method Nasal Cannula 02/09/25 07:38 O2 Flow Rate 2 02/09/25 07:38 BMI result Body Mass Index 33.2 Const: General: cooperative, healthy appearing, comfortable and no acute distress Extrem: Other: Left knee moderate sized suprapatellar effusion. No palpable defect appreciated along the patellar tendon or quad tendon however quad tendon does have some discomfort which may be related to the effusion but can not rule out quad deformity. He does have an inability to straight leg raise which may be compromised from the effusion. Results Labs 02/09/25 05:41 02/09/25 05:41 Labs: Abnormal lab results 02/08/25 02/08/25 02/08/25 Range/Units 13:05 15:27 19:49 WBC 4.2 L (4.8-10.8) X10*3/uL RBC 3.12 L (4.60-5.80) X10*6/uL Hgb 9.0 L (14.0-18.0) g/dl Hct 26.7 L (42.0-52.0) % Plt Count 81 L (160-400) X10*3/uL Immature Gran % (Auto) 0.7 H (0.0-0.4) % Neut % (Auto) 83.0 H (45-73) % Lymph % (Auto) 8.3 L (20-40) % Lymph # (Auto) 0.4 L (1.2-4.9) X10*3/uL ESR 112 H (0-15) MM/HR PT 19.0 H (10.9-12.4) SEC INR 1.7 H (0.9-1.1) Sodium 130 L 131 L (135-145) mmol/L Potassium 2.9 L* (3.3-5.1) mmol/L Carbon Dioxide (22-29) mmol/L Anion Gap 8 L 9 L (12-20) Random Glucose 152 H 173 H (60-115) mg/dL Calcium 8.1 L (8.4-10.2) mg/dL Total Bilirubin 1.2 H (0.0-1.0) mg/dL AST 164 H (5-37) U/L Total Creatine Kinase 653 H (38-174) U/L NT-Pro-B Natriuret Pep (<300) pg/mL Albumin 2.6 L (3.5-5.0) g/dL Urine Blood Trace H (Negative) Ur Leukocyte Esterase Trace H (Negative) Urine RBC 3-5 H (0-2) /HPF Urine Osmolality (373-1093) mosm/kg 02/09/25 02/09/25 Range/Units 00:15 05:41 WBC 3.0 L (4.8-10.8) X10*3/uL RBC 2.87 L (4.60-5.80) X10*6/uL Hgb 8.5 L (14.0-18.0) g/dl Hct 25.2 L (42.0-52.0) % Plt Count 73 L (160-400) X10*3/uL Immature Gran % (Auto) 0.7 H (0.0-0.4) % Neut % (Auto) 80.5 H (45-73) % Lymph % (Auto) 11.2 L (20-40) % Lymph # (Auto) 0.3 L (1.2-4.9) X10*3/uL ESR (0-15) MM/HR PT 19.1 H (10.9-12.4) SEC INR 1.7 H (0.9-1.1) Sodium (135-145) mmol/L Potassium 3.1 L (3.3-5.1) mmol/L Carbon Dioxide 31 H (22-29) mmol/L Anion Gap 7 L (12-20) Random Glucose 163 H (60-115) mg/dL Calcium 7.9 L (8.4-10.2) mg/dL Total Bilirubin (0.0-1.0) mg/dL AST 109 H (5-37) U/L Total Creatine Kinase 289 H (38-174) U/L NT-Pro-B Natriuret Pep 1482.4 H (<300) pg/mL Albumin 2.2 L (3.5-5.0) g/dL Urine Blood (Negative) Ur Leukocyte Esterase (Negative) Urine RBC (0-2) /HPF Urine Osmolality 340 L (373-1093) mosm/kg H & H 02/08/25 02/09/25 Range/Units 13:05 05:41 Hgb 9.0 L 8.5 L (14.0-18.0) g/dl Hct 26.7 L 25.2 L (42.0-52.0) % Coagulation 02/08/25 02/09/25 Range/Units 13:05 05:41 INR 1.7 H 1.7 H (0.9-1.1) All other labs normal. Assessment and Plan (1) Effusion, left knee: Status: Acute Plan Difficult to fully assess quad tendon due to effusion. I recommend an MRI to further assess Plan pending MRI results. Procedures Date of Service Date of Service: 02/09/25
[2025-02-09] MEDS: Lactated Ringers 1,000 ML 125 ML IVCONT ×3 (10:10→22:51)
[2025-02-09] MEDS: Potassium Chloride ER 20 MEQ TAB.ER.PRT 40 MEQ PO (10:34)
[2025-02-09] MEDS: oxyCODONE HCl Immed Release 5 MG TABLET 10 MG PO ×3 (10:50→22:13)
[2025-02-09] MEDS: oxyCODONE HCl ER 10 MG TAB.ER.12H PO ×2 (10:50→20:42)
[2025-02-09 11:14] LABS: Glucose, Whole Blood 108 mg/dL (60-115)
--- NOTE | 2025-02-09 11:35 | W.MHC.ACPN ---
Advanced Care Planning Note Advanced Care Planning Note Discussed with: patient Time spent (in minutes): 35 Narrative: Met the patient this morning, explained to him and asked him to verbalize his current clinical condition. Patient appeared to be in quite a bit of discomfort Patient reported his mom wanted him to be DNR and he does not want extreme measures and does not want to be intubated and he was awake and alert x3, is aware that he had relapsed and hence his current clinical condition. I usually have goals of care conversation with every single patient of mine, patient reports that he and his mom are in [place] and this was witnessed by the bedside RN in the morning Ekaterina Santana and melanie has been updated and is in the chart. He would like to be DNR DNI Problems Discussed (1) Effusion, left knee:
--- NOTE | 2025-02-09 15:36 | MHC.CM.PN ---
PT REPORTS HE LIVES WITH HIS MOTHER AND IS INDEPENDENT AT BASELINE HE HAS A WALKER HE HAS BEEN USING SINCE HIS LAST ADMISSION HE IS ACTIVE WITH [facility] MOJICA FOR MAT HE DOES NOT HAVE A PCP HE REPORTS HE COMPLETED A HCP NAMING HIS MOTHER HIS AGENT-COPY REQUESTED DCP: PT WILL NEED SNF PLACEMENT FOR IV ABX HE WOULD LIKE TO RETURN TO [facility] (DC 5 DAYS [employer] [employer]) BLS TRANSPORT
[2025-02-09 16:21] LABS: Glucose, Whole Blood 153 mg/dL (60-115)
--- NOTE | 2025-02-09 17:05 | PM.EVENT ---
Event Note Date of Service: 02/09/25 Event Note: GI Consult-Full note dictated-History from patient and EMR Imp/Recs 1. Cirrhosis due to Chronic Hep C, previous EtOH abuse, and probable fatty liver. He presently does not show any signs of liver decompensation at this time. Would treat supportively, treat other more acute issues, and I advised him to F/U for Hep C treatment once his acute issues have been resolved. Avoid any aspirin, NSAIDs, and all other blood thinners. Will give a trial of IV Vit K re: elevated INR. Will check an AFP level if none done recently. 2. Gallstones and dilated CBD on U/S. The gallstones seem asymptomatic and I doubt choledocholithiasis, but will check a MRCP as CBD stones left untreated can become a significant problem, especially for this patient with significant liver disease and other comorbidities. Thanks.Will follow here in the hospital. Time Spent With Patient Time: Total time managing care of this patient today ____ minutes.
[2025-02-09] MEDS: methADONE HCl 20 MG/2 ML ORAL.CONC 30 MG PO (18:05)
[2025-02-09 20:07] LABS: Glucose, Whole Blood 181 mg/dL (60-115)
[2025-02-09] MEDS: Albuterol/Iprat 2.5/0.5MG 3 ML AMPUL.NEB INHALE (23:13)
[2025-02-09 23:54] LABS: ABG HCO3 33 mmol/L (22-26); ABG O2 % Saturation 91.0 %
[2025-02-10] VITALS (8 sets, daily range): BP systolic 137–158; BP diastolic 80–92; PULSE 72–100; RESP 12–24; TEMP 36.5–37; O2SAT 92–98
[2025-02-10] MEDS: Furosemide 40 MG/4 ML VIAL 60 MG IVPUSH (00:07)
[2025-02-10 00:13] LABS: MANUAL DIFF FLAG NO
[2025-02-10 00:17] LABS: Hematocrit 31.0 % (42.0-52.0); Hemoglobin 9.8 g/dl (14.0-18.0); Imm Gran Abs Auto 0.04 X10*3/uL (0.00-0.03); Imm Gran Pct Auto 0.7 % (0.0-0.4); Lymphocytes Absolute Auto 0.5 X10*3/uL (1.2-4.9); Mean Corpuscular HGB Conc 31.6 g/dl (31.0-36.0); Mean Corpuscular Hemoglobin 28.7 pg (27.0-33.0); Mean Corpuscular Volume 90.6 fL (80.0-98.0); NRBC Abs Auto 0.000 X10*3/uL (0.0-0.012); NRBC Pct Auto 0.0 /100WBC (0.0-0.2); Platelet Count 102 X10*3/uL (160-400); Red Blood Count 3.42 X10*6/uL (4.60-5.80); White Blood Count 5.4 X10*3/uL (4.8-10.8)
[2025-02-10 00:27] LABS: ABG Refer to POC result
[2025-02-10 00:28] LABS: Alanine Aminotransferase 32 U/L (0-40); Albumin Level 2.4 g/dL (3.5-5.0); Alkaline Phosphatase 54 U/L (39-117); Anion Gap 9 (12-20); Aspartate Amino Transferase 104 U/L (5-37); Blood Urea Nitrogen 10 mg/dL (9-16); Calcium 8.0 mg/dL (8.4-10.2); Carbon Dioxide 29 mmol/L (22-29); Chloride 97 mmol/L (96-108); Creatinine Clr Calc Pharmacy 168.2; Estimated Glomerular Filt Rate > 60; Potassium 3.4 mmol/L (3.3-5.1); Sodium 132 mmol/L (135-145); Total Protein 8.0 g/dL (6.5-8.0)
[2025-02-10 00:35] LABS: NT Pro B Type Natriuretic Pept 2544.5 pg/mL (<300)
--- NOTE | 2025-02-10 01:07 | PC.NURSE ---
pt had increased work of breathing at 2300, VSS. Coarse crackles noted. Respiratory notified that pt requested breathing treatment. Breathing treatment given. Pt still taking shallow breaths. Respitory therapist Melissa contacted MD Murray regarding pt work of breathing and if fluids should be discontinued because pt had elevated BNP. MD Murray put fluids on hold and came bedside to evaluate pt. T 97.6, HR 99, BP 159/87, RR 20, O2 93 2L NC. MD Murray order one time dose lasix, dilaudid and acetaminophen IV. ABG, chest Xray, high flow O2 ordered. Pt placed on telemetry and continuous pulse ox before being tranferred to [facility]. Report given to KERVIN Puentes.
--- NOTE | 2025-02-10 01:38 | CONS_ITS ---
DATE OF SERVICE: 02/09/2025 REASON FOR CONSULTATION: Cirrhosis, gallstones, and abnormal x-ray of biliary tract. HISTORY OF PRESENT ILLNESS: This has been obtained from the patient and the medical record. The patient is a 54-year-old male with known cirrhosis in relation to ongoing chronic active hepatitis C, previous alcohol abuse, and probable fatty liver. The patient was admitted here after a fall and what appears to be a recurrent sepsis. He just recently got out of a long-term rehab facility after 6 weeks of IV antibiotics. The patient does have known cirrhosis based on imaging studies. He has chronic active hepatitis C based on a positive viral load noted during his last admission in December. At that time had a viral load of nearly 1 million. The patient denies ever having been treated for hepatitis C. He has not seen a GI or liver specialist. He denies any history of jaundice. He denies any history of increasing abdominal girth, hematemesis, coffee-ground emesis, melena, or hematochezia. He denies any problems consistent with hepatic encephalopathy as far as he knows. He has had chronic edema in his lower extremities. On this admission, repeat imaging has revealed his known liver disease consistent with cirrhosis with hepatomegaly and splenomegaly and a small amount of ascites. Both the ultrasound and CT scan described gallstones and the ultrasound describes that the common bile duct is 12 mm in diameter. It does not visualize any choledocholithiasis. The patient does have a lot of pains in different parts of his body after his fall, but denies a specific abdominal pain. He denies any recent vomiting or diarrhea. Again, he denies any jaundice. He denies any alcohol use for over 20 years. He describes his last use of IV drugs was prior to the admission over the summer with sepsis. PRESENT MEDICATIONS: Include acetaminophen, guaifenesin, insulin, Toradol, methadone, melatonin, Zofran, IV Zosyn, MiraLAX, potassium, Seroquel, Senokot, sertraline, trazodone, vancomycin. PAST MEDICAL HISTORY: Cirrhosis in relation to chronic hepatitis C and previous alcohol abuse, as well as probable fatty liver. Recent MRSA bacteremia. Diabetes mellitus. History of cellulitis. Alcohol abuse. Chronic hepatitis C. SOCIAL HISTORY: He denies tobacco use, alcohol abuse, and substance abuse as above. FAMILY HISTORY: Noncontributory. REVIEW OF SYSTEMS: CONSTITUTIONAL: He reports that he presently feels poorly with fatigue and overall weakness. CARDIAC: No chest pain other than from his recent fall and fractured ribs. PULMONARY: No coughing nor hemoptysis. GI: As above. URINARY: No reported dysuria, no hematuria. NEUROLOGIC: No reported headaches or seizures. PHYSICAL EXAMINATION: GENERAL: The patient is a chronically ill-appearing male, but in no distress. SKIN: Warm and dry. Nonjaundiced. HEENT: Anicteric sclerae. ABDOMEN: Soft, nondistended, without any definitive ascites. There is no palpable mass. EXTREMITIES: Reveal bilateral chronic edema. LABORATORY DATA: CT and ultrasound findings as above. White blood cell count 3000, hemoglobin 8.5, MCV 88, platelets 73,000. All those values are at their baseline compared to December 2024. PT 19.1 with INR 1.7. Total bilirubin 0.8, AST 109, ALT 30, alkaline phosphatase 43, albumin 2.2. IMPRESSION: The patient is a 54-year-old male with underlying significant liver disease in relation to chronic hepatitis C and alcohol abuse. While he certainly has cirrhosis, he does not show any sign of decompensation at the present time. Specifically, there has been no report of gastrointestinal bleeding, worsening ascites, jaundice, nor any obvious hepatic encephalopathy. I did review with the patient the importance of avoiding alcohol and further substance abuse long-term. We did review the importance of eventually getting treated for the hepatitis C, but this would require an outpatient followup once his acute problems of this admission have resolved. He should avoid all aspirin NSAIDs, and all other blood thinners. I have ordered a trial of a dose of IV vitamin K to see if that could help the elevated INR. I will also check an alpha fetoprotein level. In regard to the presence of the gallstones they seem to be asymptomatic, but given the presence of the dilated common duct on ultrasound I shall check a MRCP as common duct stones left untreated, particularly in a patient with cirrhosis and other comorbidities, can become a significant problem. Certainly, if the MRCP shows significant common duct stones, he would require an eventual ERCP. Thank you for the consultation. MD RADHA Nash/[place] / [id number] [facility]
[2025-02-10] MEDS: 0.9 % Sodium Chloride Flush 3 ML SYRINGE IVFLUSH ×3 (01:40→15:14)
--- NOTE | 2025-02-10 07:00 | CA_ITS ---
Transthoracic Echocardiogram Patient (Last, First, Middle): Stepan Low, Gender: M Date of : 1970 Age: 54 Procedure Date: 02/10/2025 Procedure Type: Transthoracic Echocardiogram Location: [facility] [place] Height: 180.34 cm Weight: 107.5 kg BSA: 2.27 m2 Heart Rate: 65 bpm BP: 148 / 80 mmHg Information Assurance: LOLLY Referring MD: Ashli Dinh [facility] [employer] Machine Operator: Shekhar Barraza MD Symptoms: Bacteremia, positive blood cultures Study Quality: Adequate. Limited, termination of exam ECG Rhythm: PVCs Conclusions: - 1. No obvious vegetation seen on this study 2. Lcyz-gn-avaybvro LV systolic dysfunction with LVEF of 40-45% with wall motion abnormality in RCA territory 3. Cardiac valvular Dopplers within normal limits 4. No gross pericardial effusion Findings Procedure Information The study quality is limited by the patients inability to tolerate the test. Left Ventricle Normal left ventricular cavity size. There is normal left ventricular wall thickness. The left ventricular systolic function is mild to moderately decreased. The visually estimated ejection fraction is between 40-45%. Spectral Doppler is indicative of a normal filling pattern. Wall Motion Rest Echo Findings The inferoseptal wall, the basal inferior, and mid inferior segments are akinetic. All other scored wall segments showed normal motion. Right Ventricle Normal right ventricular cavity size and systolic function. Atria The left atrium is likely dilated. There is no evidence of interatrial shunt. The right atrium is normal in size. Aortic Valve There is mild calcification of the aortic valve. There is mild thickening of the aortic valve. There is no aortic valve stenosis. There is no aortic valve regurgitation. Mitral Valve Normal mitral valve structure and function. There is trace mitral valve regurgitation. There is no mitral valve stenosis. Pulmonic Valve The pulmonic valve is likely normal. There is trace pulmonic valve regurgitation. Tricuspid Valve Likely normal tricuspid valve structure and function. There is trace tricuspid valve regurgitation. The right ventricular systolic pressure is not calculated. Indeterminate right atrial pressure. Great Vessels All visible segments of the aorta are normal in size. The pulmonary artery was not well visualized. Venous The inferior vena cava was not well visualized. Pericardium/Pleural There is no evidence of pericardial effusion. Prior Study Comparison Changes noted compared to prior study dated: 12/17/2024. LV systolic function is reduced with wall motion abnormality noted in RCA territory Recommendations, Care & Conclusions Consider a KIRBY if clinically appropriate. Measurements 2D Linear Measurements IVSd: 1.05 0.6-0.9/0.6-1.0 cm LVIDd: 5.44 3.9-5.3/4.2-5.9 cm LVIDd Index: 2.40 2.4-3.2/2.2-3.1 cm/m2 LVIDs: 4.38 2.0-3.6 cm LVPWd: 0.62 0.7-1.1 cm LA Diam: 4.70 2.7-3.8/3.0-4.0 cm LAIDs Index: 2.07 1.5-2.3 cm/m2 LV Mass: 206.53 67-162/88-224 g LV Mass Index: 90.98 43-95/49-115 g/m2 LVOT Diam: 2.40 3.0+(-)1.3 cm Mitral Valve MV Pk E: 1.02 MV PK A: 1.04 MV Decel Time: 112.00 E/A: 1.00 E'Lateral: 8.59 E'Medial: 5.11 E/E' Med: 20.00 E/E' Lat: 11.90 PHT: 33.00 MVA PHT: 6.67 Decel [place]: 9.13 Aortic Valve AoV Pk Abner: 1.64 AoV Pk Grad: 11.00 LVOT LVOT Pk Abner: 1.38 LVOT Mn Abner: 0.91 LVOT VTI: 0.24 LVOT Pk Grad: 8.00 LVOT Mn Grad: 4.00 LVOT Diam: 2.40 LVOT Area: 4.52 Diastolic Function MV Pk E: 1.02 MV Pk A: 1.04 E/A: 1.00 E'Medial: 5.11 E/E' Med: 20.00 E' Laterial: 8.59 E/E' Lat: 11.90 Right Ventricle TAPSE (mm): 38.60 TVS' Abner: 22.20 Tricuspid Valve TR Pk Abner: 2.32 TR Pk Grad: 22.00 Great Vessels Aorta Sinus of Valsalva: 3.90 2.0-3.5 cm Ao Asc: 3.80 2.1-3.4 cm Pulmonary Valve PV Pk Abner: 1.04 Peak PV Grad: 4.00 Updated in Other Vendor System with Status of Final Shekhar Barraza MD electronically signed on 02/10/2025 12:28:04 PM with status of Final
--- NOTE | 2025-02-10 07:27 | P.PNIM_ITS ---
Subjective Subjective Date of Service: 02/10/25 Interval History: MRCP for obs hepatopathy and MRI joint for tendon rupture ordered by resp dept Pt appears to have more optimal pain control High grade bacteremia ID ocnulted - escalate to dapto TTE ordered, high risk of vegetation Review of Systems Review of Systems: Yes all other systems are reviewed and are negative Physical Exam 2 Exam: Exam: General: AOx3, , pain appears optimally controlled Resp: Bilateral decreased breath sounds, limited secondary to patient's baseline status CVS: Sinus tachycardia, MR TR heart sounds GI: +BS, NT, no distention Neuro: Cranial nerves II-XII grossly intact bilaterally. Motor grossly intact bilaterally Extremities: Bilateral pitting chronic venous stasis changes without any obvious cellulitis, Vital Signs: Vital Signs: Last Vital Signs Temp 98.1 F 02/10/25 04:00 Pulse 89 02/10/25 04:00 Resp 12 02/10/25 04:42 BP 148/80 H 02/10/25 04:00 Pulse Ox 98 02/10/25 04:00 O2 Del Method Nasal Cannula 02/10/25 04:00 O2 Flow Rate 3 02/10/25 04:00 BMI result Body Mass Index 33.2 Extrem: Other: Left knee moderate sized suprapatellar effusion. No palpable defect appreciated along the patellar tendon or quad tendon however quad tendon does have some discomfort which may be related to the effusion but can not rule out quad deformity. He does have an inability to straight leg raise which may be compromised from the effusion. Objective Data Active Medications Acetaminophen (Acetaminophen 325 Mg Tablet) 650 mg PO Q6H PRN PRN Reason: Pain, Mild 1-3,fever,headache Last Admin: 02/10/25 02:08 Dose: 650 mg Documented By: TYREL Albuterol/Ipratropium (Albuterol/Iprat 2.5/0.5mg 3 Ml Ampul.Neb) 3 ml INHALE Q4H PRN PRN Reason: Shortness of Breath/Wheezing Last Admin: 02/09/25 23:13 Dose: 3 ml Documented By: MARSHAFTChaz Bisacodyl (Bisacodyl 10 Mg Supp.Rect) 10 mg NV BEDTIME PRN PRN Reason: Constipation Calcium Carbonate (Calcium Carbonate 750 Mg Tab.Chew) 750 mg PO Q4H PRN PRN Reason: Heartburn Dextrose (Dextrose 50 % 25 Gm/50 Ml Syringe) 25 gm IVPUSH Q15M PRN; Protocol PRN Reason: per Hypoglycemia Standing Ord. Glucose (Glucose Gel 15 Gm Gel..Gram.) 15 gm PO Q15M PRN; Protocol PRN Reason: per Hypoglycemia Standing Ord. Guaifenesin (Guaifenesin 200 Mg/10 Ml 10 Ml Liquid) 10 ml PO Q4H PRN PRN Reason: Cough Lactated Ringer's (Lr) 1,000 mls @ 125 mls/hr IVCONT .Q8H [facility] On Hold: 02/09/25 23:54 Last Admin: 02/09/25 22:51 Dose: 125 mls/hr Documented By: VAZQUEZ Piperacillin Sod/Tazobactam (Sod 4.5 gm/ Sodium Chloride) 100 mls @ 200 mls/hr IV Q6H [facility] Last Infusion: 02/09/25 23:30 Dose: Infused Documented By: VAZQUEZ Vancomycin HCl 1,500 mg/ (Sodium Chloride) 500 mls @ 333.333 mls/hr IV Q12H [facility] Last Infusion: 02/10/25 07:17 Dose: Infused Documented By: TYREL Insulin Human Lispro (Insulin Lispro 100 Unit/Ml 3 Ml Vial) 0 unit SUBCUT QIDACHS [facility]; Protocol Last Admin: 02/09/25 20:42 Dose: 2 unit Documented By: VAZQUEZ Lorazepam (Lorazepam 0.5 Mg Tablet) 0.5 mg PO BID@0900,1800 [facility] Last Admin: 02/09/25 18:06 Dose: 0.5 mg Documented By: CRISPIN Magnesium Hydroxide (Milk Of Magnesia 30 Ml Oral.Susp) 30 ml PO DAILY PRN PRN Reason: Constipation Melatonin (Melatonin 3 Mg Tablet) 6 mg PO BEDTIME PRN PRN Reason: Insomnia Methadone HCl (Methadone Hcl 20 Mg/2 Ml Oral.Conc) 175 mg PO DAILY [facility] Last Admin: 02/09/25 08:14 Dose: 175 mg Documented By: LONG Co-signed By: JAMEEL Methadone HCl (Methadone Hcl 20 Mg/2 Ml Oral.Conc) 30 mg PO DAILY@1800 [facility] Last Admin: 02/09/25 18:05 Dose: 30 mg Documented By: CRISPIN Co-signed By: DEBORAH Methocarbamol (Methocarbamol 500 Mg Tablet) 500 mg PO TID [facility] Last Admin: 02/09/25 20:43 Dose: 500 mg Documented By: VAZQUEZ Omeprazole (Omeprazole 20 Mg Capsule.Dr) 20 mg PO DAILY@0630 [facility] Last Admin: 02/10/25 07:16 Dose: 20 mg Documented By: TYREL Ondansetron HCl (Ondansetron Hcl 4 Mg/2 Ml Vial) 4 mg IVPUSH Q8H PRN PRN Reason: Nausea and Vomiting Oxycodone HCl (Oxycodone Hcl Er 10 Mg Tab.Er.12h) 10 mg PO BID [facility] Last Admin: 02/09/25 20:42 Dose: 10 mg Documented By: VAZQUEZ Oxycodone HCl (Oxycodone Hcl Immed Release 5 Mg Tablet) 10 mg PO Q4H PRN PRN Reason: Pain, Severe (Pain Scale 7-10) Last Admin: 02/09/25 22:13 Dose: 10 mg Documented By: VAZQUEZ Pharmacy Consult (Consult Rx Vancomycin Dosing) 1 each MISCELLANE DAILY PRN PRN Reason: Consult order Polyethylene Glycol (Polyethylene Glycol 3350 17 Gm Powd.Pack) 17 gm PO DAILY [facility] Last Admin: 02/09/25 08:18 Dose: 17 gm Documented By: LONG Quetiapine Fumarate (Quetiapine Fumarate 50 Mg Tablet) 50 mg PO BEDTIME [facility] Last Admin: 02/09/25 20:43 Dose: 50 mg Documented By: VAZQUEZ Senna (Sennosides 8.6 Mg Tablet) 17.2 mg PO BEDTIME [facility] Last Admin: 02/09/25 20:43 Dose: 17.2 mg Documented By: VAZQUEZ Sertraline HCl (Sertraline Hcl 100 Mg Tablet) 100 mg PO DAILY [facility] Sodium Chloride (0.9 % Sodium Chloride Flush 3 Ml Syringe) 3 ml IVFLUSH QSHIFT [facility] Last Admin: 02/10/25 01:40 Dose: 3 ml Documented By: TYREL Trazodone HCl (Trazodone Hcl 50 Mg Tablet) 50 mg PO BEDTIME [facility] Last Admin: 02/09/25 20:43 Dose: 50 mg Documented By: VAZQUEZ Labs 02/10/25 00:09 02/10/25 06:49 Labs: Laboratory Results - last 24 hr 02/09/25 02/09/25 02/09/25 07:33 11:00 15:03 MCV MCH MCHC RDW Plt Count MPV Immature Gran % (Auto) Neut % (Auto) Lymph % (Auto) Sawyer % (Auto) Eos % (Auto) Baso % (Auto) Lymph # (Auto) Sawyer # (Auto) Eos # (Auto) Baso # (Auto) Abs Immat Gran (auto) Absolute Neuts (auto) Absolute Nucleated RBC Nucleated RBC % (auto) O2 Saturation ABG pH at Pt Temp ABG pCO2 at Pt Temp ABG pO2 at Pt Temp ABG HCO3 ABG Base Excess (Actual) Anion Gap Estim Creat Clear Calc Estimated GFR POC Glucose 91 108 Random Glucose Lactic Acid Calcium Total Bilirubin Direct Bilirubin AST ALT Alkaline Phosphatase NT-Pro-B Natriuret Pep Total Protein Albumin Random Vancomycin 12.5 L 02/09/25 02/09/25 02/09/25 16:13 19:57 23:51 MCV MCH MCHC RDW Plt Count MPV Immature Gran % (Auto) Neut % (Auto) Lymph % (Auto) Sawyer % (Auto) Eos % (Auto) Baso % (Auto) Lymph # (Auto) Sawyer # (Auto) Eos # (Auto) Baso # (Auto) Abs Immat Gran (auto) Absolute Neuts (auto) Absolute Nucleated RBC Nucleated RBC % (auto) O2 Saturation 91.0 ABG pH at Pt Temp 7.49 H ABG pCO2 at Pt Temp 43 ABG pO2 at Pt Temp 66 L ABG HCO3 33 H ABG Base Excess (Actual) 9.4 Anion Gap Estim Creat Clear Calc Estimated GFR POC Glucose 153 H 181 H Random Glucose Lactic Acid Calcium Total Bilirubin Direct Bilirubin AST ALT Alkaline Phosphatase NT-Pro-B Natriuret Pep Total Protein Albumin Random Vancomycin 02/10/25 02/10/25 00:09 00:10 MCV 90.6 MCH 28.7 MCHC 31.6 RDW 14.8 Plt Count 102 L D MPV 9.8 Immature Gran % (Auto) 0.7 H Neut % (Auto) 84.4 H Lymph % (Auto) 9.3 L Sawyer % (Auto) 5.2 Eos % (Auto) 0.2 Baso % (Auto) 0.2 Lymph # (Auto) 0.5 L Sawyer # (Auto) 0.3 Eos # (Auto) 0.0 Baso # (Auto) 0.0 Abs Immat Gran (auto) 0.04 H Absolute Neuts (auto) 4.6 Absolute Nucleated RBC 0.000 Nucleated RBC % (auto) 0.0 O2 Saturation ABG pH at Pt Temp ABG pCO2 at Pt Temp ABG pO2 at Pt Temp ABG HCO3 ABG Base Excess (Actual) Anion Gap 9 L Estim Creat Clear Calc 168.2 Estimated GFR > 60 POC Glucose Random Glucose 136 H Lactic Acid 1.3 Calcium 8.0 L Total Bilirubin 1.0 Direct Bilirubin Cancelled AST 104 H ALT 32 Alkaline Phosphatase 54 NT-Pro-B Natriuret Pep 2544.5 H Total Protein 8.0 Albumin 2.4 L Random Vancomycin Microbiology Microbiology Results: Microbiology 02/09/25 08:52 Blood Culture - Preliminary Blood - Venous Prelim: GPC Gram Stain only 02/09/25 08:54 Blood Culture - Preliminary Blood - Venous Prelim: GPC Gram Stain only 02/08/25 13:24 Blood Culture - Preliminary Blood - Venous Prelim: GPC Gram Stain only 02/08/25 13:05 Blood Culture - Preliminary Blood - Venous Prelim: GPC Gram Stain only Assessment and Plan (1) Gram-positive cocci bacteremia: Status: Acute Plan 54 yo male with PMH MRSA bacteremia, IVDA/ JOVI on methadone, hyponatremia (usual level 131), DMII dx in 12/30, cellulitis, liver cirrhosis, portal hypertension, alcohol abuse in remission, abnormal prostate finding on previous CT indicating neoplasm versus abscess, chronic left hip soreness, BIBA after experiencing a traumatic fall. Patient likely relapsed as he was although initially not forthcoming subsequent tox screen showed U tox positive for opioids. Sepsis workup revealed GP bacteremia and further workup ongoing Gram-positive bacteremia-likely MRSA similar to his prior IV DA Patient tested positive for high-grade bacteremia with multi organ failure Repeating blood cultures TTE Escalated abx to Daptomycin with ID co-mx high risk of septic emboli RUQ ultrasound-suggestive of cholelithiasis with gallbladder distention, mild CBD dilation to 12 mm mildly thickened wall, Hep C infection-GI -we will need to avoid aspirin, NSAIDs, given his cirrhosis and high-risk of variceal bleed MRCP done 02/10/25: No obs etiology noted fatty liver Monitor daily LFTs till downtrending OP mx of hep c f/up AFP OP mx for LIN Acute right anterior 4th and 8th ribs without displacement-symptomatic management, pulmonary hygiene, pain control Left knee effusion - tendon rupture r/o with MRI - OP mx of , PTOT, will likely need short-term rehab Pancytopenia-chronic secondary to liver/sepsis/bone marrow disease Not needing transfusion at this time We will follow daily CBC Synthetic liver dysfunction - s/p vit k Hypokalemia-likely secondary to IVDU , replete to goal Hypoalbuminemia-likely secondary to hepatopathy , protein supplement IVDU on methadone Methadone home dose cont Addiction med consulted - appreciate recs This note is constructed using voice recognition software. While every effort has been made to ensure accuracy, document management consultant errors may have been included. Patient is at high-risk of decompensation, with multi organ failure and shock and requires inpatient admission for at least 2-3 more days for clearance of high-grade bacteremia and multiple other issues. Quality Stroke Does the patient have a stroke diagnosis?: No Reason for No Anti-thrombotic by Day Two: Contraindicated VTE Prior VTE?: No VTE Risk Level:: Medical - moderate - high VTE Device Contraindication: N/A - Device Ordered VTE Drug Contraindication: Treatment Not Indicated
[2025-02-10 07:42] LABS: INTERNATIONAL NORM RATIO 1.5 (0.9-1.1); Prothrombin Time 17.3 SEC (10.9-12.4)
[2025-02-10 07:52] LABS: Alanine Aminotransferase 31 U/L (0-40); Albumin Level 2.3 g/dL (3.5-5.0); Alkaline Phosphatase 52 U/L (39-117); Aspartate Amino Transferase 88 U/L (5-37); Creatinine Clr Calc Pharmacy 182.9; Estimated Glomerular Filt Rate > 60; Total Protein 7.8 g/dL (6.5-8.0)
--- NOTE | 2025-02-10 08:42 | MHC.CM.PN ---
CM ATTEMPTED TO MEET WITH PT TO OBTAIN SHOAIB FOR JOYCE MOJICA TO ARRANGE GUEST DOSING AT [facility] IN [place] PT SLEEPING AND DOES NOT WAKE TO ATTEMPTS CURRENT DCP: PT WILL NEED SNF PLACEMENT FOR IV ABX [place] IS PREFERRED AND OFFERING HE WILL NEED GUEST DOSING ARRANGEMENTS AND A LESS THAN 30 DAY ORDER BLS TRANSPORT
[2025-02-10] MEDS: methADONE HCl 20 MG/2 ML ORAL.CONC 175 MG PO (09:18)
[2025-02-10] MEDS: oxyCODONE HCl ER 10 MG TAB.ER.12H PO ×2 (09:21→21:24)
[2025-02-10 09:26] LABS: Glucose, Whole Blood 158 mg/dL (60-115)
--- NOTE | 2025-02-10 10:31 | HO.WOUND ---
Wound Consult: Initial 54yr old?male admitted to [facility] on 02/08/25 - See progress notes and H&P for detailed history.? Wound consult placed for Buttock.? Patient agreeable to assessment and photo documentation.? 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 Right Trochanter Buttock / Sacrum Bruising noted to buttock, sacral are and right trochanter. Tissue remains intact and is consistent with bruise and not pressure. The patient is noted to have low platlets as well. No topical interventions needed at this time. Preventative measure should be employed, HESHAM mattress, Q2hr turns and repositions, barreir cream to buttock due to incontinence and waffle cushion when up to chair. Re-consult wound care Nurse for wound deterioration or wound changes.
[2025-02-10 11:45] LABS: Glucose, Whole Blood 148 mg/dL (60-115)
[2025-02-10] MEDS: oxyCODONE HCl Immed Release 5 MG TABLET 10 MG PO ×2 (13:16→19:32)
--- NOTE | 2025-02-10 13:54 | HO.ADDICTCON ---
History of Present Illness Date of Service: 02/10/2025 Chief Complaint: fall, OM to clavicle Reason for Consult: history of oud Sources of Information: patient interviewed and chart reviewed HPI Narrative: Patient is a 54 year old male who presented to [facility] ED after sustaining a fall on the stairs--patient was recently discharged from [facility] (12/30) to SNF to complete IV abx. History of AUD in remission, liver cirrhosis, DM and OUD. In ED patient was found to have right knee effusion and right rib fractures. Consult requested due to medical admission over the summer with reported fentanyl use at that time. Patient seen by sales support coordinator on 02/09, note reviewed. No issues related to substance use. Concern for pain management. Home dose methadone order in place. Patient seen in room 460. He is awake, alert, appearing weak. He reports ongoing pain, worst is in his ribs. He states that pain medicine has been somewhat helpful, but he is always uncomfortable and just very tired, reporting interrupted sleep. Medical Evaluation Reviewed: Yes Review of Systems Constitutional: Reports as per HPI, Reports difficulty sleeping and Reports weakness Respiratory: Reports pain on inspiration and Reports pain with cough Reports weakness Diagnostics Vital Signs (24Hr): Vital Signs - 24 hr 02/09/25 15:11 02/09/25 19:47 02/09/25 23:17 Temperature 97.3 F 97.4 F Pulse Rate 103 H 100 78 Respiratory Rate 16 18 24 H Blood Pressure 149/74 H 138/80 Pulse Oximetry 92 93 Oxygen Delivery Method Nasal Cannula Room Air Oxygen Flow Rate 2 02/09/25 23:54 02/10/25 00:19 02/10/25 04:00 Temperature 97.6 F 98.1 F Pulse Rate 99 89 Respiratory Rate 20 24 H 12 Blood Pressure 159/87 H 148/80 H Pulse Oximetry 93 98 Oxygen Delivery Method Nasal Cannula Nasal Cannula Oxygen Flow Rate 2 3 02/10/25 04:42 02/10/25 07:36 02/10/25 08:00 Temperature Pulse Rate 99 Respiratory Rate 12 20 14 Blood Pressure 157/91 H Pulse Oximetry 92 Oxygen Delivery Method Room Air Oxygen Flow Rate 02/10/25 11:57 Temperature 97.7 F Pulse Rate 91 Respiratory Rate 18 Blood Pressure 158/92 H Pulse Oximetry 95 Oxygen Delivery Method Nasal Cannula Oxygen Flow Rate 4 BMI result Body Mass Index 33.2 Labs 02/10/25 00:09 02/10/25 06:49 Labs: Laboratory Results - last 48 hr 02/08/25 02/08/25 02/08/25 13:05 13:24 15:27 WBC RBC Hgb Hct MCV MCH MCHC RDW Plt Count MPV Immature Gran % (Auto) Neut % (Auto) Lymph % (Auto) [place] % (Auto) Eos % (Auto) Baso % (Auto) Lymph # (Auto) [place] # (Auto) Eos # (Auto) Baso # (Auto) Abs Immat Gran (auto) Absolute Neuts (auto) Absolute Nucleated RBC Nucleated RBC % (auto) Smear Tech's Comments ESR 112 H PT INR O2 Saturation ABG pH at Pt Temp ABG pCO2 at Pt Temp ABG pO2 at Pt Temp ABG HCO3 ABG Base Excess (Actual) Sodium 130 L Potassium 2.9 L* Chloride 96 Carbon Dioxide 29 Anion Gap 8 L BUN 9 Creatinine 0.58 Estim Creat Clear Calc 181.1 Estimated GFR > 60 POC Glucose Random Glucose 152 H Osmolality Lactic Acid Calcium 8.5 D Magnesium 1.9 Total Bilirubin 1.2 H Direct Bilirubin AST 164 H ALT 36 Alkaline Phosphatase 50 Ammonia Total Creatine Kinase NT-Pro-B Natriuret Pep Total Protein 8.0 Albumin 2.6 L Lipase 14 Urine Color Dark Yellow Urine Appearance Clear Urine pH 6.5 Ur Specific [place] 1.025 Urine Protein Negative Urine Glucose (UA) Negative Urine Ketones Negative Urine Blood Trace H Urine Nitrite Negative Ur Leukocyte Esterase Trace H Urine RBC 3-5 H Urine WBC 0-5 Ur Squamous Epith Cells 0-2 Urine Bacteria None Seen Hyaline Casts 0-2 Urine Osmolality Ur Random Sodium Random Vancomycin Blood Type A Positive Antibody Screen NEGATIVE 02/08/25 02/09/25 02/09/25 19:49 00:15 05:41 WBC 3.0 L RBC 2.87 L Hgb 8.5 L Hct 25.2 L MCV 87.8 MCH 29.6 MCHC 33.7 RDW 14.6 Plt Count 73 L MPV 10.1 Immature Gran % (Auto) 0.7 H Neut % (Auto) 80.5 H Lymph % (Auto) 11.2 L [place] % (Auto) 7.6 Eos % (Auto) 0.0 Baso % (Auto) 0.0 Lymph # (Auto) 0.3 L [place] # (Auto) 0.2 Eos # (Auto) 0.0 Baso # (Auto) 0.0 Abs Immat Gran (auto) 0.02 Absolute Neuts (auto) 2.5 Absolute Nucleated RBC 0.000 Nucleated RBC % (auto) 0.0 Smear Tech's Comments VERIFIED ESR PT 19.1 H INR 1.7 H O2 Saturation ABG pH at Pt Temp ABG pCO2 at Pt Temp ABG pO2 at Pt Temp ABG HCO3 ABG Base Excess (Actual) Sodium 131 L 135 Potassium 3.7 D 3.1 L Chloride 98 100 Carbon Dioxide 28 31 H Anion Gap 9 L 7 L BUN 10 11 Creatinine 0.62 0.55 Estim Creat Clear Calc 169.5 189.6 Estimated GFR > 60 > 60 POC Glucose Random Glucose 173 H 163 H Osmolality 291 Lactic Acid 1.0 Calcium 8.1 L 7.9 L Magnesium Total Bilirubin 0.8 Direct Bilirubin AST 109 H ALT 30 Alkaline Phosphatase 43 Ammonia 53 Total Creatine Kinase 653 H 289 H NT-Pro-B Natriuret Pep 1482.4 H Total Protein 7.1 Albumin 2.2 L Lipase Urine Color Urine Appearance Urine pH Ur Specific [place] Urine Protein Urine Glucose (UA) Urine Ketones Urine Blood Urine Nitrite Ur Leukocyte Esterase Urine RBC Urine WBC Ur Squamous Epith Cells Urine Bacteria Hyaline Casts Urine Osmolality 340 L Ur Random Sodium < 20.0 Random Vancomycin Blood Type Antibody Screen 02/09/25 02/09/25 02/09/25 07:33 11:00 15:03 WBC RBC Hgb Hct MCV MCH MCHC RDW Plt Count MPV Immature Gran % (Auto) Neut % (Auto) Lymph % (Auto) [place] % (Auto) Eos % (Auto) Baso % (Auto) Lymph # (Auto) [place] # (Auto) Eos # (Auto) Baso # (Auto) Abs Immat Gran (auto) Absolute Neuts (auto) Absolute Nucleated RBC Nucleated RBC % (auto) Smear Tech's Comments ESR PT INR O2 Saturation ABG pH at Pt Temp ABG pCO2 at Pt Temp ABG pO2 at Pt Temp ABG HCO3 ABG Base Excess (Actual) Sodium Potassium Chloride Carbon Dioxide Anion Gap BUN Creatinine Estim Creat Clear Calc Estimated GFR POC Glucose 91 108 Random Glucose Osmolality Lactic Acid Calcium Magnesium Total Bilirubin Direct Bilirubin AST ALT Alkaline Phosphatase Ammonia Total Creatine Kinase NT-Pro-B Natriuret Pep Total Protein Albumin Lipase Urine Color Urine Appearance Urine pH Ur Specific [place] Urine Protein Urine Glucose (UA) Urine Ketones Urine Blood Urine Nitrite Ur Leukocyte Esterase Urine RBC Urine WBC Ur Squamous Epith Cells Urine Bacteria Hyaline Casts Urine Osmolality Ur Random Sodium Random Vancomycin 12.5 L Blood Type Antibody Screen 02/09/25 02/09/25 02/09/25 16:13 19:57 23:51 WBC RBC Hgb Hct MCV MCH MCHC RDW Plt Count MPV Immature Gran % (Auto) Neut % (Auto) Lymph % (Auto) [place] % (Auto) Eos % (Auto) Baso % (Auto) Lymph # (Auto) [place] # (Auto) Eos # (Auto) Baso # (Auto) Abs Immat Gran (auto) Absolute Neuts (auto) Absolute Nucleated RBC Nucleated RBC % (auto) Smear Tech's Comments ESR PT INR O2 Saturation 91.0 ABG pH at Pt Temp 7.49 H ABG pCO2 at Pt Temp 43 ABG pO2 at Pt Temp 66 L ABG HCO3 33 H ABG Base Excess (Actual) 9.4 Sodium Potassium Chloride Carbon Dioxide Anion Gap BUN Creatinine Estim Creat Clear Calc Estimated GFR POC Glucose 153 H 181 H Random Glucose Osmolality Lactic Acid Calcium Magnesium Total Bilirubin Direct Bilirubin AST ALT Alkaline Phosphatase Ammonia Total Creatine Kinase NT-Pro-B Natriuret Pep Total Protein Albumin Lipase Urine Color Urine Appearance Urine pH Ur Specific [place] Urine Protein Urine Glucose (UA) Urine Ketones Urine Blood Urine Nitrite Ur Leukocyte Esterase Urine RBC Urine WBC Ur Squamous Epith Cells Urine Bacteria Hyaline Casts Urine Osmolality Ur Random Sodium Random Vancomycin Blood Type Antibody Screen 02/10/25 02/10/25 02/10/25 00:09 00:10 06:48 WBC 5.4 RBC 3.42 L Hgb 9.8 L Hct 31.0 L D MCV 90.6 MCH 28.7 MCHC 31.6 RDW 14.8 Plt Count 102 L D MPV 9.8 Immature Gran % (Auto) 0.7 H Neut % (Auto) 84.4 H Lymph % (Auto) 9.3 L [place] % (Auto) 5.2 Eos % (Auto) 0.2 Baso % (Auto) 0.2 Lymph # (Auto) 0.5 L [place] # (Auto) 0.3 Eos # (Auto) 0.0 Baso # (Auto) 0.0 Abs Immat Gran (auto) 0.04 H Absolute Neuts (auto) 4.6 Absolute Nucleated RBC 0.000 Nucleated RBC % (auto) 0.0 Smear Tech's Comments ESR PT 17.3 H INR 1.5 H O2 Saturation ABG pH at Pt Temp ABG pCO2 at Pt Temp ABG pO2 at Pt Temp ABG HCO3 ABG Base Excess (Actual) Sodium 132 L Potassium 3.4 Chloride 97 Carbon Dioxide 29 Anion Gap 9 L BUN 10 Creatinine 0.62 Estim Creat Clear Calc 168.2 Estimated GFR > 60 POC Glucose Random Glucose 136 H Osmolality Lactic Acid 1.3 Calcium 8.0 L Magnesium Total Bilirubin 1.0 Direct Bilirubin Cancelled AST 104 H ALT 32 Alkaline Phosphatase 54 Ammonia Total Creatine Kinase NT-Pro-B Natriuret Pep 2544.5 H Total Protein 8.0 Albumin 2.4 L Lipase Urine Color Urine Appearance Urine pH Ur Specific [place] Urine Protein Urine Glucose (UA) Urine Ketones Urine Blood Urine Nitrite Ur Leukocyte Esterase Urine RBC Urine WBC Ur Squamous Epith Cells Urine Bacteria Hyaline Casts Urine Osmolality Ur Random Sodium Random Vancomycin Blood Type Antibody Screen 02/10/25 02/10/25 02/10/25 06:49 09:22 11:38 WBC RBC Hgb Hct MCV MCH MCHC RDW Plt Count MPV Immature Gran % (Auto) Neut % (Auto) Lymph % (Auto) [place] % (Auto) Eos % (Auto) Baso % (Auto) Lymph # (Auto) [place] # (Auto) Eos # (Auto) Baso # (Auto) Abs Immat Gran (auto) Absolute Neuts (auto) Absolute Nucleated RBC Nucleated RBC % (auto) Smear Tech's Comments ESR PT INR O2 Saturation ABG pH at Pt Temp ABG pCO2 at Pt Temp ABG pO2 at Pt Temp ABG HCO3 ABG Base Excess (Actual) Sodium Potassium Chloride Carbon Dioxide Anion Gap BUN Creatinine 0.57 Estim Creat Clear Calc 182.9 Estimated GFR > 60 POC Glucose 158 H 148 H Random Glucose Osmolality Lactic Acid Calcium Magnesium Total Bilirubin 0.9 Direct Bilirubin 0.6 H AST 88 H ALT 31 Alkaline Phosphatase 52 Ammonia Total Creatine Kinase NT-Pro-B Natriuret Pep Total Protein 7.8 Albumin 2.3 L Lipase Urine Color Urine Appearance Urine pH Ur Specific [place] Urine Protein Urine Glucose (UA) Urine Ketones Urine Blood Urine Nitrite Ur Leukocyte Esterase Urine RBC Urine WBC Ur Squamous Epith Cells Urine Bacteria Hyaline Casts Urine Osmolality Ur Random Sodium Random Vancomycin Blood Type Antibody Screen Mental Status Exam Mental Status Exam Level of Consciousness: Awake, Appropriate and Alert Patient Behavior: Appropriate and Passive Affect Description: Blunted Speech Pattern: Clear Thought Process: Intact Thought Content: positive for Intact Judgement: Good Medications Medications Current Medications Acetaminophen (Acetaminophen 325 Mg Tablet) 650 mg PO Q6H PRN PRN Reason: Pain, Mild 1-3,fever,headache Last Admin: 02/10/25 02:08 Dose: 650 mg Albuterol/Ipratropium (Albuterol/Iprat 2.5/0.5mg 3 Ml Ampul.Neb) 3 ml INHALE Q4H PRN PRN Reason: Shortness of Breath/Wheezing Last Admin: 02/09/25 23:13 Dose: 3 ml Bisacodyl (Bisacodyl 10 Mg Supp.Rect) 10 mg OH BEDTIME PRN PRN Reason: Constipation Calcium Carbonate (Calcium Carbonate 750 Mg Tab.Chew) 750 mg PO Q4H PRN PRN Reason: Heartburn Dextrose (Dextrose 50 % 25 Gm/50 Ml Syringe) 25 gm IVPUSH Q15M PRN; Protocol PRN Reason: per Hypoglycemia Standing Ord. Glucose (Glucose Gel 15 Gm Gel..Gram.) 15 gm PO Q15M PRN; Protocol PRN Reason: per Hypoglycemia Standing Ord. Guaifenesin (Guaifenesin 200 Mg/10 Ml 10 Ml Liquid) 10 ml PO Q4H PRN PRN Reason: Cough Lactated Ringer's (Lr) 1,000 mls @ 125 mls/hr IVCONT .Q8H PATRICIA On Hold: 02/09/25 23:54 Last Admin: 02/09/25 22:51 Dose: 125 mls/hr Piperacillin Sod/Tazobactam (Sod 4.5 gm/ Sodium Chloride) 100 mls @ 200 mls/hr IV Q6H [facility] Last Infusion: 02/10/25 12:32 Dose: Infused Vancomycin HCl 1,500 mg/ (Sodium Chloride) 500 mls @ 333.333 mls/hr IV Q12H [facility] Last Infusion: 02/10/25 07:17 Dose: Infused Insulin Human Lispro (Insulin Lispro 100 Unit/Ml 3 Ml Vial) 0 unit SUBCUT QIDACHS [facility]; Protocol Last Admin: 02/10/25 11:56 Dose: Not Given Lorazepam (Lorazepam 0.5 Mg Tablet) 0.5 mg PO BID@0900,1800 [facility] Last Admin: 02/10/25 09:20 Dose: 0.5 mg Magnesium Hydroxide (Milk Of Magnesia 30 Ml Oral.Susp) 30 ml PO DAILY PRN PRN Reason: Constipation Melatonin (Melatonin 3 Mg Tablet) 6 mg PO BEDTIME PRN PRN Reason: Insomnia Methadone HCl (Methadone Hcl 20 Mg/2 Ml Oral.Conc) 175 mg PO DAILY [facility] Last Admin: 02/10/25 09:18 Dose: 175 mg Methadone HCl (Methadone Hcl 20 Mg/2 Ml Oral.Conc) 30 mg PO DAILY@1800 [facility] Last Admin: 02/09/25 18:05 Dose: 30 mg Methocarbamol (Methocarbamol 500 Mg Tablet) 500 mg PO TID [facility] Last Admin: 02/10/25 09:20 Dose: 500 mg Omeprazole (Omeprazole 20 Mg Capsule.Dr) 20 mg PO DAILY@0630 [facility] Last Admin: 02/10/25 07:16 Dose: 20 mg Ondansetron HCl (Ondansetron Hcl 4 Mg/2 Ml Vial) 4 mg IVPUSH Q8H PRN PRN Reason: Nausea and Vomiting Oxycodone HCl (Oxycodone Hcl Er 10 Mg Tab.Er.12h) 10 mg PO BID [facility] Last Admin: 02/10/25 09:21 Dose: 10 mg Oxycodone HCl (Oxycodone Hcl Immed Release 5 Mg Tablet) 10 mg PO Q4H PRN PRN Reason: Pain, Severe (Pain Scale 7-10) Last Admin: 02/10/25 13:16 Dose: 10 mg Pharmacy Consult (Consult Rx Vancomycin Dosing) 1 each MISCELLANE DAILY PRN PRN Reason: Consult order Polyethylene Glycol (Polyethylene Glycol 3350 17 Gm Powd.Pack) 17 gm PO DAILY [facility] Last Admin: 02/10/25 09:21 Dose: 17 gm Quetiapine Fumarate (Quetiapine Fumarate 50 Mg Tablet) 50 mg PO BEDTIME [facility] Last Admin: 02/09/25 20:43 Dose: 50 mg Senna (Sennosides 8.6 Mg Tablet) 17.2 mg PO BEDTIME [facility] Last Admin: 02/09/25 20:43 Dose: 17.2 mg Sertraline HCl (Sertraline Hcl 100 Mg Tablet) 100 mg PO DAILY [facility] Last Admin: 02/10/25 09:21 Dose: 100 mg Sodium Chloride (0.9 % Sodium Chloride Flush 3 Ml Syringe) 3 ml IVFLUSH QSHIFT [facility] Last Admin: 02/10/25 09:21 Dose: 3 ml Trazodone HCl (Trazodone Hcl 50 Mg Tablet) 50 mg PO BEDTIME [facility] Last Admin: 02/09/25 20:43 Dose: 50 mg Allergies Allergies Allergy/AdvReac Type Severity Reaction Status Date / Time No Known Allergies (No Known Allergy Verified 02/08/25 12:13 Allergies*) Assessment & Plan Assessment & Plan (1) Opioid use disorder: Status: Acute Code(s): F11.90 - Opioid use, unspecified, uncomplicated Assessment and Plan: home methadone order in place (175mg AM and 30mg in the evening) and patient connected to OTP in the community QTc 503 at admission, avoid additional QT prolonging medications continue PRN pain medications as appropriate. Patient with high opioid tolerance and will likely require higher doses of opiates to address pain effectively. Total time managing care of this patient today _25___ minutes. [facility] Past Medical History Medical History PVD (peripheral vascular disease) Constipation Portal hypertension Splenomegaly Cirrhosis of liver Gallbladder sludge Hyponatremia Lesion of prostate Lesion of prostate Alcohol abuse, in remission Substance use disorder Hepatitis C Opiate dependence Social History Social History Household Members: Family Household Members Other:: mother Housing: House Are you a primary health and social care teacher to a significant other at home: No Do you presently have visiting nurse or other home services: Yes Comment: counts correct Patient Tobacco Use Status: Former Tobacco user Tobacco use type: Cigarette Cigarettes Per Day: 2 Years Smoked: 25 Smoked in Last 30 Days: No e-Cigarette/Vaping Use: Currently Using Second Hand Smoke Exposure: Yes Use of substances other than those prescribed or required for medical reasons: No Substance Use Type: Former Substance User Currently Displaying Signs/Symptoms of Drug Intoxication Withdrawal: No Have you been hit, kicked, punched, or otherwise hurt by someone within the past year? If so, by whom?: No Do you feel safe in your current relationship?: No Is there a partner from a previous relationship who is making you feel unsafe now?: No Are you made to feel afraid or neglected: No Advance Directives: No Advance Directives Information Provided: No Do you have a plan to hurt others: No Plan Recently lost weight without trying: No Eating poorly because of decreased appetite: No Nutrition Risks: No Nutritional Risk Poor oral hygiene: No service: No
--- NOTE | 2025-02-10 16:49 | P.CNID_ITS ---
History of Present Illness Data of Consult Service Date: 02/10/25 Requesting physician: Lyssa Nascimento Primary Care Provider: None Physician HPI Reason for consult: MRSA bacteremia,likely recurrent He presents with arm redness bilaterally with wounds and swelling. He has no fever or chills at this toney He has prior MRSA bacteremia in December and gram positive cocci now x2. Review of Systems 2 Review of Systems: Yes all other systems are reviewed and are negative PMFSH Past Medical History Medical History PVD (peripheral vascular disease) Constipation Portal hypertension Splenomegaly Cirrhosis of liver Gallbladder sludge Hyponatremia Lesion of prostate Lesion of prostate Alcohol abuse, in remission Substance use disorder Hepatitis C Opiate dependence Family History Family history: reviewed and not pertinent Social History Social History Household Members: Family Household Members Other:: mother Housing: House Are you a primary care transitions manager to a significant other at home: No Do you presently have visiting nurse or other home services: Yes Comment: counts correct Patient Tobacco Use Status: Former Tobacco user Tobacco use type: Cigarette Cigarettes Per Day: 2 Years Smoked: 25 Smoked in Last 30 Days: No e-Cigarette/Vaping Use: Currently Using Second Hand Smoke Exposure: Yes Use of substances other than those prescribed or required for medical reasons: No Substance Use Type: Former Substance User Currently Displaying Signs/Symptoms of Drug Intoxication Withdrawal: No Have you been hit, kicked, punched, or otherwise hurt by someone within the past year? If so, by whom?: No Do you feel safe in your current relationship?: No Is there a partner from a previous relationship who is making you feel unsafe now?: No Are you made to feel afraid or neglected: No Advance Directives: No Advance Directives Information Provided: No Do you have a plan to hurt others: No Plan Recently lost weight without trying: No Eating poorly because of decreased appetite: No Nutrition Risks: No Nutritional Risk Poor oral hygiene: No service: No Travel History Ebola Risk: Travel/Contact With Anyone From Affected Area/s: No Has Patient Experienced Ebola Symptoms: No Meds Allergies Allergy/AdvReac Type Severity Reaction Status Date / Time No Known Allergies (No Known Allergy Verified 02/08/25 12:13 Allergies*) Active Medications: Current Medications Acetaminophen (Acetaminophen 325 Mg Tablet) 650 mg PO Q6H PRN PRN Reason: Pain, Mild 1-3,fever,headache Last Admin: 02/10/25 15:09 Dose: 650 mg Albuterol/Ipratropium (Albuterol/Iprat 2.5/0.5mg 3 Ml Ampul.Neb) 3 ml INHALE Q4H PRN PRN Reason: Shortness of Breath/Wheezing Last Admin: 02/09/25 23:13 Dose: 3 ml Bisacodyl (Bisacodyl 10 Mg Supp.Rect) 10 mg IN BEDTIME PRN PRN Reason: Constipation Calcium Carbonate (Calcium Carbonate 750 Mg Tab.Chew) 750 mg PO Q4H PRN PRN Reason: Heartburn Dextrose (Dextrose 50 % 25 Gm/50 Ml Syringe) 25 gm IVPUSH Q15M PRN; Protocol PRN Reason: per Hypoglycemia Standing Ord. Glucose (Glucose Gel 15 Gm Gel..Gram.) 15 gm PO Q15M PRN; Protocol PRN Reason: per Hypoglycemia Standing Ord. Guaifenesin (Guaifenesin 200 Mg/10 Ml 10 Ml Liquid) 10 ml PO Q4H PRN PRN Reason: Cough Lactated Ringer's (Lr) 1,000 mls @ 125 mls/hr IVCONT .Q8H [facility] On Hold: 02/09/25 23:54 Last Admin: 02/09/25 22:51 Dose: 125 mls/hr Piperacillin Sod/Tazobactam (Sod 4.5 gm/ Sodium Chloride) 100 mls @ 200 mls/hr IV Q6H [facility] Last Infusion: 02/10/25 12:32 Dose: Infused Daptomycin 880 mg/ Sodium (Chloride) 67.6 mls @ 94.435 mls/hr IV Q24H [facility] Insulin Human Lispro (Insulin Lispro 100 Unit/Ml 3 Ml Vial) 0 unit SUBCUT QIDACHS [facility]; Protocol Last Admin: 02/10/25 11:56 Dose: Not Given Lorazepam (Lorazepam 0.5 Mg Tablet) 0.5 mg PO BID@0900,1800 [facility] Last Admin: 02/10/25 09:20 Dose: 0.5 mg Magnesium Hydroxide (Milk Of Magnesia 30 Ml Oral.Susp) 30 ml PO DAILY PRN PRN Reason: Constipation Melatonin (Melatonin 3 Mg Tablet) 6 mg PO BEDTIME PRN PRN Reason: Insomnia Methadone HCl (Methadone Hcl 20 Mg/2 Ml Oral.Conc) 175 mg PO DAILY [facility] Last Admin: 02/10/25 09:18 Dose: 175 mg Methadone HCl (Methadone Hcl 20 Mg/2 Ml Oral.Conc) 30 mg PO DAILY@1800 [facility] Last Admin: 02/09/25 18:05 Dose: 30 mg Methocarbamol (Methocarbamol 500 Mg Tablet) 500 mg PO TID [facility] Last Admin: 02/10/25 15:09 Dose: 500 mg Omeprazole (Omeprazole 20 Mg Capsule.Dr) 20 mg PO DAILY@0630 [facility] Last Admin: 02/10/25 07:16 Dose: 20 mg Ondansetron HCl (Ondansetron Hcl 4 Mg/2 Ml Vial) 4 mg IVPUSH Q8H PRN PRN Reason: Nausea and Vomiting Oxycodone HCl (Oxycodone Hcl Er 10 Mg Tab.Er.12h) 10 mg PO BID [facility] Last Admin: 02/10/25 09:21 Dose: 10 mg Oxycodone HCl (Oxycodone Hcl Immed Release 5 Mg Tablet) 10 mg PO Q4H PRN PRN Reason: Pain, Severe (Pain Scale 7-10) Last Admin: 02/10/25 13:16 Dose: 10 mg Polyethylene Glycol (Polyethylene Glycol 3350 17 Gm Powd.Pack) 17 gm PO DAILY [facility] Last Admin: 02/10/25 09:21 Dose: 17 gm Quetiapine Fumarate (Quetiapine Fumarate 50 Mg Tablet) 50 mg PO BEDTIME [facility] Last Admin: 02/09/25 20:43 Dose: 50 mg Senna (Sennosides 8.6 Mg Tablet) 17.2 mg PO BEDTIME [facility] Last Admin: 02/09/25 20:43 Dose: 17.2 mg Sertraline HCl (Sertraline Hcl 100 Mg Tablet) 100 mg PO DAILY [facility] Last Admin: 02/10/25 09:21 Dose: 100 mg Sodium Chloride (0.9 % Sodium Chloride Flush 3 Ml Syringe) 3 ml IVFLUSH QSHIFT [facility] Last Admin: 02/10/25 15:14 Dose: 3 ml Trazodone HCl (Trazodone Hcl 50 Mg Tablet) 50 mg PO BEDTIME [facility] Last Admin: 02/09/25 20:43 Dose: 50 mg Home Medications ?Medication ?Instructions ?Recorded ?Confirmed ?Last Taken ?Type quetiapine 50 mg tablet 50 mg PO BEDTIME 12/15/2402/07/25 20:00 History sertraline 100 mg tablet 100 mg PO DAILY 12/15/2409/2902/07/25 09:00 History trazodone 50 mg tablet 50 mg PO BEDTIME 12/15/2402/07/25 20:00 History methadone 10 mg/mL oral 30 mg PO DAILY@1800 12/16/24 02/08/25 02/07/25 18:00 History concentrate (Methadone Intensol) methadone 10 mg/mL oral 175 mg PO DAILY 12/16/2408/3002/08/25 09:00 History concentrate (Methadone Intensol) lorazepam 0.5 mg tablet (Ativan) 0.5 mg PO BID@0900,18 00 Anxiety 01/27/25 02/09/25 02/07/25 19:30 History ibuprofen 400 mg tablet 400 mg PO Q6H PRN Pain (Scal e 02/09/25 02/09/25 Unknown History Score 1-3) Physical Exam 2 Vital Signs: Vital Signs: Last Vital Signs Temp 97.7 F 02/10/25 11:57 Pulse 91 02/10/25 11:57 Resp 18 02/10/25 11:57 BP 158/92 H 02/10/25 11:57 Pulse Ox 95 02/10/25 11:57 O2 Del Method Nasal Cannula 02/10/25 11:57 O2 Flow Rate 4 02/10/25 11:57 BMI result Body Mass Index 33.2 Const: General: cooperative HEENT: Head: Yes normal to inspection Face and sinus: Yes normal facial exam Mouth: Normal oral and palatal mucosa present Teeth and gingiva: d entition normal Eyes: General: appearance normal, both eyes and all related structures P upils: Equal, round and reactive pupils present Resp: Effort & Inspection: normal respiratory effort Cardio: Rate: regular rate Rhythm: regular rhythm GI: Palpation (GI): Soft to palpation and nontender : General: Yes no CVA tenderness Back/Spine/Pelvis: Back: no CVA tenderness Skin: General skin exam: no rashes or lesions noted Neuro: General: moves all extremities Cranial nerves: Yes Equal, round and reactive pupils present Extrem: Other: bilateral arm erythema left knee swelling General: Yes normal to inspection Psych: Appearance: grossly normal Results Labs 02/10/25 00:09 02/10/25 06:49 Labs: Short CBC 02/10/25 Range/Units 00:09 WBC 5.4 (4.8-10.8) X10*3/uL Hgb 9.8 L (14.0-18.0) g/dl Hct 31.0 L D (42.0-52.0) % Plt Count 102 L D (160-400) X10*3/uL BMP 02/10/25 02/10/25 00:09 06:49 Sodium 132 L Potassium 3.4 Chloride 97 Carbon Dioxide 29 BUN 10 Creatinine 0.62 0.57 Calcium 8.0 L Liver Function 02/10/25 02/10/25 Range/Units 00:09 06:49 Total Bilirubin 1.0 0.9 (0.0-1.0) mg/dL Direct Bilirubin Cancelled 0.6 H AST 104 H 88 H (5-37) U/L ALT 32 31 (0-40) U/L Alkaline Phosphatase 54 52 (39-117) U/L Albumin 2.4 L 2.3 L (3.5-5.0) g/dL Microbiology Microbiology Results: Microbiology 02/09/25 08:54 Blood - Venous Blood Culture - Preliminary Prelim: GPC Gram Stain only 02/09/25 08:52 Blood - Venous Blood Culture - Preliminary Prelim: GPC Gram Stain only 02/08/25 13:24 Blood - Venous Blood Culture - Preliminary Staphylococcus aureus 02/08/25 13:05 Blood - Venous Blood Culture - Preliminary Staphylococcus aureus Assessment and Plan (1) IVDU (intravenous drug user): Status: Acute (2) Opioid use disorder: Status: Acute (3) Gram-positive cocci bacteremia: Status: Acute Plan Continue Daptomycin 10 mg/kg per day 4 weeks likely. Would check TTE Addiction consult. evaluateleft knee for infection if swelling continues.
[2025-02-10 17:14] LABS: Glucose, Whole Blood 149 mg/dL (60-115)
[2025-02-10] MEDS: DAPTOMYCIN IV (18:11)
[2025-02-10] MEDS: methADONE HCl 20 MG/2 ML ORAL.CONC 30 MG PO (18:11)
[2025-02-10] MEDS: SODIUM CHLORIDE 0.9% IV (18:11)
--- NOTE | 2025-02-10 18:27 | PM.EVENT ---
Event Note Date of Service: 02/10/25 Event Note: Knee MRI and MRCP result noted--see result for details, he's already been evaluated by ortho and will get surgery consult for choledocholithiasis Time Spent With Patient Time: Total time managing care of this patient today ____ minutes.
--- NOTE | 2025-02-10 19:36 | PM.EVENT ---
Event Note Date of Service: 02/10/25 Event Note: MRi completed: Extensor mechanism: There is a complex joint effusion. Quadriceps and patellar tendons are intact. There is mild edema in Hoffa's fat pad. There are a small volume of fluid in the deep patellar bursa. Aside from severe OA, No tendon injury. Quad inhibition likely due to effusion. PT - wbat, ROM, quad strength f.u out patient. Time Spent With Patient Time: Total time managing care of this patient today ____ minutes.
[2025-02-10 20:38] LABS: Glucose, Whole Blood 116 mg/dL (60-115)
[2025-02-11] MEDS: oxyCODONE HCl Immed Release 5 MG TABLET 10 MG PO ×3 (00:17→12:52)
[2025-02-11] MEDS: 0.9 % Sodium Chloride Flush 3 ML SYRINGE IVFLUSH ×2 (00:20→17:46)
--- NOTE | 2025-02-11 03:03 | ECG_ITS ---
Test Reason : check qtc Blood Pressure : */* mmHG Vent. Rate : 89 BPM Atrial Rate : 89 BPM P-R Int : 184 ms QRS Dur : 108 ms QT Int : 352 ms P-R-T Axes : 42 42 5 degrees QTcB Int : 428 ms Sinus rhythm with Premature atrial complexes with Aberrant conduction Otherwise normal ECG When compared with ECG of 08-Feb-2025 13:10, Aberrant conduction is now Present QT has shortened Referred By: Juan Victor Electronically Signed By: ALKA ZHANG MD
[2025-02-11 03:18] VITALS: BP 140/84; PULSE 86; RESP 12; TEMP 37.3; O2SAT 96
[2025-02-11 06:14] LABS: Hematocrit 29.1 % (42.0-52.0); Hemoglobin 9.3 g/dl (14.0-18.0); Imm Gran Abs Auto 0.06 X10*3/uL (0.00-0.03); Imm Gran Pct Auto 1.2 % (0.0-0.4); Lymphocytes Absolute Auto 0.7 X10*3/uL (1.2-4.9); MANUAL DIFF FLAG SCAN; Mean Corpuscular HGB Conc 32.0 g/dl (31.0-36.0); Mean Corpuscular Hemoglobin 28.4 pg (27.0-33.0); Mean Corpuscular Volume 88.7 fL (80.0-98.0); NRBC Abs Auto 0.000 X10*3/uL (0.0-0.012); NRBC Pct Auto 0.0 /100WBC (0.0-0.2); Red Blood Count 3.28 X10*6/uL (4.60-5.80); SCAN SMEAR FLAG 1; White Blood Count 5.1 X10*3/uL (4.8-10.8)
[2025-02-11 06:21] LABS: Platelet Count 95 X10*3/uL (160-400)
[2025-02-11 06:22] LABS: INTERNATIONAL NORM RATIO 1.5 (0.9-1.1); Prothrombin Time 17.4 SEC (10.9-12.4)
[2025-02-11 06:39] LABS: Alanine Aminotransferase 21 U/L (0-40); Albumin Level 2.1 g/dL (3.5-5.0); Alkaline Phosphatase 48 U/L (39-117); Anion Gap 9 (12-20); Aspartate Amino Transferase 56 U/L (5-37); Blood Urea Nitrogen 10 mg/dL (9-16); Calcium 8.0 mg/dL (8.4-10.2); Carbon Dioxide 33 mmol/L (22-29); Chloride 96 mmol/L (96-108); Creatinine Clr Calc Pharmacy 189.6; Estimated Glomerular Filt Rate > 60; Magnesium 1.8 mg/dL (1.6-2.6); Potassium 3.3 mmol/L (3.3-5.1); Sodium 135 mmol/L (135-145); Total Protein 7.5 g/dL (6.5-8.0)
[2025-02-11 07:06] LABS: Glucose, Whole Blood 128 mg/dL (60-115)
[2025-02-11 07:14] VITALS: BP 154/87; PULSE 93; RESP 18; TEMP 37.2; O2SAT 97
[2025-02-11] MEDS: methADONE HCl 20 MG/2 ML ORAL.CONC 175 MG PO (08:49)
[2025-02-11] MEDS: oxyCODONE HCl ER 10 MG TAB.ER.12H PO ×2 (08:51→22:19)
[2025-02-11 11:35] LABS: Glucose, Whole Blood 147 mg/dL (60-115)
[2025-02-11 11:38] VITALS: BP 144/87; PULSE 81; RESP 20; TEMP 36.8; O2SAT 97
--- NOTE | 2025-02-11 12:02 | PM.CNGS ---
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 Seen in consult for cholelithiasis and choledocholithiasis. Patient had right upper quadrant suggestive of cholelithiasis with gallbladder distention, there was also some mild common bile duct dilation up to 12 mm, thickened gallbladder wall. Radiology report, question of acute cholecystitis versus wall thickening caused by hypervolemic state due to the patient's cirrhosis. Additionally patient had MRCP with likely small stones in the distal common bile duct measuring 2 or 3 mm. There was no leukocytosis, bilirubin within normal limits, 0.7, mildly elevated AST, ALT and alk-phos within normal limits. When seen today regarding the patient's gallbladder he denies abdominal pain. Denies nausea or vomiting. He does report occasional right upper quadrant pain when he ?eats too much . When discussing options including observation versus surgical intervention. Patient would prefer to not have surgery if possible. On 02/09/2025 there was a note from the hospitalist about advanced care planning, patient does not want extreme measures, now DNR DNI. <Fredi Solis PA-C - Last Filed: 02/11/25 12:19> Review of Systems Review of Systems: Yes all other systems are reviewed and are negative <Fredi Solis PA-C - Last Filed: 02/11/25 12:19> [facility] Past Medical History Medical History: Medical History PVD (peripheral vascular disease) Constipation Portal hypertension Splenomegaly Cirrhosis of liver Gallbladder sludge Hyponatremia Lesion of prostate Lesion of prostate Alcohol abuse, in remission Substance use disorder Hepatitis C Opiate dependence <Fredi Solis PA-C - Last Filed: 02/11/25 12:19> Family History Family history: reviewed and not pertinent <Fredi Solis PA-C - Last Filed: 02/11/25 12:19> Social History Social History: Social History Household Members: Family Household Members Other:: mother Housing: House Are you a primary morning caregiver to a significant other at home: No Do you presently have visiting nurse or other home services: Yes Comment: counts correct Patient Tobacco Use Status: Former Tobacco user Tobacco use type: Cigarette Cigarettes Per Day: 2 Years Smoked: 25 Smoked in Last 30 Days: No e-Cigarette/Vaping Use: Currently Using Second Hand Smoke Exposure: Yes Use of substances other than those prescribed or required for medical reasons: No Substance Use Type: Former Substance User Currently Displaying Signs/Symptoms of Drug Intoxication Withdrawal: No Have you been hit, kicked, punched, or otherwise hurt by someone within the past year? If so, by whom?: No Do you feel safe in your current relationship?: No Is there a partner from a previous relationship who is making you feel unsafe now?: No Are you made to feel afraid or neglected: No Advance Directives: No Advance Directives Information Provided: No Do you have a plan to hurt others: No Plan Recently lost weight without trying: No Eating poorly because of decreased appetite: No Nutrition Risks: No Nutritional Risk Poor oral hygiene: No service: No <Fredi Solis PA-C - Last Filed: 02/11/25 12:19> Travel History Ebola Risk: Travel/Contact With Anyone From Affected Area/s: No <Fredi Solis PA-C - Last Filed: 02/11/25 12:19> Has Patient Experienced Ebola Symptoms: No <Fredi Solis PA-C - Last Filed: 02/11/25 12:19> Meds Allergies/Adverse reactions: Allergies Allergy/AdvReac Type Severity Reaction Status Date / Time No Known Allergies (No Known Allergy Verified 02/08/25 12:13 Allergies*) <Fredi Solis PA-C - Last Filed: 02/11/25 12:19> Active Medications: Current Medications Acetaminophen (Acetaminophen 325 Mg Tablet) 650 mg PO Q6H PRN PRN Reason: Pain, Mild 1-3,fever,headache Last Admin: 02/10/25 15:09 Dose: 650 mg Albuterol/Ipratropium (Albuterol/Iprat 2.5/0.5mg 3 Ml Ampul.Neb) 3 ml INHALE Q4H PRN PRN Reason: Shortness of Breath/Wheezing Last Admin: 02/09/25 23:13 Dose: 3 ml Bisacodyl (Bisacodyl 10 Mg Supp.Rect) 10 mg [place] BEDTIME PRN PRN Reason: Constipation Calcium Carbonate (Calcium Carbonate 750 Mg Tab.Chew) 750 mg PO Q4H PRN PRN Reason: Heartburn Dextrose (Dextrose 50 % 25 Gm/50 Ml Syringe) 25 gm IVPUSH Q15M PRN; Protocol PRN Reason: per Hypoglycemia Standing Ord. Glucose (Glucose Gel 15 Gm Gel..Gram.) 15 gm PO Q15M PRN; Protocol PRN Reason: per Hypoglycemia Standing Ord. Guaifenesin (Guaifenesin 200 Mg/10 Ml 10 Ml Liquid) 10 ml PO Q4H PRN PRN Reason: Cough Lactated Ringer's (Lr) 1,000 mls @ 125 mls/hr IVCONT .Q8H [facility] On Hold: 02/09/25 23:54 Last Infusion: 02/10/25 18:23 Dose: Infused Piperacillin Sod/Tazobactam (Sod 4.5 gm/ Sodium Chloride) 100 mls @ 200 mls/hr IV Q6H [facility] Last Infusion: 02/11/25 04:49 Dose: Infused Daptomycin 880 mg/ Sodium (Chloride) 67.6 mls @ 94.435 mls/hr IV Q24H [facility] Last Infusion: 02/10/25 18:54 Dose: Infused Insulin Human Lispro (Insulin Lispro 100 Unit/Ml 3 Ml Vial) 0 unit SUBCUT QIDACHS [facility]; Protocol Last Admin: 02/11/25 07:53 Dose: Not Given Lorazepam (Lorazepam 0.5 Mg Tablet) 0.5 mg PO BID@0900,1800 [facility] Last Admin: 02/11/25 08:50 Dose: 0.5 mg Magnesium Hydroxide (Milk Of Magnesia 30 Ml Oral.Susp) 30 ml PO DAILY PRN PRN Reason: Constipation Melatonin (Melatonin 3 Mg Tablet) 6 mg PO BEDTIME PRN PRN Reason: Insomnia Methadone HCl (Methadone Hcl 20 Mg/2 Ml Oral.Conc) 175 mg PO DAILY [facility] Last Admin: 02/11/25 08:49 Dose: 175 mg Methadone HCl (Methadone Hcl 20 Mg/2 Ml Oral.Conc) 30 mg PO DAILY@1800 [facility] Last Admin: 02/10/25 18:11 Dose: 30 mg Methocarbamol (Methocarbamol 500 Mg Tablet) 500 mg PO TID [facility] Last Admin: 02/11/25 08:50 Dose: 500 mg Omeprazole (Omeprazole 20 Mg Capsule.Dr) 20 mg PO DAILY@0630 [facility] Last Admin: 02/11/25 06:17 Dose: 20 mg Ondansetron HCl (Ondansetron Hcl 4 Mg/2 Ml Vial) 4 mg IVPUSH Q8H PRN PRN Reason: Nausea and Vomiting Oxycodone HCl (Oxycodone Hcl Er 10 Mg Tab.Er.12h) 10 mg PO BID [facility] Last Admin: 02/11/25 08:51 Dose: 10 mg Oxycodone HCl (Oxycodone Hcl Immed Release 5 Mg Tablet) 10 mg PO Q4H PRN PRN Reason: Pain, Severe (Pain Scale 7-10) Last Admin: 02/11/25 04:21 Dose: 10 mg Polyethylene Glycol (Polyethylene Glycol 3350 17 Gm Powd.Pack) 17 gm PO DAILY [facility] Last Admin: 02/11/25 08:55 Dose: 17 gm Quetiapine Fumarate (Quetiapine Fumarate 50 Mg Tablet) 50 mg PO BEDTIME [facility] Last Admin: 02/10/25 21:24 Dose: 50 mg Senna (Sennosides 8.6 Mg Tablet) 17.2 mg PO BEDTIME [facility] Last Admin: 02/10/25 21:24 Dose: 17.2 mg Sertraline HCl (Sertraline Hcl 100 Mg Tablet) 100 mg PO DAILY [facility] Last Admin: 02/11/25 08:50 Dose: 100 mg Sodium Chloride (0.9 % Sodium Chloride Flush 3 Ml Syringe) 3 ml IVFLUSH QSHIFT [facility] Last Admin: 02/11/25 08:50 Dose: Not Given Trazodone HCl (Trazodone Hcl 50 Mg Tablet) 50 mg PO BEDTIME [facility] Last Admin: 02/10/25 21:23 Dose: 50 mg <Fredi Solis PA-C - Last Filed: 02/11/25 12:19> Home medications: Home Medications ?Medication ?Instructions ?Recorded ?Confirmed ?Last Taken ?Type quetiapine 50 mg tablet 50 mg PO BEDTIME 12/15/24 02/09/25 02/07/25 20:00 History sertraline 100 mg tablet 100 mg PO DAILY 12/15/24 02/09/25 02/07/25 09:00 History trazodone 50 mg tablet 50 mg PO BEDTIME 12/15/24 02/08/25 02/07/25 20:00 History methadone 10 mg/mL oral 30 mg PO DAILY@1800 12/16/24 02/08/25 02/07/25 18:00 History concentrate (Methadone Intensol) methadone 10 mg/mL oral 175 mg PO DAILY 12/16/24 02/08/25 02/08/25 09:00 History concentrate (Methadone Intensol) lorazepam 0.5 mg tablet (Ativan) 0.5 mg PO BID@0900,1800 Anxiety 01/27/25 02/09/25 02/07/25 19:30 History ibuprofen 400 mg tablet 400 mg PO Q6H PRN Pain (Scale 02/09/25 02/09/25 Unknown History Score 1-3) <Fredi Solis PA-C - Last Filed: 02/11/25 12:19> Physical Exam Vital Signs: Vital Signs: Last Vital Signs Temp 98.2 F 02/11/25 11:38 Pulse 81 02/11/25 11:38 Resp 20 02/11/25 11:38 BP 144/87 H 02/11/25 11:38 Pulse Ox 97 02/11/25 11:38 O2 Del Method Nasal Cannula 02/11/25 11:38 O2 Flow Rate 3 02/11/25 11:38 BMI result Body Mass Index 33.2 <CHERI Sawyer Last Filed: 02/11/25 12:19> Const: General: comfortable and no acute distress <CHERI Sawyer Last Filed: 02/11/25 12:19> Nutritional Appearance: obese <CHERI Sawyer Last Filed: 02/11/25 12:19> Orientation/consciousness: patient oriented x3 <CHERI Sawyer Last Filed: 02/11/25 12:19> Eyes: Sclerae: sclerae normal <CHERI Sawyer Last Filed: 02/11/25 12:19> Resp: Effort & Inspection: normal respiratory effort and able to speak in complete sentences <CHERI Sawyer Last Filed: 02/11/25 12:19> GI: Inspection: No distended and Yes obesity <CHERI Sawyer Last Filed: 02/11/25 12:19> Palpation (GI): Soft to palpation, nontender and no guarding <CHERI Sawyer Last Filed: 02/11/25 12:19> Neuro: General: patient oriented x3 <CHERI Sawyer Last Filed: 02/11/25 12:19> Results Labs Result diagrams: 02/11/25 05:53 02/11/25 05:53 <CHERI Sawyer Last Filed: 02/11/25 12:19> Labs: Abnormal lab results 02/08/25 02/10/25 02/10/25 Range/Units 13:24 15:07 17:10 RBC (4.60-5.80) X10*6/uL Hgb (14.0-18.0) g/dl Hct (42.0-52.0) % Plt Count (160-400) X10*3/uL Immature Gran % (Auto) (0.0-0.4) % Neut % (Auto) (45-73) % Lymph % (Auto) (20-40) % Lymph # (Auto) (1.2-4.9) X10*3/uL Abs Immat Gran (auto) (0.00-0.03) X10*3/uL PT (10.9-12.4) SEC INR (0.9-1.1) Carbon Dioxide (22-29) mmol/L Anion Gap (12-20) POC Glucose 149 H (60-115) mg/dL Random Glucose (60-115) mg/dL Calcium (8.4-10.2) mg/dL AST (5-37) U/L C-React Prot High Sens >20.0 H mg/L Albumin (3.5-5.0) g/dL Random Vancomycin 13.2 L (15-20) mcg/mL 02/10/25 02/11/25 02/11/25 Range/Units 20:33 05:53 07:02 RBC 3.28 L (4.60-5.80) X10*6/uL Hgb 9.3 L (14.0-18.0) g/dl Hct 29.1 L (42.0-52.0) % Plt Count 95 L (160-400) X10*3/uL Immature Gran % (Auto) 1.2 H (0.0-0.4) % Neut % (Auto) 78.6 H (45-73) % Lymph % (Auto) 14.3 L (20-40) % Lymph # (Auto) 0.7 L (1.2-4.9) X10*3/uL Abs Immat Gran (auto) 0.06 H (0.00-0.03) X10*3/uL PT 17.4 H (10.9-12.4) SEC INR 1.5 H (0.9-1.1) Carbon Dioxide 33 H (22-29) mmol/L Anion Gap 9 L (12-20) POC Glucose 116 H 128 H (60-115) mg/dL Random Glucose 123 H (60-115) mg/dL Calcium 8.0 L (8.4-10.2) mg/dL AST 56 H (5-37) U/L C-React Prot High Sens mg/L Albumin 2.1 L (3.5-5.0) g/dL Random Vancomycin (15-20) mcg/mL 02/11/25 Range/Units 11:31 RBC (4.60-5.80) X10*6/uL Hgb (14.0-18.0) g/dl Hct (42.0-52.0) % Plt Count (160-400) X10*3/uL Immature Gran % (Auto) (0.0-0.4) % Neut % (Auto) (45-73) % Lymph % (Auto) (20-40) % Lymph # (Auto) (1.2-4.9) X10*3/uL Abs Immat Gran (auto) (0.00-0.03) X10*3/uL PT (10.9-12.4) SEC INR (0.9-1.1) Carbon Dioxide (22-29) mmol/L Anion Gap (12-20) POC Glucose 147 H (60-115) mg/dL Random Glucose (60-115) mg/dL Calcium (8.4-10.2) mg/dL AST (5-37) U/L C-React Prot High Sens mg/L Albumin (3.5-5.0) g/dL Random Vancomycin (15-20) mcg/mL Short CBC 02/11/25 Range/Units 05:53 WBC 5.1 (4.8-10.8) X10*3/uL Hgb 9.3 L (14.0-18.0) g/dl Hct 29.1 L (42.0-52.0) % Plt Count 95 L (160-400) X10*3/uL BMP 02/11/25 05:53 Sodium 135 Potassium 3.3 Chloride 96 Carbon Dioxide 33 H BUN 10 Creatinine 0.55 Calcium 8.0 L Liver Function 02/11/25 Range/Units 05:53 Total Bilirubin 0.7 (0.0-1.0) mg/dL AST 56 H (5-37) U/L ALT 21 (0-40) U/L Alkaline Phosphatase 48 (39-117) U/L Albumin 2.1 L (3.5-5.0) g/dL Urine 02/08/25 Range/Units 15:27 Urine Color Dark Yellow Urine Appearance Clear Urine pH 6.5 (5.0-9.0) Ur Specific [place] 1.025 (1.005-1.025) Urine Protein Negative (Neg-Trace) mg/dL Urine Glucose (UA) Negative (Negative) mg/dL All other labs normal. <Fredi Solis PA-C - Last Filed: 02/11/25 12:19> Assessment and Plan (1) Cholelithiasis: Status: Acute <Fredi Solis PA-C - Last Filed: 02/11/25 12:19> 54-year-old male with multiple medical problems including cirrhosis, hepatitis-C, history of substance abuse, diabetes, IVDA Admitted for weakness, recent fall from rehab Initial imaging studies show gallbladder sludge Patient was sent for an MRCP which showed question of distal CBD stones However, he denies any abdominal pain Abdomen is soft and very benign Bilirubin is normal Consult GI but I am uncertain of the clinical significance of this MRCP findings He is not a surgical candidate in view of his multiple medical problems especially cirrhosis Care as per the hospitalist service Seen and examined independently <Sami Doe MD - Last Filed: 02/11/25 15:06> 54 yo male with PMH MRSA bacteremia, 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 Seen in consult for cholelithiasis and choledocholithiasis. Patient has known cholelithiasis, gallbladder sludge. Right upper quadrant ultrasound showing gallbladder distention, wall thickening radiologist read, unclear if this is due to acute cholecystitis versus wall thickening due to hypervolemic state from patient's cirrhosis. Additionally had MRCP per recommendations from GI showing possible small stones in the distal common bile duct. Labs showing no leukocytosis, bilirubin within normal limits. Very mildly elevated AST, normal ALT and alk-phos, this may be normal due to the patient's chronic liver disease. On exam his abdomen is soft and benign. Not complaining of any pain, nausea or vomiting. We did discuss the option of surgery, patient would like to avoid surgery if possible. For now we can observe, there was no emergent surgical intervention needed. Would recommend following up with GI while inpatient due to possible choledocholithiasis. I did read the most recent GI note who did not think the patient was suggestive of choledocholithiasis and recommended MRCP now given that there has been some possibility of stones in the distal common bile duct may need ERCP but would need to confirm with patient if this is something that he would want to pursue. We will continue to follow along, patient is not a great surgical candidate given his comorbidities but could likely have this done as an outpatient. <Fredi Solis PA-C - Last Filed: 02/11/25 12:19> Procedures Date of Service Date of Service: 02/11/25 <Fredi Solis PA-C - Last Filed: 02/11/25 12:19> 02/11/25 <Sami Doe MD - Last Filed: 02/11/25 15:06>
--- NOTE | 2025-02-11 14:12 | MHC.CM.PN ---
CM MET W/PT TO SIGN [place] CONSENTS FOR GUEST DOSING AT [facility] WHILE AT [facility], CM SPOKE W/A BRISA WHO REQUESTED CONSENTS BE FAXED TO [facility] AT [phone], CONSENTS FAXED TODAY 02/11/25 AT 1407PM. PER HOSPITALIST PLAN FOR REPEAT BC'S ON 02/12/25. ANTIC PT WILL BE READY FOR DC 02/14 VS 02/17, CM WILL CONT TO FOLLOW DC NEEDS.
[2025-02-11 15:18] VITALS: BP 148/91; PULSE 85; RESP 19; TEMP 37.1; O2SAT 97
[2025-02-11 16:25] LABS: Glucose, Whole Blood 130 mg/dL (60-115)
--- NOTE | 2025-02-11 17:24 | P.PNIM_ITS ---
Subjective Subjective Date of Service: 02/11/25 Interval History: afebrile L knee swollen no RUQ pain Review of Systems Review of Systems: Yes all other systems are reviewed and are negative Physical Exam 2 Vital Signs: Vital Signs: Last Vital Signs Temp 98.7 F 02/11/25 15:18 Pulse 85 02/11/25 15:18 Resp 19 02/11/25 15:18 BP 148/91 H 02/11/25 15:18 Pulse Ox 97 02/11/25 15:18 O2 Del Method Nasal Cannula 02/11/25 15:18 O2 Flow Rate 3 02/11/25 15:18 BMI result Body Mass Index 33.2 Gen: in no acute distress HEENT: sclera anicteric, moist mucus membranes Neck: supple Lungs: clear to auscultation bilaterally Heart: regular rate and rhythm, no murmurs Abd: soft, non-tender, non-distended Ext: no edema, L knee swollen Skin: warm/well-perfused Neuro: alert and oriented x3, no focal findings Psych: appropriate affect Objective Data Active Medications Acetaminophen (Acetaminophen 325 Mg Tablet) 650 mg PO Q6H PRN PRN Reason: Pain, Mild 1-3,fever,headache Last Admin: 02/11/25 15:31 Dose: 650 mg Documented By: GISELLA Comments: per pt request Albuterol/Ipratropium (Albuterol/Iprat 2.5/0.5mg 3 Ml Ampul.Neb) 3 ml INHALE Q4H PRN PRN Reason: Shortness of Breath/Wheezing Last Admin: 02/09/25 23:13 Dose: 3 ml Documented By: IMER Bisacodyl (Bisacodyl 10 Mg Supp.Rect) 10 mg ME BEDTIME PRN PRN Reason: Constipation Calcium Carbonate (Calcium Carbonate 750 Mg Tab.Chew) 750 mg PO Q4H PRN PRN Reason: Heartburn Dextrose (Dextrose 50 % 25 Gm/50 Ml Syringe) 25 gm IVPUSH Q15M PRN; Protocol PRN Reason: per Hypoglycemia Standing Ord. Glucose (Glucose Gel 15 Gm Gel..Gram.) 15 gm PO Q15M PRN; Protocol PRN Reason: per Hypoglycemia Standing Ord. Guaifenesin (Guaifenesin 200 Mg/10 Ml 10 Ml Liquid) 10 ml PO Q4H PRN PRN Reason: Cough Lactated Ringer's (Lr) 1,000 mls @ 125 mls/hr IVCONT .Q8H [facility] On Hold: 02/09/25 23:54 Last Infusion: 02/10/25 18:23 Dose: Infused Documented By: GISELLA Piperacillin Sod/Tazobactam (Sod 4.5 gm/ Sodium Chloride) 100 mls @ 200 mls/hr IV Q6H [facility] Last Infusion: 02/11/25 13:11 Dose: Infused Documented By: GISELLA Daptomycin 880 mg/ Sodium (Chloride) 67.6 mls @ 94.435 mls/hr IV Q24H [facility] Last Infusion: 02/10/25 18:54 Dose: Infused Documented By: LESLY Insulin Human Lispro (Insulin Lispro 100 Unit/Ml 3 Ml Vial) 0 unit SUBCUT QIDACHS [facility]; Protocol Last Admin: 02/11/25 12:29 Dose: Not Given Documented By: ANA Non-Admin Reason: No Insulin Coverage Lorazepam (Lorazepam 0.5 Mg Tablet) 0.5 mg PO BID@0900,1800 [facility] Last Admin: 02/11/25 08:50 Dose: 0.5 mg Documented By: ANA Magnesium Hydroxide (Milk Of Magnesia 30 Ml Oral.Susp) 30 ml PO DAILY PRN PRN Reason: Constipation Melatonin (Melatonin 3 Mg Tablet) 6 mg PO BEDTIME PRN PRN Reason: Insomnia Methadone HCl (Methadone Hcl 20 Mg/2 Ml Oral.Conc) 175 mg PO DAILY [facility] Last Admin: 02/11/25 08:49 Dose: 175 mg Documented By: ANA Co-signed By: GISELLA Methadone HCl (Methadone Hcl 20 Mg/2 Ml Oral.Conc) 30 mg PO DAILY@1800 [facility] Last Admin: 02/10/25 18:11 Dose: 30 mg Documented By: GISELLA Co-signed By: NICKOLAS Methocarbamol (Methocarbamol 500 Mg Tablet) 500 mg PO TID [facility] Last Admin: 02/11/25 15:31 Dose: 500 mg Documented By: GISELLA Omeprazole (Omeprazole 20 Mg Capsule.Dr) 20 mg PO DAILY@0630 [facility] Last Admin: 02/11/25 06:17 Dose: 20 mg Documented By: LESLY Ondansetron HCl (Ondansetron Hcl 4 Mg/2 Ml Vial) 4 mg IVPUSH Q8H PRN PRN Reason: Nausea and Vomiting Oxycodone HCl (Oxycodone Hcl Er 10 Mg Tab.Er.12h) 10 mg PO BID [facility] Last Admin: 02/11/25 08:51 Dose: 10 mg Documented By: ANA Oxycodone HCl (Oxycodone Hcl Immed Release 5 Mg Tablet) 10 mg PO Q4H PRN PRN Reason: Pain, Severe (Pain Scale 7-10) Last Admin: 02/11/25 12:52 Dose: 10 mg Documented By: ANA Polyethylene Glycol (Polyethylene Glycol 3350 17 Gm Powd.Pack) 17 gm PO DAILY [facility] Last Admin: 02/11/25 08:55 Dose: 17 gm Documented By: ANA Quetiapine Fumarate (Quetiapine Fumarate 50 Mg Tablet) 50 mg PO BEDTIME [facility] Last Admin: 02/10/25 21:24 Dose: 50 mg Documented By: LESLY Senna (Sennosides 8.6 Mg Tablet) 17.2 mg PO BEDTIME [facility] Last Admin: 02/10/25 21:24 Dose: 17.2 mg Documented By: LESLY Sertraline HCl (Sertraline Hcl 100 Mg Tablet) 100 mg PO DAILY [facility] Last Admin: 02/11/25 08:50 Dose: 100 mg Documented By: ANA Sodium Chloride (0.9 % Sodium Chloride Flush 3 Ml Syringe) 3 ml IVFLUSH QSHIFT [facility] Last Admin: 02/11/25 08:50 Dose: Not Given Documented By: ANA Non-Admin Reason: IV Running Trazodone HCl (Trazodone Hcl 50 Mg Tablet) 50 mg PO BEDTIME [facility] Last Admin: 02/10/25 21:23 Dose: 50 mg Documented By: LESLY Labs 02/11/25 05:53 02/11/25 05:53 Labs: Laboratory Results - last 24 hr 02/10/25 02/11/25 02/11/25 20:33 05:53 07:02 MCV 88.7 MCH 28.4 MCHC 32.0 RDW 14.8 Plt Count 95 L MPV 10.1 Immature Gran % (Auto) 1.2 H Neut % (Auto) 78.6 H Lymph % (Auto) 14.3 L [place] % (Auto) 5.7 Eos % (Auto) 0.2 Baso % (Auto) 0.0 Lymph # (Auto) 0.7 L [place] # (Auto) 0.3 Eos # (Auto) 0.0 Baso # (Auto) 0.0 Abs Immat Gran (auto) 0.06 H Absolute Neuts (auto) 4.0 Absolute Nucleated RBC 0.000 Nucleated RBC % (auto) 0.0 Smear Tech's Comments VERIFIED PT 17.4 H INR 1.5 H Anion Gap 9 L Estim Creat Clear Calc 189.6 Estimated GFR > 60 POC Glucose 116 H 128 H Random Glucose 123 H Calcium 8.0 L Magnesium 1.8 Total Bilirubin 0.7 AST 56 H ALT 21 Alkaline Phosphatase 48 Total Protein 7.5 Albumin 2.1 L 02/11/25 02/11/25 11:31 16:22 MCV MCH MCHC RDW Plt Count MPV Immature Gran % (Auto) Neut % (Auto) Lymph % (Auto) [place] % (Auto) Eos % (Auto) Baso % (Auto) Lymph # (Auto) [place] # (Auto) Eos # (Auto) Baso # (Auto) Abs Immat Gran (auto) Absolute Neuts (auto) Absolute Nucleated RBC Nucleated RBC % (auto) Smear Tech's Comments PT INR Anion Gap Estim Creat Clear Calc Estimated GFR POC Glucose 147 H 130 H Random Glucose Calcium Magnesium Total Bilirubin AST ALT Alkaline Phosphatase Total Protein Albumin Microbiology Microbiology Results: Microbiology 02/09/25 08:54 Blood Culture - Final Blood - Venous Methicillin Res Staph Aureus 02/09/25 08:52 Blood Culture - Final Blood - Venous Methicillin Res Staph Aureus 02/08/25 13:05 Blood Culture - Final Blood - Venous Methicillin Res Staph Aureus 02/08/25 13:24 Blood Culture - Final Blood - Venous Methicillin Res Staph Aureus Assessment and Plan (1) Gram-positive cocci bacteremia: Status: Acute Plan d4, 54yo M with hx MRSA bacteremia, IVDA on methadone, chronic hypoNa, DM2, cirrhosis, portla HTN, alcohol abuse in remission, prostate neoplasm of unknown behavior presented after fall, Utox positive for opioids, found to have MRSA bacteremia MRSA bacteremia cortical destruction and periostitis of the right proximal clavicle, favored to be secondary to osteomyelitis due to right sternoclavicular joint septic arthritis - daptomycin per ID x4 wk, repeat BCx 02/12, TTE without vegetations, PICC 02/14 if 02/12 BCx negative - d/c piperacillin-tazobactam anterior R 7th + 8th acute rib fractures - pain control, pulm toilet L knee effusion - Ortho consulted: Aside from severe OA, No tendon injury. Quad inhibition likely due to effusion. PT - wbat, ROM, quad strength distal choledocholithiasis - asymptomatic, per GI, likely to pass on own chronic HCV - outpt treatment cirrhosis with pancytopenia coagulopathy - CBC stable; INR uncorrectable hypoK - repleted OUD - methadone, Addiction Medicine consulted ground-glass opacity in the right upper lobe and lingula measuring up to 1.5 cm. - repeat CT as outpt in 3 mo mood disorder - sertraline, quetiapine, trazodone, lorazepam DM2 - iveth-dose lispro, hold MTF VTE ppx: enoxaparin dispo: STR In my clinical judgment, the patient requires continued inpatient hospitalization for the following reasons: bacteremia, IV ABX Total time managing care of this patient today: 40 minutes. Quality Stroke Does the patient have a stroke diagnosis?: No Reason for No Anti-thrombotic by Day Two: Contraindicated VTE Prior VTE?: No VTE Risk Level:: Medical - moderate - high VTE Device Contraindication: N/A - Device Ordered VTE Drug Contraindication: Treatment Not Indicated
[2025-02-11] MEDS: Milk of Magnesia 30 ML ORAL.SUSP PO ×2 (17:52→23:15)
[2025-02-11] MEDS: methADONE HCl 20 MG/2 ML ORAL.CONC 30 MG PO (17:53)
[2025-02-11] MEDS: SODIUM CHLORIDE 0.9% IV (18:46)
[2025-02-11] MEDS: DAPTOMYCIN IV (18:46)
[2025-02-11 19:49] VITALS: BP 146/81; PULSE 84; RESP 19; TEMP 36.7; O2SAT 98
[2025-02-11 19:49] LABS: Glucose, Whole Blood 155 mg/dL (60-115)
[2025-02-11 23:25] VITALS: BP 149/79; PULSE 88; RESP 18; TEMP 36.6; O2SAT 97
--- NOTE | 2025-02-11 23:56 | PM.EVENT ---
Event Note Date of Service: 02/11/25 Event Note: GI-Course noted-MRCP reviewed--? of tiny distal CBD stones but no clinical signs of cholangitis or biliary obstruction. Given the questionable findings, the strong possibility that stones that size(if indeed present) could pass on their own without complication, and his current significant acute and chronic comorbidities, I would hold off on ERCP due to the increased risk of anesthesia and his probable poor tolerance to any potential complications of the procedure. I would recommend ERCP only if he develops definitive biliary symptoms such as RUQ pain, development of jaundice, etc. Thanks Time Spent With Patient Time: Total time managing care of this patient today ____ minutes.
[2025-02-12] VITALS (7 sets, daily range): BP systolic 135–157; BP diastolic 76–87; PULSE 68–90; RESP 18–20; TEMP 36.3–36.8; O2SAT 92–98
[2025-02-12] MEDS: oxyCODONE HCl Immed Release 5 MG TABLET 10 MG PO ×5 (00:47→20:19)
[2025-02-12 07:09] LABS: Hematocrit 29.9 % (42.0-52.0); Hemoglobin 9.6 g/dl (14.0-18.0); Imm Gran Abs Auto 0.06 X10*3/uL (0.00-0.03); Imm Gran Pct Auto 1.2 % (0.0-0.4); Lymphocytes Absolute Auto 0.7 X10*3/uL (1.2-4.9); MANUAL DIFF FLAG SCAN; Mean Corpuscular HGB Conc 32.1 g/dl (31.0-36.0); Mean Corpuscular Hemoglobin 28.4 pg (27.0-33.0); Mean Corpuscular Volume 88.5 fL (80.0-98.0); NRBC Abs Auto 0.000 X10*3/uL (0.0-0.012); NRBC Pct Auto 0.0 /100WBC (0.0-0.2); Red Blood Count 3.38 X10*6/uL (4.60-5.80); SCAN SMEAR FLAG 1; White Blood Count 5.1 X10*3/uL (4.8-10.8)
[2025-02-12 07:13] LABS: Platelet Count 99 X10*3/uL (160-400)
[2025-02-12 07:14] LABS: INTERNATIONAL NORM RATIO 1.5 (0.9-1.1); Prothrombin Time 17.1 SEC (10.9-12.4)
[2025-02-12 07:25] LABS: Alanine Aminotransferase 18 U/L (0-40); Albumin Level 2.2 g/dL (3.5-5.0); Alkaline Phosphatase 46 U/L (39-117); Anion Gap 9 (12-20); Aspartate Amino Transferase 49 U/L (5-37); Blood Urea Nitrogen 9 mg/dL (9-16); Calcium 7.9 mg/dL (8.4-10.2); Carbon Dioxide 33 mmol/L (22-29); Chloride 95 mmol/L (96-108); Creatinine Clr Calc Pharmacy 186.2; Estimated Glomerular Filt Rate > 60; Potassium 3.8 mmol/L (3.3-5.1); Sodium 133 mmol/L (135-145); Total Protein 7.8 g/dL (6.5-8.0)
[2025-02-12 07:39] LABS: Glucose, Whole Blood 165 mg/dL (60-115)
[2025-02-12] MEDS: oxyCODONE HCl ER 10 MG TAB.ER.12H PO ×2 (09:05→20:19)
[2025-02-12] MEDS: 0.9 % Sodium Chloride Flush 3 ML SYRINGE IVFLUSH ×3 (09:06→20:42)
[2025-02-12] MEDS: methADONE HCl 20 MG/2 ML ORAL.CONC 175 MG PO (09:06)
[2025-02-12 11:08] LABS: Glucose, Whole Blood 167 mg/dL (60-115)
--- NOTE | 2025-02-12 14:52 | P.PNIM_ITS ---
Subjective Subjective Date of Service: 02/12/25 Interval History: no fever pain controlled O2 weaning down Review of Systems Review of Systems: Yes all other systems are reviewed and are negative Physical Exam 2 Vital Signs: Vital Signs: Last Vital Signs Temp 97.4 F 02/12/25 11:23 Pulse 80 02/12/25 11:23 Resp 18 02/12/25 11:23 BP 135/77 02/12/25 11:23 Pulse Ox 95 02/12/25 11:23 O2 Del Method Room Air 02/12/25 11:23 O2 Flow Rate 1 02/12/25 09:10 BMI result Body Mass Index 33.2 Gen: in no acute distress HEENT: sclera anicteric, moist mucus membranes Neck: supple Lungs: clear to auscultation bilaterally Heart: regular rate and rhythm, no murmurs Abd: soft, non-tender, non-distended Ext: no edema, R clavicle swollen, L knee swollen Skin: warm/well-perfused Neuro: alert and oriented x3, no focal findings Psych: appropriate affect Objective Data Active Medications Acetaminophen (Acetaminophen 325 Mg Tablet) 650 mg PO Q6H PRN PRN Reason: Pain, Mild 1-3,fever,headache Last Admin: 02/11/25 15:31 Dose: 650 mg Documented By: GISELLA Comments: per pt request Albuterol/Ipratropium (Albuterol/Iprat 2.5/0.5mg 3 Ml Ampul.Neb) 3 ml INHALE Q4H PRN PRN Reason: Shortness of Breath/Wheezing Last Admin: 02/09/25 23:13 Dose: 3 ml Documented By: IMER Bisacodyl (Bisacodyl 10 Mg Supp.Rect) 10 mg [place] BEDTIME PRN PRN Reason: Constipation Calcium Carbonate (Calcium Carbonate 750 Mg Tab.Chew) 750 mg PO Q4H PRN PRN Reason: Heartburn Dextrose (Dextrose 50 % 25 Gm/50 Ml Syringe) 25 gm IVPUSH Q15M PRN; Protocol PRN Reason: per Hypoglycemia Standing Ord. Enoxaparin Sodium (Enoxaparin Sodium 40 Mg/0.4 Ml Syringe) 40 mg SUBCUT Q24H [facility] Last Admin: 02/11/25 17:57 Dose: 40 mg Documented By: ANA Glucose (Glucose Gel 15 Gm Gel..Gram.) 15 gm PO Q15M PRN; Protocol PRN Reason: per Hypoglycemia Standing Ord. Guaifenesin (Guaifenesin 200 Mg/10 Ml 10 Ml Liquid) 10 ml PO Q4H PRN PRN Reason: Cough Lactated Ringer's (Lr) 1,000 mls @ 125 mls/hr IVCONT .Q8H [facility] On Hold: 02/09/25 23:54 Last Infusion: 02/10/25 18:23 Dose: Infused Documented By: GISELLA Daptomycin 880 mg/ Sodium (Chloride) 67.6 mls @ 94.435 mls/hr IV Q24H [facility] Last Infusion: 02/11/25 19:38 Dose: Infused Documented By: TYREL Insulin Human Lispro (Insulin Lispro 100 Unit/Ml 3 Ml Vial) 0 unit SUBCUT QIDACHS [facility]; Protocol Last Admin: 02/12/25 11:50 Dose: 2 unit Documented By: JAN Lorazepam (Lorazepam 0.5 Mg Tablet) 0.5 mg PO BID@0900,1800 [facility] Last Admin: 02/12/25 09:05 Dose: 0.5 mg Documented By: JAN Magnesium Hydroxide (Milk Of Magnesia 30 Ml Oral.Susp) 30 ml PO DAILY PRN PRN Reason: Constipation Last Admin: 02/11/25 23:15 Dose: 30 ml Documented By: TYREL Melatonin (Melatonin 3 Mg Tablet) 6 mg PO BEDTIME PRN PRN Reason: Insomnia Methadone HCl (Methadone Hcl 20 Mg/2 Ml Oral.Conc) 175 mg PO DAILY [facility] Last Admin: 02/12/25 09:06 Dose: 175 mg Documented By: JAN Co-signed By: ONEL Methadone HCl (Methadone Hcl 20 Mg/2 Ml Oral.Conc) 30 mg PO DAILY@1800 [facility] Last Admin: 02/11/25 17:53 Dose: 30 mg Documented By: ANA Co-signed By: GISELLA Methocarbamol (Methocarbamol 500 Mg Tablet) 500 mg PO TID [facility] Last Admin: 02/12/25 09:05 Dose: 500 mg Documented By: JAN Omeprazole (Omeprazole 20 Mg Capsule.Dr) 20 mg PO DAILY@0630 [facility] Last Admin: 02/12/25 05:16 Dose: 20 mg Documented By: LENNY Ondansetron HCl (Ondansetron Hcl 4 Mg/2 Ml Vial) 4 mg IVPUSH Q8H PRN PRN Reason: Nausea and Vomiting Oxycodone HCl (Oxycodone Hcl Er 10 Mg Tab.Er.12h) 10 mg PO BID [facility] Last Admin: 02/12/25 09:05 Dose: 10 mg Documented By: JAN Oxycodone HCl (Oxycodone Hcl Immed Release 5 Mg Tablet) 10 mg PO Q4H PRN PRN Reason: Pain, Severe (Pain Scale 7-10) Last Admin: 02/12/25 11:50 Dose: 10 mg Documented By: JAN Polyethylene Glycol (Polyethylene Glycol 3350 17 Gm Powd.Pack) 17 gm PO DAILY [facility] Last Admin: 02/12/25 09:06 Dose: Not Given Documented By: JAN Non-Admin Reason: Patient Refused Quetiapine Fumarate (Quetiapine Fumarate 50 Mg Tablet) 50 mg PO BEDTIME [facility] Last Admin: 02/11/25 22:19 Dose: 50 mg Documented By: TYREL Senna (Sennosides 8.6 Mg Tablet) 17.2 mg PO BEDTIME [facility] Last Admin: 02/11/25 22:19 Dose: 17.2 mg Documented By: TYREL Sertraline HCl (Sertraline Hcl 100 Mg Tablet) 100 mg PO DAILY [facility] Last Admin: 02/12/25 09:05 Dose: 100 mg Documented By: JAN Sodium Chloride (0.9 % Sodium Chloride Flush 3 Ml Syringe) 3 ml IVFLUSH QSHIFT [facility] Last Admin: 02/12/25 09:06 Dose: 3 ml Documented By: JAN Trazodone HCl (Trazodone Hcl 50 Mg Tablet) 50 mg PO BEDTIME [facility] Last Admin: 02/11/25 22:19 Dose: 50 mg Documented By: TYREL Labs 02/12/25 06:56 02/12/25 06:56 Labs: Laboratory Results - last 24 hr 02/11/25 02/11/25 02/12/25 16:22 19:43 06:56 MCV 88.5 MCH 28.4 MCHC 32.1 RDW 15.1 Plt Count 99 L MPV 10.3 Immature Gran % (Auto) 1.2 H Neut % (Auto) 80.7 H Lymph % (Auto) 13.0 L [place] % (Auto) 4.7 Eos % (Auto) 0.2 Baso % (Auto) 0.2 Lymph # (Auto) 0.7 L [place] # (Auto) 0.2 Eos # (Auto) 0.0 Baso # (Auto) 0.0 Abs Immat Gran (auto) 0.06 H Absolute Neuts (auto) 4.2 Absolute Nucleated RBC 0.000 Nucleated RBC % (auto) 0.0 Smear Tech's Comments VERIFIED PT 17.1 H INR 1.5 H Anion Gap 9 L Estim Creat Clear Calc 186.2 Estimated GFR > 60 POC Glucose 130 H 155 H Random Glucose 156 H Calcium 7.9 L Total Bilirubin 0.7 AST 49 H ALT 18 Alkaline Phosphatase 46 Total Protein 7.8 Albumin 2.2 L 02/12/25 02/12/25 07:32 11:00 MCV MCH MCHC RDW Plt Count MPV Immature Gran % (Auto) Neut % (Auto) Lymph % (Auto) [place] % (Auto) Eos % (Auto) Baso % (Auto) Lymph # (Auto) [place] # (Auto) Eos # (Auto) Baso # (Auto) Abs Immat Gran (auto) Absolute Neuts (auto) Absolute Nucleated RBC Nucleated RBC % (auto) Smear Tech's Comments PT INR Anion Gap Estim Creat Clear Calc Estimated GFR POC Glucose 165 H 167 H Random Glucose Calcium Total Bilirubin AST ALT Alkaline Phosphatase Total Protein Albumin Assessment and Plan (1) Gram-positive cocci bacteremia: Status: Acute Plan d5, 54yo M with hx MRSA bacteremia, IVDA on methadone, chronic hypoNa, DM2, cirrhosis, portla HTN, alcohol abuse in remission, prostate neoplasm of unknown behavior presented after fall, Utox positive for opioids, found to have MRSA bacteremia MRSA bacteremia cortical destruction and periostitis of the right proximal clavicle, favored to be secondary to osteomyelitis due to right sternoclavicular joint septic arthritis - daptomycin per ID x4 wk, repeat BCx 02/12, TTE without vegetations, PICC 02/14 if 02/12 BCx negative - d/c'ed piperacillin-tazobactam anterior R 7th + 8th acute rib fractures - pain control, pulm toilet L knee effusion - Ortho consulted: Aside from severe OA, No tendon injury. Quad inhibition likely due to effusion. PT - wbat, ROM, quad strength distal choledocholithiasis - asymptomatic, per GI, likely to pass on own chronic HCV - outpt treatment cirrhosis with pancytopenia coagulopathy - CBC stable; INR uncorrectable hypoK - repleted OUD - methadone, Addiction Medicine consulted ground-glass opacity in the right upper lobe and lingula measuring up to 1.5 cm. - repeat CT as outpt in 3 mo mood disorder - sertraline, quetiapine, trazodone, lorazepam DM2 - iveth-dose lispro, hold MTF VTE ppx: enoxaparin dispo: STR In my clinical judgment, the patient requires continued inpatient hospitalization for the following reasons: bacteremia, IV ABX Total time managing care of this patient today: 35 minutes. Quality Stroke Does the patient have a stroke diagnosis?: No Reason for No Anti-thrombotic by Day Two: Contraindicated VTE Prior VTE?: No VTE Risk Level:: Medical - moderate - high VTE Device Contraindication: N/A - Device Ordered VTE Drug Contraindication: Treatment Not Indicated
--- NOTE | 2025-02-12 15:15 | HO.PM.IMPN ---
Subjective Subjective Date of Service: 02/13/25 Interval History: repeat BCx neg @ 24h; afebrile; good appetite; rib pain controlled Review of Systems Review of Systems: Yes all other systems are reviewed and are negative Physical Exam Vital Signs: Vital Signs: Last Vital Signs Temp 97.4 F 02/12/25 11:23 Pulse 80 02/12/25 11:23 Resp 18 02/12/25 11:23 BP 135/77 02/12/25 11:23 Pulse Ox 95 02/12/25 11:23 O2 Del Method Room Air 02/12/25 11:23 O2 Flow Rate 1 02/12/25 09:10 BMI result Body Mass Index 33.2 Gen: in no acute distress HEENT: sclera anicteric, moist mucus membranes Neck: supple Lungs: clear to auscultation bilaterally Heart: regular rate and rhythm, no murmurs Abd: soft, non-tender, non-distended Ext: no edema, R clavicle swollen, L knee swollen Skin: warm/well-perfused Neuro: alert and oriented x3, no focal findings Psych: appropriate affect Objective Data Active Medications Acetaminophen (Acetaminophen 325 Mg Tablet) 650 mg PO Q6H PRN PRN Reason: Pain, Mild 1-3,fever,headache Last Admin: 02/11/25 15:31 Dose: 650 mg Documented By: GISELLA Comments: per pt request Albuterol/Ipratropium (Albuterol/Iprat 2.5/0.5mg 3 Ml Ampul.Neb) 3 ml INHALE Q4H PRN PRN Reason: Shortness of Breath/Wheezing Last Admin: 02/09/25 23:13 Dose: 3 ml Documented By: MARSHAFTChaz Bisacodyl (Bisacodyl 10 Mg Supp.Rect) 10 mg [place] BEDTIME PRN PRN Reason: Constipation Calcium Carbonate (Calcium Carbonate 750 Mg Tab.Chew) 750 mg PO Q4H PRN PRN Reason: Heartburn Dextrose (Dextrose 50 % 25 Gm/50 Ml Syringe) 25 gm IVPUSH Q15M PRN; Protocol PRN Reason: per Hypoglycemia Standing Ord. Enoxaparin Sodium (Enoxaparin Sodium 40 Mg/0.4 Ml Syringe) 40 mg SUBCUT Q24H [facility] Last Admin: 02/11/25 17:57 Dose: 40 mg Documented By: ANA Glucose (Glucose Gel 15 Gm Gel..Gram.) 15 gm PO Q15M PRN; Protocol PRN Reason: per Hypoglycemia Standing Ord. Guaifenesin (Guaifenesin 200 Mg/10 Ml 10 Ml Liquid) 10 ml PO Q4H PRN PRN Reason: Cough Lactated Ringer's (Lr) 1,000 mls @ 125 mls/hr IVCONT .Q8H [facility] On Hold: 02/09/25 23:54 Last Infusion: 02/10/25 18:23 Dose: Infused Documented By: GISELLA Daptomycin 880 mg/ Sodium (Chloride) 67.6 mls @ 94.435 mls/hr IV Q24H [facility] Last Infusion: 02/11/25 19:38 Dose: Infused Documented By: TYREL Insulin Human Lispro (Insulin Lispro 100 Unit/Ml 3 Ml Vial) 0 unit SUBCUT QIDACHS [facility]; Protocol Last Admin: 02/12/25 11:50 Dose: 2 unit Documented By: JAN Lorazepam (Lorazepam 0.5 Mg Tablet) 0.5 mg PO BID@0900,1800 [facility] Last Admin: 02/12/25 09:05 Dose: 0.5 mg Documented By: JAN Magnesium Hydroxide (Milk Of Magnesia 30 Ml Oral.Susp) 30 ml PO DAILY PRN PRN Reason: Constipation Last Admin: 02/11/25 23:15 Dose: 30 ml Documented By: TYREL Melatonin (Melatonin 3 Mg Tablet) 6 mg PO BEDTIME PRN PRN Reason: Insomnia Methadone HCl (Methadone Hcl 20 Mg/2 Ml Oral.Conc) 175 mg PO DAILY [facility] Last Admin: 02/12/25 09:06 Dose: 175 mg Documented By: JAN Co-signed By: ONEL Methadone HCl (Methadone Hcl 20 Mg/2 Ml Oral.Conc) 30 mg PO DAILY@1800 [facility] Last Admin: 02/11/25 17:53 Dose: 30 mg Documented By: ANA Co-signed By: GISELLA Methocarbamol (Methocarbamol 500 Mg Tablet) 500 mg PO TID [facility] Last Admin: 02/12/25 09:05 Dose: 500 mg Documented By: JAN Omeprazole (Omeprazole 20 Mg Capsule.Dr) 20 mg PO DAILY@0630 [facility] Last Admin: 02/12/25 05:16 Dose: 20 mg Documented By: LENNY Ondansetron HCl (Ondansetron Hcl 4 Mg/2 Ml Vial) 4 mg IVPUSH Q8H PRN PRN Reason: Nausea and Vomiting Oxycodone HCl (Oxycodone Hcl Er 10 Mg Tab.Er.12h) 10 mg PO BID [facility] Last Admin: 02/12/25 09:05 Dose: 10 mg Documented By: JAN Oxycodone HCl (Oxycodone Hcl Immed Release 5 Mg Tablet) 10 mg PO Q4H PRN PRN Reason: Pain, Severe (Pain Scale 7-10) Last Admin: 02/12/25 11:50 Dose: 10 mg Documented By: JAN Polyethylene Glycol (Polyethylene Glycol 3350 17 Gm Powd.Pack) 17 gm PO DAILY [facility] Last Admin: 02/12/25 09:06 Dose: Not Given Documented By: JAN Non-Admin Reason: Patient Refused Quetiapine Fumarate (Quetiapine Fumarate 50 Mg Tablet) 50 mg PO BEDTIME [facility] Last Admin: 02/11/25 22:19 Dose: 50 mg Documented By: TYREL Senna (Sennosides 8.6 Mg Tablet) 17.2 mg PO BEDTIME [facility] Last Admin: 02/11/25 22:19 Dose: 17.2 mg Documented By: TYREL Sertraline HCl (Sertraline Hcl 100 Mg Tablet) 100 mg PO DAILY [facility] Last Admin: 02/12/25 09:05 Dose: 100 mg Documented By: JAN Sodium Chloride (0.9 % Sodium Chloride Flush 3 Ml Syringe) 3 ml IVFLUSH QSHIFT [facility] Last Admin: 02/12/25 09:06 Dose: 3 ml Documented By: JAN Trazodone HCl (Trazodone Hcl 50 Mg Tablet) 50 mg PO BEDTIME [facility] Last Admin: 02/11/25 22:19 Dose: 50 mg Documented By: TYREL Labs 02/13/25 05:34 02/13/25 05:34 Labs: Laboratory Results - last 24 hr 02/11/25 02/11/25 02/12/25 16:22 19:43 06:56 MCV 88.5 MCH 28.4 MCHC 32.1 RDW 15.1 Plt Count 99 L MPV 10.3 Immature Gran % (Auto) 1.2 H Neut % (Auto) 80.7 H Lymph % (Auto) 13.0 L [place] % (Auto) 4.7 Eos % (Auto) 0.2 Baso % (Auto) 0.2 Lymph # (Auto) 0.7 L [place] # (Auto) 0.2 Eos # (Auto) 0.0 Baso # (Auto) 0.0 Abs Immat Gran (auto) 0.06 H Absolute Neuts (auto) 4.2 Absolute Nucleated RBC 0.000 Nucleated RBC % (auto) 0.0 Smear Tech's Comments VERIFIED PT 17.1 H INR 1.5 H Anion Gap 9 L Estim Creat Clear Calc 186.2 Estimated GFR > 60 POC Glucose 130 H 155 H Random Glucose 156 H Calcium 7.9 L Total Bilirubin 0.7 AST 49 H ALT 18 Alkaline Phosphatase 46 Total Protein 7.8 Albumin 2.2 L 02/12/25 02/12/25 07:32 11:00 MCV MCH MCHC RDW Plt Count MPV Immature Gran % (Auto) Neut % (Auto) Lymph % (Auto) [place] % (Auto) Eos % (Auto) Baso % (Auto) Lymph # (Auto) [place] # (Auto) Eos # (Auto) Baso # (Auto) Abs Immat Gran (auto) Absolute Neuts (auto) Absolute Nucleated RBC Nucleated RBC % (auto) Smear Tech's Comments PT INR Anion Gap Estim Creat Clear Calc Estimated GFR POC Glucose 165 H 167 H Random Glucose Calcium Total Bilirubin AST ALT Alkaline Phosphatase Total Protein Albumin Assessment and Plan (1) Gram-positive cocci bacteremia: Status: Acute Plan d6, 54yo M with hx MRSA bacteremia, IVDA on methadone, chronic hypoNa, DM2, cirrhosis, portla HTN, alcohol abuse in remission, prostate neoplasm of unknown behavior presented after fall, Utox positive for opioids, found to have MRSA bacteremia MRSA bacteremia cortical destruction and periostitis of the right proximal clavicle, favored to be secondary to osteomyelitis due to right sternoclavicular joint septic arthritis - daptomycin [or vancomycin] per ID x4 wk from 1st neg culture, repeat BCx 02/12, TTE without vegetations, PICC 02/14 if 02/12 BCx negative - d/c'ed piperacillin-tazobactam anterior R 7th + 8th acute rib fractures - pain control, pulm toilet L knee effusion - Ortho consulted: Aside from severe OA, No tendon injury. Quad inhibition likely due to effusion. PT - wbat, ROM, quad strength distal choledocholithiasis - asymptomatic, per GI, likely to pass on own chronic HCV - outpt treatment cirrhosis with pancytopenia coagulopathy - CBC stable; INR uncorrectable hypoK - repleted OUD - methadone, Addiction Medicine consulted ground-glass opacity in the right upper lobe and lingula measuring up to 1.5 cm. - repeat CT as outpt in 3 mo mood disorder - sertraline, quetiapine, trazodone, lorazepam DM2 - iveth-dose lispro, hold MTF VTE ppx: enoxaparin dispo: STR In my clinical judgment, the patient requires continued inpatient hospitalization for the following reasons: bacteremia, IV ABX Total time managing care of this patient today: 35 minutes. Quality Stroke Does the patient have a stroke diagnosis?: No Reason for No Anti-thrombotic by Day Two: Contraindicated VTE Prior VTE?: No VTE Risk Level:: Medical - moderate - high VTE Device Contraindication: N/A - Device Ordered VTE Drug Contraindication: Treatment Not Indicated
[2025-02-12 16:10] LABS: Glucose, Whole Blood 116 mg/dL (60-115)
[2025-02-12] MEDS: methADONE HCl 20 MG/2 ML ORAL.CONC 30 MG PO (17:54)
[2025-02-12 20:08] LABS: HCV Log PCR 6.38 Log IU/mL (NOT DETECTED); HepC Viral Load 2420000 IU/mL (NOT DETECTED)
[2025-02-12 20:09] LABS: Glucose, Whole Blood 160 mg/dL (60-115)
[2025-02-12] MEDS: DAPTOMYCIN IV (20:42)
[2025-02-12] MEDS: SODIUM CHLORIDE 0.9% IV (20:42)
[2025-02-13] MEDS: oxyCODONE HCl Immed Release 5 MG TABLET 10 MG PO ×6 (00:43→21:05)
[2025-02-13 04:00] VITALS: BP 136/75; PULSE 83; RESP 16; TEMP 37.1; O2SAT 97
[2025-02-13 06:02] LABS: INTERNATIONAL NORM RATIO 1.5 (0.9-1.1); Prothrombin Time 16.8 SEC (10.9-12.4)
[2025-02-13 06:03] LABS: Alanine Aminotransferase 17 U/L (0-40); Albumin Level 2.1 g/dL (3.5-5.0); Alkaline Phosphatase 52 U/L (39-117); Anion Gap 9 (12-20); Aspartate Amino Transferase 51 U/L (5-37); Blood Urea Nitrogen 7 mg/dL (9-16); Calcium 8.0 mg/dL (8.4-10.2); Carbon Dioxide 30 mmol/L (22-29); Chloride 96 mmol/L (96-108); Creatinine Clr Calc Pharmacy 200.5; Estimated Glomerular Filt Rate > 60; Potassium 3.9 mmol/L (3.3-5.1); Sodium 131 mmol/L (135-145); Total Protein 8.0 g/dL (6.5-8.0)
[2025-02-13 06:09] LABS: Hematocrit 29.4 % (42.0-52.0); Hemoglobin 9.6 g/dl (14.0-18.0); Imm Gran Abs Auto 0.13 X10*3/uL (0.00-0.03); Imm Gran Pct Auto 2.4 % (0.0-0.4); Lymphocytes Absolute Auto 0.9 X10*3/uL (1.2-4.9); MANUAL DIFF FLAG SCAN; Mean Corpuscular HGB Conc 32.7 g/dl (31.0-36.0); Mean Corpuscular Hemoglobin 28.7 pg (27.0-33.0); Mean Corpuscular Volume 87.8 fL (80.0-98.0); NRBC Abs Auto 0.000 X10*3/uL (0.0-0.012); NRBC Pct Auto 0.0 /100WBC (0.0-0.2); Platelet Count 111 X10*3/uL (160-400); Red Blood Count 3.35 X10*6/uL (4.60-5.80); SCAN SMEAR FLAG 1; White Blood Count 5.5 X10*3/uL (4.8-10.8)
[2025-02-13 07:25] VITALS: BP 157/84; PULSE 89; RESP 18; TEMP 36; O2SAT 93
[2025-02-13 08:03] LABS: Glucose, Whole Blood 116 mg/dL (60-115)
[2025-02-13] MEDS: oxyCODONE HCl ER 10 MG TAB.ER.12H PO ×2 (08:10→19:38)
[2025-02-13] MEDS: methADONE HCl 20 MG/2 ML ORAL.CONC 175 MG PO (08:12)
[2025-02-13] MEDS: 0.9 % Sodium Chloride Flush 3 ML SYRINGE IVFLUSH ×3 (08:15→21:09)
[2025-02-13 11:13] LABS: Glucose, Whole Blood 170 mg/dL (60-115)
[2025-02-13 12:00] VITALS: BP 140/85; PULSE 75; RESP 16; TEMP 36.2; O2SAT 94
[2025-02-13] MEDS: vancomycin/NS 2,000 MG/500 ML PLAST..BAG 250 MG IV (12:19)
--- NOTE | 2025-02-13 12:50 | P.CDIM_ITS ---
PROVIDER RESPONSE TEXT: To clarify, the appropriate diagnosis supported by the clinical indicators: Acute osteomyelitis QUERY TEXT: PHYSICIAN'S DOCUMENTATION REQUEST Date of Query: 02/12/2025 06:59 AM EDT Patient Name: Stepan Low Admit Date: 02/08/2025 Dear Mariola Chen MD, A review of the medical record indicates additional documentation may be needed. Please review below and update the documentation accordingly. Clinical Indicators: Progress note 02/11/25 - MRSA bacteremia Cortical destruction and periostitis of the right proximal clavicle, favored to be secondary to osteomyelitis due to right sternoclavicular joint septic arthritis. Daptomycin per ID x 4 wk, repeat BCx 02/12 PICC line 02/14 if BC negative. Based on the above, please clarify in the Progress Notes further specificity regarding the acuity of the documented Osteomyelitis. Acute osteomyelitis Subacute osteomyelitis Chronic osteomyelitis Chronic multifocal osteomyelitis Other (explain) Clinically unable to determine (explain) Thank you, Fadia Hyatt, CCS, CDIS Use of terms such as suspected, likely, concern for, or probable (associated with a specific diagnosis that is being evaluated, monitored, or treated as if it exists) are acceptable and can be coded in the inpatient setting, when documented at the time of discharge. Please use your independent medical judgment in providing your response. THIS QUERY IS PART OF THE PERMANENT MEDICAL RECORD
--- NOTE | 2025-02-13 13:05 | PHA.PROG ---
Admission Date/Time: February 08, 2025 19:07 Indication: Bacteremia Weight in k.9 kg Adjusted body weight in Kg: [place] body weight in Kg: Obesity Dosing Indication % IBW: Serum Creatinine - Last 168 Hours 02/08/25 02/08/25 02/09/25 13:05 19:49 05:41 Creatinine 0.58 0.62 0.55 02/10/25 02/10/25 02/11/25 00:09 06:49 05:53 Creatinine 0.62 0.57 0.55 02/12/25 02/13/25 06:56 05:34 Creatinine 0.56 0.52 Estimated CrCl and GFR - Last 168 Hours 02/08/25 02/08/25 02/09/25 13:05 19:49 05:41 Estim Creat Clear Calc 181.1 169.5 189.6 Estimated GFR > 60 > 60 > 60 02/10/25 02/10/25 02/11/25 00:09 06:49 05:53 Estim Creat Clear Calc 168.2 182.9 189.6 Estimated GFR > 60 > 60 > 60 02/12/25 02/13/25 06:56 05:34 Estim Creat Clear Calc 186.2 200.5 Estimated GFR > 60 > 60 Vancomycin Loading Dose: 2000 mg Current Vancomycin Dosing Regimen: 1500 mg Q12H Vancomycin Monitoring using AUC goal of 400 - 600 range with trough as surrogate marker: Predicted AUC 551 and trough 17.2 Date and Time for next Vancomycin Level to be drawn: 02/14 @1000 after second dose. Pharmacist Comments on Vancomycin Plan: Patient will be returning to [facility] on vancomycin per Dr. Chen. Vancomycin dosing will take advantage of [employer] as a clinical decision support tool that uses Bayesian modeling to calculate individual patient's pharmacokinetic parameters and forecast the patient's drug concentration time course with the target goal AUC 24 range of 400 - 600 mg/L/hr.
--- NOTE | 2025-02-13 13:53 | MHC.CM.PN ---
[facility] not able to accept patient at this time, as [facility] is temporarily not taking referrals from SNF's for guest dosing. Patient accepted bed at [facility]. Guest dosing initiated w/ [facility]. [facility] fax @ [phone] at 1:53pm. SHOAIB's signed by patient and were sent to Belkis @ [facility] via email ([email or web address]) with request for guest dosing form w/ start date of 02/15 be sent to [facility] and to this CM. Also LM for [facility] to discuss ([phone]). This CM requested that [facility] initiate auth, goal dc tomorrow.
[2025-02-13 15:42] VITALS: BP 148/88; PULSE 78; RESP 16; TEMP 36.6; O2SAT 96
[2025-02-13 16:32] LABS: Glucose, Whole Blood 105 mg/dL (60-115)
[2025-02-13] MEDS: methADONE HCl 20 MG/2 ML ORAL.CONC 30 MG PO (17:16)
[2025-02-13 19:20] VITALS: BP 152/85; PULSE 84; RESP 20; TEMP 36.6; O2SAT 97
[2025-02-13 19:27] LABS: Glucose, Whole Blood 175 mg/dL (60-115)
[2025-02-14] VITALS (8 sets, daily range): BP systolic 132–154; BP diastolic 73–82; PULSE 68–89; RESP 12–20; TEMP 36–37.2; O2SAT 94–99
[2025-02-14] MEDS: oxyCODONE HCl Immed Release 5 MG TABLET 10 MG PO ×6 (01:04→23:10)
[2025-02-14 06:14] LABS: Anion Gap 6 (12-20); Blood Urea Nitrogen 11 mg/dL (9-16); Calcium 7.9 mg/dL (8.4-10.2); Carbon Dioxide 30 mmol/L (22-29); Chloride 99 mmol/L (96-108); Creatinine Clr Calc Pharmacy 196.7; Estimated Glomerular Filt Rate > 60; Potassium 3.9 mmol/L (3.3-5.1); Sodium 131 mmol/L (135-145)
[2025-02-14 07:19] LABS: Glucose, Whole Blood 90 mg/dL (60-115)
[2025-02-14] MEDS: oxyCODONE HCl ER 10 MG TAB.ER.12H PO (07:56)
[2025-02-14] MEDS: 0.9 % Sodium Chloride Flush 3 ML SYRINGE IVFLUSH (07:56)
[2025-02-14] MEDS: methADONE HCl 20 MG/2 ML ORAL.CONC 175 MG PO (07:57)
--- NOTE | 2025-02-14 09:55 | P.PNIM_ITS ---
Subjective Subjective Date of Service: 02/14/25 Interval History: no fever, rib pain improved; clavicle pain improved; BCx neg @ 48hr; awaiting PICC + rehab Review of Systems Review of Systems: Yes all other systems are reviewed and are negative Physical Exam 2 Vital Signs: Vital Signs: Last Vital Signs Temp 96.8 F 02/14/25 07:44 Pulse 86 02/14/25 07:44 Resp 16 02/14/25 07:44 BP 140/73 H 02/14/25 07:44 Pulse Ox 96 02/14/25 07:44 O2 Del Method Room Air 02/14/25 07:44 O2 Flow Rate 1 02/12/25 09:10 BMI result Body Mass Index 33.2 Gen: in no acute distress HEENT: sclera anicteric, moist mucus membranes Neck: supple Lungs: clear to auscultation bilaterally Heart: regular rate and rhythm, no murmurs Abd: soft, non-tender, non-distended Ext: no edema, R clavicle swollen, L knee swollen Skin: warm/well-perfused Neuro: alert and oriented x3, no focal findings Psych: appropriate affect Objective Data Active Medications Acetaminophen (Acetaminophen 325 Mg Tablet) 650 mg PO Q6H PRN PRN Reason: Pain, Mild 1-3,fever,headache Last Admin: 02/14/25 08:40 Dose: 650 mg Documented By: YUNI Albuterol/Ipratropium (Albuterol/Iprat 2.5/0.5mg 3 Ml Ampul.Neb) 3 ml INHALE Q4H PRN PRN Reason: Shortness of Breath/Wheezing Last Admin: 02/09/25 23:13 Dose: 3 ml Documented By: SWIFTChaz Bisacodyl (Bisacodyl 10 Mg Supp.Rect) 10 mg HI BEDTIME PRN PRN Reason: Constipation Calcium Carbonate (Calcium Carbonate 750 Mg Tab.Chew) 750 mg PO Q4H PRN PRN Reason: Heartburn Dextrose (Dextrose 50 % 25 Gm/50 Ml Syringe) 25 gm IVPUSH Q15M PRN; Protocol PRN Reason: per Hypoglycemia Standing Ord. Enoxaparin Sodium (Enoxaparin Sodium 40 Mg/0.4 Ml Syringe) 40 mg SUBCUT Q24H PATRICIA Last Admin: 02/13/25 17:16 Dose: 40 mg Documented By: LOBO Glucose (Glucose Gel 15 Gm Gel..Gram.) 15 gm PO Q15M PRN; Protocol PRN Reason: per Hypoglycemia Standing Ord. Guaifenesin (Guaifenesin 200 Mg/10 Ml 10 Ml Liquid) 10 ml PO Q4H PRN PRN Reason: Cough Lactated Ringer's (Lr) 1,000 mls @ 125 mls/hr IVCONT .Q8H [facility] On Hold: 02/09/25 23:54 Last Infusion: 02/10/25 18:23 Dose: Infused Documented By: GISELLA Vancomycin HCl 1,500 mg/ (Sodium Chloride) 500 mls @ 333.333 mls/hr IV Q12H [facility] Last Infusion: 02/14/25 01:06 Dose: Infused Documented By: TERESSA Insulin Human Lispro (Insulin Lispro 100 Unit/Ml 3 Ml Vial) 0 unit SUBCUT QIDACHS [facility]; Protocol Last Admin: 02/14/25 07:44 Dose: Not Given Documented By: LOBO Non-Admin Reason: No Insulin Coverage Lorazepam (Lorazepam 0.5 Mg Tablet) 0.5 mg PO BID@0900,1800 [facility] Last Admin: 02/14/25 07:56 Dose: 0.5 mg Documented By: YUNI Magnesium Hydroxide (Milk Of Magnesia 30 Ml Oral.Susp) 30 ml PO DAILY PRN PRN Reason: Constipation Last Admin: 02/11/25 23:15 Dose: 30 ml Documented By: TYREL Melatonin (Melatonin 3 Mg Tablet) 6 mg PO BEDTIME PRN PRN Reason: Insomnia Methadone HCl (Methadone Hcl 20 Mg/2 Ml Oral.Conc) 175 mg PO DAILY [facility] Last Admin: 02/14/25 07:57 Dose: 175 mg Documented By: YUNI Co-signed By: DEBORAH Methadone HCl (Methadone Hcl 20 Mg/2 Ml Oral.Conc) 30 mg PO DAILY@1800 [facility] Last Admin: 02/13/25 17:16 Dose: 30 mg Documented By: LOBO Co-signed By: CRISPIN Methocarbamol (Methocarbamol 500 Mg Tablet) 500 mg PO TID [facility] Last Admin: 02/14/25 07:56 Dose: 500 mg Documented By: YUNI Nystatin (Nystatin Powder 15 Gm Bottle) 1 appl TOPICAL TID [facility]; Protocol Last Admin: 02/14/25 08:01 Dose: 1 appl Documented By: YUNI Omeprazole (Omeprazole 20 Mg Capsule.Dr) 20 mg PO DAILY@0630 [facility] Last Admin: 02/14/25 04:58 Dose: 20 mg Documented By: TERESSA Ondansetron HCl (Ondansetron Hcl 4 Mg/2 Ml Vial) 4 mg IVPUSH Q8H PRN PRN Reason: Nausea and Vomiting Oxycodone HCl (Oxycodone Hcl Er 10 Mg Tab.Er.12h) 10 mg PO BID [facility] Last Admin: 02/14/25 07:56 Dose: 10 mg Documented By: YUNI Oxycodone HCl (Oxycodone Hcl Immed Release 5 Mg Tablet) 10 mg PO Q4H PRN PRN Reason: Pain, Severe (Pain Scale 7-10) Last Admin: 02/14/25 08:40 Dose: 10 mg Documented By: YUNI Pharmacy Consult (Consult Rx Vancomycin Dosing) 1 each MISCELLANE DAILY PRN PRN Reason: Consult order Polyethylene Glycol (Polyethylene Glycol 3350 17 Gm Powd.Pack) 17 gm PO DAILY [facility] Last Admin: 02/14/25 08:41 Dose: Not Given Documented By: YUNI Non-Admin Reason: Patient Refused Quetiapine Fumarate (Quetiapine Fumarate 50 Mg Tablet) 50 mg PO BEDTIME [facility] Last Admin: 02/13/25 19:38 Dose: 50 mg Documented By: TERESSA Senna (Sennosides 8.6 Mg Tablet) 17.2 mg PO BEDTIME [facility] Last Admin: 02/13/25 19:39 Dose: Not Given Documented By: TERESSA Non-Admin Reason: loosse bm Sertraline HCl (Sertraline Hcl 100 Mg Tablet) 100 mg PO DAILY [facility] Last Admin: 02/14/25 07:56 Dose: 100 mg Documented By: YUNI Sodium Chloride (0.9 % Sodium Chloride Flush 3 Ml Syringe) 3 ml IVFLUSH QSHIFT [facility] Last Admin: 02/14/25 07:56 Dose: 3 ml Documented By: YUNI Trazodone HCl (Trazodone Hcl 50 Mg Tablet) 50 mg PO BEDTIME [facility] Last Admin: 02/13/25 19:38 Dose: 50 mg Documented By: TERESSA Labs 02/13/25 05:34 02/14/25 05:19 Labs: Laboratory Results - last 24 hr 02/10/25 02/13/25 02/13/25 06:48 11:09 16:26 Hold Purple Top Anion Gap Estim Creat Clear Calc Estimated GFR POC Glucose 170 H 105 Random Glucose Calcium Alpha Fetoprotein 2.7 02/13/25 02/14/25 02/14/25 19:22 05:19 05:25 Hold Purple Top SEE NOTE Anion Gap 6 L Estim Creat Clear Calc 196.7 Estimated GFR > 60 POC Glucose 175 H Random Glucose 85 Calcium 7.9 L Alpha Fetoprotein 02/14/25 07:15 Hold Purple Top Anion Gap Estim Creat Clear Calc Estimated GFR POC Glucose 90 Random Glucose Calcium Alpha Fetoprotein Microbiology Microbiology Results: Microbiology 02/12/25 06:57 Blood Culture - Preliminary Blood - Venous No growth after 48 hours. 02/12/25 06:56 Blood Culture - Preliminary Blood - Venous No growth after 48 hours. Assessment and Plan (1) Gram-positive cocci bacteremia: Status: Acute Plan d7, 54yo M with hx MRSA bacteremia, IVDA on methadone, chronic hypoNa, DM2, cirrhosis, portla HTN, alcohol abuse in remission, prostate neoplasm of unknown behavior presented after fall, Utox positive for opioids, found to have MRSA bacteremia MRSA bacteremia and acute osteomyelitis R clavicle/R sternoclavicular septic arthritis: vancomycin x4wk 02/12-03/12, TTE without vegetations, BCx clear 02/12, PICC today, follow up with ID in 1-2wk, weekly vanco trough and SCr while on vancomycin anterior R 7th + 8th acute rib fractures: pain control with oxycodone ER+IR [will d/c ER and convert to increased metahdone dose], IS L knee effusion: Ortho consulted: Aside from severe OA, No tendon injury. Quad inhibition likely due to effusion. PT - wbat, ROM, quad strength distal choledocholithiasis: asymptomatic, per GI, small stones likely to pass on own; per Surg, no need for urgent lap mandy ground-glass opacity in the right upper lobe and lingula measuring up to 1.5 cm: repeat CT as outpt in 3 mo hypoK: repleted chronic HCV: outpt treatment cirrhosis with pancytopenia and coagulopathy: CBC stable; INR uncorrectable OUD: methadone, Addiction Medicine consulted mood disorder: sertraline, quetiapine, trazodone, lorazepam DM2 iveth-dose lispro, hold MTF VTE ppx: enoxaparin dispo: STR In my clinical judgment, the patient requires continued inpatient hospitalization for the following reasons: bacteremia, IV ABX Total time managing care of this patient today: 35 minutes. Quality Stroke Does the patient have a stroke diagnosis?: No Reason for No Anti-thrombotic by Day Two: Contraindicated VTE Prior VTE?: No VTE Risk Level:: Medical - moderate - high VTE Device Contraindication: N/A - Device Ordered VTE Drug Contraindication: Treatment Not Indicated
--- NOTE | 2025-02-14 10:56 | HE.PHANOTE ---
PRIYANKA Changed dose to 1000mg Q8H per subtheraprutic trough. New predicted trough 17, AUC 502. Next trough to be drawn 02/15 @1000.
--- NOTE | 2025-02-14 11:42 | HO.PICC ---
PICC Line Insertion NPICC Diagnosis: osteomyelitis Indication: nursing home ABT Pertinent Labs: reviewed Technique: Following informed consent including risks, benefits and alternatives and using sterile technique including cap and mask, sterile gown, glove and drape, the left arm was prepped and draped in the usual sterile fashion of full barrier technique with CHG. Following completion of Oden Protocol the skin and soft tissues were anesthetized with 1% Lidocaine plain. Using ultrasound guidance, left basilic vein access was obtained. Over an 0.018 wire through peel-away sheath, a 4FR single lumen PASV PICC line was positioned. Catheter length is 39cm internal length, 0cm external length, for a total trimmed length of 39cm. The procedure was performed in [facility]. Tip verification was performed by Ralph Banda with Sherlock 3CG. Tip located in SVC. Ultrasound was used to document vein patency and for needle entry. A formal ultrasound picture and cardiac rhythm strip was recorded. [facility] has released the line for use and it is currently dressed with a StatLock, Tegaderm, and CHG disc. Verification has been performed for blood return and line patency. Pt victor manuel procedure well. Jaswant Murillo RN and Dr Chen aware. Arm Circumference: 30cm Equipment: [employer] POWER PICC Solo with Sherlock 3cg tip Catheter Type: 4FR single lumen PASV catheter Lot #: [id number]
[2025-02-14 11:47] LABS: Glucose, Whole Blood 145 mg/dL (60-115)
[2025-02-14] MEDS: 0.9 % Sodium Chloride Flush 10 ML SYRINGE IVFLUSH ×3 (12:50→20:03)
--- NOTE | 2025-02-14 14:49 | MHC.CM.PN ---
Addendum entered by Maddie Angel 02/14/25 14:58: CORRECTION: EMAIL FOR [facility] DIRECTOR IS [email or web address] Original Note: AFTER MULTIPLE CALLS TO JOSE AT [facility] [phone] X [phone], THREE EMAILS TO THE DIRECTOR GERTRUDIS MCCLURE ([email or web address]) AND A CALL TO HIS CELL PHONE [phone], CM WAS ABLE TO CONFIRM PTS GUEST DOSING WAS SET UP TO START TOMORROW, AFTER SEVERAL MORE CALLS, GERTRUDIS AT THE [facility] CONFIRMED THIS INFORMATION WITH THE SNF. WILL SPOKE TO SNF LIAISON, [place] [phone] WHO INDICATED THEY WERE ABLE TO RECEIVE CONFIRMATION FROM [facility], HOWEVER PT STILL DOES NOT HAVE INSURANCE AUTH. PT WILL DC TO [facility] PENDING INSURANCE AUTH. VIA S
[2025-02-14 16:41] LABS: Glucose, Whole Blood 136 mg/dL (60-115)
[2025-02-14] MEDS: methADONE HCl 20 MG/2 ML ORAL.CONC 40 MG PO (17:45)
[2025-02-14 21:38] LABS: Glucose, Whole Blood 187 mg/dL (60-115)
[2025-02-15] MEDS: oxyCODONE HCl Immed Release 5 MG TABLET 10 MG PO ×4 (03:00→20:03)
[2025-02-15 04:00] VITALS: BP 151/78; PULSE 89; RESP 18; TEMP 36.3; O2SAT 94
[2025-02-15 07:22] LABS: Creatinine Clr Calc Pharmacy 182.9; Estimated Glomerular Filt Rate > 60
[2025-02-15 07:49] VITALS: BP 151/88; PULSE 85; RESP 18; TEMP 36.6; O2SAT 94
[2025-02-15 07:52] LABS: Glucose, Whole Blood 100 mg/dL (60-115)
[2025-02-15] MEDS: methADONE HCl 20 MG/2 ML ORAL.CONC 175 MG PO (07:53)
[2025-02-15] MEDS: 0.9 % Sodium Chloride Flush 10 ML SYRINGE IVFLUSH ×3 (07:54→20:02)
--- NOTE | 2025-02-15 10:54 | HE.PHANOTE ---
Vancomycin addendum: Level came back at 15.3, will maintain same dose and recheck a level after 3 more doses. predicted AUC of 473
--- NOTE | 2025-02-15 11:52 | P.PNIM_ITS ---
Subjective Subjective Date of Service: 02/15/25 Interval History: rib pain controlled clavicular pain controlled no fever Review of Systems Review of Systems: Yes all other systems are reviewed and are negative Physical Exam 2 Vital Signs: Vital Signs: Last Vital Signs Temp 97.8 F 02/15/25 07:49 Pulse 85 02/15/25 07:49 Resp 18 02/15/25 07:49 BP 151/88 H 02/15/25 07:49 Pulse Ox 94 02/15/25 07:49 O2 Del Method Room Air 02/15/25 07:49 O2 Flow Rate 1 02/12/25 09:10 BMI result Body Mass Index 33.2 Gen: in no acute distress HEENT: sclera anicteric, moist mucus membranes Neck: supple Lungs: clear to auscultation bilaterally Heart: regular rate and rhythm, no murmurs Abd: soft, non-tender, non-distended Ext: no edema, R clavicle swollen, L knee swollen Skin: warm/well-perfused Neuro: alert and oriented x3, no focal findings Psych: appropriate affect Objective Data Active Medications Acetaminophen (Acetaminophen 325 Mg Tablet) 650 mg PO Q6H PRN PRN Reason: Pain, Mild 1-3,fever,headache Last Admin: 02/14/25 15:46 Dose: 650 mg Documented By: LOBO Albuterol/Ipratropium (Albuterol/Iprat 2.5/0.5mg 3 Ml Ampul.Neb) 3 ml INHALE Q4H PRN PRN Reason: Shortness of Breath/Wheezing Last Admin: 02/09/25 23:13 Dose: 3 ml Documented By: IMER Bisacodyl (Bisacodyl 10 Mg Supp.Rect) 10 mg SD BEDTIME PRN PRN Reason: Constipation Calcium Carbonate (Calcium Carbonate 750 Mg Tab.Chew) 750 mg PO Q4H PRN PRN Reason: Heartburn Dextrose (Dextrose 50 % 25 Gm/50 Ml Syringe) 25 gm IVPUSH Q15M PRN; Protocol PRN Reason: per Hypoglycemia Standing Ord. Enoxaparin Sodium (Enoxaparin Sodium 40 Mg/0.4 Ml Syringe) 40 mg SUBCUT Q24H PATRICIA Last Admin: 02/14/25 17:44 Dose: 40 mg Documented By: LOBO Glucose (Glucose Gel 15 Gm Gel..Gram.) 15 gm PO Q15M PRN; Protocol PRN Reason: per Hypoglycemia Standing Ord. Guaifenesin (Guaifenesin 200 Mg/10 Ml 10 Ml Liquid) 10 ml PO Q4H PRN PRN Reason: Cough Lactated Ringer's (Lr) 1,000 mls @ 125 mls/hr IVCONT .Q8H ON LICENSE OF [facility] On Hold: 02/09/25 23:54 Last Infusion: 02/10/25 18:23 Dose: Infused Documented By: GISELLA Vancomycin HCl 1,000 mg/ (Sodium Chloride) 270 mls @ 270 mls/hr IV Q8H ON LICENSE OF [facility] Last Infusion: 02/15/25 05:23 Dose: Infused Documented By: CLAURISMelvina Insulin Human Lispro (Insulin Lispro 100 Unit/Ml 3 Ml Vial) 0 unit SUBCUT QIDACHS ON LICENSE OF [facility]; Protocol Last Admin: 02/15/25 07:56 Dose: Not Given Documented By: KANU Non-Admin Reason: No Insulin Coverage Lorazepam (Lorazepam 0.5 Mg Tablet) 0.5 mg PO BID@0900,1800 ON [facility] OF [facility] Last Admin: 02/15/25 07:54 Dose: 0.5 mg Documented By: KANU Magnesium Hydroxide (Milk Of Magnesia 30 Ml Oral.Susp) 30 ml PO DAILY PRN PRN Reason: Constipation Last Admin: 02/11/25 23:15 Dose: 30 ml Documented By: TYREL Melatonin (Melatonin 3 Mg Tablet) 6 mg PO BEDTIME PRN PRN Reason: Insomnia Methadone HCl (Methadone Hcl 20 Mg/2 Ml Oral.Conc) 175 mg PO DAILY [facility] Last Admin: 02/15/25 07:53 Dose: 175 mg Documented By: KANU Co-signed By: ESTRELLA Methadone HCl (Methadone Hcl 20 Mg/2 Ml Oral.Conc) 40 mg PO DAILY@1800 [facility] Last Admin: 02/14/25 17:45 Dose: 40 mg Documented By: LOBO Co-signed By: DEBORAH Methocarbamol (Methocarbamol 500 Mg Tablet) 500 mg PO TID [facility] OF [facility] Last Admin: 02/15/25 07:54 Dose: 500 mg Documented By: KANU Nystatin (Nystatin Powder 15 Gm Bottle) 1 appl TOPICAL TID ON [facility]; Protocol Last Admin: 02/15/25 07:56 Dose: 1 appl Documented By: KANU Omeprazole (Omeprazole 20 Mg Capsule.Dr) 20 mg PO DAILY@0630 [facility] Last Admin: 02/15/25 05:12 Dose: 20 mg Documented By: PAUL Ondansetron HCl (Ondansetron Hcl 4 Mg/2 Ml Vial) 4 mg IVPUSH Q8H PRN PRN Reason: Nausea and Vomiting Oxycodone HCl (Oxycodone Hcl Immed Release 5 Mg Tablet) 10 mg PO Q4H PRN PRN Reason: Pain, Severe (Pain Scale 7-10) Last Admin: 02/15/25 07:53 Dose: 10 mg Documented By: KANU Pharmacy Consult (Consult Rx Vancomycin Dosing) 1 each MISCELLANE DAILY PRN PRN Reason: Consult order Polyethylene Glycol (Polyethylene Glycol 3350 17 Gm Powd.Pack) 17 gm PO DAILY [facility] Last Admin: 02/15/25 07:46 Dose: Not Given Documented By: KANU Non-Admin Reason: Patient Refused Quetiapine Fumarate (Quetiapine Fumarate 50 Mg Tablet) 50 mg PO BEDTIME ON [facility] OF [facility] Last Admin: 02/14/25 20:02 Dose: 50 mg Documented By: PAUL Senna (Sennosides 8.6 Mg Tablet) 17.2 mg PO BEDTIME [facility] Last Admin: 02/14/25 20:02 Dose: 17.2 mg Documented By: PAUL Sertraline HCl (Sertraline Hcl 100 Mg Tablet) 100 mg PO DAILY [facility] Last Admin: 02/15/25 07:54 Dose: 100 mg Documented By: KANU Sodium Chloride (0.9 % Sodium Chloride Flush 3 Ml Syringe) 3 ml IVFLUSH [facility] Last Admin: 02/15/25 07:47 Dose: Not Given Documented By: KANU Non-Admin Reason: Previously Administered Sodium Chloride (0.9 % Sodium Chloride Flush 10 Ml Syringe) 10 ml IVFLUSH [facility] Last Admin: 02/15/25 07:54 Dose: 10 ml Documented By: KANU Trazodone HCl (Trazodone Hcl 50 Mg Tablet) 50 mg PO BEDTIME ON [facility] Last Admin: 02/14/25 20:02 Dose: 50 mg Documented By: PAUL Labs 02/13/25 05:34 02/15/25 06:49 Labs: Laboratory Results - last 24 hr 02/14/25 02/14/25 02/15/25 16:38 21:34 06:49 Estim Creat Clear Calc 182.9 Estimated GFR > 60 POC Glucose 136 H 187 H Random Vancomycin 02/15/25 02/15/25 07:47 10:16 Estim Creat Clear Calc Estimated GFR POC Glucose 100 Random Vancomycin 15.3 Microbiology Microbiology Results: Microbiology 02/12/25 06:57 Blood Culture - Preliminary Blood - Venous Prelim: GPC Gram Stain only 02/12/25 06:56 Blood Culture - Preliminary Blood - Venous No growth after 48 hours. Assessment and Plan (1) Gram-positive cocci bacteremia: Status: Acute Plan d8, 54yo M with hx MRSA bacteremia, IVDA on methadone, chronic hypoNa, DM2, cirrhosis, portal HTN, alcohol abuse in remission, prostate neoplasm of unknown behavior presented after fall, Utox positive for opioids, found to have MRSA bacteremia MRSA bacteremia and acute osteomyelitis R clavicle/R sternoclavicular septic arthritis - BCx cleared 02/12, PICC placed, vancomycin x4wk 02/12-03/12 but adjust dose given subtherapeutic trough/repeat trough tomorrow; weekly vanco trough and SCr while on vancomycin - TTE without vegetations - follow up with ID in 1-2wk anterior R 7th + 8th acute rib fractures - pain control with methadone + oxycodone IR, IS L knee effusion - Ortho consulted: Aside from severe OA, No tendon injury. Quad inhibition likely due to effusion. PT - wbat, ROM, quad strength distal choledocholithiasis - asymptomatic, per GI, small stones likely to pass on own; per Surg, no need for urgent lap mandy ground-glass opacity in the right upper lobe and lingula measuring up to 1.5 cm - repeat CT as outpt in 3 mo hypoK: repleted chronic HCV: outpt treatment recommended OUD: on methadone, Addiction Medicine consulted cirrhosis with pancytopenia and coagulopathy: CBC stable; INR uncorrectable mood disorder: sertraline, quetiapine, trazodone, lorazepam DM2: correction-dose lispro, hold MTF VTE ppx: enoxaparin dispo: STR In my clinical judgment, the patient requires continued inpatient hospitalization for the following reasons: bacteremia, IV ABX, placement Total time managing care of this patient today: 35 minutes. Quality Stroke Does the patient have a stroke diagnosis?: No Reason for No Anti-thrombotic by Day Two: Contraindicated VTE Prior VTE?: No VTE Risk Level:: Medical - moderate - high VTE Device Contraindication: N/A - Device Ordered VTE Drug Contraindication: Treatment Not Indicated
[2025-02-15 11:54] LABS: Glucose, Whole Blood 106 mg/dL (60-115)
[2025-02-15 12:00] VITALS: BP 155/86; PULSE 84; RESP 18; TEMP 36.4; O2SAT 95
[2025-02-15 15:53] VITALS: BP 150/83; PULSE 76; RESP 18; TEMP 36; O2SAT 96
[2025-02-15 16:37] LABS: Glucose, Whole Blood 79 mg/dL (60-115)
[2025-02-15] MEDS: methADONE HCl 20 MG/2 ML ORAL.CONC 40 MG PO (17:54)
[2025-02-15 19:31] VITALS: BP 148/87; PULSE 79; RESP 12; TEMP 36.4; O2SAT 94
[2025-02-15 20:25] LABS: Glucose, Whole Blood 118 mg/dL (60-115)
[2025-02-15 23:43] VITALS: BP 132/76; PULSE 78; RESP 18; TEMP 36.3; O2SAT 92
[2025-02-16] MEDS: oxyCODONE HCl Immed Release 5 MG TABLET 10 MG PO ×4 (01:26→21:19)
[2025-02-16 03:53] VITALS: BP 144/79; PULSE 78; RESP 16; TEMP 36.4; O2SAT 95
[2025-02-16 06:19] LABS: Creatinine Clr Calc Pharmacy 162.9; Estimated Glomerular Filt Rate > 60
--- NOTE | 2025-02-16 07:17 | HO.PM.IMPN ---
Subjective Subjective Date of Service: 02/16/25 Interval History: Overnight uneventful Currently just awaiting placement PICC line CDI Review of Systems Review of Systems: Yes all other systems are reviewed and are negative Physical Exam Exam: Exam: General: AOx3, , pain appears optimally controlled Resp: Bilateral decreased breath sounds, limited secondary to patient's baseline status CVS: Sinus tachycardia, MR TR heart sounds GI: +BS, NT, no distention Neuro: Cranial nerves II-XII grossly intact bilaterally. Motor grossly intact bilaterally Extremities: Bilateral pitting chronic venous stasis changes without any obvious cellulitis, left knee effusion improving Vital Signs: Vital Signs: Last Vital Signs Temp 97.6 F 02/16/25 03:53 Pulse 78 02/16/25 03:53 Resp 16 02/16/25 03:53 BP 144/79 H 02/16/25 03:53 Pulse Ox 95 02/16/25 03:53 O2 Del Method Room Air 02/16/25 03:53 O2 Flow Rate 1 02/12/25 09:10 BMI result Body Mass Index 33.2 Objective Data Active Medications Acetaminophen (Acetaminophen 325 Mg Tablet) 650 mg PO Q6H PRN PRN Reason: Pain, Mild 1-3,fever,headache Last Admin: 02/14/25 15:46 Dose: 650 mg Documented By: LOBO Bisacodyl (Bisacodyl 10 Mg Supp.Rect) 10 mg AL BEDTIME PRN PRN Reason: Constipation Calcium Carbonate (Calcium Carbonate 750 Mg Tab.Chew) 750 mg PO Q4H PRN PRN Reason: Heartburn Dextrose (Dextrose 50 % 25 Gm/50 Ml Syringe) 25 gm IVPUSH Q15M PRN; Protocol PRN Reason: per Hypoglycemia Standing Ord. Enoxaparin Sodium (Enoxaparin Sodium 40 Mg/0.4 Ml Syringe) 40 mg SUBCUT Q24H PATRICIA Last Admin: 02/15/25 17:54 Dose: 40 mg Documented By: KANU Glucose (Glucose Gel 15 Gm Gel..Gram.) 15 gm PO Q15M PRN; Protocol PRN Reason: per Hypoglycemia Standing Ord. Guaifenesin (Guaifenesin 200 Mg/10 Ml 10 Ml Liquid) 10 ml PO Q4H PRN PRN Reason: Cough Lactated Ringer's (Lr) 1,000 mls @ 125 mls/hr IVCONT .Q8H PATRICIA On Hold: 02/09/25 23:54 Last Infusion: 02/10/25 18:23 Dose: Infused Documented By: GISELLA Vancomycin HCl 1,000 mg/ (Sodium Chloride) 270 mls @ 270 mls/hr IV Q8H [facility] Last Infusion: 02/16/25 04:52 Dose: Infused Documented By: PAUL Insulin Human Lispro (Insulin Lispro 100 Unit/Ml 3 Ml Vial) 0 unit SUBCUT QIDACHS [facility]; Protocol Last Admin: 02/15/25 20:59 Dose: Not Given Documented By: PAUL Non-Admin Reason: No Insulin Coverage Lorazepam (Lorazepam 0.5 Mg Tablet) 0.5 mg PO BID@0900,1800 [facility] Last Admin: 02/15/25 17:54 Dose: 0.5 mg Documented By: KANU Magnesium Hydroxide (Milk Of Magnesia 30 Ml Oral.Susp) 30 ml PO DAILY PRN PRN Reason: Constipation Last Admin: 02/11/25 23:15 Dose: 30 ml Documented By: TYREL Melatonin (Melatonin 3 Mg Tablet) 6 mg PO BEDTIME PRN PRN Reason: Insomnia Last Admin: 02/15/25 22:54 Dose: 6 mg Documented By: PAUL Methadone HCl (Methadone Hcl 20 Mg/2 Ml Oral.Conc) 175 mg PO DAILY [facility] Last Admin: 02/15/25 07:53 Dose: 175 mg Documented By: KANU Co-signed By: ESTRELLA Methadone HCl (Methadone Hcl 20 Mg/2 Ml Oral.Conc) 40 mg PO DAILY@1800 [facility] Last Admin: 02/15/25 17:54 Dose: 40 mg Documented By: KANU Co-signed By: BUD Methocarbamol (Methocarbamol 500 Mg Tablet) 500 mg PO TID [facility] Last Admin: 02/15/25 20:03 Dose: 500 mg Documented By: PAUL Nystatin (Nystatin Powder 15 Gm Bottle) 1 appl TOPICAL TID [facility]; Protocol Last Admin: 02/15/25 20:08 Dose: 1 appl Documented By: PAUL Omeprazole (Omeprazole 20 Mg Capsule.Dr) 20 mg PO DAILY@0630 [facility] Last Admin: 02/16/25 05:37 Dose: 20 mg Documented By: PAUL Ondansetron HCl (Ondansetron Hcl 4 Mg/2 Ml Vial) 4 mg IVPUSH Q8H PRN PRN Reason: Nausea and Vomiting Oxycodone HCl (Oxycodone Hcl Immed Release 5 Mg Tablet) 10 mg PO Q4H PRN PRN Reason: Pain, Severe (Pain Scale 7-10) Last Admin: 02/16/25 05:37 Dose: 10 mg Documented By: PAUL Pharmacy Consult (Consult Rx Vancomycin Dosing) 1 each MISCELLANE DAILY PRN PRN Reason: Consult order Polyethylene Glycol (Polyethylene Glycol 3350 17 Gm Powd.Pack) 17 gm PO DAILY [facility] Last Admin: 02/15/25 07:46 Dose: Not Given Documented By: KANU Non-Admin Reason: Patient Refused Quetiapine Fumarate (Quetiapine Fumarate 50 Mg Tablet) 50 mg PO BEDTIME [facility] Last Admin: 02/15/25 20:03 Dose: 50 mg Documented By: PAUL Senna (Sennosides 8.6 Mg Tablet) 17.2 mg PO BEDTIME [facility] Last Admin: 02/15/25 20:02 Dose: 17.2 mg Documented By: PAUL Sertraline HCl (Sertraline Hcl 100 Mg Tablet) 100 mg PO DAILY [facility] Last Admin: 02/15/25 07:54 Dose: 100 mg Documented By: KANU Sodium Chloride (0.9 % Sodium Chloride Flush 3 Ml Syringe) [facility] Last Admin: 02/16/25 00:18 Dose: Not Given Documented By: PAUL Non-Admin Reason: picc line Sodium Chloride (0.9 % Sodium Chloride Flush 10 Ml Syringe) 10 ml IVFLUSH QSMNFT [facility] Last Admin: 02/15/25 20:02 Dose: 10 ml Documented By: PAUL Trazodone HCl (Trazodone Hcl 50 Mg Tablet) 50 mg PO BEDTIME [facility] Last Admin: 02/15/25 20:02 Dose: 50 mg Documented By: PAUL Labs 02/13/25 05:34 02/16/25 05:12 Labs: Laboratory Results - last 24 hr 02/15/25 02/15/25 02/15/25 06:49 07:47 10:16 Hold Purple Top Estim Creat Clear Calc 182.9 Estimated GFR > 60 POC Glucose 100 Random Vancomycin 15.3 02/15/25 02/15/25 02/15/25 11:50 16:32 20:21 Hold Purple Top Estim Creat Clear Calc Estimated GFR POC Glucose 106 79 118 H Random Vancomycin 02/16/25 05:12 Hold Purple Top SEE NOTE Estim Creat Clear Calc 162.9 Estimated GFR > 60 POC Glucose Random Vancomycin Microbiology Microbiology Results: Microbiology 02/12/25 06:57 Blood Culture - Preliminary Blood - Venous Prelim: GPC Gram Stain only Assessment and Plan (1) Gram-positive cocci bacteremia: Status: Acute Plan d9 , 54yo M with hx MRSA bacteremia, IVDA on methadone, chronic hypoNa, DM2, cirrhosis, portal HTN, alcohol abuse in remission, prostate neoplasm of unknown behavior presented after fall, Utox positive for opioids, found to have MRSA bacteremia Currently awaiting placement, rehabilitation caseworker working on it Appears to be hemodynamically stable-we will continue the current antibiotic management MRSA bacteremia and acute osteomyelitis R clavicle/R sternoclavicular septic arthritis - BCx cleared 02/12, PICC placed, vancomycin x4wk 02/12-03/12 but adjust dose given subtherapeutic trough/repeat trough tomorrow; weekly vanco trough and SCr while on vancomycin - TTE without vegetations - follow up with ID in 1-2wk post DC anterior R 7th + 8th acute rib fractures - pain control with methadone + oxycodone IR, IS L knee effusion - Ortho consulted: Aside from severe OA, No tendon injury. Quad inhibition likely due to effusion. PT - wbat, ROM, quad strength distal choledocholithiasis - asymptomatic, per GI, small stones likely to pass on own; per Surg, no need for urgent lap mandy ground-glass opacity in the right upper lobe and lingula measuring up to 1.5 cm - repeat CT as outpt in 3 mo hypoK: repleted chronic HCV: outpt treatment recommended OUD: on methadone, Addiction Medicine consulted cirrhosis with pancytopenia and coagulopathy: CBC stable; INR uncorrectable mood disorder: sertraline, quetiapine, trazodone, lorazepam DM2: correction-dose lispro, hold MTF VTE ppx: enoxaparin dispo: STR In my clinical judgment, the patient requires continued inpatient hospitalization for the following reasons: bacteremia, IV ABX, placement Total time managing care of this patient today: 35 minutes. Quality Stroke Does the patient have a stroke diagnosis?: No Reason for No Anti-thrombotic by Day Two: Contraindicated VTE Prior VTE?: No VTE Risk Level:: Medical - moderate - high VTE Device Contraindication: N/A - Device Ordered VTE Drug Contraindication: Treatment Not Indicated
[2025-02-16 07:36] LABS: Glucose, Whole Blood 109 mg/dL (60-115)
[2025-02-16 07:59] VITALS: BP 158/88; PULSE 80; RESP 18; TEMP 36.2; O2SAT 92
[2025-02-16] MEDS: methADONE HCl 20 MG/2 ML ORAL.CONC 175 MG PO (08:25)
[2025-02-16] MEDS: 0.9 % Sodium Chloride Flush 10 ML SYRINGE IVFLUSH ×3 (08:29→21:22)
--- NOTE | 2025-02-16 10:43 | HE.PHANOTE ---
Vancomycin addendum: Level came back at 17.8, will maintain same dose for now and recheck another level. Treating OM so higher level desirable. If it creeps up higher can reduce dose
[2025-02-16 11:15] LABS: Glucose, Whole Blood 160 mg/dL (60-115)
[2025-02-16 12:00] VITALS: BP 146/82; PULSE 82; TEMP 36.1; O2SAT 95
[2025-02-16 15:14] VITALS: BP 152/81; PULSE 90; RESP 18; TEMP 36.4; O2SAT 93
[2025-02-16 16:21] LABS: Glucose, Whole Blood 164 mg/dL (60-115)
[2025-02-16] MEDS: methADONE HCl 20 MG/2 ML ORAL.CONC 40 MG PO (17:33)
[2025-02-16 19:54] VITALS: BP 152/83; PULSE 84; RESP 17; TEMP 36.1; O2SAT 94
[2025-02-16] MEDS: 0.9 % Sodium Chloride Flush 3 ML SYRINGE IVFLUSH (20:14)
[2025-02-16 20:23] LABS: Glucose, Whole Blood 142 mg/dL (60-115)
[2025-02-16 23:11] VITALS: BP 143/77; PULSE 81; RESP 16; TEMP 36.2; O2SAT 94
[2025-02-17] MEDS: oxyCODONE HCl Immed Release 5 MG TABLET 10 MG PO ×5 (02:44→23:42)
[2025-02-17 03:27] VITALS: BP 143/68; PULSE 86; RESP 17; TEMP 36.2
[2025-02-17 06:13] LABS: Creatinine Clr Calc Pharmacy 144.8; Estimated Glomerular Filt Rate > 60
--- NOTE | 2025-02-17 07:16 | P.PNIM_ITS ---
Subjective Subjective Date of Service: 02/17/25 Interval History: no overnight events No need of daily labs STR placement tomorrow Review of Systems Review of Systems: Yes all other systems are reviewed and are negative Physical Exam 2 Exam: Exam: General: AOx3, , pain appears optimally controlled Resp: Bilateral decreased breath sounds, limited secondary to patient's baseline status CVS: Sinus tachycardia, MR TR heart sounds GI: +BS, NT, protuberant Neuro: Cranial nerves II-XII grossly intact bilaterally. Motor grossly intact bilaterally Extremities: Bilateral pitting chronic venous stasis changes without any obvious cellulitis, left knee effusion improving Vital Signs: Vital Signs: Last Vital Signs Temp 97.1 F 02/17/25 03:27 Pulse 86 02/17/25 03:27 Resp 17 02/17/25 03:27 BP 143/68 H 02/17/25 03:27 Pulse Ox 94 02/16/25 23:11 O2 Del Method Room Air 02/16/25 23:11 O2 Flow Rate 1 02/12/25 09:10 BMI result Body Mass Index 33.2 Objective Data Active Medications Acetaminophen (Acetaminophen 325 Mg Tablet) 650 mg PO Q6H PRN PRN Reason: Pain, Mild 1-3,fever,headache Last Admin: 02/14/25 15:46 Dose: 650 mg Documented By: LOBO Bisacodyl (Bisacodyl 10 Mg Supp.Rect) 10 mg [place] BEDTIME PRN PRN Reason: Constipation Calcium Carbonate (Calcium Carbonate 750 Mg Tab.Chew) 750 mg PO Q4H PRN PRN Reason: Heartburn Dextrose (Dextrose 50 % 25 Gm/50 Ml Syringe) 25 gm IVPUSH Q15M PRN; Protocol PRN Reason: per Hypoglycemia Standing Ord. Enoxaparin Sodium (Enoxaparin Sodium 40 Mg/0.4 Ml Syringe) 40 mg SUBCUT Q24H [facility] Last Admin: 02/16/25 17:34 Dose: 40 mg Documented By: KANU Glucose (Glucose Gel 15 Gm Gel..Gram.) 15 gm PO Q15M PRN; Protocol PRN Reason: per Hypoglycemia Standing Ord. Guaifenesin (Guaifenesin 200 Mg/10 Ml 10 Ml Liquid) 10 ml PO Q4H PRN PRN Reason: Cough Lactated Ringer's (Lr) 1,000 mls @ 125 mls/hr IVCONT .Q8H PATRICIA On Hold: 02/09/25 23:54 Last Infusion: 02/10/25 18:23 Dose: Infused Documented By: GISELLA Vancomycin HCl 1,000 mg/ (Sodium Chloride) 270 mls @ 270 mls/hr IV Q8H [facility] Last Infusion: 02/17/25 05:01 Dose: Infused Documented By: MARICHUY Insulin Human Lispro (Insulin Lispro 100 Unit/Ml 3 Ml Vial) 0 unit SUBCUT QIDACHS [facility]; Protocol Last Admin: 02/16/25 20:49 Dose: Not Given Documented By: MARICHUY Non-Admin Reason: No Insulin Coverage Lorazepam (Lorazepam 0.5 Mg Tablet) 0.5 mg PO BID@0900,1800 [facility] Last Admin: 02/16/25 17:34 Dose: 0.5 mg Documented By: KANU Magnesium Hydroxide (Milk Of Magnesia 30 Ml Oral.Susp) 30 ml PO DAILY PRN PRN Reason: Constipation Last Admin: 02/11/25 23:15 Dose: 30 ml Documented By: TYREL Melatonin (Melatonin 3 Mg Tablet) 6 mg PO BEDTIME PRN PRN Reason: Insomnia Last Admin: 02/15/25 22:54 Dose: 6 mg Documented By: PAUL Methadone HCl (Methadone Hcl 20 Mg/2 Ml Oral.Conc) 175 mg PO DAILY [facility] Last Admin: 02/16/25 08:25 Dose: 175 mg Documented By: KANU Co-signed By: YEIMY Methadone HCl (Methadone Hcl 20 Mg/2 Ml Oral.Conc) 40 mg PO DAILY@1800 [facility] Last Admin: 02/16/25 17:33 Dose: 40 mg Documented By: KANU Co-signed By: BAYRON Methocarbamol (Methocarbamol 500 Mg Tablet) 500 mg PO TID [facility] Last Admin: 02/16/25 20:11 Dose: 500 mg Documented By: MARICHUY Nystatin (Nystatin Powder 15 Gm Bottle) 1 appl TOPICAL TID [facility]; Protocol Last Admin: 02/16/25 21:07 Dose: 1 appl Documented By: MARICHUY Omeprazole (Omeprazole 20 Mg Capsule.Dr) 20 mg PO DAILY@0630 [facility] Last Admin: 02/17/25 05:45 Dose: 20 mg Documented By: MARICHUY Ondansetron HCl (Ondansetron Hcl 4 Mg/2 Ml Vial) 4 mg IVPUSH Q8H PRN PRN Reason: Nausea and Vomiting Oxycodone HCl (Oxycodone Hcl Immed Release 5 Mg Tablet) 10 mg PO Q4H PRN PRN Reason: Pain, Severe (Pain Scale 7-10) Last Admin: 02/17/25 06:51 Dose: 10 mg Documented By: YUNI Pharmacy Consult (Consult Rx Vancomycin Dosing) 1 each MISCELLANE DAILY PRN PRN Reason: Consult order Polyethylene Glycol (Polyethylene Glycol 3350 17 Gm Powd.Pack) 17 gm PO DAILY [facility] Last Admin: 02/16/25 08:27 Dose: Not Given Documented By: KANU Non-Admin Reason: Patient Refused Quetiapine Fumarate (Quetiapine Fumarate 50 Mg Tablet) 50 mg PO BEDTIME [facility] Last Admin: 02/16/25 20:11 Dose: 50 mg Documented By: MARICHUY Senna (Sennosides 8.6 Mg Tablet) 17.2 mg PO BEDTIME [facility] Last Admin: 02/16/25 20:11 Dose: 17.2 mg Documented By: MARICHUY Sertraline HCl (Sertraline Hcl 100 Mg Tablet) 100 mg PO DAILY [facility] Last Admin: 02/16/25 08:27 Dose: 100 mg Documented By: KANU Sodium Chloride (0.9 % Sodium Chloride Flush 3 Ml Syringe) [facility] Last Admin: 02/17/25 07:05 Dose: Not Given Sodium Chloride (0.9 % Sodium Chloride Flush 10 Ml Syringe) [facility] Last Admin: 02/16/25 21:22 Dose: 10 ml Documented By: MARICHUY Trazodone HCl (Trazodone Hcl 50 Mg Tablet) 50 mg PO BEDTIME [facility] Last Admin: 02/16/25 20:11 Dose: 50 mg Documented By: MARICHUY Labs 02/13/25 05:34 02/17/25 05:43 Labs: Laboratory Results - last 24 hr 02/16/25 02/16/25 02/16/25 07:30 09:52 11:09 Hold Purple Top Estim Creat Clear Calc Estimated GFR POC Glucose 109 160 H Vancomycin Trough 17.8 02/16/25 02/16/25 02/17/25 16:16 20:02 05:43 Hold Purple Top SEE NOTE Estim Creat Clear Calc 144.8 Estimated GFR > 60 POC Glucose 164 H 142 H Vancomycin Trough Microbiology Microbiology Results: Microbiology 02/12/25 06:57 Blood Culture - Final Blood - Venous Methicillin Res Staph Aureus Assessment and Plan (1) Gram-positive cocci bacteremia: Status: Acute Plan d9 , 54yo M with hx MRSA bacteremia, IVDA on methadone, chronic hypoNa, DM2, cirrhosis, portal HTN, alcohol abuse in remission, prostate neoplasm of unknown behavior presented after fall, Utox positive for opioids, found to have MRSA bacteremia Currently awaiting placement, case packer and sealer working on it Appears to be hemodynamically stable-we will continue the current antibiotic management via PICC line. MRSA bacteremia and acute osteomyelitis R clavicle/R sternoclavicular septic arthritis - BCx cleared 02/12, PICC placed, vancomycin x4wk 02/12-03/12 but adjust dose given subtherapeutic trough/repeat trough tomorrow; weekly vanco trough and SCr while on vancomycin - TTE without vegetations - follow up with ID in 1-2wk post DC anterior R 7th + 8th acute rib fractures - pain control with methadone + oxycodone IR, IS L knee effusion - Ortho consulted: Aside from severe OA, No tendon injury. Quad inhibition likely due to effusion. PT - wbat, ROM, quad strength distal choledocholithiasis - asymptomatic, per GI, small stones likely to pass on own; per Surg, no need for urgent lap mandy ground-glass opacity in the right upper lobe and lingula measuring up to 1.5 cm - repeat CT as outpt in 3 mo hypoK: repleted chronic HCV: outpt treatment recommended OUD: on methadone, Addiction Medicine consulted cirrhosis with pancytopenia and coagulopathy: CBC stable; INR uncorrectable mood disorder: sertraline, quetiapine, trazodone, lorazepam DM2: correction-dose lispro, hold MTF VTE ppx: enoxaparin dispo: STR In my clinical judgment, the patient requires continued inpatient hospitalization for the following reasons: bacteremia, IV ABX, placement Total time managing care of this patient today: 35 minutes. Quality Stroke Does the patient have a stroke diagnosis?: No Reason for No Anti-thrombotic by Day Two: Contraindicated VTE Prior VTE?: No VTE Risk Level:: Medical - moderate - high VTE Device Contraindication: N/A - Device Ordered VTE Drug Contraindication: Treatment Not Indicated
[2025-02-17 07:37] LABS: Glucose, Whole Blood 103 mg/dL (60-115)
[2025-02-17 07:56] VITALS: BP 129/80; PULSE 85; RESP 18; TEMP 36.4; O2SAT 94
[2025-02-17] MEDS: methADONE HCl 20 MG/2 ML ORAL.CONC 175 MG PO (08:27)
[2025-02-17] MEDS: 0.9 % Sodium Chloride Flush 10 ML SYRINGE IVFLUSH ×3 (08:28→23:43)
[2025-02-17 11:11] LABS: Glucose, Whole Blood 122 mg/dL (60-115)
--- NOTE | 2025-02-17 13:31 | MHC.CM.PN ---
Addendum entered by Frida Manriquez RN 02/17/25 14:53: Per MD, dc cancelled, requires ID follow up tomorrow. CM will continue to follow. Original Note: Patient medically cleared for dc. [facility] has [employer] auth and [facility] has confirmed start date for tomorrow. Will receive PM methadone prior to dc, per MD. BLS transport scheduled for 3pm. MD KERVIN and patient aware.
--- NOTE | 2025-02-17 13:58 | PM.DS ---
DS: Providers Provider Date of Service: 02/17/25 Date of admission: 02/08/25 19:07 Date of discharge: 02/17/25 Primary care physician: None Physician Consults: 02/08/25 19:15 Consult to Infectious Diseases Routine Consulting Provider: [facility] Reason for consultation: claviicle OM Has provider been notified: No 02/08/25 19:29 Consult to Orthopedics Routine Consulting Provider: [facility] Reason for consultation: large knee effusion, liver dis, INR 1.7, OM clavicle Has provider been notified: No 02/08/25 20:38 Consult to Gastroenterology Routine Consulting Provider: Jerry Middleton Reason for consultation: Hep C untreated, cirrhosis of liver, portal HTN, INR 1.7 Has provider been notified: No 02/08/25 20:39 Addiction Medicine Provider Routine Consulting Provider: [facility] Reason for consultation: IVDA hx with liver cirrhosis, just out of STR, last IV use 11/2902/09/25 03:15 Consult to Wound Care Routine Reason for consultation: DTI on coccyx 02/10/25 15:23 Consult to Infectious Diseases Routine Consulting Provider: [facility] Reason for consultation: MRSA bacter 02/10/25 18:25 Consult to General Surgery Routine Consulting Provider: [facility] Reason for consultation: cholelithiasis, choledocholithias DS: Diagnosis Discharge Diagnosis (1) Gram-positive cocci bacteremia: Status: Acute DS: Summary Hospital Course Hospital Course: High-grade MRSA bacteremia 2/2 IVDU (relapsed after recent DC) MRSA bacteremia and acute osteomyelitis R clavicle/R sternoclavicular septic arthritis 54 yo male with PMH MRSA bacteremia, IVDA/ JOVI on methadone, hyponatremia (usual level 131), DMII dx in 12/30, cellulitis, liver cirrhosis, portal hypertension, alcohol abuse in remission, abnormal prostate finding on previous CT indicating neoplasm versus abscess, chronic left hip soreness, BIBA after experiencing a traumatic fall. Patient likely relapsed as he was although initially not forthcoming subsequent tox screen showed U tox positive for opioids. Cup revealed that he had MRSA bacteremia, non bacteremic since 02/12/2025, PICC line placed on 02/14/2025, ID had seen the patient and he is to continue vancomycin for another 4 weeks 02/12-03/12. TTE unremarkable for any vegetation, ID follow-up in 1-2 weeks post discharge from hospital , PT evaluated the patient and suggested he be discharged to SNF. anterior R 7th + 8th acute rib fractures - pain control with methadone + oxycodone IR, IS L knee effusion - Ortho consulted: Aside from severe OA, No tendon injury. Quad inhibition likely due to effusion. PT - wbat, ROM, quad strength outpatient management distal choledocholithiasis - asymptomatic, per GI, small stones likely to pass on own; per Surg, no need for urgent lap mandy ground-glass opacity in the right upper lobe and lingula measuring up to 1.5 cm - repeat CT as outpt in 3 mo hypoK: repleted chronic HCV: outpt treatment recommended OUD: on methadone, Addiction Medicine consulted, methadone continued cirrhosis with pancytopenia and coagulopathy: CBC stable; INR uncorrectable mood disorder: sertraline, quetiapine, trazodone, lorazepam DM2: correction-dose lispro, hold MTF VTE ppx: enoxaparin while inpatient dispo: Patient being discharged to a SNF per PTOT recs Patient change his code status to DNR DNI this admission This note is constructed using voice recognition software. While every effort has been made to ensure accuracy, back end architect errors may have been included. Total time managing care of this patient today: 35 minutes. Time spent discussing smoking cessation with patient: more than 10 minutes Time Attestation Discharge Coordination Time (in mins): 35 Quality: Safe Use of Opioids Does Pt have an Active Cancer Diagnosis on the Problem List?: No Quality: Stroke Does the patient have a stroke diagnosis?: No Physical Exam Vital Signs: Vital Signs: Last Vital Signs Temp 97.6 F 02/17/25 07:56 Pulse 85 02/17/25 07:56 Resp 18 02/17/25 07:56 BP 129/80 02/17/25 07:56 Pulse Ox 94 02/17/25 07:56 O2 Del Method Room Air 02/17/25 07:56 O2 Flow Rate 1 02/12/25 09:10 BMI result Body Mass Index 33.2 DS: Data Data Completed and Pending Completed studies during hospitalization [Text1]: Procedures Excision of Left Lower Arm and Wrist Tendon, Open Approach (12/15/24) Insertion of Infusion Device into Superior Vena Cava, Percutaneous Approach (12/15/24) Introduction of Anesthetic Agent into Peripheral Nerves and Plexi, Percutaneous Approach (12/15/24) Ultrasonography of Superior Vena Cava, Guidance (12/15/24) Labs on day of discharge: Laboratory Results - last 24 hr 02/16/25 02/16/25 02/17/25 16:16 20:02 05:43 Hold Purple Top SEE NOTE Creatinine 0.72 Estim Creat Clear Calc 144.8 Estimated GFR > 60 POC Glucose 164 H 142 H Vancomycin Trough 02/17/25 02/17/25 02/17/25 07:34 10:05 10:58 Hold Purple Top Creatinine Estim Creat Clear Calc Estimated GFR POC Glucose 103 122 H Vancomycin Trough 17.6 Discharge Plan Discharge Anticipated Discharge Date/Time: 02/17/25 15:00 Patient Disposition: Xfer [facility] Discharge Diagnosis: MRS bacteremia [facility]errals: [facility] [Outside] - 1 Week Physician,None [Primary Care Provider, Medical] - 1 Week Discharge Medications: Continued ibuprofen 400 mg Tablet 400 mg PO Q6H PRN (Reason: Pain (Scale Score 1-3)) trazodone 50 mg tablet 50 mg PO BEDTIME sertraline 100 mg tablet 100 mg PO DAILY quetiapine 50 mg tablet 50 mg PO BEDTIME methadone [Methadone Intensol] 10 mg/mL Concentrate 175 mg PO DAILY methadone [Methadone Intensol] 10 mg/mL Concentrate 30 mg PO DAILY@1800 lorazepam [Ativan] 0.5 mg tablet 0.5 mg PO BID@0900,1800 Held metformin 500 mg Tablet 500 mg PO BIDWM Qty: 1 0RF Hold Instructions: Resume on 02/25/25. pending clinical eval Discharge Orders: Discharge Order (Routine); Ordered 02/17/25 Ordered By: Lyssa Nascimento Diet: Low salt diet Activity on Discharge: As tolerated Stand Alone Forms: Patient Portal Discharge page Print Language: Bahraini Care Plan Goals: Continue Daptomycin 10 mg/kg per day 4 weeks , followed by vancomycin per ID recommendation We will need follow-up with ID in 1-2 weeks post discharge PICC line was placed on 02/14/2025 after bacteremia cleared TTE was without any vegetations Addiction consulted Left knee effusion chronic outpatient management no ligament tear Pain control optimized with methadone and oxycodone Pulmonary hygiene and symptomatic pain control for rib fractures Outpatient management for distal choledochal lithiasis We will need repeat CT for ground-glass opacity in the right upper lobe and lingula We will need outpatient GI workup for chronic HCV, cirrhosis (likely alcohol related) Health Concerns: See above Plan of Treatment: See above Assessment: See above Patient Instructions: MRSA (Methicillin-Resistant Staphylococcus Aureus) (DC)
[2025-02-17] MEDS: methADONE HCl 20 MG/2 ML ORAL.CONC 40 MG PO (14:02)
[2025-02-17 15:24] VITALS: BP 164/82; PULSE 80; RESP 16; TEMP 36.7; O2SAT 96
[2025-02-17 15:51] LABS: Glucose, Whole Blood 148 mg/dL (60-115)
[2025-02-17] MEDS: SODIUM CHLORIDE 0.9% IV (18:16)
[2025-02-17] MEDS: DAPTOMYCIN IV (18:16)
[2025-02-17 20:00] VITALS: BP 162/100; PULSE 85; RESP 18; TEMP 36.3; O2SAT 96
[2025-02-17] MEDS: 0.9 % Sodium Chloride Flush 3 ML SYRINGE IVFLUSH (20:10)
[2025-02-17 20:46] LABS: Glucose, Whole Blood 132 mg/dL (60-115)
[2025-02-18] VITALS: BP 121/64; PULSE 90; RESP 18; TEMP 36.3; O2SAT 96
[2025-02-18] MEDS: oxyCODONE HCl Immed Release 5 MG TABLET 10 MG PO ×4 (03:56→20:35)
[2025-02-18 04:00] VITALS: BP 123/59; PULSE 84; RESP 19; TEMP 36.2; O2SAT 95
--- NOTE | 2025-02-18 07:20 | HO.PM.IMPN ---
Subjective Subjective Date of Service: 02/18/25 Interval History: Patient is undergoing workup for clearance of bacteremia. Patient's prior blood cultures drawn on the resulted on the as positive, hence the blood cultures that were drawn on 02/17/2025 need to be waited until 5 days to confirm clearance of bacteremia hence the hold up Patient comfortable with the current plan ID consulted and continue daptomycin PICC line was removed on 02/17/2025 Review of Systems Review of Systems: Yes all other systems are reviewed and are negative Physical Exam Exam: Exam: General: AOx3, , pain appears optimally controlled Resp: Bilateral decreased breath sounds, limited secondary to patient's baseline status CVS: Sinus tachycardia, MR TR heart sounds GI: +BS, NT, protuberant Neuro: Motor grossly intact bilaterally Extremities: Bilateral pitting chronic venous stasis changes without any obvious cellulitis, left knee effusion improving Vital Signs: Vital Signs: Last Vital Signs Temp 97.1 F 02/18/25 04:00 Pulse 84 02/18/25 04:00 Resp 19 02/18/25 04:00 BP 123/59 L 02/18/25 04:00 Pulse Ox 95 02/18/25 04:00 O2 Del Method Room Air 02/18/25 04:00 O2 Flow Rate 1 02/12/25 09:10 BMI result Body Mass Index 33.2 Objective Data Active Medications Acetaminophen (Acetaminophen 325 Mg Tablet) 650 mg PO Q6H PRN PRN Reason: Pain, Mild 1-3,fever,headache Last Admin: 02/14/25 15:46 Dose: 650 mg Documented By: LOBO Bisacodyl (Bisacodyl 10 Mg Supp.Rect) 10 mg [place] BEDTIME PRN PRN Reason: Constipation Calcium Carbonate (Calcium Carbonate 750 Mg Tab.Chew) 750 mg PO Q4H PRN PRN Reason: Heartburn Dextrose (Dextrose 50 % 25 Gm/50 Ml Syringe) 25 gm IVPUSH Q15M PRN; Protocol PRN Reason: per Hypoglycemia Standing Ord. Enoxaparin Sodium (Enoxaparin Sodium 40 Mg/0.4 Ml Syringe) 40 mg SUBCUT Q24H PATRICIA Last Admin: 02/17/25 18:11 Dose: 40 mg Documented By: KANU Glucose (Glucose Gel 15 Gm Gel..Gram.) 15 gm PO Q15M PRN; Protocol PRN Reason: per Hypoglycemia Standing Ord. Guaifenesin (Guaifenesin 200 Mg/10 Ml 10 Ml Liquid) 10 ml PO Q4H PRN PRN Reason: Cough Daptomycin 880 mg/ Sodium (Chloride) 67.6 mls @ 94.435 mls/hr IV Q24H [facility] Last Infusion: 02/17/25 19:59 Dose: Infused Documented By: MARICHUY Insulin Human Lispro (Insulin Lispro 100 Unit/Ml 3 Ml Vial) 0 unit SUBCUT QIDACHS [facility]; Protocol Last Admin: 02/17/25 20:58 Dose: Not Given Documented By: MARICHUY Non-Admin Reason: No Insulin Coverage Lisinopril (Lisinopril 10 Mg Tablet) 10 mg PO DAILY [facility]; Protocol Lorazepam (Lorazepam 0.5 Mg Tablet) 0.5 mg PO BID@0900,1800 [facility] Last Admin: 02/17/25 18:11 Dose: 0.5 mg Documented By: KANU Magnesium Hydroxide (Milk Of Magnesia 30 Ml Oral.Susp) 30 ml PO DAILY PRN PRN Reason: Constipation Last Admin: 02/11/25 23:15 Dose: 30 ml Documented By: TYREL Melatonin (Melatonin 3 Mg Tablet) 6 mg PO BEDTIME PRN PRN Reason: Insomnia Last Admin: 02/15/25 22:54 Dose: 6 mg Documented By: PAUL Methadone HCl (Methadone Hcl 20 Mg/2 Ml Oral.Conc) 175 mg PO DAILY [facility] Last Admin: 02/17/25 08:27 Dose: 175 mg Documented By: KANU Co-signed By: YUNI Methadone HCl (Methadone Hcl 20 Mg/2 Ml Oral.Conc) 40 mg PO DAILY@1800 [facility] Methocarbamol (Methocarbamol 500 Mg Tablet) 500 mg PO TID [facility] Last Admin: 02/17/25 21:26 Dose: 500 mg Documented By: MARICHUY Nystatin (Nystatin Powder 15 Gm Bottle) 1 appl TOPICAL TID [facility]; Protocol Last Admin: 02/17/25 21:27 Dose: 1 appl Documented By: MARICHUY Omeprazole (Omeprazole 20 Mg Capsule.Dr) 20 mg PO DAILY@0630 [facility] Last Admin: 02/18/25 05:58 Dose: 20 mg Documented By: MARICHUY Ondansetron HCl (Ondansetron Hcl 4 Mg/2 Ml Vial) 4 mg IVPUSH Q8H PRN PRN Reason: Nausea and Vomiting Oxycodone HCl (Oxycodone Hcl Immed Release 5 Mg Tablet) 10 mg PO Q4H PRN PRN Reason: Pain, Severe (Pain Scale 7-10) Last Admin: 02/18/25 03:56 Dose: 10 mg Documented By: MARICHUY Polyethylene Glycol (Polyethylene Glycol 3350 17 Gm Powd.Pack) 17 gm PO DAILY [facility] Last Admin: 02/17/25 08:27 Dose: Not Given Documented By: KANU Non-Admin Reason: Patient Refused Quetiapine Fumarate (Quetiapine Fumarate 50 Mg Tablet) 50 mg PO BEDTIME [facility] Last Admin: 02/17/25 20:07 Dose: 50 mg Documented By: MARICHUY Senna (Sennosides 8.6 Mg Tablet) 17.2 mg PO BEDTIME [facility] Last Admin: 02/17/25 20:07 Dose: 17.2 mg Documented By: MARICHUY Sertraline HCl (Sertraline Hcl 100 Mg Tablet) 100 mg PO DAILY [facility] Last Admin: 02/17/25 08:27 Dose: 100 mg Documented By: KANU Sodium Chloride (0.9 % Sodium Chloride Flush 3 Ml Syringe) 3 ml IVFLUSH [facility] Last Admin: 02/17/25 20:10 Dose: 3 ml Documented By: MARICHUY Sodium Chloride (0.9 % Sodium Chloride Flush 10 Ml Syringe) [facility] Last Admin: 02/17/25 23:43 Dose: 10 ml Documented By: MARICHUY Trazodone HCl (Trazodone Hcl 50 Mg Tablet) 50 mg PO BEDTIME [facility] Last Admin: 02/17/25 20:07 Dose: 50 mg Documented By: MARICHUY Labs 02/18/25 09:46 02/18/25 09:46 Labs: Laboratory Results - last 24 hr 02/17/25 02/17/25 02/17/25 07:34 10:05 10:58 POC Glucose 103 122 H Vancomycin Trough 17.6 02/17/25 02/17/25 15:44 20:39 POC Glucose 148 H 132 H Vancomycin Trough Microbiology Microbiology Results: Microbiology 02/12/25 06:56 Blood Culture - Final Blood - Venous No growth after 5 days. Assessment and Plan (1) Gram-positive cocci bacteremia: Status: Acute Plan d11 , 54yo M with hx MRSA bacteremia, IVDA on methadone, chronic hypoNa, DM2, cirrhosis, portal HTN, alcohol abuse in remission, prostate neoplasm of unknown behavior presented after fall, Utox positive for opioids, found to have MRSA bacteremia. MRSA bacteremia and acute osteomyelitis R clavicle/R sternoclavicular septic arthritis Patient was initially on daptomycin, escalated to daptomycin as of 02/17/2025. We will repeat 2 sets of blood cultures and we will likely need to wait as the cultures appear to be slow to grow and result. We do not have clearance of bacteremia, hence the holdup of discharge planning. PICC line was removed as of 02/17/2025 PICC line once bacteremia has cleared Thankfully TTE negative during workup, can not rule out vegetations and we will likely need KIRBY if bacteremia not cleared follow up with ID in 1-2wk post DC anterior R 7th + 8th acute rib fractures - pain control with methadone + oxycodone IR, IS L knee effusion - Ortho consulted: Aside from severe OA, No tendon injury. Quad inhibition likely due to effusion. PT - wbat, ROM, quad strength distal choledocholithiasis - asymptomatic, per GI, small stones likely to pass on own; per Surg, no need for urgent lap mandy ground-glass opacity in the right upper lobe and lingula measuring up to 1.5 cm - repeat CT as outpt in 3 mo hypoK: repleted and checked daily chronic HCV: outpt treatment recommended OUD: on methadone, Addiction Medicine consulted cirrhosis with pancytopenia and coagulopathy: CBC stable; INR uncorrectable mood disorder: sertraline, quetiapine, trazodone, lorazepam DM2: correction-dose lispro, hold MTF VTE ppx: enoxaparin dispo: STR In my clinical judgment, the patient requires continued inpatient hospitalization for the following reasons: bacteremia resolution, necessity for requiring daptomycin This note is constructed using voice recognition software. While every effort has been made to ensure accuracy, transit mechanic errors may have been included. Total time managing care of this patient today: 35 minutes. Quality Stroke Does the patient have a stroke diagnosis?: No Reason for No Anti-thrombotic by Day Two: Contraindicated VTE Prior VTE?: No VTE Risk Level:: Medical - moderate - high VTE Device Contraindication: N/A - Device Ordered VTE Drug Contraindication: Treatment Not Indicated
[2025-02-18 07:31] VITALS: BP 116/66; PULSE 84; RESP 13; TEMP 36.6; O2SAT 94
[2025-02-18 07:39] LABS: Glucose, Whole Blood 102 mg/dL (60-115)
[2025-02-18] MEDS: methADONE HCl 20 MG/2 ML ORAL.CONC 175 MG PO (08:08)
[2025-02-18] MEDS: 0.9 % Sodium Chloride Flush 3 ML SYRINGE IVFLUSH ×3 (08:20→20:37)
[2025-02-18 09:58] LABS: MANUAL DIFF FLAG NO
[2025-02-18 10:11] LABS: Hematocrit 31.6 % (42.0-52.0); Hemoglobin 10.0 g/dl (14.0-18.0); Imm Gran Abs Auto 0.03 X10*3/uL (0.00-0.03); Imm Gran Pct Auto 0.6 % (0.0-0.4); Lymphocytes Absolute Auto 0.7 X10*3/uL (1.2-4.9); Mean Corpuscular HGB Conc 31.6 g/dl (31.0-36.0); Mean Corpuscular Hemoglobin 28.2 pg (27.0-33.0); Mean Corpuscular Volume 89.0 fL (80.0-98.0); NRBC Abs Auto 0.000 X10*3/uL (0.0-0.012); NRBC Pct Auto 0.0 /100WBC (0.0-0.2); Platelet Count 111 X10*3/uL (160-400); Red Blood Count 3.55 X10*6/uL (4.60-5.80); White Blood Count 5.0 X10*3/uL (4.8-10.8)
[2025-02-18 10:16] LABS: Alanine Aminotransferase 25 U/L (0-40); Albumin Level 2.2 g/dL (3.5-5.0); Alkaline Phosphatase 60 U/L (39-117); Anion Gap 10 (12-20); Aspartate Amino Transferase 69 U/L (5-37); Blood Urea Nitrogen 15 mg/dL (9-16); Calcium 8.2 mg/dL (8.4-10.2); Carbon Dioxide 28 mmol/L (22-29); Chloride 100 mmol/L (96-108); Creatinine Clr Calc Pharmacy 173.8; Estimated Glomerular Filt Rate > 60; Magnesium 1.9 mg/dL (1.6-2.6); Potassium 3.7 mmol/L (3.3-5.1); Sodium 134 mmol/L (135-145); Total Protein 9.3 g/dL (6.5-8.0)
[2025-02-18 11:24] LABS: Glucose, Whole Blood 150 mg/dL (60-115)
[2025-02-18 11:26] VITALS: BP 118/69; PULSE 80; RESP 18; TEMP 36.2; O2SAT 95
[2025-02-18 15:30] VITALS: BP 125/69; PULSE 80; RESP 17; TEMP 36.3; O2SAT 96
[2025-02-18 16:02] LABS: Glucose, Whole Blood 122 mg/dL (60-115)
[2025-02-18] MEDS: methADONE HCl 20 MG/2 ML ORAL.CONC 40 MG PO (17:18)
[2025-02-18] MEDS: SODIUM CHLORIDE 0.9% IV (17:21)
[2025-02-18] MEDS: DAPTOMYCIN IV (17:21)
[2025-02-18 19:28] VITALS: BP 114/58; PULSE 93; RESP 18; TEMP 37.1; O2SAT 94
[2025-02-18 20:20] LABS: Glucose, Whole Blood 129 mg/dL (60-115)
[2025-02-19] VITALS (7 sets, daily range): BP systolic 100–170; BP diastolic 51–82; PULSE 64–92; RESP 12–18; TEMP 36.1–36.7; O2SAT 93–96
--- NOTE | 2025-02-19 00:27 | PM.IDPN ---
Subjective Subjective Date of Service: 02/19/25 Critical Care Time (minutes): 15 Comment: he feels better, 02/12 blood culture positve Objective Data Labs 02/18/25 09:46 02/18/25 09:46 Labs: Laboratory Results - last 24 hr 02/18/25 02/18/25 02/18/25 07:32 09:46 11:20 WBC 5.0 RBC 3.55 L Hgb 10.0 L Hct 31.6 L MCV 89.0 MCH 28.2 MCHC 31.6 RDW 15.4 Plt Count 111 L MPV 10.9 Immature Gran % (Auto) 0.6 H Neut % (Auto) 81.3 H Lymph % (Auto) 13.1 L [place] % (Auto) 4.2 Eos % (Auto) 0.4 Baso % (Auto) 0.4 Lymph # (Auto) 0.7 L [place] # (Auto) 0.2 Eos # (Auto) 0.0 Baso # (Auto) 0.0 Abs Immat Gran (auto) 0.03 Absolute Neuts (auto) 4.1 Absolute Nucleated RBC 0.000 Nucleated RBC % (auto) 0.0 Sodium 134 L Potassium 3.7 Chloride 100 Carbon Dioxide 28 Anion Gap 10 L BUN 15 Creatinine 0.60 Estim Creat Clear Calc 173.8 Estimated GFR > 60 POC Glucose 102 150 H Random Glucose 110 Calcium 8.2 L Magnesium 1.9 Total Bilirubin 0.7 AST 69 H ALT 25 Alkaline Phosphatase 60 Total Protein 9.3 H Albumin 2.2 L Vancomycin Trough 7.2 L 02/18/25 02/18/25 15:58 20:16 WBC RBC Hgb Hct MCV MCH MCHC RDW Plt Count MPV Immature Gran % (Auto) Neut % (Auto) Lymph % (Auto) [place] % (Auto) Eos % (Auto) Baso % (Auto) Lymph # (Auto) [place] # (Auto) Eos # (Auto) Baso # (Auto) Abs Immat Gran (auto) Absolute Neuts (auto) Absolute Nucleated RBC Nucleated RBC % (auto) Sodium Potassium Chloride Carbon Dioxide Anion Gap BUN Creatinine Estim Creat Clear Calc Estimated GFR POC Glucose 122 H 129 H Random Glucose Calcium Magnesium Total Bilirubin AST ALT Alkaline Phosphatase Total Protein Albumin Vancomycin Trough Microbiology Microbiology Results: Microbiology 02/17/25 16:24 Blood - Venous Blood Culture - Preliminary No growth after 24 hours. 02/17/25 16:24 Blood - Venous Blood Culture - Preliminary No growth after 24 hours. 02/12/25 06:56 Blood - Venous Blood Culture - Final No growth after 5 days. 02/12/25 06:57 Blood - Venous Blood Culture - Final Methicillin Res Staph Aureus 02/09/25 08:54 Blood - Venous Blood Culture - Final Methicillin Res Staph Aureus 02/09/25 08:52 Blood - Venous Blood Culture - Final Methicillin Res Staph Aureus 02/08/25 13:05 Blood - Venous Blood Culture - Final Methicillin Res Staph Aureus 02/08/25 13:24 Blood - Venous Blood Culture - Final Methicillin Res Staph Aureus Physical Exam Vital Signs: Vital Signs: Last Vital Signs Temp 97.5 F 02/19/25 00:00 Pulse 89 02/19/25 00:00 Resp 18 02/19/25 00:00 BP 106/51 L 02/19/25 00:00 Pulse Ox 96 02/19/25 00:00 O2 Del Method Room Air 02/19/25 00:00 O2 Flow Rate 1 02/12/25 09:10 BMI result Body Mass Index 33.2 Assessment and Plan Assessment and plan (1) IVDU (intravenous drug user): Problem details: 28 days antibiotics from first blood cultures negative .48-72h Status: Acute (2) Opioid use disorder: Status: Acute Time Spent With Patient Time: Total time managing care of this patient today ____ minutes.
[2025-02-19] MEDS: oxyCODONE HCl Immed Release 5 MG TABLET 10 MG PO ×4 (03:06→21:08)
[2025-02-19 06:24] LABS: MANUAL DIFF FLAG NO
[2025-02-19 06:31] LABS: Hematocrit 30.3 % (42.0-52.0); Hemoglobin 9.6 g/dl (14.0-18.0); Imm Gran Abs Auto 0.03 X10*3/uL (0.00-0.03); Imm Gran Pct Auto 0.7 % (0.0-0.4); Lymphocytes Absolute Auto 0.5 X10*3/uL (1.2-4.9); Mean Corpuscular HGB Conc 31.7 g/dl (31.0-36.0); Mean Corpuscular Hemoglobin 28.2 pg (27.0-33.0); Mean Corpuscular Volume 88.9 fL (80.0-98.0); NRBC Abs Auto 0.030 X10*3/uL (0.0-0.012); NRBC Pct Auto 0.7 /100WBC (0.0-0.2); Platelet Count 107 X10*3/uL (160-400); Red Blood Count 3.41 X10*6/uL (4.60-5.80); White Blood Count 4.1 X10*3/uL (4.8-10.8)
[2025-02-19 06:45] LABS: Alanine Aminotransferase 25 U/L (0-40); Albumin Level 2.1 g/dL (3.5-5.0); Alkaline Phosphatase 59 U/L (39-117); Anion Gap 9 (12-20); Aspartate Amino Transferase 65 U/L (5-37); Blood Urea Nitrogen 22 mg/dL (9-16); Calcium 8.0 mg/dL (8.4-10.2); Carbon Dioxide 28 mmol/L (22-29); Chloride 102 mmol/L (96-108); Creatinine Clr Calc Pharmacy 118.5; Estimated Glomerular Filt Rate > 60; Magnesium 2.0 mg/dL (1.6-2.6); Potassium 3.8 mmol/L (3.3-5.1); Sodium 135 mmol/L (135-145); Total Protein 8.2 g/dL (6.5-8.0)
--- NOTE | 2025-02-19 07:16 | HO.PM.IMPN ---
Subjective Subjective Date of Service: 02/19/25 Interval History: Patient is undergoing workup for clearance of bacteremia. Patient's prior blood cultures drawn on the resulted on the as positive, hence the blood cultures that were drawn on 02/17/2025 need to be waited until 5 days to confirm clearance of bacteremia hence the hold up (02/22/25) and we dont have PICC line placement until Monday - so we will likely find placement on Monday Patient comfortable with the current plan Review of Systems Review of Systems: Yes all other systems are reviewed and are negative Physical Exam Exam: Exam: General: AOx3, , pain appears optimally controlled Resp: Bilateral decreased breath sounds, limited secondary to patient's baseline status CVS: Sinus tachycardia, MR TR heart sounds GI: +BS, NT, protuberant Neuro: Motor grossly intact bilaterally Extremities: Bilateral pitting chronic venous stasis changes without any obvious cellulitis, left knee effusion improving Vital Signs: Vital Signs: Last Vital Signs Temp 97.3 F 02/19/25 03:34 Pulse 64 02/19/25 03:34 Resp 18 02/19/25 03:34 BP 100/60 02/19/25 03:34 Pulse Ox 94 02/19/25 03:34 O2 Del Method Room Air 02/19/25 03:34 O2 Flow Rate 1 02/12/25 09:10 BMI result Body Mass Index 33.2 Objective Data Active Medications Acetaminophen (Acetaminophen 325 Mg Tablet) 650 mg PO Q6H PRN PRN Reason: Pain, Mild 1-3,fever,headache Last Admin: 02/18/25 23:59 Dose: 650 mg Documented By: HOOD Bisacodyl (Bisacodyl 10 Mg Supp.Rect) 10 mg [place] BEDTIME PRN PRN Reason: Constipation Calcium Carbonate (Calcium Carbonate 750 Mg Tab.Chew) 750 mg PO Q4H PRN PRN Reason: Heartburn Dextrose (Dextrose 50 % 25 Gm/50 Ml Syringe) 25 gm IVPUSH Q15M PRN; Protocol PRN Reason: per Hypoglycemia Standing Ord. Enoxaparin Sodium (Enoxaparin Sodium 40 Mg/0.4 Ml Syringe) 40 mg SUBCUT Q24H PATRICIA Last Admin: 02/18/25 17:20 Dose: 40 mg Documented By: LONG Glucose (Glucose Gel 15 Gm Gel..Gram.) 15 gm PO Q15M PRN; Protocol PRN Reason: per Hypoglycemia Standing Ord. Guaifenesin (Guaifenesin 200 Mg/10 Ml 10 Ml Liquid) 10 ml PO Q4H PRN PRN Reason: Cough Daptomycin 880 mg/ Sodium (Chloride) 67.6 mls @ 94.435 mls/hr IV Q24H [facility] Last Infusion: 02/18/25 18:04 Dose: Infused Documented By: LONG Insulin Human Lispro (Insulin Lispro 100 Unit/Ml 3 Ml Vial) 0 unit SUBCUT QIDACHS [facility]; Protocol Last Admin: 02/18/25 20:39 Dose: Not Given Documented By: HOOD Non-Admin Reason: No Insulin Coverage Lisinopril (Lisinopril 10 Mg Tablet) 10 mg PO DAILY [facility]; Protocol Last Admin: 02/18/25 08:06 Dose: 10 mg Documented By: LONG Lorazepam (Lorazepam 0.5 Mg Tablet) 0.5 mg PO BID@0900,1800 [facility] Last Admin: 02/18/25 17:19 Dose: 0.5 mg Documented By: LONG Magnesium Hydroxide (Milk Of Magnesia 30 Ml Oral.Susp) 30 ml PO DAILY PRN PRN Reason: Constipation Last Admin: 02/11/25 23:15 Dose: 30 ml Documented By: TYREL Melatonin (Melatonin 3 Mg Tablet) 6 mg PO BEDTIME PRN PRN Reason: Insomnia Last Admin: 02/15/25 22:54 Dose: 6 mg Documented By: CLAURISMelvina Methadone HCl (Methadone Hcl 20 Mg/2 Ml Oral.Conc) 175 mg PO DAILY [facility] Last Admin: 02/18/25 08:08 Dose: 175 mg Documented By: LONG Co-signed By: CRISPIN Methadone HCl (Methadone Hcl 20 Mg/2 Ml Oral.Conc) 40 mg PO DAILY@1800 [facility] Last Admin: 02/18/25 17:18 Dose: 40 mg Documented By: LONG Co-signed By: DIEGO Methocarbamol (Methocarbamol 500 Mg Tablet) 500 mg PO TID [facility] Last Admin: 02/18/25 20:36 Dose: 500 mg Documented By: HOOD Nystatin (Nystatin Powder 15 Gm Bottle) 1 appl TOPICAL TID [facility]; Protocol Last Admin: 02/18/25 20:39 Dose: 1 appl Documented By: HOOD Omeprazole (Omeprazole 20 Mg Capsule.Dr) 20 mg PO DAILY@0630 [facility] Last Admin: 02/19/25 05:09 Dose: 20 mg Documented By: HOOD Ondansetron HCl (Ondansetron Hcl 4 Mg/2 Ml Vial) 4 mg IVPUSH Q8H PRN PRN Reason: Nausea and Vomiting Oxycodone HCl (Oxycodone Hcl Immed Release 5 Mg Tablet) 10 mg PO Q4H PRN PRN Reason: Pain, Severe (Pain Scale 7-10) Last Admin: 02/19/25 06:50 Dose: 10 mg Documented By: YUNI Polyethylene Glycol (Polyethylene Glycol 3350 17 Gm Powd.Pack) 17 gm PO DAILY [facility] Last Admin: 02/18/25 08:07 Dose: 17 gm Documented By: LONG Quetiapine Fumarate (Quetiapine Fumarate 50 Mg Tablet) 50 mg PO BEDTIME [facility] Last Admin: 02/18/25 20:36 Dose: 50 mg Documented By: HOOD Senna (Sennosides 8.6 Mg Tablet) 17.2 mg PO BEDTIME [facility] Last Admin: 02/18/25 20:35 Dose: 17.2 mg Documented By: HOOD Sertraline HCl (Sertraline Hcl 100 Mg Tablet) 100 mg PO DAILY [facility] Last Admin: 02/18/25 08:06 Dose: 100 mg Documented By: LONG Sodium Chloride (0.9 % Sodium Chloride Flush 3 Ml Syringe) [facility] Last Admin: 02/18/25 20:37 Dose: 3 ml Documented By: HOOD Sodium Chloride (0.9 % Sodium Chloride Flush 10 Ml Syringe) [facility] Last Admin: 02/18/25 20:38 Dose: Not Given Documented By: HOOD Non-Admin Reason: No Access Trazodone HCl (Trazodone Hcl 50 Mg Tablet) 50 mg PO BEDTIME [facility] Last Admin: 02/18/25 20:35 Dose: 50 mg Documented By: HOOD Labs 02/19/25 05:43 02/19/25 05:43 Labs: Laboratory Results - last 24 hr 10/14/25 10/14/25 10/14/25 07:32 09:46 11:20 MCV 89.0 MCH 28.2 MCHC 31.6 RDW 15.4 Plt Count 111 L MPV 10.9 Immature Gran % (Auto) 0.6 H Neut % (Auto) 81.3 H Lymph % (Auto) 13.1 L [place] % (Auto) 4.2 Eos % (Auto) 0.4 Baso % (Auto) 0.4 Lymph # (Auto) 0.7 L [place] # (Auto) 0.2 Eos # (Auto) 0.0 Baso # (Auto) 0.0 Abs Immat Gran (auto) 0.03 Absolute Neuts (auto) 4.1 Absolute Nucleated RBC 0.000 Nucleated RBC % (auto) 0.0 Anion Gap 10 L Estim Creat Clear Calc 173.8 Estimated GFR > 60 POC Glucose 102 150 H Random Glucose 110 Calcium 8.2 L Magnesium 1.9 Total Bilirubin 0.7 AST 69 H ALT 25 Alkaline Phosphatase 60 Total Protein 9.3 H Albumin 2.2 L Vancomycin Trough 7.2 L 02/18/25 02/18/25 02/19/25 15:58 20:16 05:43 MCV 88.9 MCH 28.2 MCHC 31.7 RDW 15.8 Plt Count 107 L MPV 10.3 Immature Gran % (Auto) 0.7 H Neut % (Auto) 81.7 H Lymph % (Auto) 11.5 L [place] % (Auto) 4.4 Eos % (Auto) 1.2 Baso % (Auto) 0.5 Lymph # (Auto) 0.5 L [place] # (Auto) 0.2 Eos # (Auto) 0.1 Baso # (Auto) 0.0 Abs Immat Gran (auto) 0.03 Absolute Neuts (auto) 3.3 Absolute Nucleated RBC 0.030 H Nucleated RBC % (auto) 0.7 H Anion Gap 9 L Estim Creat Clear Calc 118.5 Estimated GFR > 60 POC Glucose 122 H 129 H Random Glucose 102 Calcium 8.0 L Magnesium 2.0 Total Bilirubin 0.5 AST 65 H ALT 25 Alkaline Phosphatase 59 Total Protein 8.2 H Albumin 2.1 L Vancomycin Trough Microbiology Microbiology Results: Microbiology 02/17/25 16:24 Blood Culture - Preliminary Blood - Venous No growth after 24 hours. 02/17/25 16:24 Blood Culture - Preliminary Blood - Venous No growth after 24 hours. Assessment and Plan (1) Gram-positive cocci bacteremia: Status: Acute Plan d11 , 54yo M with hx MRSA bacteremia, IVDA on methadone, chronic hypoNa, DM2, cirrhosis, portal HTN, alcohol abuse in remission, prostate neoplasm of unknown behavior presented after fall, Utox positive for opioids, found to have MRSA bacteremia. MRSA bacteremia and acute osteomyelitis R clavicle/R sternoclavicular septic arthritis blood cultures that were drawn on 02/17/2025 need to be waited until 5 days to confirm clearance of bacteremia hence the hold up (02/22/25) and we dont have PICC line placement until Monday - so we will likely find placement on Monday Cont daptomycin as of 02/17/2025. We will repeat 2 sets of blood cultures and we will likely need to wait as the cultures appear to be slow to grow and result. We do not have evidence of clearance of bacteremia, hence the holdup of discharge planning. PICC line once bacteremia has cleared - next Monday Thankfully TTE negative during workup, can not rule out vegetations and we will likely need KIRBY if bacteremia not cleared follow up with ID in 1-2wk post DC anterior R 7th + 8th acute rib fractures - pain control with methadone + oxycodone IR, IS L knee effusion - Ortho consulted: Aside from severe OA, No tendon injury. Quad inhibition likely due to effusion. PT - wbat, ROM, quad strength distal choledocholithiasis - asymptomatic, per GI, small stones likely to pass on own; per Surg, no need for urgent lap mandy ground-glass opacity in the right upper lobe and lingula measuring up to 1.5 cm - repeat CT as outpt in 3 mo hypoK: repleted and checked daily chronic HCV: outpt treatment recommended OUD: on methadone, Addiction Medicine consulted cirrhosis with pancytopenia and coagulopathy: CBC stable; INR uncorrectable mood disorder: sertraline, quetiapine, trazodone, lorazepam DM2: correction-dose lispro, hold MTF VTE ppx: enoxaparin dispo: STR In my clinical judgment, the patient requires continued inpatient hospitalization for the following reasons: bacteremia resolution, necessity for requiring daptomycin This note is constructed using voice recognition software. While every effort has been made to ensure accuracy, private watchman errors may have been included. Total time managing care of this patient today: 35 minutes. Quality Stroke Does the patient have a stroke diagnosis?: No Reason for No Anti-thrombotic by Day Two: Contraindicated VTE Prior VTE?: No VTE Risk Level:: Medical - moderate - high VTE Device Contraindication: N/A - Device Ordered VTE Drug Contraindication: Treatment Not Indicated
[2025-02-19 07:36] LABS: Glucose, Whole Blood 81 mg/dL (60-115)
[2025-02-19] MEDS: methADONE HCl 20 MG/2 ML ORAL.CONC 175 MG PO (08:17)
[2025-02-19] MEDS: 0.9 % Sodium Chloride Flush 3 ML SYRINGE IVFLUSH ×2 (08:21→17:34)
--- NOTE | 2025-02-19 10:27 | MHC.CM.PN ---
Per MD, patient not medically cleared for dc. Plan for PICC after blood cx are clear x 5 days. Will need dapto, SNF confirmed can get [employer] carve out. DP: Rajesh Roberson for STR/IV abx, will need updated auth and updated guest dosing form w/ new start date.
[2025-02-19 11:10] LABS: Glucose, Whole Blood 128 mg/dL (60-115)
--- NOTE | 2025-02-19 13:56 | P.CDIM_ITS ---
PROVIDER RESPONSE TEXT: To clarify, the appropriate diagnosis supported by the clinical indicators: Bacteremia (MRSA) QUERY TEXT: PHYSICIAN'S DOCUMENTATION REQUEST Date of Query: 02/19/2025 07:51 AM EDT Patient Name: Stepan Low Admit Date: 02/08/2025 Dear Lyssa Nascimento MD, A review of the medical record indicates additional documentation may be needed. Please review below and update the documentation accordingly. Clinical Indicators: H&P dated 02/08/25 -Bacteremia, possible multiple sources 2/2 bc are now positive for Gram-positive cocci in clusters. Patient does not meet criteria for sepsis on admission. Progress note dated 02/09/25 & 02/10/25 - Sepsis workup revealed GP bacteremia. 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 ID 02/10/25 - MRSA bacteremia, likely recurrent. Presents with wound and swelling. No fevers or chills at this time. Continue Daptomycin 10 mg/kg per day 4 weeks likely. Please clarify, for clarity and consistency of documentation, the Sepsis/Bacteremia: Sepsis Severe Sepsis Localized infection only, without systemic illness Indicate the site/source, such as UTI, pneumonia, etc. Bacteremia (MRSA) Other (explain) Clinically unable to determine (explain) Thank you, Fadia Hyatt, CCS, CDIS Use of terms such as suspected, likely, concern for, or probable (associated with a specific diagnosis that is being evaluated, monitored, or treated as if it exists) are acceptable and can be coded in the inpatient setting, when documented at the time of discharge. Please use your independent medical judgment in providing your response. THIS QUERY IS PART OF THE PERMANENT MEDICAL RECORD
[2025-02-19 16:11] LABS: Glucose, Whole Blood 116 mg/dL (60-115)
[2025-02-19] MEDS: DAPTOMYCIN IV (17:33)
[2025-02-19] MEDS: SODIUM CHLORIDE 0.9% IV (17:33)
[2025-02-19] MEDS: methADONE HCl 20 MG/2 ML ORAL.CONC 40 MG PO (17:33)
[2025-02-19 20:27] LABS: Glucose, Whole Blood 130 mg/dL (60-115)
[2025-02-20] MEDS: oxyCODONE HCl Immed Release 5 MG TABLET 10 MG PO ×4 (02:20→20:36)
[2025-02-20 04:00] VITALS: BP 133/57; PULSE 64; RESP 18; TEMP 36.4; O2SAT 92
[2025-02-20 06:34] LABS: NRBC Abs Auto 0.000 X10*3/uL (0.0-0.012); NRBC Pct Auto 0.0 /100WBC (0.0-0.2)
[2025-02-20 06:36] LABS: Hematocrit 28.7 % (42.0-52.0); Hemoglobin 9.2 g/dl (14.0-18.0); Imm Gran Abs Auto 0.01 X10*3/uL (0.00-0.03); Imm Gran Pct Auto 0.3 % (0.0-0.4); Lymphocytes Absolute Auto 0.6 X10*3/uL (1.2-4.9); Mean Corpuscular HGB Conc 32.1 g/dl (31.0-36.0); Mean Corpuscular Hemoglobin 28.4 pg (27.0-33.0); Mean Corpuscular Volume 88.6 fL (80.0-98.0); Red Blood Count 3.24 X10*6/uL (4.60-5.80)
[2025-02-20 06:41] LABS: Platelet Count 92 X10*3/uL (160-400); White Blood Count 3.2 X10*3/uL (4.8-10.8)
[2025-02-20 06:48] LABS: Alanine Aminotransferase 26 U/L (0-40); Albumin Level 2.1 g/dL (3.5-5.0); Anion Gap 9 (12-20); Aspartate Amino Transferase 74 U/L (5-37); Blood Urea Nitrogen 21 mg/dL (9-16); Calcium 7.8 mg/dL (8.4-10.2); Carbon Dioxide 28 mmol/L (22-29); Chloride 101 mmol/L (96-108); Creatinine Clr Calc Pharmacy 176.7; Estimated Glomerular Filt Rate > 60; Magnesium 1.9 mg/dL (1.6-2.6); Potassium 3.8 mmol/L (3.3-5.1); Sodium 134 mmol/L (135-145); Total Protein 8.3 g/dL (6.5-8.0)
[2025-02-20 07:06] LABS: Alkaline Phosphatase 57 U/L (39-117)
--- NOTE | 2025-02-20 07:11 | P.PNIM_ITS ---
Subjective Subjective Date of Service: 02/20/25 Interval History: Currently still awaiting blood cultures results which will happen likely tomorrow after which we need to have PICC line placement on Monday after which we can look for placement hence hold off on his discharge We will continue daptomycin Review of Systems Review of Systems: Yes all other systems are reviewed and are negative Physical Exam 2 Exam: Exam: General: AOx3, , pain appears optimally controlled, looks a little better compared to yesterday after having a grooming session Resp: Bilateral decreased breath sounds, limited secondary to patient's baseline status CVS: Sinus tachycardia, MR TR heart sounds GI: +BS, NT, protuberant Neuro: Motor grossly intact bilaterally Extremities: Bilateral pitting chronic venous stasis changes without any obvious cellulitis, left knee effusion improving Vital Signs: Vital Signs: Last Vital Signs Temp 97.5 F 02/20/25 04:00 Pulse 64 02/20/25 04:00 Resp 18 02/20/25 04:00 BP 133/57 L 02/20/25 04:00 Pulse Ox 92 02/20/25 04:00 O2 Del Method Room Air 02/20/25 04:00 O2 Flow Rate 1 02/12/25 09:10 BMI result Body Mass Index 33.2 Objective Data Active Medications Acetaminophen (Acetaminophen 325 Mg Tablet) 650 mg PO Q6H PRN PRN Reason: Pain, Mild 1-3,fever,headache Last Admin: 02/19/25 13:03 Dose: 650 mg Documented By: LONG Bisacodyl (Bisacodyl 10 Mg Supp.Rect) 10 mg CA BEDTIME PRN PRN Reason: Constipation Calcium Carbonate (Calcium Carbonate 750 Mg Tab.Chew) 750 mg PO Q4H PRN PRN Reason: Heartburn Dextrose (Dextrose 50 % 25 Gm/50 Ml Syringe) 25 gm IVPUSH Q15M PRN; Protocol PRN Reason: per Hypoglycemia Standing Ord. Enoxaparin Sodium (Enoxaparin Sodium 40 Mg/0.4 Ml Syringe) 40 mg SUBCUT Q24H [facility] Last Admin: 02/19/25 17:34 Dose: 40 mg Documented By: LONG Glucose (Glucose Gel 15 Gm Gel..Gram.) 15 gm PO Q15M PRN; Protocol PRN Reason: per Hypoglycemia Standing Ord. Guaifenesin (Guaifenesin 200 Mg/10 Ml 10 Ml Liquid) 10 ml PO Q4H PRN PRN Reason: Cough Daptomycin 880 mg/ Sodium (Chloride) 67.6 mls @ 94.435 mls/hr IV Q24H [facility] Last Infusion: 02/19/25 18:21 Dose: Infused Documented By: LONG Insulin Human Lispro (Insulin Lispro 100 Unit/Ml 3 Ml Vial) 0 unit SUBCUT QIDACHS [facility]; Protocol Last Admin: 02/19/25 20:47 Dose: Not Given Documented By: ENRIQUE Non-Admin Reason: No Insulin Coverage Lisinopril (Lisinopril 10 Mg Tablet) 10 mg PO DAILY [facility]; Protocol Last Admin: 02/19/25 08:14 Dose: 10 mg Documented By: LONG Lorazepam (Lorazepam 0.5 Mg Tablet) 0.5 mg PO BID@0900,1800 [facility] Last Admin: 02/19/25 17:33 Dose: 0.5 mg Documented By: LONG Magnesium Hydroxide (Milk Of Magnesia 30 Ml Oral.Susp) 30 ml PO DAILY PRN PRN Reason: Constipation Last Admin: 02/11/25 23:15 Dose: 30 ml Documented By: TYREL Melatonin (Melatonin 3 Mg Tablet) 6 mg PO BEDTIME PRN PRN Reason: Insomnia Last Admin: 02/15/25 22:54 Dose: 6 mg Documented By: PAUL Methadone HCl (Methadone Hcl 20 Mg/2 Ml Oral.Conc) 175 mg PO DAILY [facility] Last Admin: 02/19/25 08:17 Dose: 175 mg Documented By: LONG Co-signed By: KANU Methadone HCl (Methadone Hcl 20 Mg/2 Ml Oral.Conc) 40 mg PO DAILY@1800 [facility] Last Admin: 02/19/25 17:33 Dose: 40 mg Documented By: LONG Co-signed By: CRISPIN Methocarbamol (Methocarbamol 500 Mg Tablet) 500 mg PO TID [facility] Last Admin: 02/19/25 21:09 Dose: 500 mg Documented By: ENRIQUE Nystatin (Nystatin Powder 15 Gm Bottle) 1 appl TOPICAL TID [facility]; Protocol Last Admin: 02/19/25 21:11 Dose: 1 appl Documented By: ENRIQUE Omeprazole (Omeprazole 20 Mg Capsule.) 20 mg PO DAILY@0630 [facility] Last Admin: 02/20/25 06:38 Dose: 20 mg Documented By: ENRIQUE Ondansetron HCl (Ondansetron Hcl 4 Mg/2 Ml Vial) 4 mg IVPUSH Q8H PRN PRN Reason: Nausea and Vomiting Oxycodone HCl (Oxycodone Hcl Immed Release 5 Mg Tablet) 10 mg PO Q4H PRN PRN Reason: Pain, Mild 1-3,fever,headache Last Admin: 02/20/25 06:39 Dose: 10 mg Documented By: ENRIQUE Comments: per pt request Polyethylene Glycol (Polyethylene Glycol 3350 17 Gm Powd.Pack) 17 gm PO DAILY [facility] Last Admin: 02/19/25 08:15 Dose: 17 gm Documented By: LONG Quetiapine Fumarate (Quetiapine Fumarate 50 Mg Tablet) 50 mg PO BEDTIME [facility] Last Admin: 02/19/25 21:08 Dose: 50 mg Documented By: ENRIQUE Senna (Sennosides 8.6 Mg Tablet) 17.2 mg PO BEDTIME [facility] Last Admin: 02/19/25 21:09 Dose: 17.2 mg Documented By: ENRIQUE Sertraline HCl (Sertraline Hcl 100 Mg Tablet) 100 mg PO DAILY [facility] Last Admin: 02/19/25 08:15 Dose: 100 mg Documented By: LONG Sodium Chloride (0.9 % Sodium Chloride Flush 3 Ml Syringe) 3 ml IVFLUSH [facility] Last Admin: 02/20/25 00:01 Dose: Not Given Documented By: ENRIQUE Non-Admin Reason: Previously Administered Sodium Chloride (0.9 % Sodium Chloride Flush 10 Ml Syringe) 10 ml IVFLUSH [facility] Last Admin: 02/20/25 00:01 Dose: Not Given Documented By: ENRIQUE Non-Admin Reason: NO PICC line Trazodone HCl (Trazodone Hcl 50 Mg Tablet) 50 mg PO BEDTIME [facility] Last Admin: 02/19/25 21:09 Dose: 50 mg Documented By: ENRIQUE Labs 02/20/25 05:30 02/20/25 05:30 Labs: Laboratory Results - last 24 hr 02/19/25 02/19/25 02/19/25 07:32 11:06 16:07 MCV MCH MCHC RDW Plt Count MPV Immature Gran % (Auto) Neut % (Auto) Lymph % (Auto) [place] % (Auto) Eos % (Auto) Baso % (Auto) Lymph # (Auto) [place] # (Auto) Eos # (Auto) Baso # (Auto) Abs Immat Gran (auto) Absolute Neuts (auto) Absolute Nucleated RBC Nucleated RBC % (auto) Anion Gap Estim Creat Clear Calc Estimated GFR POC Glucose 81 128 H 116 H Random Glucose Calcium Magnesium Total Bilirubin AST ALT Alkaline Phosphatase Total Protein Albumin 02/19/25 02/20/25 20:24 05:30 MCV 88.6 MCH 28.4 MCHC 32.1 RDW 15.6 Plt Count 92 L MPV 10.3 Immature Gran % (Auto) 0.3 Neut % (Auto) 70.9 Lymph % (Auto) 20.3 [place] % (Auto) 7.3 Eos % (Auto) 0.6 Baso % (Auto) 0.6 Lymph # (Auto) 0.6 L [place] # (Auto) 0.2 Eos # (Auto) 0.0 Baso # (Auto) 0.0 Abs Immat Gran (auto) 0.01 Absolute Neuts (auto) 2.2 Absolute Nucleated RBC 0.000 Nucleated RBC % (auto) 0.0 Anion Gap 9 L Estim Creat Clear Calc 176.7 Estimated GFR > 60 POC Glucose 130 H Random Glucose 75 Calcium 7.8 L Magnesium 1.9 Total Bilirubin 0.5 AST 74 H ALT 26 Alkaline Phosphatase 57 Total Protein 8.3 H Albumin 2.1 L Microbiology Microbiology Results: Microbiology 02/17/25 16:24 Blood Culture - Preliminary Blood - Venous No growth after 48 hours. 02/17/25 16:24 Blood Culture - Preliminary Blood - Venous No growth after 48 hours. Assessment and Plan (1) Gram-positive cocci bacteremia: Status: Acute Plan d11 , 54yo M with hx MRSA bacteremia, IVDA on methadone, chronic hypoNa, DM2, cirrhosis, portal HTN, alcohol abuse in remission, prostate neoplasm of unknown behavior presented after fall, Utox positive for opioids, found to have MRSA bacteremia. MRSA bacteremia and acute osteomyelitis R clavicle/R sternoclavicular septic arthritis blood cultures that were drawn on 02/17/2025 need to be waited until 5 days to confirm clearance of bacteremia hence the hold up (02/22/25) and we dont have PICC line placement until Monday - so we will likely find placement on Monday02/24/25 Cont daptomycin as of 02/17/2025. follow up with ID in 1-2wk post DC anterior R 7th + 8th acute rib fractures- pain control with methadone + oxycodone IR, IS L knee effusion- Ortho consulted: Aside from severe OA, No tendon injury. Quad inhibition likely due to effusion. PT - wbat, ROM, quad strength distal choledocholithiasis- asymptomatic, per GI, small stones likely to pass on own; per Surg, no need for urgent lap mandy ground-glass opacity in the right upper lobe and lingula measuring up to 1.5 cm- repeat CT as outpt in 3 mo hypoK: repleted and checked daily chronic HCV: outpt treatment recommended OUD: on methadone, Addiction Medicine consulted cirrhosis with pancytopenia and coagulopathy: CBC stable; INR uncorrectable mood disorder: sertraline, quetiapine, trazodone, lorazepam DM2: correction-dose lispro, hold MTF VTE ppx: enoxaparin dispo: blood cultures that were drawn on 02/17/2025 need to be waited until 5 days to confirm clearance of bacteremia hence the hold up (02/22/25) and we dont have PICC line placement until Monday - so we will likely find placement on Monday02/24/25 In my clinical judgment, the patient requires continued inpatient hospitalization for the following reasons: bacteremia resolution, necessity for requiring daptomycin This note is constructed using voice recognition software. While every effort has been made to ensure accuracy, metal washing machine operator errors may have been included. Total time managing care of this patient today: 35 minutes. Quality Stroke Does the patient have a stroke diagnosis?: No Reason for No Anti-thrombotic by Day Two: Contraindicated VTE Prior VTE?: No VTE Risk Level:: Medical - moderate - high VTE Device Contraindication: N/A - Device Ordered VTE Drug Contraindication: Treatment Not Indicated
[2025-02-20 07:36] LABS: Glucose, Whole Blood 88 mg/dL (60-115)
[2025-02-20 08:04] VITALS: BP 129/78; PULSE 84; RESP 18; TEMP 36.6; O2SAT 93
[2025-02-20] MEDS: methADONE HCl 20 MG/2 ML ORAL.CONC 175 MG PO (08:31)
[2025-02-20] MEDS: 0.9 % Sodium Chloride Flush 3 ML SYRINGE IVFLUSH ×3 (08:34→20:41)
[2025-02-20 11:33] LABS: Glucose, Whole Blood 144 mg/dL (60-115)
[2025-02-20 12:00] VITALS: BP 133/74; PULSE 75; RESP 15; TEMP 36.3; O2SAT 95
--- NOTE | 2025-02-20 13:51 | HO.WOUND ---
Wound Consult: Follow up 54yr old?male admitted to [facility] on 02/08/25 - See progress notes and H&P for detailed history.? Wound consult follow up for Buttock.? Notified by Clinical Nutrition care team that direct care team has been documented buttock as DTI, consulted requested. Patient agreeable to assessment and photo documentation.? Patient is known to this web content writer from prior admission with wounds to Left wrist and Forearm in addition the Left Foot - both have since resurfaced and are fully healed at this time. Right Trochanter 02/10/25 Buttock / Sacrum 02/10/25 Buttock 02/20/25 - Intact tissue no PI noted - scattered suspected areas of fungal dermatitis noted dry desquamation - irregular boarders - intact and blanchable - topical orders for nystatin powder in use by provider. Right Hip Trochanter 02/20/25 - Intact tissue no PI noted - scattered suspected areas of fungal dermatitis noted - topical orders for nystatin powder in use by provider. Left Hip Trochanter 02/20/25 - Intact tissue no PI noted - scattered suspected areas of fungal dermatitis noted - topical orders for nystatin powder in use by provider. Bilateral Heels assessed for intact blanchable redness. Elevate heels off of bed surface with pillows.? Float heels off of pillows.? Apply skin prep allow to dry.? Apply heel foam dressings, peel back and assess Q shift and change every 5-7 days and PRN. Preventative measure should be employed, HESHAM mattress (in use), Q2hr turns and repositions, barrier cream to buttock due to incontinence and waffle cushion when up to chair. Buttock and Groin -Cleanse with PH balance wipes, pat dry with soft cloth.? Apply antifungal power to assist with moisture management.? Be sure to dust of excess powder to prevent caking on skin and in folds. Apply per provider orders. Apply barrier cream after application to protect from moisture and friction - cleanse immediatly after episodes of incontinence. Bilateral Heels? - Elevate heels off of bed surface with pillows.? Float heels off of pillows.? Apply skin prep allow to dry.? Apply heel foam dressings, peel back and assess Q shift and change every 5-7 days and PRN. Re-consult wound care Nurse for wound deterioration or wound changes.
[2025-02-20 15:56] VITALS: BP 139/80; PULSE 72; RESP 18; TEMP 36.1; O2SAT 97
[2025-02-20 17:12] LABS: Glucose, Whole Blood 104 mg/dL (60-115)
[2025-02-20] MEDS: methADONE HCl 20 MG/2 ML ORAL.CONC 40 MG PO (17:45)
[2025-02-20] MEDS: SODIUM CHLORIDE 0.9% IV (17:51)
[2025-02-20] MEDS: DAPTOMYCIN IV (17:51)
[2025-02-20 19:43] VITALS: BP 156/82; PULSE 78; RESP 16; TEMP 36.2; O2SAT 96
[2025-02-20 20:38] LABS: Glucose, Whole Blood 78 mg/dL (60-115)
[2025-02-20 23:47] VITALS: BP 127/70; PULSE 81; RESP 15; TEMP 36.3; O2SAT 94
[2025-02-21] MEDS: oxyCODONE HCl Immed Release 5 MG TABLET 10 MG PO ×5 (02:02→21:21)
[2025-02-21 03:11] VITALS: BP 135/75; PULSE 80; RESP 14; TEMP 36.2; O2SAT 94
[2025-02-21 06:33] LABS: MANUAL DIFF FLAG NO
[2025-02-21 06:37] LABS: Hematocrit 30.9 % (42.0-52.0); Hemoglobin 9.6 g/dl (14.0-18.0); Imm Gran Abs Auto 0.01 X10*3/uL (0.00-0.03); Imm Gran Pct Auto 0.4 % (0.0-0.4); Lymphocytes Absolute Auto 0.7 X10*3/uL (1.2-4.9); Mean Corpuscular HGB Conc 31.1 g/dl (31.0-36.0); Mean Corpuscular Hemoglobin 27.9 pg (27.0-33.0); Mean Corpuscular Volume 89.8 fL (80.0-98.0); NRBC Abs Auto 0.000 X10*3/uL (0.0-0.012); NRBC Pct Auto 0.0 /100WBC (0.0-0.2); Platelet Count 86 X10*3/uL (160-400); Red Blood Count 3.44 X10*6/uL (4.60-5.80); White Blood Count 2.8 X10*3/uL (4.8-10.8)
[2025-02-21 06:50] LABS: Alanine Aminotransferase 32 U/L (0-40); Albumin Level 2.2 g/dL (3.5-5.0); Alkaline Phosphatase 62 U/L (39-117); Anion Gap 7 (12-20); Aspartate Amino Transferase 79 U/L (5-37); Blood Urea Nitrogen 15 mg/dL (9-16); Calcium 8.1 mg/dL (8.4-10.2); Carbon Dioxide 30 mmol/L (22-29); Chloride 101 mmol/L (96-108); Creatinine Clr Calc Pharmacy 160.4; Estimated Glomerular Filt Rate > 60; Magnesium 1.9 mg/dL (1.6-2.6); Potassium 4.1 mmol/L (3.3-5.1); Sodium 134 mmol/L (135-145); Total Protein 8.9 g/dL (6.5-8.0)
[2025-02-21 07:08] VITALS: BP 155/81; PULSE 82; RESP 16; TEMP 36.2; O2SAT 96
--- NOTE | 2025-02-21 07:14 | HO.PM.IMPN ---
Subjective Subjective Date of Service: 02/21/25 Interval History: Day 09/09 blood cultures negative Today we were the aggressively trying to get IR to place a PICC line however limited resources Hence discharge planning will likely happen on Monday as we will get PICC line only on Monday following which we will like to get authorization Review of Systems Review of Systems: Yes all other systems are reviewed and are negative Physical Exam Exam: Exam: General: AOx3, , pain appears optimally controlled, looks a little better compared to yesterday after having a grooming session Resp: Bilateral decreased breath sounds, limited secondary to patient's baseline status CVS: Sinus tachycardia, MR TR heart sounds GI: +BS, NT, protuberant Neuro: Motor grossly intact bilaterally Extremities: Bilateral pitting chronic venous stasis changes without any obvious cellulitis, left knee effusion improving Vital Signs: Vital Signs: Last Vital Signs Temp 97.2 F 02/21/25 03:11 Pulse 80 02/21/25 03:11 Resp 14 02/21/25 03:11 BP 135/75 02/21/25 03:11 Pulse Ox 94 02/21/25 03:11 O2 Del Method Room Air 02/21/25 03:11 O2 Flow Rate 1 02/12/25 09:10 BMI result Body Mass Index 33.2 Objective Data Active Medications Acetaminophen (Acetaminophen 325 Mg Tablet) 650 mg PO Q6H PRN PRN Reason: Pain, Mild 1-3,fever,headache Last Admin: 02/19/25 13:03 Dose: 650 mg Documented By: LONG Bisacodyl (Bisacodyl 10 Mg Supp.Rect) 10 mg HI BEDTIME PRN PRN Reason: Constipation Calcium Carbonate (Calcium Carbonate 750 Mg Tab.Chew) 750 mg PO Q4H PRN PRN Reason: Heartburn Dextrose (Dextrose 50 % 25 Gm/50 Ml Syringe) 25 gm IVPUSH Q15M PRN; Protocol PRN Reason: per Hypoglycemia Standing Ord. Enoxaparin Sodium (Enoxaparin Sodium 40 Mg/0.4 Ml Syringe) 40 mg SUBCUT Q24H [facility] Last Admin: 02/20/25 17:45 Dose: 40 mg Documented By: CARMEN Glucose (Glucose Gel 15 Gm Gel..Gram.) 15 gm PO Q15M PRN; Protocol PRN Reason: per Hypoglycemia Standing Ord. Guaifenesin (Guaifenesin 200 Mg/10 Ml 10 Ml Liquid) 10 ml PO Q4H PRN PRN Reason: Cough Daptomycin 880 mg/ Sodium (Chloride) 67.6 mls @ 94.435 mls/hr IV Q24H [facility] Last Infusion: 02/20/25 19:05 Dose: Infused Documented By: ENRIQUE Insulin Human Lispro (Insulin Lispro 100 Unit/Ml 3 Ml Vial) 0 unit SUBCUT QIDACHS [facility]; Protocol Last Admin: 02/20/25 20:42 Dose: Not Given Documented By: ENRIQUE Non-Admin Reason: No Insulin Coverage Lisinopril (Lisinopril 10 Mg Tablet) 10 mg PO DAILY [facility]; Protocol Last Admin: 02/20/25 08:33 Dose: 10 mg Documented By: LONG Lorazepam (Lorazepam 0.5 Mg Tablet) 0.5 mg PO BID@0900,1800 [facility] Last Admin: 02/20/25 17:45 Dose: 0.5 mg Documented By: CARMEN Magnesium Hydroxide (Milk Of Magnesia 30 Ml Oral.Susp) 30 ml PO DAILY PRN PRN Reason: Constipation Last Admin: 02/11/25 23:15 Dose: 30 ml Documented By: TYREL Melatonin (Melatonin 3 Mg Tablet) 6 mg PO BEDTIME PRN PRN Reason: Insomnia Last Admin: 02/15/25 22:54 Dose: 6 mg Documented By: PAUL Methadone HCl (Methadone Hcl 20 Mg/2 Ml Oral.Conc) 175 mg PO DAILY [facility] Last Admin: 02/20/25 08:31 Dose: 175 mg Documented By: LONG Co-signed By: ASHA Methadone HCl (Methadone Hcl 20 Mg/2 Ml Oral.Conc) 40 mg PO DAILY@1800 [facility] Last Admin: 02/20/25 17:45 Dose: 40 mg Documented By: CARMEN Co-signed By: BAYRON Methocarbamol (Methocarbamol 500 Mg Tablet) 500 mg PO TID [facility] Last Admin: 02/20/25 20:37 Dose: 500 mg Documented By: ENRIQUE Nystatin (Nystatin Powder 15 Gm Bottle) 1 appl TOPICAL TID [facility]; Protocol Last Admin: 02/20/25 20:41 Dose: 1 appl Documented By: ENRIQUE Omeprazole (Omeprazole 20 Mg Capsule.Dr) 20 mg PO DAILY@0630 [facility] Last Admin: 02/21/25 06:12 Dose: 20 mg Documented By: YUNI Ondansetron HCl (Ondansetron Hcl 4 Mg/2 Ml Vial) 4 mg IVPUSH Q8H PRN PRN Reason: Nausea and Vomiting Oxycodone HCl (Oxycodone Hcl Immed Release 5 Mg Tablet) 10 mg PO Q4H PRN PRN Reason: Pain, Mild 1-3,fever,headache Last Admin: 02/21/25 06:12 Dose: 10 mg Documented By: YUNI Polyethylene Glycol (Polyethylene Glycol 3350 17 Gm Powd.Pack) 17 gm PO DAILY [facility] Last Admin: 02/20/25 08:33 Dose: 17 gm Documented By: LONG Quetiapine Fumarate (Quetiapine Fumarate 50 Mg Tablet) 50 mg PO BEDTIME [facility] Last Admin: 02/20/25 20:37 Dose: 50 mg Documented By: ENRIQUE Senna (Sennosides 8.6 Mg Tablet) 17.2 mg PO BEDTIME [facility] Last Admin: 02/20/25 20:36 Dose: 17.2 mg Documented By: ENRIQUE Sertraline HCl (Sertraline Hcl 100 Mg Tablet) 100 mg PO DAILY [facility] Last Admin: 02/20/25 08:33 Dose: 100 mg Documented By: LONG Sodium Chloride (0.9 % Sodium Chloride Flush 3 Ml Syringe) [facility] Last Admin: 02/20/25 20:41 Dose: 3 ml Documented By: ENRIQUE Sodium Chloride (0.9 % Sodium Chloride Flush 10 Ml Syringe) 10 ml IVFLUSH [facility] Last Admin: 02/21/25 00:01 Dose: Not Given Documented By: ENRIQUE Non-Admin Reason: Previously Administered Trazodone HCl (Trazodone Hcl 50 Mg Tablet) 50 mg PO BEDTIME [facility] Last Admin: 02/20/25 20:37 Dose: 50 mg Documented By: ENRIQUE Labs 02/21/25 05:50 02/21/25 05:50 Labs: Laboratory Results - last 24 hr 02/20/25 02/20/25 02/20/25 07:31 11:29 17:03 MCV MCH MCHC RDW Plt Count MPV Immature Gran % (Auto) Neut % (Auto) Lymph % (Auto) [place] % (Auto) Eos % (Auto) Baso % (Auto) Lymph # (Auto) [place] # (Auto) Eos # (Auto) Baso # (Auto) Abs Immat Gran (auto) Absolute Neuts (auto) Absolute Nucleated RBC Nucleated RBC % (auto) Anion Gap Estim Creat Clear Calc Estimated GFR POC Glucose 88 144 H 104 Random Glucose Calcium Magnesium Total Bilirubin AST ALT Alkaline Phosphatase Total Protein Albumin 02/20/25 02/21/25 20:33 05:50 MCV 89.8 MCH 27.9 MCHC 31.1 RDW 15.7 Plt Count 86 L MPV 9.7 Immature Gran % (Auto) 0.4 Neut % (Auto) 63.9 Lymph % (Auto) 24.4 [place] % (Auto) 9.5 Eos % (Auto) 1.1 Baso % (Auto) 0.7 Lymph # (Auto) 0.7 L [place] # (Auto) 0.3 Eos # (Auto) 0.0 Baso # (Auto) 0.0 Abs Immat Gran (auto) 0.01 Absolute Neuts (auto) 1.8 L Absolute Nucleated RBC 0.000 Nucleated RBC % (auto) 0.0 Anion Gap 7 L Estim Creat Clear Calc 160.4 Estimated GFR > 60 POC Glucose 78 Random Glucose 92 Calcium 8.1 L Magnesium 1.9 Total Bilirubin 0.5 AST 79 H ALT 32 Alkaline Phosphatase 62 Total Protein 8.9 H Albumin 2.2 L Assessment and Plan (1) Gram-positive cocci bacteremia: Status: Acute Plan d11 , 54yo M with hx MRSA bacteremia, IVDA on methadone, chronic hypoNa, DM2, cirrhosis, portal HTN, alcohol abuse in remission, prostate neoplasm of unknown behavior presented after fall, Utox positive for opioids, found to have MRSA bacteremia. MRSA bacteremia and acute osteomyelitis R clavicle/R sternoclavicular septic arthritis blood cultures that were drawn on 02/17/2025 need to be waited until 5 days to confirm clearance of bacteremia hence the hold up (02/22/25) and we dont have PICC line placement until Monday - so we will likely find placement on Monday02/24/25 Cont daptomycin as of 02/17/2025. follow up with ID in 1-2wk post DC anterior R 7th + 8th acute rib fractures- pain control with methadone + oxycodone IR, IS L knee effusion- Ortho consulted: Aside from severe OA, No tendon injury. Quad inhibition likely due to effusion. PT - wbat, ROM, quad strength distal choledocholithiasis- asymptomatic, per GI, small stones likely to pass on own; per Surg, no need for urgent lap mandy ground-glass opacity in the right upper lobe and lingula measuring up to 1.5 cm- repeat CT as outpt in 3 mo hypoK: repleted and checked daily chronic HCV: outpt treatment recommended OUD: on methadone, Addiction Medicine consulted cirrhosis with pancytopenia and coagulopathy: CBC stable; INR uncorrectable mood disorder: sertraline, quetiapine, trazodone, lorazepam DM2: correction-dose lispro, hold MTF VTE ppx: enoxaparin dispo: blood cultures that were drawn on 02/17/2025 need to be waited until 5 days to confirm clearance of bacteremia hence the hold up (02/22/25) and we dont have PICC line placement until Monday - so we will likely find placement on Monday02/24/25 In my clinical judgment, the patient requires continued inpatient hospitalization for the following reasons: bacteremia resolution, necessity for requiring daptomycin I have made every effort to get him a PICC line and placement today, however limited resources. Hence, I have used significant time in trying to care for the patient coordination with IR, staff, microbiology, and case reviewerfish farm manager This note is constructed using voice recognition software. While every effort has been made to ensure accuracy, rvda master certified rv technician errors may have been included. Total time managing care of this patient today: 35 minutes. Quality Stroke Does the patient have a stroke diagnosis?: No Reason for No Anti-thrombotic by Day Two: Contraindicated VTE Prior VTE?: No VTE Risk Level:: Medical - moderate - high VTE Device Contraindication: N/A - Device Ordered VTE Drug Contraindication: Treatment Not Indicated
[2025-02-21 07:20] LABS: Glucose, Whole Blood 88 mg/dL (60-115)
[2025-02-21] MEDS: methADONE HCl 20 MG/2 ML ORAL.CONC 175 MG PO (08:29)
[2025-02-21 08:30] VITALS: BP 147/70
[2025-02-21] MEDS: 0.9 % Sodium Chloride Flush 3 ML SYRINGE IVFLUSH ×3 (08:34→19:16)
--- NOTE | 2025-02-21 11:27 | MHC.CM.PN ---
Patient is accepted @ [facility]. The authorization process was initiated yesterday 02/20/25. A PICC line has been ordered and placement is pending. Guest dosing for [facility] has been set up with Rochelle MIRANDA. The updated form for exact dates of guest dosing was faxed to the dispensary. Start MAT 02/25/25. The last dose will be on 03/16/25. Patient will transport via BLS @ discharge.
[2025-02-21 11:29] LABS: Glucose, Whole Blood 167 mg/dL (60-115)
[2025-02-21 12:00] VITALS: BP 127/72; PULSE 75; RESP 16; TEMP 36.3; O2SAT 95
[2025-02-21 15:16] VITALS: BP 127/72; PULSE 74; RESP 16; TEMP 36.8; O2SAT 96
[2025-02-21 15:40] LABS: Glucose, Whole Blood 96 mg/dL (60-115)
[2025-02-21] MEDS: DAPTOMYCIN IV (17:47)
[2025-02-21] MEDS: SODIUM CHLORIDE 0.9% IV (17:47)
[2025-02-21] MEDS: methADONE HCl 20 MG/2 ML ORAL.CONC 40 MG PO (17:47)
[2025-02-21 20:00] VITALS: BP 140/71; PULSE 79; RESP 18; TEMP 36.2; O2SAT 97
[2025-02-21 20:47] LABS: Glucose, Whole Blood 126 mg/dL (60-115)
[2025-02-22] VITALS (7 sets, daily range): BP systolic 116–135; BP diastolic 61–75; PULSE 66–79; RESP 16–18; TEMP 36.3–36.5; O2SAT 93–96
[2025-02-22 05:34] LABS: MANUAL DIFF FLAG NO
[2025-02-22] MEDS: oxyCODONE HCl Immed Release 5 MG TABLET 10 MG PO ×3 (05:35→20:56)
[2025-02-22 05:40] LABS: Hematocrit 28.2 % (42.0-52.0); Hemoglobin 9.0 g/dl (14.0-18.0); Imm Gran Abs Auto 0.01 X10*3/uL (0.00-0.03); Imm Gran Pct Auto 0.3 % (0.0-0.4); Lymphocytes Absolute Auto 0.8 X10*3/uL (1.2-4.9); Mean Corpuscular HGB Conc 31.9 g/dl (31.0-36.0); Mean Corpuscular Hemoglobin 28.6 pg (27.0-33.0); Mean Corpuscular Volume 89.5 fL (80.0-98.0); NRBC Abs Auto 0.000 X10*3/uL (0.0-0.012); NRBC Pct Auto 0.0 /100WBC (0.0-0.2); Red Blood Count 3.15 X10*6/uL (4.60-5.80); White Blood Count 2.9 X10*3/uL (4.8-10.8)
[2025-02-22 05:43] LABS: Platelet Count 75 X10*3/uL (160-400)
[2025-02-22 05:49] LABS: Alanine Aminotransferase 35 U/L (0-40); Albumin Level 2.2 g/dL (3.5-5.0); Alkaline Phosphatase 64 U/L (39-117); Anion Gap 11 (12-20); Aspartate Amino Transferase 81 U/L (5-37); Blood Urea Nitrogen 14 mg/dL (9-16); Calcium 8.2 mg/dL (8.4-10.2); Carbon Dioxide 26 mmol/L (22-29); Chloride 100 mmol/L (96-108); Creatinine Clr Calc Pharmacy 168.2; Estimated Glomerular Filt Rate > 60; Magnesium 1.9 mg/dL (1.6-2.6); Potassium 4.0 mmol/L (3.3-5.1); Sodium 133 mmol/L (135-145); Total Protein 8.8 g/dL (6.5-8.0)
[2025-02-22 07:24] LABS: Glucose, Whole Blood 104 mg/dL (60-115)
[2025-02-22] MEDS: methADONE HCl 20 MG/2 ML ORAL.CONC 175 MG PO (08:10)
[2025-02-22] MEDS: 0.9 % Sodium Chloride Flush 3 ML SYRINGE IVFLUSH ×3 (08:17→20:56)
[2025-02-22 11:19] LABS: Glucose, Whole Blood 112 mg/dL (60-115)
[2025-02-22 15:54] LABS: Glucose, Whole Blood 148 mg/dL (60-115)
[2025-02-22] MEDS: methADONE HCl 20 MG/2 ML ORAL.CONC 40 MG PO (17:36)
[2025-02-22] MEDS: SODIUM CHLORIDE 0.9% IV (17:43)
[2025-02-22] MEDS: DAPTOMYCIN IV (17:43)
[2025-02-22 20:10] LABS: Glucose, Whole Blood 137 mg/dL (60-115)
[2025-02-23] VITALS (7 sets, daily range): BP systolic 125–145; BP diastolic 64–78; PULSE 72–77; RESP 14–22; TEMP 36.3–37.6; O2SAT 93–97
[2025-02-23] MEDS: oxyCODONE HCl Immed Release 5 MG TABLET 10 MG PO ×3 (02:30→20:05)
[2025-02-23 07:02] LABS: MANUAL DIFF FLAG NO
[2025-02-23 07:08] LABS: Hematocrit 28.1 % (42.0-52.0); Hemoglobin 8.9 g/dl (14.0-18.0); Imm Gran Abs Auto 0.01 X10*3/uL (0.00-0.03); Imm Gran Pct Auto 0.4 % (0.0-0.4); Lymphocytes Absolute Auto 0.9 X10*3/uL (1.2-4.9); Mean Corpuscular HGB Conc 31.7 g/dl (31.0-36.0); Mean Corpuscular Hemoglobin 28.3 pg (27.0-33.0); Mean Corpuscular Volume 89.2 fL (80.0-98.0); NRBC Abs Auto 0.000 X10*3/uL (0.0-0.012); NRBC Pct Auto 0.0 /100WBC (0.0-0.2); Red Blood Count 3.15 X10*6/uL (4.60-5.80); White Blood Count 2.7 X10*3/uL (4.8-10.8)
[2025-02-23 07:09] LABS: Platelet Count 81 X10*3/uL (160-400)
[2025-02-23 07:27] LABS: Alanine Aminotransferase 34 U/L (0-40); Albumin Level 2.2 g/dL (3.5-5.0); Alkaline Phosphatase 68 U/L (39-117); Anion Gap 10 (12-20); Aspartate Amino Transferase 77 U/L (5-37); Blood Urea Nitrogen 16 mg/dL (9-16); Calcium 8.3 mg/dL (8.4-10.2); Carbon Dioxide 27 mmol/L (22-29); Chloride 101 mmol/L (96-108); Creatinine Clr Calc Pharmacy 173.8; Estimated Glomerular Filt Rate > 60; Magnesium 2.0 mg/dL (1.6-2.6); Potassium 3.8 mmol/L (3.3-5.1); Sodium 134 mmol/L (135-145); Total Protein 9.0 g/dL (6.5-8.0)
[2025-02-23 07:45] LABS: Glucose, Whole Blood 84 mg/dL (60-115)
[2025-02-23] MEDS: methADONE HCl 20 MG/2 ML ORAL.CONC 175 MG PO (08:26)
[2025-02-23] MEDS: 0.9 % Sodium Chloride Flush 3 ML SYRINGE IVFLUSH ×3 (08:30→23:11)
[2025-02-23 11:40] LABS: Glucose, Whole Blood 132 mg/dL (60-115)
--- NOTE | 2025-02-23 12:55 | HO.PM.IMPN ---
Subjective Subjective Date of Service: 02/23/25 Interval History: seen and evaluated this morning blood culture remain negative no fever or chills no other overnight events Review of Systems Review of Systems: Yes all other systems are reviewed and are negative Physical Exam Vital Signs: Vital Signs: Last Vital Signs Temp 97.8 F 02/23/25 11:56 Pulse 73 02/23/25 11:56 Resp 18 02/23/25 11:56 BP 129/74 02/23/25 11:56 Pulse Ox 95 02/23/25 11:56 O2 Del Method Room Air 02/23/25 11:56 O2 Flow Rate 1 02/12/25 09:10 BMI result Body Mass Index 33.2 Const: Other: Constitutional : interactive, not in distress Cardiovascular : no JVP, no lower extremity edema Respiratory : bilateral chest movement, not in resp distress Gastrointestinal: soft, lax, Non tender Skin : Warm, Dry Neurological : Alert & oriented , No focal deficit Objective Data Active Medications Acetaminophen (Acetaminophen 325 Mg Tablet) 650 mg PO Q6H PRN PRN Reason: Pain, Mild 1-3,fever,headache Last Admin: 02/23/25 02:29 Dose: 650 mg Documented By: LAURYN Bisacodyl (Bisacodyl 10 Mg Supp.Rect) 10 mg [place] BEDTIME PRN PRN Reason: Constipation Calcium Carbonate (Calcium Carbonate 750 Mg Tab.Chew) 750 mg PO Q4H PRN PRN Reason: Heartburn Dextrose (Dextrose 50 % 25 Gm/50 Ml Syringe) 25 gm IVPUSH Q15M PRN; Protocol PRN Reason: per Hypoglycemia Standing Ord. Enoxaparin Sodium (Enoxaparin Sodium 40 Mg/0.4 Ml Syringe) 40 mg SUBCUT Q24H [facility] Last Admin: 02/22/25 17:36 Dose: 40 mg Documented By: LONG Glucose (Glucose Gel 15 Gm Gel..Gram.) 15 gm PO Q15M PRN; Protocol PRN Reason: per Hypoglycemia Standing Ord. Guaifenesin (Guaifenesin 200 Mg/10 Ml 10 Ml Liquid) 10 ml PO Q4H PRN PRN Reason: Cough Daptomycin 880 mg/ Sodium (Chloride) 67.6 mls @ 94.435 mls/hr IV Q24H [facility] Last Infusion: 02/22/25 18:43 Dose: Infused Documented By: LONG Insulin Human Lispro (Insulin Lispro 100 Unit/Ml 3 Ml Vial) 0 unit SUBCUT QIDACHS [facility]; Protocol Last Admin: 02/23/25 12:15 Dose: Not Given Documented By: LONG Non-Admin Reason: No Insulin Coverage Lisinopril (Lisinopril 10 Mg Tablet) 10 mg PO DAILY [facility]; Protocol Last Admin: 02/23/25 08:28 Dose: 10 mg Documented By: LONG Lorazepam (Lorazepam 0.5 Mg Tablet) 0.5 mg PO BID@0900,1800 [facility] Last Admin: 02/23/25 08:29 Dose: 0.5 mg Documented By: LONG Magnesium Hydroxide (Milk Of Magnesia 30 Ml Oral.Susp) 30 ml PO DAILY PRN PRN Reason: Constipation Last Admin: 02/11/25 23:15 Dose: 30 ml Documented By: TYREL Melatonin (Melatonin 3 Mg Tablet) 6 mg PO BEDTIME PRN PRN Reason: Insomnia Last Admin: 02/22/25 20:56 Dose: 6 mg Documented By: LAURYN Methadone HCl (Methadone Hcl 20 Mg/2 Ml Oral.Conc) 175 mg PO DAILY [facility] Last Admin: 02/23/25 08:26 Dose: 175 mg Documented By: LONG Co-signed By: DIEGO Methadone HCl (Methadone Hcl 20 Mg/2 Ml Oral.Conc) 40 mg PO DAILY@1800 [facility] Last Admin: 02/22/25 17:36 Dose: 40 mg Documented By: LONG Co-signed By: CRISPIN Methocarbamol (Methocarbamol 500 Mg Tablet) 500 mg PO TID [facility] Last Admin: 02/23/25 08:28 Dose: 500 mg Documented By: LONG Nystatin (Nystatin Powder 15 Gm Bottle) 1 appl TOPICAL TID [facility]; Protocol Last Admin: 02/23/25 08:29 Dose: 1 appl Documented By: LONG Omeprazole (Omeprazole 20 Mg Capsule.Dr) 20 mg PO DAILY@0630 [facility] Last Admin: 02/23/25 05:53 Dose: 20 mg Documented By: LAURYN Ondansetron HCl (Ondansetron Hcl 4 Mg/2 Ml Vial) 4 mg IVPUSH Q8H PRN PRN Reason: Nausea and Vomiting Oxycodone HCl (Oxycodone Hcl Immed Release 5 Mg Tablet) 10 mg PO Q4H PRN PRN Reason: Pain, Mild 1-3,fever,headache Last Admin: 02/23/25 02:30 Dose: 10 mg Documented By: LAURYN Polyethylene Glycol (Polyethylene Glycol 3350 17 Gm Powd.Pack) 17 gm PO DAILY [facility] Last Admin: 02/23/25 08:28 Dose: 17 gm Documented By: LONG Quetiapine Fumarate (Quetiapine Fumarate 50 Mg Tablet) 50 mg PO BEDTIME [facility] Last Admin: 02/22/25 20:55 Dose: 50 mg Documented By: LAURYN Senna (Sennosides 8.6 Mg Tablet) 17.2 mg PO BEDTIME [facility] Last Admin: 02/22/25 20:55 Dose: 17.2 mg Documented By: LAURYN Sertraline HCl (Sertraline Hcl 100 Mg Tablet) 100 mg PO DAILY [facility] Last Admin: 02/23/25 08:28 Dose: 100 mg Documented By: LONG Sodium Chloride (0.9 % Sodium Chloride Flush 3 Ml Syringe) [facility] Admin: 02/23/25 08:30 Dose: 3 ml Documented By: LONG Sodium Chloride (0.9 % Sodium Chloride Flush 10 Ml Syringe) 10 ml IVFLUSH [facility] Last Admin: 02/23/25 07:25 Dose: Not Given Documented By: LONG Non-Admin Reason: No Access Trazodone HCl (Trazodone Hcl 50 Mg Tablet) 50 mg PO BEDTIME [facility] Last Admin: 02/22/25 20:55 Dose: 50 mg Documented By: LAURYN Labs 02/23/25 06:43 02/23/25 06:43 Labs: Laboratory Results - last 24 hr 02/22/25 02/22/25 02/23/25 15:50 20:06 06:43 MCV 89.2 MCH 28.3 MCHC 31.7 RDW 15.9 Plt Count 81 L MPV 9.9 Immature Gran % (Auto) 0.4 Neut % (Auto) 55.2 Lymph % (Auto) 32.8 Bond % (Auto) 9.0 Eos % (Auto) 2.2 Baso % (Auto) 0.4 Lymph # (Auto) 0.9 L Bond # (Auto) 0.2 Eos # (Auto) 0.1 Baso # (Auto) 0.0 Abs Immat Gran (auto) 0.01 Absolute Neuts (auto) 1.5 L Absolute Nucleated RBC 0.000 Nucleated RBC % (auto) 0.0 Anion Gap 10 L Estim Creat Clear Calc 173.8 Estimated GFR > 60 POC Glucose 148 H 137 H Random Glucose 91 Calcium 8.3 L Magnesium 2.0 Total Bilirubin 0.5 AST 77 H ALT 34 Alkaline Phosphatase 68 Total Protein 9.0 H Albumin 2.2 L 02/23/25 02/23/25 07:41 11:31 MCV MCH MCHC RDW Plt Count MPV Immature Gran % (Auto) Neut % (Auto) Lymph % (Auto) Bond % (Auto) Eos % (Auto) Baso % (Auto) Lymph # (Auto) Bond # (Auto) Eos # (Auto) Baso # (Auto) Abs Immat Gran (auto) Absolute Neuts (auto) Absolute Nucleated RBC Nucleated RBC % (auto) Anion Gap Estim Creat Clear Calc Estimated GFR POC Glucose 84 132 H Random Glucose Calcium Magnesium Total Bilirubin AST ALT Alkaline Phosphatase Total Protein Albumin Microbiology Microbiology Results: Microbiology 02/17/25 16:24 Blood Culture - Final Blood - Venous No growth after 5 days. 02/17/25 16:24 Blood Culture - Final Blood - Venous No growth after 5 days. Assessment and Plan (1) Substance use disorder: Status: Acute (2) Osteomyelitis of clavicle: Status: Acute (3) Gram-positive cocci bacteremia: Status: Acute Plan d11 , 54yo M with hx MRSA bacteremia, IVDA on methadone, chronic hypoNa, DM2, cirrhosis, portal HTN, alcohol abuse in remission, prostate neoplasm of unknown behavior presented after fall, Utox positive for opioids, found to have MRSA bacteremia. MRSA bacteremia 2/2 acute osteomyelitis R clavicle/R sternoclavicular septic arthritis Negative blood cultures from 02/17/2025 Pending PICC Line placement MONDAY morning with plan to discharge to SNF afterward Cont daptomycin as of 02/17/2025 for total of 6 weeks follow up with ID in 1-2wk post DC anterior R 7th + 8th acute rib fractures pain control with methadone + oxycodone IR, IS L knee effusion Ortho consulted: Aside from severe OA, No tendon injury. Quad inhibition likely due to effusion. PT - wbat, ROM, quad strength distal choledocholithiasis asymptomatic, per GI, small stones likely to pass on own; per Surg, no need for urgent lap mandy ground-glass opacity in the right upper lobe and lingula measuring up to 1.[address] as outpt in 3 months hypoK: repleted and checked daily chronic HCV: outpt treatment recommended OUD: on methadone, Addiction Medicine consulted cirrhosis with pancytopenia and coagulopathy: CBC stable; INR uncorrectable mood disorder: sertraline, quetiapine, trazodone, lorazepam DM2: correction-dose lispro, hold MTF VTE ppx: enoxaparin dispo: the patient requires continued inpatient hospitalization for the following reasons: bacteremia resolution, necessity for requiring daptomycin pending PICC line placement and SNF transfer. Quality Stroke Does the patient have a stroke diagnosis?: No Reason for No Anti-thrombotic by Day Two: Contraindicated VTE Prior VTE?: No VTE Risk Level:: Medical - moderate - high VTE Device Contraindication: N/A - Device Ordered VTE Drug Contraindication: Treatment Not Indicated
[2025-02-23 16:17] LABS: Glucose, Whole Blood 144 mg/dL (60-115)
[2025-02-23] MEDS: methADONE HCl 20 MG/2 ML ORAL.CONC 40 MG PO (17:35)
[2025-02-23] MEDS: DAPTOMYCIN IV (18:19)
[2025-02-23] MEDS: SODIUM CHLORIDE 0.9% IV (18:19)
[2025-02-23 20:21] LABS: Glucose, Whole Blood 132 mg/dL (60-115)
[2025-02-24] MEDS: oxyCODONE HCl Immed Release 5 MG TABLET 10 MG PO ×6 (00:14→14:39)
[2025-02-24 03:41] VITALS: BP 133/72; PULSE 76; RESP 18; TEMP 36.1; O2SAT 95
[2025-02-24 07:03] LABS: MANUAL DIFF FLAG NO
[2025-02-24 07:13] LABS: Hematocrit 29.4 % (42.0-52.0); Hemoglobin 9.2 g/dl (14.0-18.0); Imm Gran Abs Auto 0.01 X10*3/uL (0.00-0.03); Imm Gran Pct Auto 0.4 % (0.0-0.4); Lymphocytes Absolute Auto 0.8 X10*3/uL (1.2-4.9); Mean Corpuscular HGB Conc 31.3 g/dl (31.0-36.0); Mean Corpuscular Hemoglobin 28.1 pg (27.0-33.0); Mean Corpuscular Volume 89.9 fL (80.0-98.0); NRBC Abs Auto 0.000 X10*3/uL (0.0-0.012); NRBC Pct Auto 0.0 /100WBC (0.0-0.2); Red Blood Count 3.27 X10*6/uL (4.60-5.80); White Blood Count 2.6 X10*3/uL (4.8-10.8)
[2025-02-24 07:14] LABS: Platelet Count 75 X10*3/uL (160-400)
[2025-02-24 07:20] LABS: Anion Gap 11 (12-20); Blood Urea Nitrogen 15 mg/dL (9-16); Calcium 8.3 mg/dL (8.4-10.2); Carbon Dioxide 27 mmol/L (22-29); Chloride 99 mmol/L (96-108); Creatinine Clr Calc Pharmacy 173.8; Estimated Glomerular Filt Rate > 60; Potassium 3.9 mmol/L (3.3-5.1); Sodium 133 mmol/L (135-145)
[2025-02-24 07:21] LABS: Alanine Aminotransferase 38 U/L (0-40); Albumin Level 2.3 g/dL (3.5-5.0); Alkaline Phosphatase 75 U/L (39-117); Anion Gap 11 (12-20); Aspartate Amino Transferase 84 U/L (5-37); Blood Urea Nitrogen 16 mg/dL (9-16); Calcium 8.2 mg/dL (8.4-10.2); Carbon Dioxide 27 mmol/L (22-29); Chloride 99 mmol/L (96-108); Creatinine Clr Calc Pharmacy 165.5; Estimated Glomerular Filt Rate > 60; Magnesium 1.9 mg/dL (1.6-2.6); Potassium 3.9 mmol/L (3.3-5.1); Sodium 133 mmol/L (135-145); Total Protein 9.3 g/dL (6.5-8.0)
[2025-02-24] MEDS: methADONE HCl 20 MG/2 ML ORAL.CONC 175 MG PO (07:27)
[2025-02-24] MEDS: 0.9 % Sodium Chloride Flush 3 ML SYRINGE IVFLUSH (07:29)
[2025-02-24 07:44] VITALS: BP 126/73; PULSE 69; RESP 16; TEMP 36.4; O2SAT 95
[2025-02-24 07:50] LABS: Glucose, Whole Blood 102 mg/dL (60-115)
--- NOTE | 2025-02-24 10:15 | HO.PICC ---
PICC Line Insertion NPICC Diagnosis: Bacteremia Indication: custodial ABT Pertinent Labs: reviewed Technique: Following informed consent including risks, benefits and alternatives and using sterile technique including cap and mask, sterile gown, glove and drape, the right arm was prepped and draped in the usual sterile fashion of full barrier technique with CHG. Following completion of [place] Protocol the skin and soft tissues were anesthetized with 1% Lidocaine plain. Using ultrasound guidance, right basilic vein access was obtained. Over an 0.018 wire through peel-away sheath, a 4fr single lumen PASV PICC line was positioned. Catheter length is 41cm internal length, 0cm external length, for a total trimmed length of 41cm. The procedure was performed in [facility]. Tip verification was performed by Ralph Banda with Sherlock 3CG. Tip located in SVC. Ultrasound was used to document vein patency and for needle entry. A formal ultrasound picture and cardiac rhythm strip was recorded. [facility] [employer] Technician has released the line for use and it is currently dressed with a StatLock, Tegaderm, and CHG disc. Verification has been performed for blood return and line patency. Arm Circumference: 31cm Equipment: [employer] POWERPICC SOLO Catheter with Sherlock 3CG Tip Catheter Type: 4FR single lumen PASV Lot #: [id number]
[2025-02-24 11:59] LABS: Glucose, Whole Blood 184 mg/dL (60-115)
[2025-02-24 12:00] VITALS: BP 129/69; PULSE 75; RESP 16; TEMP 36.8; O2SAT 92
--- NOTE | 2025-02-24 13:10 | MHC.CM.PN ---
Patient medically cleared for dc to [facility] for IV abx. New PICC in place. SNF aware patient will dc on dapto. Confirmed w/ Jessica at [facility] patient is approved to start guest dosing tomorrow. RN aware he will need his PM dose of methadone prior to dc. Patient aware and in agreement w/ plan.
[2025-02-24] MEDS: methADONE HCl 20 MG/2 ML ORAL.CONC 40 MG PO (13:15)
--- NOTE | 2025-02-24 14:30 | PM.DS ---
DS: Providers Provider Date of Service: 02/24/25 Date of admission: 02/08/25 19:07 Date of discharge: 02/24/25 Primary care physician: None Physician Consults: 02/08/25 19:15 Consult to Infectious Diseases Routine Consulting Provider: [facility] Reason for consultation: claviicle OM Has provider been notified: No 02/08/25 19:29 Consult to Orthopedics Routine Consulting Provider: [facility] Orthopedic Surgeons Reason for consultation: large knee effusion, liver dis, INR 1.7, OM clavicle Has provider been notified: No 02/08/25 20:38 Consult to Gastroenterology Routine Consulting Provider: Jerry Middleton Reason for consultation: Hep C untreated, cirrhosis of liver, portal HTN, INR 1.7 Has provider been notified: No 02/08/25 20:39 Addiction Medicine Provider Routine Consulting Provider: [facility] Reason for consultation: IVDA hx with liver cirrhosis, just out of STR, last IV use 11/2902/09/25 03:15 Consult to Wound Care Routine Reason for consultation: DTI on coccyx 02/10/25 15:23 Consult to Infectious Diseases Routine Consulting Provider: [facility] Infect[facility] Reason for consultation: MRSA bacter 02/10/25 18:25 Consult to General Surgery Routine Consulting Provider: [facility] General Surgeons Reason for consultation: cholelithiasis, choledocholithias 02/17/25 15:17 Consult to Infectious Diseases Routine Consulting Provider: [facility] Reason for consultation: MRSA bacteremia DS: Diagnosis Discharge Diagnosis (1) Substance use disorder: Status: Acute (2) Osteomyelitis of clavicle: Status: Acute (3) Gram-positive cocci bacteremia: Status: Acute DS: Summary Hospital Course Hospital Course: From admissionn HPI: Date of Service: 02/08/25 Attending physician on admission: Lyndsey Partida Chief Complaint: s/p fall abd pain Pt is a 54 yo male with PMH MRSA bacteremia, 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 It took approximately 4 people to get patient up off the ground. Patient states he was recently released from short-term rehab after previous admission for MADDY, sepsis, wound infection, cellulitis of left wrist and MRSA with UTI with discharge 12/30/2024. Patient had completed his antibiotic therapy via PICC line which was removed prior to discharge to home. Patient states the 1st 2 days were amazing but then patient has started to decline on day 3 and then had the fall on day 4 and now is in the emergency department on day 5. It should be noted that patient has hepatitis-C viral load was elevated during this past admission and the plan for discharge with for patient to see GI as an outpatient. In addition patient was told to see Urology as an outpatient for the abnormal finding of the prostate on CT scan in December of 2024. Due to patient being a rehab and recently discharged patient has not made any appointments with GI Urology so far. Patient denies any recent alcohol use but did use IV drugs approximately 2 months prior (fentnayl). Workup in the emergency department included right knee x-ray which shows large effusion and possible acute injury. Patient has cirrhosis and INRs currently 1.7. Patient also has nondisplaced fractures of right anterior 7th and 8th ribs. No pneumothorax noted. Patient also has evidence of osteomyelitis of the right proximal clavicle with cortical destruction and Periositis. No abscess noted. In addition ground-glass opacity in the right upper lobe found measuring up to 1.5 cm. A three-month follow-up CT is recommended. There is also evidence of trace right pleural fluid. Head and CTA of the spine all negative for acute findings. Patient has pancytopenia with a white count of 4.2, H and H of 9 and 26.7 and platelets of 81,000. Sed rate is elevated, CRP is pending. INR of as above is 1.7. Sodium today is 130 patient's baseline is usually 131. Potassium 2.9 and patient received potassium bicarb. Renal function stable with a creatinine clearance of 18.1 and a GFR greater than 60. Glucose 152. Lactic acid 1.9 and with repeat 1.0. AST 164. Lipase 14. UA negative for UTI with a trace of blood. Hepatitis-C viral load pending. Later in the morning received an initial report from the lab that 1 blood culture grew Gram-positive cocci in clusters and then approximately 1 hour later received another urgent message that a 2nd blood culture is now growing Gram-positive clusters so likely not contamination. Patient being admitted for multiple medical problems. All issues reviewed with patient and all questions and concerns addressed for admission. Currently patient is not able to bear weight on the left extremity and has chronic left hip pain with no evidence of pelvic fracture. Patient will remain bed-bound due to fall risk. Hospital Course 54 yo male with PMH MRSA bacteremia, IVDA/ JOVI on methadone, hyponatremia (usual level 131), DMII dx in 12/30, cellulitis, liver cirrhosis, portal hypertension, alcohol abuse in remission, abnormal prostate finding on previous CT indicating neoplasm versus abscess, chronic left hip soreness, BIBA after experiencing a traumatic fall. Patient likely relapsed as he was although initially not forthcoming subsequent tox screen showed U tox positive for opioids. Workup revealed that he had MRSA bacteremia; TTE unremarkable for any vegetation. Pt was non bacteremic from 02/12/2025-02/17; had PICC line placed on 02/14/2025 and plan per ID was to continue vancomycin for another 4 weeks 02/12-03/12. However pt had 1/2 blood cultures remain positive at 5 days, and PICC line was removed. Repeat blood culture on 02/17 was negative after 48 hours and PICC line was replaced on 02/24/2025. IV antibiotics has been changed to daptomycin 880mg for a total of 28 days post last negative blood culture which is from 02/17; dapto to continue until 03/17. Pt should follow up with ID in in 1-2 weeks post discharge from hospital. PT evaluated the patient and suggested he be discharged to SNF. Expected length of stay is less than 30 days. Additional details concerning hospital stay as listed below. MRSA bacteremia 2/2 acute osteomyelitis R clavicle/R sternoclavicular septic arthritis Negative blood cultures from 02/17/2025 PICC line placed on 02/24; will be discharged to SNF Continue daptomycin 880mg until 03/17/2025 Follow up with ID in 1-2wk post DC anterior R 7th + 8th acute rib fractures pain control with methadone + oxycodone IR, IS L knee effusion Ortho consulted: Aside from severe OA, No tendon injury. Quad inhibition likely due to effusion. PT - wbat, ROM, quad strength distal choledocholithiasis asymptomatic, per GI, small stones likely to pass on own; per Surg, no need for urgent lap mandy ground-glass opacity in the right upper lobe and lingula measuring up to 1.[address] as outpt in 3 months hypoK: repleted and checked daily chronic HCV: outpt treatment recommended OUD: on methadone, Addiction Medicine consulted cirrhosis with pancytopenia and coagulopathy: CBC stable; INR uncorrectable mood disorder: sertraline, quetiapine, trazodone, lorazepam DM2: correction-dose lispro; continue metformin upon discharge; adhere to a diabetic diet Total time managing care of this patient today: 35 minutes. Time Attestation Discharge Coordination Time (in mins): 35 Quality: Safe Use of Opioids Does Pt have an Active Cancer Diagnosis on the Problem List?: No Quality: Stroke Does the patient have a stroke diagnosis?: No Physical Exam Exam: Exam: General: AOx3, no acute distress Resp: CTA bilaterally CVS: S1, S2, RRR GI: +BS, NT, no distention Skin: Warm, dry Neuro: Cranial nerves II-XII grossly intact bilaterally. Motor grossly intact bilaterally Extremities: Trace to 1+ bilateral pitting edema Psych: Appropriate affect Vital Signs: Vital Signs: Last Vital Signs Temp 98.2 F 02/24/25 12:00 Pulse 75 02/24/25 12:00 Resp 16 02/24/25 12:00 BP 129/69 02/24/25 12:00 Pulse Ox 92 02/24/25 12:00 O2 Del Method Room Air 02/24/25 12:00 O2 Flow Rate 1 02/12/25 09:10 BMI result Body Mass Index 33.2 DS: Data Data Completed and Pending Completed studies during hospitalization [Text1]: Procedures Excision of Left Lower Arm and Wrist Tendon, Open Approach (12/15/24) Insertion of Infusion Device into Superior Vena Cava, Percutaneous Approach (12/15/24) Introduction of Anesthetic Agent into Peripheral Nerves and Plexi, Percutaneous Approach (12/15/24) Ultrasonography of Superior Vena Cava, Guidance (12/15/24) Labs on day of discharge: Laboratory Results - last 24 hr 02/23/25 02/23/25 02/24/25 16:13 20:17 06:51 WBC 2.6 L RBC 3.27 L Hgb 9.2 L Hct 29.4 L MCV 89.9 MCH 28.1 MCHC 31.3 RDW 15.7 Plt Count 75 L MPV 9.4 Immature Gran % (Auto) 0.4 Neut % (Auto) 56.7 Lymph % (Auto) 31.3 Johnston % (Auto) 8.9 Eos % (Auto) 1.9 Baso % (Auto) 0.8 Lymph # (Auto) 0.8 L Johnston # (Auto) 0.2 Eos # (Auto) 0.1 Baso # (Auto) 0.0 Abs Immat Gran (auto) 0.01 Absolute Neuts (auto) 1.5 L Absolute Nucleated RBC 0.000 Nucleated RBC % (auto) 0.0 Sodium 133 L Potassium Chloride Carbon Dioxide Anion Gap BUN Creatinine Estim Creat Clear Calc Estimated GFR POC Glucose 144 H 132 H Random Glucose Calcium Magnesium Total Bilirubin Direct Bilirubin AST ALT Alkaline Phosphatase Total Protein Albumin 02/24/25 02/24/25 02/24/25 06:51 06:51 06:51 WBC RBC Hgb Hct MCV MCH MCHC RDW Plt Count MPV Immature Gran % (Auto) Neut % (Auto) Lymph % (Auto) Johnston % (Auto) Eos % (Auto) Baso % (Auto) Lymph # (Auto) Johnston # (Auto) Eos # (Auto) Baso # (Auto) Abs Immat Gran (auto) Absolute Neuts (auto) Absolute Nucleated RBC Nucleated RBC % (auto) Sodium 133 L Potassium 3.9 3.9 Chloride 99 99 Carbon Dioxide 27 Anion Gap BUN Creatinine Estim Creat Clear Calc Estimated GFR POC Glucose Random Glucose Calcium Magnesium Total Bilirubin Direct Bilirubin AST ALT Alkaline Phosphatase Total Protein Albumin 02/24/25 02/24/25 02/24/25 06:51 06:51 06:51 WBC RBC Hgb Hct MCV MCH MCHC RDW Plt Count MPV Immature Gran % (Auto) Neut % (Auto) Lymph % (Auto) Johnston % (Auto) Eos % (Auto) Baso % (Auto) Lymph # (Auto) Johnston # (Auto) Eos # (Auto) Baso # (Auto) Abs Immat Gran (auto) Absolute Neuts (auto) Absolute Nucleated RBC Nucleated RBC % (auto) Sodium Potassium Chloride Carbon Dioxide 27 Anion Gap 11 L 11 L BUN 16 15 Creatinine 0.63 Estim Creat Clear Calc Estimated GFR POC Glucose Random Glucose Calcium Magnesium Total Bilirubin Direct Bilirubin AST ALT Alkaline Phosphatase Total Protein Albumin 02/24/25 02/24/25 02/24/25 06:51 06:51 06:51 WBC RBC Hgb Hct MCV MCH MCHC RDW Plt Count MPV Immature Gran % (Auto) Neut % (Auto) Lymph % (Auto) Johnston % (Auto) Eos % (Auto) Baso % (Auto) Lymph # (Auto) Johnston # (Auto) Eos # (Auto) Baso # (Auto) Abs Immat Gran (auto) Absolute Neuts (auto) Absolute Nucleated RBC Nucleated RBC % (auto) Sodium Potassium Chloride Carbon Dioxide Anion Gap BUN Creatinine 0.60 Estim Creat Clear Calc 165.5 173.8 Estimated GFR > 60 > 60 POC Glucose Random Glucose 97 Calcium Magnesium Total Bilirubin Direct Bilirubin AST ALT Alkaline Phosphatase Total Protein Albumin 02/24/25 02/24/25 02/24/25 06:51 06:51 07:44 WBC RBC Hgb Hct MCV MCH MCHC RDW Plt Count MPV Immature Gran % (Auto) Neut % (Auto) Lymph % (Auto) Johnston % (Auto) Eos % (Auto) Baso % (Auto) Lymph # (Auto) Johnston # (Auto) Eos # (Auto) Baso # (Auto) Abs Immat Gran (auto) Absolute Neuts (auto) Absolute Nucleated RBC Nucleated RBC % (auto) Sodium Potassium Chloride Carbon Dioxide Anion Gap BUN Creatinine Estim Creat Clear Calc Estimated GFR POC Glucose 102 Random Glucose 97 Calcium 8.2 L 8.3 L Magnesium 1.9 Total Bilirubin 0.5 Direct Bilirubin 0.2 AST 84 H ALT 38 Alkaline Phosphatase 75 Total Protein 9.3 H Albumin 2.3 L 02/24/25 11:39 WBC RBC Hgb Hct MCV MCH MCHC RDW Plt Count MPV Immature Gran % (Auto) Neut % (Auto) Lymph % (Auto) Johnston % (Auto) Eos % (Auto) Baso % (Auto) Lymph # (Auto) Johnston # (Auto) Eos # (Auto) Baso # (Auto) Abs Immat Gran (auto) Absolute Neuts (auto) Absolute Nucleated RBC Nucleated RBC % (auto) Sodium Potassium Chloride Carbon Dioxide Anion Gap BUN Creatinine Estim Creat Clear Calc Estimated GFR POC Glucose 184 H Random Glucose Calcium Magnesium Total Bilirubin Direct Bilirubin AST ALT Alkaline Phosphatase Total Protein Albumin Discharge Plan Discharge Anticipated Discharge Date/Time: 02/24/25 14:15 Patient Disposition: Xfer SNF Discharge Diagnosis: MRS bacteremia [facility]errals: [facility] [Outside] - 1 Week Physician,None [Primary Care Provider, Medical] - 1 Week Discharge Medications: New daptomycin 500 mg recon soln 880 mg IV Q24H Rx Instructions: administer over 30 mins. Antibiotic course will end on 03/17 oxycodone 10 mg tablet 10 mg PO Q6H PRN (Reason: pain, severe) Qty: 15 0RF Rx Instructions: Partial Fill upon patient request. Take 1 tablet up to 4 times a day for severe pain. Continued ibuprofen 400 mg Tablet 400 mg PO Q6H PRN (Reason: Pain (Scale Score 1-3)) trazodone 50 mg tablet 50 mg PO BEDTIME sertraline 100 mg tablet 100 mg PO DAILY quetiapine 50 mg tablet 50 mg PO BEDTIME methadone [Methadone Intensol] 10 mg/mL Concentrate 175 mg PO DAILY methadone [Methadone Intensol] 10 mg/mL Concentrate 30 mg PO DAILY@1800 lorazepam [Ativan] 0.5 mg tablet 0.5 mg PO BID@0900,1800 Held metformin 500 mg Tablet 500 mg PO BIDWM Qty: 1 0RF Hold Instructions: Resume on 02/25/25. pending clinical eval Discharge Orders: Discharge Order (Routine); Ordered 02/24/25 Ordered By: Jolie Hawthorne Diet: Low salt diet Activity on Discharge: As tolerated Stand Alone Forms: Patient Portal Discharge page Print Language: French Care Plan Goals: Continue Daptomycin 880mg for a total of 4 weeks, set to finish on 03/17 Will need follow-up with ID in 1-2 weeks post discharge PICC line was placed on 02/24/2025 after bacteremia cleared TTE was without any vegetations Addiction consulted Left knee effusion chronic outpatient management no ligament tear Pain control optimized with methadone and oxycodone Pulmonary hygiene and symptomatic pain control for rib fractures Outpatient management for distal choledochal lithiasis Will need repeat CT for ground-glass opacity in the right upper lobe and lingula Will need outpatient GI workup for chronic HCV, cirrhosis (likely alcohol related) Health Concerns: See above Plan of Treatment: See above Assessment: See above Patient Instructions: MRSA (Methicillin-Resistant Staphylococcus Aureus) ([facility])
[2025-02-24 15:05] VITALS: BP 123/62; PULSE 88; RESP 18; TEMP 36.2; O2SAT 96
== END 2025-02-24 16:12 | disposition skilled nursing facility (03) | DRG 344 ==
LOC: HO.ED 17:26 → HO.EDOVER 19:37 → HO.IMC 23:43 → HO.S3 02-09 00:23 → HO.IMC 02-10 00:13 → HO.S3 02-12 12:04
PROVIDERS: Family Medicine; Internal Medicine; Student in an Organized Health Care Education/Training Program; Admitting Provider Nurse Practitioner Family; Emergency Provider Student in an Organized Health Care Education/Training Program; Visit Provider Student in an Organized Health Care Education/Training Program
DX: M00.9 Pyogenic arthritis, unspecified (principal); J96.01 Acute respiratory failure with hypoxia; R78.81 Bacteremia; M86.111 Other acute osteomyelitis, right shoulder; D61.818 Other pancytopenia; E11.69 Type 2 diabetes mellitus with other specified complication; K80.50 Calculus of bile duct without cholangitis or cholecystitis without obstruction; S22.41XA Multiple fractures of ribs, right side, initial encounter for closed fracture; K76.6 Portal hypertension; E88.09 Other disorders of plasma-protein metabolism, not elsewhere classified; B95.62 Methicillin resistant Staphylococcus aureus infection as the cause of diseases classified elsewhere; K74.69 Other cirrhosis of liver; K76.0 Fatty (change of) liver, not elsewhere classified; B18.2 Chronic viral hepatitis C; F10.11 Alcohol abuse, in remission; W19.XXXA Unspecified fall, initial encounter; D68.4 Acquired coagulation factor deficiency; M17.12 Unilateral primary osteoarthritis, left knee; E87.6 Hypokalemia; Z66 Do not resuscitate; F11.20 Opioid dependence, uncomplicated; Z79.84 Long term (current) use of oral hypoglycemic drugs; Z87.891 Personal history of nicotine dependence; Z79.899 Other long term (current) drug therapy
CPT/HCPCS: 36415; 36573; 36600; 70450; 71045; 71260; 72125; 73560; 73721; 74177; 74181; 76705; 80048; 80053; 80076; 80202; 81001; 82105; 82140; 82248; 82550; 82565; 82803; 82947; 83605; 83690; 83735; 83880; 83930; 83935; 84300; 84484; 85025; 85610; 85652; 86141; 86850; 86900; 86901; 87040; 87077; 87147; 87186; 87205; 87522; 93005; 93306; 94640; 97110; 97162; 97530; 99285; C1751; J0131; J0360; J0878; J1171; J1650; J1885; J1938; J2270; J2543; J3373; J3374; J3430; J3475; J3480; J7120; Q9957; Q9967; S9485

== ENCOUNTER → 2025-02-08 12:58 | Outpatient (BNV) | payer OTHER, SELFPAY | PROVIDERS: Admitting Provider Nurse Practitioner Family; Emergency Provider Student in an Organized Health Care Education/Training Program; Visit Provider Internal Medicine | DX: R94.31 Abnormal electrocardiogram [ECG] [EKG] (principal); Z13.6 Encounter for screening for cardiovascular disorders | CPT/HCPCS: 93010 ==

== ENCOUNTER → 2025-02-08 13:03 | Outpatient (BNV) | payer OTHER, SELFPAY | PROVIDERS: Emergency Provider Student in an Organized Health Care Education/Training Program; Visit Provider Radiology Diagnostic Radiology | DX: K80.20 Calculus of gallbladder without cholecystitis without obstruction (principal); K82.8 Other specified diseases of gallbladder | CPT/HCPCS: 76705 ==

== ENCOUNTER 2025-02-08 19:07 | Outpatient (BNV) | payer OTHER, SELFPAY | END 2025-02-10 00:01 | PROVIDERS: Admitting Provider Nurse Practitioner Family; Emergency Provider Student in an Organized Health Care Education/Training Program; Visit Provider Radiology Diagnostic Radiology | DX: M17.12 Unilateral primary osteoarthritis, left knee (principal); M23.322 Other meniscus derangements, posterior horn of medial meniscus, left knee; R60.0 Localized edema; M25.462 Effusion, left knee | CPT/HCPCS: 71045; 73721; 74181 ==

== ENCOUNTER 2025-02-08 19:07 | Outpatient (BNV) | payer OTHER, SELFPAY | END 2025-02-11 03:03 | PROVIDERS: Admitting Provider Nurse Practitioner Family; Emergency Provider Student in an Organized Health Care Education/Training Program; Visit Provider Internal Medicine Cardiovascular Disease | DX: I49.1 Atrial premature depolarization (principal) | CPT/HCPCS: 93010 ==

== ENCOUNTER 2025-02-08 19:07 | Outpatient (BNV) | payer OTHER, SELFPAY | END 2025-02-10 07:00 | PROVIDERS: Admitting Provider Nurse Practitioner Family; Emergency Provider Student in an Organized Health Care Education/Training Program; Visit Provider Internal Medicine Cardiovascular Disease | DX: R78.81 Bacteremia (principal) | CPT/HCPCS: 93306 ==

== ENCOUNTER → 2025-02-08 19:07 | Outpatient (BNV) | payer OTHER, SELFPAY | PROVIDERS: Admitting Provider Nurse Practitioner Family; Emergency Provider Student in an Organized Health Care Education/Training Program; Visit Provider Nurse Practitioner Psychiatric/Mental Health | DX: F11.90 Opioid use, unspecified, uncomplicated (principal) | CPT/HCPCS: 99222 ==

== ENCOUNTER → 2025-02-08 19:07 | Outpatient (BNV) | payer OTHER, SELFPAY | PROVIDERS: Admitting Provider Nurse Practitioner Family; Emergency Provider Student in an Organized Health Care Education/Training Program | DX: K80.20 Calculus of gallbladder without cholecystitis without obstruction (principal) | CPT/HCPCS: 99222 ==

== ENCOUNTER → 2025-02-08 19:07 | Outpatient (BNV) | payer OTHER, SELFPAY | PROVIDERS: Admitting Provider Nurse Practitioner Family; Emergency Provider Student in an Organized Health Care Education/Training Program; Visit Provider Internal Medicine | DX: F19.90 Other psychoactive substance use, unspecified, uncomplicated (principal); F11.90 Opioid use, unspecified, uncomplicated; R78.81 Bacteremia | CPT/HCPCS: 99222 ==

== ENCOUNTER → 2025-02-08 19:07 | Outpatient (BNV) | payer OTHER, SELFPAY | PROVIDERS: Admitting Provider Nurse Practitioner Family; Emergency Provider Student in an Organized Health Care Education/Training Program; Visit Provider Student in an Organized Health Care Education/Training Program | DX: R78.81 Bacteremia (principal) | CPT/HCPCS: 99223; 99232; 99233; 99497; 99499 ==

== ENCOUNTER → 2025-02-08 19:07 | Outpatient (BNV) | payer OTHER, SELFPAY | PROVIDERS: Admitting Provider Nurse Practitioner Family; Emergency Provider Student in an Organized Health Care Education/Training Program; Visit Provider Physician Assistant | DX: M25.462 Effusion, left knee (principal) | CPT/HCPCS: 99222; 99499 ==

== ENCOUNTER 2025-03-14 14:14 | Outpatient (AMB) | payer OTHER, SELFPAY ==
--- NOTE | 2025-03-14 14:32 | MHC.OFFVIS ---
Vital Signs 03/14/25 15:14 Pulse 94 Pulse Source Pulse Oximeter Temp 98.7 F Temp Source Oral Intake Visit Reasons: [facility] Reff / Sepsis Bacteremia Allergies No Known Allergies (No Known Allergies*) Allergy (Verified 03/14/25 15:15) HPI HPI [facility] Reff / Sepsis Bacteremia: Details: History of Present Illness The patient is a 54-year-old male presenting for follow-up concerning previously diagnosed MRSA bacteremia. He has been undergoing treatment with daptomycin, which is anticipated to continue through March 31. Thus far, the therapeutic intervention has shown efficacy without the emergence of new symptoms or complications. Throughout this period, the patient has reported no musculoskeletal pain and maintains stable health without any indications of unresolved infection. Review of Systems - Musculoskeletal: Denies pain - Respiratory: Denies symptoms - Neurological: Denies additional symptoms - Dermatological: Denies new skin issues Physical Exam - Vital Signs- Stable - Heart- Regular rhythm observed - Lungs- Clear to auscultation - Abdomen- Soft and non-tender - Extremities- Non-tender - Neurological- Non-focal examination Results Plan Patient was informed and verbally consented to the use of an ambient scribe for clinic note documentation during this visit. 1. Bacteremia R78.81 The treatment of MRSA bacteremia continues with daptomycin, scheduled for completion by March 31. This antibiotic was selected due to its effectiveness in eradicating resistant bacterial strains. The patient's condition suggests bacteremia clearance with no apparent complications. Ensuring adherence to the treatment timeline is essential to prevent resistance or relapse. Patient engagement with supportive resources for IV drug use is recommended. Discussion Notes I discussed the nature and continuation of the current antibiotic regimen for the cleared MRSA bacteremia, including ensuring the patient understands the importance of completing the medication course through March 31. A discussion was held regarding adherence to treatment to prevent resistance and recurrence. The patient has been informed about engaging with supportive resources for IV drug use, noting its impact on risk factors related to bloodstream infections. The patient consented to continue with ongoing management plans and follow-up assessments as clinically necessary. Medical Decision Making In managing the patient's MRSA bacteremia, the focus remains on achieving complete bacterial eradication through daptomycin, reflecting its efficacy against resistant infections. Given the positive response, there is a reduced concern for immediate recurrence. Adherence to the treatment regimen is emphasized to averts risks of resistance and ensure complete resolution. Engagement with resources addressing IV drug use was recommended to mitigate potential future infection risks. Patient Instructions - Continue taking daptomycin as prescribed until March 31. - Contact healthcare services if new symptoms or complications arise. - Utilize available resources for managing IV drug use. - Attend follow-up appointments as advised. [facility] Medical History PVD (peripheral vascular disease) Constipation Portal hypertension Splenomegaly Cirrhosis of liver Gallbladder sludge Hyponatremia Lesion of prostate Lesion of prostate Alcohol abuse, in remission Substance use disorder Hepatitis C Opiate dependence Social History Household Members: Family Household Members Other:: mother Housing: House Are you a primary medical care administrator to a significant other at home: No Do you presently have visiting nurse or other home services: Yes Comment: counts correct Patient Tobacco Use Status: Former Tobacco user Tobacco use type: Cigarette Cigarettes Per Day: 2 Years Smoked: 25 e-Cigarette/Vaping Use: Currently Using Second Hand Smoke Exposure: Yes Substance Use Type: Former Substance User service: No Physical Exam Vital Signs: Last Vital Signs Temp 98.7 F 03/14/25 15:14 Pulse 94 03/14/25 15:14 Assessment & Plan Assessment & Plan (1) IVDU (intravenous drug user): Comment: 28 days antibiotics from first blood cultures negative .48-72h Code(s): F19.90 - Other psychoactive substance use, unspecified, uncomplicated Category: Medical Plan: as above (2) Substance abuse: Code(s): F19.10 - Other psychoactive substance abuse, uncomplicated Category: Medical Plan: as above (3) Gram-positive cocci bacteremia: Code(s): R78.81 - Bacteremia Category: Medical Plan: as above Coding Level of Care Code Est Pt Level 3 (71147) Diagnoses IVDU (intravenous drug user) F19.90 Substance abuse F19.10 Gram-positive cocci bacteremia R78.81
[2025-03-14 15:14] VITALS: PULSE 94; TEMP 37.1
== END 2025-03-14 15:27 | disposition home or self-care (01) ==
LOC: HO.HID 14:14
PROVIDERS: Visit Provider Internal Medicine
DX: F19.90 Other psychoactive substance use, unspecified, uncomplicated (principal); F19.10 Other psychoactive substance abuse, uncomplicated; R78.81 Bacteremia
CPT/HCPCS: 99213

== ENCOUNTER → 2025-03-14 14:14 | Outpatient (BNVA) | payer OTHER, SELFPAY | PROVIDERS: Visit Provider Internal Medicine | DX: R78.81 Bacteremia (principal); F19.10 Other psychoactive substance abuse, uncomplicated | CPT/HCPCS: 99212 ==